=== PATIENT | male | born 1955 | race Caucasian/White ===

== ENCOUNTER 2021-03-28 08:06 | Emergency (ER) | payer OTHER, MEDICAID, SELFPAY ==
--- NOTE | ~2021-03-28 | XR_ITS ---
EXAMINATION: XR CHEST CLINICAL INFORMATION: Chest pain COMPARISON: Previous chest x-ray September 2018 TECHNIQUE: 2 views of the chest were obtained. FINDINGS: The cardiac and mediastinal contours are stable. There is calcification seen projecting over the cardiac apex on the lateral view that appears unchanged. There is a left subclavian dual chamber pacemaker that is unchanged. The lungs are well inflated. The lungs are clear. There is no pleural effusion or pneumothorax. There are degenerative changes of the spine. XR/XR chest 2V IMPRESSION: Well-inflated lungs questionable for COPD. No evidence for acute disease in the chest.
[2021-03-28 08:11] VITALS: BP 155/98; PULSE 97; RESP 18; TEMP 36.9; O2SAT 98; BMI 20.3
--- NOTE | 2021-03-28 09:03 | ECG_ITS ---
Test Reason : CP Blood Pressure : / mmHG Vent. Rate : 070 BPM Atrial Rate : 000 BPM P-R Int : 000 ms QRS Dur : 098 ms QT Int : 392 ms P-R-T Axes : 000 085 034 degrees QTc Int : 423 ms Atrial fibrillation with occasional ventricular-paced complexes Minimal voltage criteria for LVH, may be normal variant ( Noe product ) Abnormal ECG When compared with ECG of 28-OCT-2018 10:54, Electronic ventricular pacemaker has replaced Atrial fibrillation Referred By: Tameka Dennison Electronically Signed By:Richard Cespedes
[2021-03-28 09:33] LABS: MANUAL DIFF FLAG NO
[2021-03-28 09:36] LABS: Basophils Percent Auto 0.5 % (0-2); Eosinophils Absolute Auto 0.3 X10*3/uL (0.0-0.4); Hematocrit 41.9 % (42.0-52.0); Hemoglobin 13.5 g/dl (14.0-18.0); Imm Gran Abs Auto 0.02 X10*3/uL (0.00-0.03); Imm Gran Pct Auto 0.3 % (0.0-0.4); Lymphocytes Absolute Auto 0.8 X10*3/uL (1.2-4.9); Lymphocytes Percent Auto 12.8 % (20-40); Mean Corpuscular HGB Conc 32.2 g/dl (31.0-36.0); Mean Corpuscular Hemoglobin 29.9 pg (27.0-33.0); Mean Corpuscular Volume 92.7 fL (80.0-98.0); Mean Platelet Volume 9.6 fL (9.4-12.4); Monocytes Absolute Auto 0.6 X10*3/uL (0.1-1.2); Monocytes Percent Auto 9.9 % (2-11); Neutrophils Absolute Auto 4.7 x10*3/uL (2.0-8.3); Neutrophils Percent Auto 72.5 % (45-73); Platelet Count 182 X10*3/uL (160-400); Red Blood Count 4.52 X10*6/uL (4.60-5.80); Red Cell Distribution Width 13.5 % (11.0-16.0); White Blood Count 6.5 X10*3/uL (4.8-10.8)
[2021-03-28 09:50] LABS: Alanine Aminotransferase 22 U/L (0-40); Albumin Level 4.3 g/dL (3.5-5.0); Alkaline Phosphatase 78 U/L (39-117); Anion Gap 9 (12-20); Aspartate Amino Transferase 26 U/L (5-37); Bilirubin Total 0.7 mg/dL (0.0-1.0); Blood Urea Nitrogen 17 mg/dL (9-16); Calcium 9.7 mg/dL (8.4-10.2); Carbon Dioxide 31 mmol/L (22-29); Chloride 102 mmol/L (96-108); Creatinine Clr Calc Pharmacy 85.2; Estimated Glomerular Filt Rate > 60; Glucose Random 97 mg/dL (60-115); Potassium 3.7 mmol/L (3.3-5.1); Sodium 138 mmol/L (135-145); Total Protein 7.4 g/dL (6.5-8.0)
[2021-03-28 09:53] LABS: Troponin-I High Sensitivity 6.1 ng/L (<3.5-35.0)
--- NOTE | 2021-03-28 09:53 | ED.URI ---
HPI - URI/Sore Throat General Chief Complaint: Upper Respiratory Symptoms Stated Complaint: sinsus infection Time Seen by Provider: 03/28/21 08:37 Source: patient Mode of arrival: ambulatory Limitations: no limitations History of Present Illness HPI Narrative: 65-year-old male presents with months of stuffy nose, mild headache, and sinus pressure. Patient also endorses chest pain 8 hours ago for few seconds last night. Patient's past medical history of COPD, anxiety, hypertension, AFib, pacemaker, and coronary artery disease. No chest pain currently no nausea, shortness of breath, fever, palpitations, nausea, vomiting, or abdominal pain now. No other URI symptoms. Pt is vaccinated for Covid. Patient is distressed with his living situation, states he lives at [facility] on [facility], and the his room is very cold. States that the management got new central air, and that his room is 100 degrees and the hallways are very cold. States this makes it so he cannot sleep at night and make it so he has a stuffy nose. MD elicited complaint: sinus pain Pertinent past history: COPD Onset (ago): month(s) Consistency: constant Severity: moderate Able to tolerate fluids by mouth: Yes Exacerbating factors: other (cold room) Relieving factors: nothing Associated symptoms: headache and nasal congestion Treatments prior to arrival: none Related Data Home Medications Medication Instructions Recorded Confirmed metoprolol succinate 25 mg 25 mg PO DAILY 02/01/20 tablet,extended release 24 hr Previous Rx's Medication Instructions Recorded rivaroxaban 20 mg tablet (Xarelto) 20 mg PO QPM #90 tab 12/29/19 atorvastatin 80 mg tablet 80 mg PO DAILY #90 tab 06/10/20 fluticasone propionate 50 2 spray INTRANASAL DAILY 30 Days 06/27/20 mcg/actuation nasal #16 ml spray,suspension paroxetine HCl 30 mg tablet 30 mg PO DAILY #90 tab 06/27/20 fluticasone furoate 200 1 inh INHALATION Q24H #60 ea 07/24/20 mcg-vilanterol 25 mcg/dose inhalation powder (Breo Ellipta) lisinopril 2.5 mg tablet 2.5 mg PO DAILY 90 Days #90 tab 08/12/20 doxycycline hyclate 100 mg capsule 100 mg PO BID 10 Days #20 cap 03/28/21 Allergies Allergy/AdvReac Type Severity Reaction Status Date / Time codeine [CODEINE] Allergy Mild NAUSEA Verified 02/01/20 13:43 Penicillins [PENICILLINS] Allergy Unknown ANAPHYLAXIS Verified 02/01/20 13:43 Review of Systems Constitutional: Constitutional: Denies body ache(s), Denies chills, Reports difficulty sleeping, Reports fatigue, Denies fever(s), Reports headache(s) and Denies weakness Eyes: Eyes: Denies blurry vision and Denies diplopia ENT: Reports vertigo, Denies dizziness, Denies otalgia, Reports headache(s), Denies mouth pain, Reports nasal congestion, Reports post nasal drip, Reports sinus pain and Denies sore throat Cardiovascular: Cardiovascular: Reports chest pain (for a few seconds 3 am last night), Denies syncope, Denies leg edema, Denies lightheadedness, Denies Loss of Consciousness, Denies palpitations and Denies dyspnea Respiratory: Respiratory: Denies chest congestion, Denies cough and Denies dyspnea Gastrointestinal: Gastrointestinal: Denies abdominal pain, Denies hematochezia, Denies constipation, Denies diarrhea, Denies nausea and Denies vomiting Musculoskeletal: Musculoskeletal: Reports no additional musculoskeletal complaints Neurologic: Reports confusion, Reports vertigo, Denies dizziness, Denies syncope, Reports headache(s) and Denies weakness Psychiatric: Psychiatric: Reports anxiety and Reports confusion Endocrine: Endocrine: Reports fatigue and Denies palpitations PMF Past Medical History Medical History Anxiety and depression Atrial fibrillation COPD (chronic obstructive pulmonary disease) Coronary artery disease Esophageal dysmotility GERD (gastroesophageal reflux disease) Homeless Hypercholesterolemia Hypertension Tobacco abuse Surgical History History of angioplasty History of surgery History of surgery Family History Family History (Updated 02/01/20 @ 13:46 by ANTONIO Kelly) Father Myocardial infarction Mother Medical history unknown Sister No problems noted. Brother No problems noted. Son No problems noted. Social History Social History Advance Directives: No Advance Directives Information Provided: Yes Physical Exam Vital Signs: Vital Signs: Last Vital Signs Temp 98.4 F 03/28/21 08:11 Pulse 97 03/28/21 08:11 Resp 18 03/28/21 08:11 BP 155/98 H 03/28/21 08:11 Pulse Ox 98 03/28/21 08:11 BMI result Body Mass Index 20.3 Const: General: confusion Nutritional Appearance: well nourished Orientation/consciousness: confusion Limitations: no limitations HENMT: Head: Yes normal to inspection, Yes normocephalic and Yes atraumatic Ears: hearing grossly normal bilaterally, external ears normal, TM's normal bilaterally and EAC's normal General nose exam: Normal external nose present Face and sinus: Yes sinus tenderness Mouth: Normal oral and palatal mucosa present Throat: Yes postnasal drainage Eyes: Conjunctivae: conjunctivae normal Pupils: Equal, round and reactive pupils present EOM: EOMs intact bilaterally Neck: Neck: Yes full ROM, Yes no lymphadenopathy and Yes supple Resp: Effort & Inspection: normal respiratory effort and able to speak in complete sentences Auscultation: clear to auscultation bilaterally, no crackles, no rales, no rhonchi and no wheezes Cardio: Rate: regular rate Rhythm: regular rhythm Heart sounds: S1 normal heart sound present and S2 normal heart sound present GI: Inspection: Yes normal to inspection Palpation (GI): Soft to palpation, nontender, no guarding and not rigid Percussion: Yes normal to percussion Auscultation: normal bowel sounds Skin: General skin exam: no rashes or lesions noted Neuro: General: confusion Cranial nerves: Yes Equal, round and reactive pupils present Extrem: General: Yes normal to inspection and Yes full ROM Psych: Appearance: grossly normal Affect: normal affect Attitude: cooperative Thought process: Normal thought process present Course Course Course Narrative: 65-year-old male with months of sinus pain and pressure and mild headache presents for evaluation of nasal congestion and sinus pain. On review of systems, patient also endorses chest pain last night at 03:00 for few seconds. On exam, patient is tired-appearing, patient is tender over his maxillary sinuses. Patient has postnasal drip. EKG shows no acute ischemia, troponin is 6.1. Discussed with Dr Oneill if we should get repeat troponin, Dr Oneill said it was not indicated with chest for just a few seconds. Labs otherwise unremarkable. Counseled patient to return if he had return of chest pain, shortness of breath, palpitations, fevers, treated patient with doxycycline for sinus infection, counseled patient to follow-up with primary care provider. All questions were answered. Patient verbalized agreement and understanding of the plan. MDM - URI/Sore Throat Lab Data Attestation: I reviewed the patient's lab results. Result diagrams: 03/28/21 09:18 03/28/21 09:18 Labs: Lab Results 03/28/21 03/28/21 03/28/21 Range/Units 09:18 09:18 09:18 WBC 6.5 (4.8-10.8) X10*3/uL RBC 4.52 L (4.60-5.80) X10*6/uL Hgb 13.5 L (14.0-18.0) g/dl Hct 41.9 L (42.0-52.0) % MCV 92.7 (80.0-98.0) fL MCH 29.9 (27.0-33.0) pg MCHC 32.2 (31.0-36.0) g/dl RDW 13.5 (11.0-16.0) % Plt Count 182 (160-400) X10*3/uL MPV 9.6 (9.4-12.4) fL Immature Gran % (Auto) 0.3 (0.0-0.4) % Neut % (Auto) 72.5 (45-73) % Lymph % (Auto) 12.8 L (20-40) % [place] % (Auto) 9.9 (2-11) % Eos % (Auto) 4.0 (0-4) % Baso % (Auto) 0.5 (0-2) % Lymph # (Auto) 0.8 L (1.2-4.9) X10*3/uL [place] # (Auto) 0.6 (0.1-1.2) X10*3/uL Eos # (Auto) 0.3 (0.0-0.4) X10*3/uL Baso # (Auto) 0.0 (0.0-0.2) X10*3/uL Abs Immat Gran (auto) 0.02 (0.00-0.03) X10*3/uL Absolute Neuts (auto) 4.7 (2.0-8.3) x10*3/uL Absolute Nucleated RBC 0.000 (0.0-0.012) X10*3/uL Nucleated RBC % (auto) 0.0 (0.0-0.2) /100WBC Sodium 138 (135-145) mmol/L Potassium 3.7 (3.3-5.1) mmol/L Chloride 102 (96-108) mmol/L Carbon Dioxide 31 H (22-29) mmol/L Anion Gap 9 L (12-20) BUN 17 H (9-16) mg/dL Creatinine 0.74 (0.5-1.4) mg/dL Estim Creat Clear Calc 85.2 Estimated GFR > 60 Random Glucose 97 (60-115) mg/dL Calcium 9.7 (8.4-10.2) mg/dL Total Bilirubin 0.7 (0.0-1.0) mg/dL AST 26 (5-37) U/L ALT 22 (0-40) U/L Alkaline Phosphatase 78 (39-117) U/L Troponin I High Sens 6.1 (<3.5-35.0) ng/L Total Protein 7.4 (6.5-8.0) g/dL Albumin 4.3 (3.5-5.0) g/dL ECG Data Interpretation: Atrial fibrillation with a rate of 70. QRS 98, QTc 423, normal axis. Occasional V paced complexes. No ST elevation or depression, no T-wave abnormalities Discharge Plan Discharge Clinical Impression: Acute sinus infection Patient Disposition: Home, Self-Care Instructions: Sinusitis (ED) Additional Instructions: Please return to the emergency room if you have any more chest pain, shortness of breath, or palpitations. You have a sinus infection today, we will treat you with antibiotics for 10 days. This call your primary care provider for follow-up appointment from today's emergency room visit. Prescriptions: New doxycycline hyclate 100 mg capsule 100 mg PO BID 10 Days Qty: 20 0RF No Action Xarelto 20 mg tablet 20 mg PO QPM Qty: 90 3RF Rx Instructions: must administer with evening meal metoprolol succinate 25 mg tablet extended release 24 hr 25 mg PO DAILY 0RF atorvastatin 80 mg tablet 80 mg PO DAILY Qty: 90 1RF fluticasone propionate 50 mcg/actuation spray,suspension 2 spray intranasal DAILY 30 Days Qty: 16 3RF paroxetine HCl 30 mg tablet 30 mg PO DAILY Qty: 90 0RF Breo Ellipta 200-25 mcg/dose blister with device 1 inh inhalation Q24H Qty: 60 2RF lisinopril 2.5 mg tablet 2.5 mg PO DAILY 90 Days Qty: 90 0RF Interventions: ED Discharge Assessment Last Done: 03/28/21 10:05 Discharge Date/Time: 03/28/21 10:06
--- NOTE | 2021-03-28 09:56 | PC.NURSE ---
PT SPEAKING IN FULL SENTENCES, RAMBLING SPEECH AT TIMES, ANXIOUS, MOVING ALL EXTREMITIES, STEADY GAIT, NO DIFF BREATHING, NEUROS INTACT. PT DENIES CP AT THIS TIME BUT STATED LASTNIGHT HE FELT CP WHEN HE WAS TALKING TO NEIGHBORS ABOUT LACK OF HEAT IN HIS BUILDING UNIT.
== END 2021-03-28 10:06 | disposition home or self-care (01) ==
PROVIDERS: Physician Assistant; Emergency Provider Emergency Medicine Emergency Medical Services
DX: J01.90 Acute sinusitis, unspecified (principal); R07.9 Chest pain, unspecified; R53.83 Other fatigue; I48.91 Unspecified atrial fibrillation; I10 Essential (primary) hypertension; E78.00 Pure hypercholesterolemia, unspecified; F17.200 Nicotine dependence, unspecified, uncomplicated; Z72.89 Other problems related to lifestyle; Z59.1 Inadequate housing
CPT/HCPCS: 36415; 71046; 80053; 84484; 85025; 93005; 99283; 99284

== ENCOUNTER 2021-04-10 04:08 | Emergency (ER) | payer OTHER, MEDICAID, SELFPAY ==
--- NOTE | ~2021-04-10 | XR_ITS ---
EXAMINATION: XR CHEST CLINICAL INFORMATION: Cough COMPARISON: March 28, 2021 TECHNIQUE: AP portable view of the chest was obtained. FINDINGS: There is no evidence of acute parenchymal disease, pneumothorax, or pleural effusion. Heart normal size. No evidence of pulmonary edema. Dual-chamber pacemaker in place. XR/XR chest 1V IMPRESSION: No acute disease.
--- NOTE | 2021-04-10 05:52 | PC.NURSE ---
see downtime chart for triage info
[2021-04-10 06:42] LABS: MANUAL DIFF FLAG NO
[2021-04-10 06:45] LABS: Basophils Percent Auto 0.4 % (0-2); Eosinophils Absolute Auto 0.2 X10*3/uL (0.0-0.4); Hematocrit 40.4 % (42.0-52.0); Hemoglobin 13.6 g/dl (14.0-18.0); Imm Gran Abs Auto 0.02 X10*3/uL (0.00-0.03); Imm Gran Pct Auto 0.3 % (0.0-0.4); Lymphocytes Absolute Auto 1.2 X10*3/uL (1.2-4.9); Lymphocytes Percent Auto 16.9 % (20-40); Mean Corpuscular HGB Conc 33.7 g/dl (31.0-36.0); Mean Corpuscular Hemoglobin 30.4 pg (27.0-33.0); Mean Corpuscular Volume 90.4 fL (80.0-98.0); Mean Platelet Volume 9.6 fL (9.4-12.4); Monocytes Absolute Auto 0.7 X10*3/uL (0.1-1.2); Monocytes Percent Auto 10.2 % (2-11); Neutrophils Absolute Auto 4.8 x10*3/uL (2.0-8.3); Neutrophils Percent Auto 69.2 % (45-73); Platelet Count 186 X10*3/uL (160-400); Red Blood Count 4.47 X10*6/uL (4.60-5.80); Red Cell Distribution Width 13.2 % (11.0-16.0); White Blood Count 6.9 X10*3/uL (4.8-10.8)
[2021-04-10 07:04] LABS: Alanine Aminotransferase 15 U/L (0-40); Albumin Level 3.9 g/dL (3.5-5.0); Alkaline Phosphatase 71 U/L (39-117); Anion Gap 12 (12-20); Aspartate Amino Transferase 21 U/L (5-37); Bilirubin Total 0.8 mg/dL (0.0-1.0); Blood Urea Nitrogen 27 mg/dL (9-16); Calcium 9.8 mg/dL (8.4-10.2); Carbon Dioxide 27 mmol/L (22-29); Chloride 102 mmol/L (96-108); Estimated Glomerular Filt Rate > 60; Glucose Random 113 mg/dL (60-115); Potassium 4.1 mmol/L (3.3-5.1); Sodium 137 mmol/L (135-145); Total Protein 6.7 g/dL (6.5-8.0)
[2021-04-10 08:25] VITALS: BP 122/70; PULSE 68; RESP 18; O2SAT 98
--- NOTE | 2021-04-10 08:27 | PC.NURSE ---
Pt states he hasn't slept in weeks, it is because his appartment is too cold and he has no access to control the heat. Pt VSS, no complaints of pain. A&Ox3, LCA. States no one wants to help him and he needs to gabriel the apartment for his pain and suffering. Has dry cough present, no phlegm at this time. Awaiting dispo, call oliva within reach. Will continue to monitor.
--- NOTE | 2021-04-10 11:28 | ED_ITS ---
HPI - Anxiety General Chief Complaint: Anxiety Stated Complaint: anxiety Time Seen by Provider: 04/10/21 11:27 Related Data Home Medications Medication Instructions Recorded Confirmed metoprolol succinate 25 mg 25 mg PO DAILY 02/01/20 tablet,extended release 24 hr Previous Rx's Medication Instructions Recorded rivaroxaban 20 mg tablet (Xarelto) 20 mg PO QPM #90 tab 12/29/19 atorvastatin 80 mg tablet 80 mg PO DAILY #90 tab 06/10/20 fluticasone propionate 50 2 spray INTRANASAL DAILY 30 Days 06/27/20 mcg/actuation nasal #16 ml spray,suspension paroxetine HCl 30 mg tablet 30 mg PO DAILY #90 tab 06/27/20 fluticasone furoate 200 1 inh INHALATION Q24H #60 ea 07/24/20 mcg-vilanterol 25 mcg/dose inhalation powder (Breo Ellipta) lisinopril 2.5 mg tablet 2.5 mg PO DAILY 90 Days #90 tab 08/12/20 doxycycline hyclate 100 mg capsule 100 mg PO BID 10 Days #20 cap 03/28/21 Allergies Allergy/AdvReac Type Severity Reaction Status Date / Time codeine [CODEINE] Allergy Mild NAUSEA Verified 02/01/20 13:43 Penicillins [PENICILLINS] Allergy Unknown ANAPHYLAXIS Verified 02/01/20 13:43 [facility] Past Medical History Medical History Anxiety and depression Atrial fibrillation COPD (chronic obstructive pulmonary disease) Coronary artery disease Esophageal dysmotility GERD (gastroesophageal reflux disease) Homeless Hypercholesterolemia Hypertension Tobacco abuse Surgical History History of angioplasty History of surgery History of surgery Family History Family History (Updated 02/01/20 @ 13:46 by Tere Lee Luis Carlos) Father Myocardial infarction Mother Medical history unknown Sister No problems noted. Brother No problems noted. Son No problems noted. Social History Social History Alcohol intake: never Patient Tobacco Use Status: Current everyday Tobacco user Use of substances other than those prescribed or required for medical reasons: Yes Substance Use Type: Marijuana Advance Directives: No Advance Directives Information Provided: No Physical Exam Vital Signs: Vital Signs: Last Vital Signs Temp 97.8 F 04/10/21 12:00 Pulse 88 04/10/21 14:00 Resp 16 04/10/21 14:00 BP 100/72 04/10/21 14:00 Pulse Ox 97 04/10/21 14:00 BMI result Body Mass Index 20.3 Course Course Course Narrative: Please refer to full assessment/note that is on paper chart during down time. Patient presented for evaluation of increased anxiety due to difficulties with he at his home. Reported not able to sleep due to cold. Denied SI/HI/hallucinations. Patient is currently pending care team consult and Case Management consult. Labs reviewed, BUN acute on chronically elevated, otherwise unremarkable MDM - Anxiety Lab Data Result diagrams: 04/10/21 06:34 04/10/21 06:34 Labs: Lab Results 04/10/21 04/10/21 04/10/21 Range/Units 06:34 06:34 12:46 WBC 6.9 (4.8-10.8) X10*3/uL RBC 4.47 L (4.60-5.80) X10*6/uL Hgb 13.6 L (14.0-18.0) g/dl Hct 40.4 L (42.0-52.0) % MCV 90.4 (80.0-98.0) fL MCH 30.4 (27.0-33.0) pg MCHC 33.7 (31.0-36.0) g/dl RDW 13.2 (11.0-16.0) % Plt Count 186 (160-400) X10*3/uL MPV 9.6 (9.4-12.4) fL Immature Gran % (Auto) 0.3 (0.0-0.4) % Neut % (Auto) 69.2 (45-73) % Lymph % (Auto) 16.9 L (20-40) % [place] % (Auto) 10.2 (2-11) % Eos % (Auto) 3.0 (0-4) % Baso % (Auto) 0.4 (0-2) % Lymph # (Auto) 1.2 (1.2-4.9) X10*3/uL [place] # (Auto) 0.7 (0.1-1.2) X10*3/uL Eos # (Auto) 0.2 (0.0-0.4) X10*3/uL Baso # (Auto) 0.0 (0.0-0.2) X10*3/uL Abs Immat Gran (auto) 0.02 (0.00-0.03) X10*3/uL Absolute Neuts (auto) 4.8 (2.0-8.3) x10*3/uL Absolute Nucleated RBC 0.000 (0.0-0.012) X10*3/uL Nucleated RBC % (auto) 0.0 (0.0-0.2) /100WBC Sodium 137 (135-145) mmol/L Potassium 4.1 (3.3-5.1) mmol/L Chloride 102 (96-108) mmol/L Carbon Dioxide 27 (22-29) mmol/L Anion Gap 12 (12-20) BUN 27 H D (9-16) mg/dL Creatinine 0.72 (0.5-1.4) mg/dL Estim Creat Clear Calc TNP Estimated GFR > 60 Random Glucose 113 (60-115) mg/dL Calcium 9.8 (8.4-10.2) mg/dL Total Bilirubin 0.8 (0.0-1.0) mg/dL AST 21 (5-37) U/L ALT 15 (0-40) U/L Alkaline Phosphatase 71 (39-117) U/L Total Protein 6.7 (6.5-8.0) g/dL Albumin 3.9 (3.5-5.0) g/dL Urine Color YELLOW Urine Appearance CLEAR Urine pH 6.0 (5.0-8.0) Ur Specific [place] 1.025 (1.005-1.025) Urine Protein NEG (NEG-TRACE) MG/DL Urine Glucose (UA) NEG (NEG) MG/DL Urine Ketones NEG (NEG) MG/DL Urine Blood NEG (NEG) Urine Nitrite NEG (NEG) Ur Leukocyte Esterase NEG (NEG) Discharge Plan Discharge Clinical Impression: Acute anxiety Patient Disposition: Still a Patient Prescriptions: No Action Xarelto 20 mg tablet 20 mg PO QPM Qty: 90 3RF Rx Instructions: must administer with evening meal metoprolol succinate 25 mg tablet extended release 24 hr 25 mg PO DAILY 0RF atorvastatin 80 mg tablet 80 mg PO DAILY Qty: 90 1RF fluticasone propionate 50 mcg/actuation spray,suspension 2 spray intranasal DAILY 30 Days Qty: 16 3RF paroxetine HCl 30 mg tablet 30 mg PO DAILY Qty: 90 0RF Breo Ellipta 200-25 mcg/dose blister with device 1 inh inhalation Q24H Qty: 60 2RF lisinopril 2.5 mg tablet 2.5 mg PO DAILY 90 Days Qty: 90 0RF doxycycline hyclate 100 mg capsule 100 mg PO BID 10 Days Qty: 20 0RF
--- NOTE | 2021-04-10 11:42 | MHC.CM.ED ---
Received case management consult. Waiting for patient to be seen by Crisis. Continue to monitor for d/c needs.
[2021-04-10 12:00] VITALS: BP 111/76; BP 117/76; PULSE 63; RESP 18; TEMP 36.6; O2SAT 97
--- NOTE | 2021-04-10 12:04 | PC.NURSE ---
spoke with pt, a&ox3, decreased anxiety, pending meeting with crisis, urine sample obtained and sent to lab.
--- NOTE | 2021-04-10 12:23 | PC.NURSE ---
pt a&ox3, vss, increased congestion since arrival to ED, coughing up phlegm, provider notified.
[2021-04-10 12:56] LABS: Appearance Urine CLEAR; Color Urine YELLOW; Glucose Urine UA NEG (NEG); Leukocyte Esterase Urine NEG (NEG); Nitrite Urine NEG (NEG); Specific Gravity - Urine 1.025 (1.005-1.025); Urine Blood NEG (NEG); Urine Ketones NEG (NEG); Urine Protein NEG (NEG-TRACE)
--- NOTE | 2021-04-10 13:32 | PC.NURSE ---
spoke w provider re productive cough, will order chest rad, updated pt
[2021-04-10 13:33] VITALS: BMI 20.3
[2021-04-10 14:00] VITALS: BP 100/72; PULSE 88; RESP 16; O2SAT 97
--- NOTE | 2021-04-10 14:11 | PC.NURSE ---
cxr being performed
--- NOTE | 2021-04-10 14:23 | PC.NURSE ---
pt a&ox3, resting quietly, eating lunch/watching tv, chest rad results pending, vss, will continue to monitor.
[2021-04-10 17:53] LABS: COVID-19 Test Negative (Negative)
== END 2021-04-10 18:01 | disposition home or self-care (01) ==
PROVIDERS: Physician Assistant; Emergency Provider Emergency Medicine; PCP Internal Medicine
DX: F41.9 Anxiety disorder, unspecified (principal); Z72.820 Sleep deprivation; I10 Essential (primary) hypertension; I48.91 Unspecified atrial fibrillation; E78.5 Hyperlipidemia, unspecified; F17.200 Nicotine dependence, unspecified, uncomplicated; F12.90 Cannabis use, unspecified, uncomplicated; Z20.822 Contact with and (suspected) exposure to COVID-19; Z72.89 Other problems related to lifestyle; Z59.1 Inadequate housing; Z79.01 Long term (current) use of anticoagulants; Z79.02 Long term (current) use of antithrombotics/antiplatelets; Z79.899 Other long term (current) drug therapy
CPT/HCPCS: 36415; 71045; 80053; 81003; 85025; 87635; 99284; 99285

== ENCOUNTER 2021-04-11 11:15 | Emergency (ER) | payer OTHER, MEDICAID, SELFPAY ==
[2021-04-11 11:19] VITALS: BP 150/86; PULSE 80; RESP 20; TEMP 36.7; O2SAT 99; BMI 20.3
--- NOTE | 2021-04-11 11:30 | ED.GENADULT ---
HPI - General Adult General Chief complaint: General Medical Stated complaint: unable to function Time Seen by Provider: 04/11/21 11:29 Source: patient Mode of arrival: ambulatory Limitations: no limitations History of Present Illness HPI narrative: Patient is a 65 year old male presenting to the emergency department today stating that his heat is not working at home. Patient states that he was seen here yesterday for the same reason and that he is just frustrated his heat isn't working at home. Patient denies any dizziness, lightheadedness, abdominal pain, nausea, vomiting, fever, chills, blurry vision, double vision, loss of vision, chest pain, difficulty breathing, shortness of breath, back pain, night sweats, pain with urination, increased urinary frequency, increased urinary urgency, blood in his urine or stool, syncope or a near syncopal episode, recent trauma or falls, bowel incontinence, bladder incontinence, bowel retention, bladder retention, or any other complaints at this time. Relieving factors: none Exacerbating factors: none Related Data Home Medications Medication Instructions Recorded Confirmed metoprolol succinate 25 mg 25 mg PO DAILY 02/01/20 tablet,extended release 24 hr Previous Rx's Medication Instructions Recorded rivaroxaban 20 mg tablet (Xarelto) 20 mg PO QPM #90 tab 12/29/19 atorvastatin 80 mg tablet 80 mg PO DAILY #90 tab 06/10/20 fluticasone propionate 50 2 spray INTRANASAL DAILY 30 Days 06/27/20 mcg/actuation nasal #16 ml spray,suspension paroxetine HCl 30 mg tablet 30 mg PO DAILY #90 tab 06/27/20 fluticasone furoate 200 1 inh INHALATION Q24H #60 ea 07/24/20 mcg-vilanterol 25 mcg/dose inhalation powder (Breo Ellipta) lisinopril 2.5 mg tablet 2.5 mg PO DAILY 90 Days #90 tab 08/12/20 doxycycline hyclate 100 mg capsule 100 mg PO BID 10 Days #20 cap 03/28/21 Allergies Allergy/AdvReac Type Severity Reaction Status Date / Time codeine [CODEINE] Allergy Mild NAUSEA Verified 02/01/20 13:43 Penicillins [PENICILLINS] Allergy Unknown ANAPHYLAXIS Verified 02/01/20 13:43 Review of Systems Constitutional: Constitutional: Reports no additional constitutional complaints, Denies chills, Denies fever(s) and Denies night sweats Eyes: Eyes: Reports no additional eye complaints, Denies blurry vision, Denies change in vision, Denies diplopia, Denies eye discharge, Denies loss of vision and Denies eye pain ENT: Denies dizziness Cardiovascular: Cardiovascular: Reports no additional cardiovascular complaints, Denies chest pain, Denies lightheadedness, Denies Loss of Consciousness and Denies dyspnea Respiratory: Respiratory: Reports no additional respiratory complaints and Denies dyspnea Gastrointestinal: Gastrointestinal: Reports no additional gastrointestinal complaints, Denies abdominal pain, Denies melena, Denies hematochezia, Denies change in bowel habits and Denies change in stool character Genitourinary: Genitourinary: Reports no additional male genitourinary complaints, Denies hematuria, Denies oliguria, Denies difficulty urinating, Denies dysuria, Denies urinary frequency, Denies urinary hesitancy, Denies urinary incontinence and Denies urinary urgency Musculoskeletal: Musculoskeletal: Reports no additional musculoskeletal complaints, Denies numbness and Denies tingling Neurologic: Denies dizziness, Denies loss of vision, Denies numbness and Denies tingling Psychiatric: Psychiatric: Reports no additional psychiatric complaints Endocrine: Endocrine: Reports no additional endocrine complaints Hematologic/Lymphatic: Hematologic/Lymphatic: Reports no additional hematologic/lymphatic complaints Allergic/Immunologic: Allergic/Immunologic: Reports no additional allergic/immunologic complaints [facility] Past Medical History Attestation statement: The following information was validated with the patient. Source: old records reviewed Medical History Anxiety and depression Atrial fibrillation COPD (chronic obstructive pulmonary disease) Coronary artery disease Esophageal dysmotility GERD (gastroesophageal reflux disease) Homeless Hypercholesterolemia Hypertension Tobacco abuse Surgical History History of angioplasty History of surgery History of surgery Family History Family History Father Myocardial infarction Mother Medical history unknown Sister No problems noted. Brother No problems noted. Son No problems noted. Social History Social History Alcohol intake: never Patient Tobacco Use Status: Current everyday Tobacco user Substance Use Type: Marijuana Advance Directives: No Advance Directives Information Provided: Yes Physical Exam ED Vital Signs: Vital Signs - 24 hr 02/25/22 11:19 Temperature 98.0 F Pulse Rate 80 Respiratory Rate 20 Blood Pressure 150/86 H Pulse Oximetry 99 BMI result Body Mass Index 20.3 Const General: cooperative, no acute distress, alert and awake Nutritional Appearance: well nourished Orientation/consciousness: patient oriented x3 Limitations: no limitations HENMT Head: Yes normal to inspection and Yes atraumatic Ears: hearing grossly normal bilaterally and external ears normal General nose exam: Normal external nose present, no nasal discharge noted and no epistaxis Face and sinus: Yes normal facial exam, No abrasion and No laceration Mouth: Normal oral and palatal mucosa present, no drooling and no muffled voice Eyes General: appearance normal, both eyes and all related structures Periorbital: periorbital findings normal Eyelids: Yes eyelids normal Conjunctivae: conjunctivae normal Pupils: Equal, round and reactive pupils present EOM: EOMs intact bilaterally Neck Neck: Yes normal visual inspection, Yes full ROM and Yes no lymphadenopathy Chest Chest palpation & inspection: normal inspection of the chest Resp Effort & Inspection: normal respiratory effort and able to speak in complete sentences Auscultation: clear to auscultation bilaterally Cardio Rate: regular rate Rhythm: regular rhythm GI Inspection: Yes normal to inspection Neuro General: patient oriented x3 and moves all extremities Cranial nerves: Yes Equal, round and reactive pupils present Cognition (Neuro): normal cognition Motor exam (neuro): 5/5 motor strength present throughout Sensory Exam: Normal double simultaneous stimulation for sensation Coordination: [id number] test normal Extrem General: Yes normal to inspection, Yes full ROM and Yes capillary refill normal Psych Appearance: grossly normal Mental Status: mental status grossly normal Affect: normal affect Attitude: cooperative Thought process: Normal thought process present Thought content: Normal thought content present Insight: Good insight present (Psych) Medical Decision Making MDM Narrative Medical decision making narrative: Patient is a 65 year old male presenting to the emergency department today with no complaints and just needing somewhere warm to be. Patient's physical exam was unremarkable. I explained my physical exam findings to the patient. I answered all questions asked by the patient. I stressed the importance of the patient taking his medication as prescribed. I stressed the importance of the patient following up with his primary care provider. I stressed the importance of the patient returning to the emergency department immediately if he were to develop any dizziness, shortness of breath, difficulty breathing, chest pain, blurry vision, loss of vision, nausea, vomiting, abdominal pain, fever, chills, back pain, or any other complaints. Patient verbalized agreement and understanding with this treatment plan and discharge. Differential Diagnosis Differential Diagnosis: malingering, misuse of resources, cold exposure Medical Records Medical records reviewed: Yes I reviewed the patient's medical records. Discharge Plan Discharge Clinical Impression: General medical examination Patient Disposition: Home, Self-Care Instructions: Normal Exam (ED) Additional Instructions: Follow up with your primary care provider. Return to the emergency department immediately if your symptoms worsen or if you develop any dizziness, shortness of breath, difficulty breathing, chest pain, blurry vision, loss of vision, nausea, vomiting, abdominal pain, fever, chills, back pain, or any other complaints. Prescriptions: No Action Xarelto 20 mg tablet 20 mg PO QPM Qty: 90 3RF Rx Instructions: must administer with evening meal metoprolol succinate 25 mg tablet extended release 24 hr 25 mg PO DAILY 0RF atorvastatin 80 mg tablet 80 mg PO DAILY Qty: 90 1RF fluticasone propionate 50 mcg/actuation spray,suspension 2 spray intranasal DAILY 30 Days Qty: 16 3RF paroxetine HCl 30 mg tablet 30 mg PO DAILY Qty: 90 0RF Breo Ellipta 200-25 mcg/dose blister with device 1 inh inhalation Q24H Qty: 60 2RF lisinopril 2.5 mg tablet 2.5 mg PO DAILY 90 Days Qty: 90 0RF doxycycline hyclate 100 mg capsule 100 mg PO BID 10 Days Qty: 20 0RF Interventions: ED Discharge Assessment Last Done: 04/11/21 12:24 Discharge Date/Time: 04/11/21 12:24 Print Language: Samoan
--- NOTE | 2021-04-11 12:36 | MHC.CM.ED ---
Received notification from Cindy BARRAGAN that patient is stating he doesn't have heat in his apartment and his landlord won't return his telephone call. His apartment is part of [facility]. T/W left a message for marketing compliance manager Jose Luis via telephone at [phone] requesting return telephone call. Tanya ordered to transport patient home.
== END 2021-04-11 12:24 | disposition home or self-care (01) ==
PROVIDERS: Emergency Provider Emergency Medicine
DX: F43.9 Reaction to severe stress, unspecified (principal); F12.90 Cannabis use, unspecified, uncomplicated; Z71.6 Tobacco abuse counseling; Z79.899 Other long term (current) drug therapy
CPT/HCPCS: 99283

== ENCOUNTER → 2021-05-26 13:54 | Outpatient (BNVA) | payer OTHER, MEDICAID, SELFPAY | PROVIDERS: Visit Provider Internal Medicine | DX: Z45.018 Encounter for adjustment and management of other part of cardiac pacemaker (principal); I25.5 Ischemic cardiomyopathy; I25.10 Atherosclerotic heart disease of native coronary artery without angina pectoris; I48.19 Other persistent atrial fibrillation; I35.0 Nonrheumatic aortic (valve) stenosis | CPT/HCPCS: 99212 ==

== ENCOUNTER 2022-09-09 10:33 | Outpatient (AMB) | payer OTHER, MEDICAID, SELFPAY ==
[2022-09-09 10:35] VITALS: BP 104/80; PULSE 82
--- NOTE | 2022-09-09 10:35 | A.OFFVIS_ITS ---
Intake Vital Signs 09/09/22 10:35 Height 5 ft 7 in Weight 127 lb 13.89 oz BMI 20.0 BP 104/80 Blood Pressure Location Lt brachial Position Sitting Pulse 82 Intake Visit Reasons: over due follow up Intake Note: overdue follow up Network Technical Analyst Required: No Accompanied by: Self / Same As Patient Allergies codeine [CODEINE] Allergy (Mild, Verified 09/09/22 10:39) NAUSEA Penicillins [PENICILLINS] Allergy (Unknown, Verified 09/09/22 10:39) ANAPHYLAXIS Medication List - Last Reconciled 09/09/22 by Denis Campuzano MD atorvastatin 80 mg PO DAILY fluticasone furoate-vilanterol 200-25 mcg/dose (Breo Ellipta) 1 inh inhalation Q24H fluticasone propionate 50 mcg/actuation 2 sprays intranasal DAILY 30 days metoprolol succinate ER (Toprol XL) 25 mg PO DAILY paroxetine HCl 30 mg PO DAILY rivaroxaban (Xarelto) 20 mg PO QPM HPI HPI Comments History of Present Illness Details Taj returns for follow-up regarding various issues including coronary disease, atrial fibrillation, aortic stenosis and pacemaker. appoint ments are very regular and there are lot of social issues. He does not have any transport. Until a couple of weeks ago he did not have any phone line as well Making communication extremely difficult. Last year, it seems that he was hospitalized to [facility]. At that time, he had complained of feeling dizzy. However, he has had dizziness for a long time. Echocardiogram as well as cardiac catheterization were then performed and it seems that he was being worked up for TAVR but patient did not keep any appointments for follow-up. Since that time, no new complaints. Random dizziness, no specific patterns. No syncopal episodes. No other overt cardiac symptoms. States he does take his medications. [facility] Medical History Anxiety and depression Atrial fibrillation COPD (chronic obstructive pulmonary disease) Coronary artery disease Esophageal dysmotility GERD (gastroesophageal reflux disease) Homeless Hypercholesterolemia Hypertension Tobacco abuse Surgical History History of angioplasty History of surgery History of surgery Family History Father Myocardial infarction Mother Medical history unknown Sister No problems noted. Brother No problems noted. Son No problems noted. Social History (Updated 09/09/22 @ 10:40 by Annalisa Bernal) Alcohol intake: never Patient Tobacco Use Status: Current everyday Tobacco user Tobacco use type: Cigarette Cigarettes Per Day: 3 Substance Use Type: Marijuana Review of Systems Const Denies weakness ENT Denies dizziness Card Denies chest pain, Denies chest pain with activity, Denies syncope, Denies rapid heart rate, Denies pedal edema, Denies edema, Denies leg edema, Denies lightheadedness, Denies palpitations, Denies dyspnea, Denies dyspnea on exertion and Denies orthopnea Resp Denies cough, Denies dyspnea and Denies dyspnea on exertion GI Denies hematochezia and Denies change in stool character Musc Denies abnormal gait, Denies muscle cramps, Denies muscle weakness, Denies numbness, Denies radiating pain into limb and Denies tingling Neuro Denies abnormal gait, Denies dizziness, Denies syncope, Denies numbness, Denies tingling and Denies weakness Endo Denies palpitations Physical Exam Vital Signs: Last Vital Signs Pulse 82 09/09/22 10:35 BP 104/80 09/09/22 10:35 BMI result Body Mass Index 20.0 Const General: comfortable and no acute distress Orientation/consciousness: patient oriented x3 HEENT Other: Unremarkable Head: Yes normal to inspection Neck Neck: Yes normal visual inspection Chest Chest palpation & inspection: normal inspection of the chest Resp Auscultation: clear to auscultation bilaterally Cardio Palpation: normal PMI Heart sounds: S1 normal heart sound present, S2 normal heart sound present, no gallops, Murmur heart sound present systolic II/ and at the right sternal border and no rubs GI Palpation (GI): Soft to palpation Back/Spine/Pelvis Other: unremarkable Skin General skin exam: no rashes or lesions noted Neuro General: patient oriented x3 Extrem General: Yes normal to inspection Psych Mental Status: mental status grossly normal Office Procedures EKG Details: EKG today shows atrial fibrillation at a rate of 82/Min; nonspecific ST-T changes. [id number], Complete Assessment & Plan Assessment & Plan (1) Atherosclerotic cardiovascular disease: Code(s): I25.10 - Atherosclerotic heart disease of [place] coronary artery without angina pectoris Plan: Remote history of anterior wall myocardial infarction followed by angioplasty more than 20 years ago. No details available. In the cardiac catheterization from last year, [id number] nonobstructive CAD. Normal left and right-sided filling pressures as well. Clinically, no overt angina. Continue meds for stable CAD including beta- blockers and statins. (2) Persistent atrial fibrillation: Code(s): I48.19 - Other persistent atrial fibrillation Plan: Continue beta-blockers. Continue anticoagulation. In the echocardiogram, severely dilated left atrium. Due to poor follow-up, would not pursue rhythm control. (3) Non-rheumatic aortic stenosis: Code(s): I35.0 - Nonrheumatic aortic (valve) stenosis Plan: By echocardiogram last year, thought to have paradoxical low-flow, low gradient severe aortic stenosis. Subsequently, underwent cardiac catheterization where he was felt to have moderate to severe low-flow, low gradient aortic stenosis. [place], highly doubt if this is actually contributing to his symptoms as the dizziness is nonspecific and he has had that for a very long time. We can repeat the echocardiogram to reassess aortic stenosis as it has been quite some time.. (4) Pacemaker: Code(s): Z95.0 - Presence of cardiac pacemaker Plan: Due to lack of communication, not being remotely monitored. It seems that it was checked last year at [facility]. At that time, 3.5 years battery life and otherwise normal function. To be checked in office next visit. Plan Total time spent including review of all the [facility] records, counseling, documentation, coordination of care- 50 minutes. Orders: Orders CA echo transthoracic complete Today I35.0 - Nonrheumatic aortic (valve) stenosis Coding Level of Care Code Est Pt Level 5 (95116) Diagnoses Atherosclerotic cardiovascular disease I25.10 Persistent atrial fibrillation I48.19 Non-rheumatic aortic stenosis I35.0 Pacemaker Z95.0 CPT Codes EKG - CPT: 13170-[id number], Complete ([id number])
== END 2022-09-09 11:32 | disposition home or self-care (01) ==
PROVIDERS: Visit Provider Internal Medicine
DX: I25.10 Atherosclerotic heart disease of native coronary artery without angina pectoris (principal); I48.19 Other persistent atrial fibrillation; I35.0 Nonrheumatic aortic (valve) stenosis; Z95.0 Presence of cardiac pacemaker
CPT/HCPCS: 93010; 99215

== ENCOUNTER → 2022-09-09 10:33 | Outpatient (BNVA) | payer OTHER, SELFPAY | PROVIDERS: Visit Provider Internal Medicine | DX: I25.10 Atherosclerotic heart disease of native coronary artery without angina pectoris (principal); I48.19 Other persistent atrial fibrillation; I35.0 Nonrheumatic aortic (valve) stenosis; Z95.0 Presence of cardiac pacemaker | CPT/HCPCS: 93005; 99212 ==

== ENCOUNTER → 2023-01-26 13:31 | Outpatient (REF) | payer OTHER, MEDICAID, SELFPAY ==
--- NOTE | 2023-01-26 13:37 | CA_ITS ---
Transthoracic Echocardiogram Patient (Last, First, Middle): Taj Granger J Gender: Male Date of : 1955 Age: 67 Procedure Date: 01/26/2023 Procedure Type: Transthoracic Echocardiogram Location: OP Height: 170.18 cm Weight: 59.42 kg BSA: 1.69 m2 Heart Rate: bpm BP: 118 / 82 mmHg Electric Motor Assembler And Tester: TO Referring MD: Denis Campuzano MD Symptoms: I35.0 - Nonrheumatic aortic (valve) stenosis Study Quality: Fair ECG Rhythm: Sinus Conclusions: - The left ventricular systolic function is low normal. The visually estimated ejection fraction is between 50-55%. - The basal inferolateral segment is akinetic. The basal inferior segment is hypokinetic. - Suspect paradoxical low flow, low gradient, severe aortic stenosis. - There is mild dilatation of the ascending aorta measuring 4.40 cm and mild dilatation of the aortic arch measuring 4.10 cm. Findings Left Ventricle Normal left ventricular cavity size. The left ventricular systolic function is low normal. The visually estimated ejection fraction is between 50-55%. There is evidence of regional wall motion abnormalities. Diastolic function is indeterminate on the basis of available data. There is moderate septal asymmetric hypertrophy. Wall Motion Rest Echo Findings The basal inferior segment is hypokinetic. The basal inferolateral segment is akinetic. Right Ventricle Mildly increased right ventricular cavity size. There is moderately decreased right ventricular systolic function. Atria Moderate biatrial enlargement. Aortic Valve There is moderate calcification of the aortic valve. The peak aortic velocity is 2.99 m/s with a calculated peak gradient of 36 mmHg. The mean gradient is 23 mmHg. The aortic valve area is 0.65 cm2. Due to atrial fibrillation, variable gradients. Suspect paradoxical low flow, low gradient, severe aortic stenosis. Mitral Valve The mitral valve appears normal. There is trace mitral valve regurgitation. There is no mitral valve stenosis. Pulmonic Valve The pulmonic valve is likely normal. Tricuspid Valve Normal tricuspid valve structure. There is mild tricuspid valve regurgitation. There is no evidence of pulmonary hypertension. Great Vessels There is mild dilatation of the ascending aorta measuring 4.40 cm and mild dilatation of the aortic arch measuring 4.10 cm. Venous The inferior vena cava is mildly dilated and collapses greater than 50% with inspiration. Pericardium/Pleural There is no evidence of pericardial effusion. Prior Study Comparison Changes noted compared to prior study dated: 10/12/2018. Progression of aortic valve stenosis. Increase in ascending aortic size. See comments on all motion. Measurements 2D Linear Measurements IVSd: 1.54 0.6-0.9/0.6-1.0 cm LVIDd: 4.34 3.9-5.3/4.2-5.9 cm LVIDd Index: 2.57 2.4-3.2/2.2-3.1 cm/m2 LVIDs: 3.08 2.0-3.6 cm LVPWd: 0.93 0.7-1.1 cm LA Diam: 4.00 2.7-3.8/3.0-4.0 cm LAIDs Index: 2.37 1.5-2.3 cm/m2 LV Mass: 243.29 67-162/88-224 g LV Mass Index: 143.96 43-95/49-115 g/m2 LVOT Diam: 2.30 3.0+(-)1.3 cm 2D Systolic Function EF 4C: 44.90 >55% EF 2C: 58.60 >55% EF BiP: 52.10 >55% Mitral Valve MV Pk E: 0.49 MV Decel Time: 339.00 E'Lateral: 13.40 E'Medial: 9.14 E/E' Med: 5.40 E/E' Lat: 3.70 PHT: 99.00 MVA PHT: 2.22 Decel [place]: 1.45 Aortic Valve AoV Pk Jerry: 2.99 AoV Mn Jerry: 2.24 AoV VTI: 0.68 AoV Pk Grad: 36.00 Aov Mn Grad: 23.00 [place] Cont.VTI: 0.65 LVOT LVOT Pk Jerry: 0.47 LVOT Mn Jerry: 0.33 LVOT VTI: 0.11 LVOT Pk Grad: 1.00 LVOT Mn Grad: 1.00 LVOT Diam: 2.30 LVOT Area: 4.15 Diastolic Function MV Pk E: 0.49 E'Medial: 9.14 E/E' Med: 5.40 E' Laterial: 13.40 E/E' Lat: 3.70 Right Ventricle TAPSE (mm): 12.50 TVS' Jerry: 7.58 Tricuspid Valve TR Pk Jerry: 1.92 TR Pk Grad: 15.00 RA Press: 8.00 RVSP: 23.00 Great Vessels Aorta Sinus of Valsalva: 3.33 2.0-3.[address] [place]: 2.92 1.7-3.4 cm Ao Asc: 4.50 2.1-3.4 cm Ao Arch: 4.10 Updated in Other Vendor System with Status of Final Denis Campuzano MD electronically signed on 01/27/2023 1:28:28 PM with status of Final
== END ==
LOC: HO.CARD 13:31
PROVIDERS: PCP General Practice; Visit Provider Internal Medicine
DX: I35.0 Nonrheumatic aortic (valve) stenosis (principal)
CPT/HCPCS: 93306

== ENCOUNTER → 2023-01-26 13:37 | Outpatient (BNV) | payer OTHER, SELFPAY | PROVIDERS: PCP General Practice; Visit Provider Internal Medicine | DX: I35.0 Nonrheumatic aortic (valve) stenosis (principal) | CPT/HCPCS: 93306 ==

== ENCOUNTER 2023-02-22 20:56 | Emergency (ER) | payer OTHER, SELFPAY ==
--- NOTE | 2023-02-22 | ECG_ITS ---
Test Reason : DIZZY Blood Pressure : / mmHG Vent. Rate : 086 BPM Atrial Rate : 000 BPM P-R Int : 000 ms QRS Dur : 098 ms QT Int : 404 ms P-R-T Axes : 000 087 -04 degrees QTc Int : 483 ms Atrial fibrillation Abnormal QRS-T angle, consider primary T wave abnormality Prolonged QT Abnormal ECG When compared with ECG of 28-MAR-2021 09:17, ventricular-paced complexes not seen Referred By: Generic ED Physician Electronically Signed By:GABBIE MORALES MD
[2023-02-22 21:09] VITALS: BP 111/81; BP 128/88; PULSE 81; PULSE 98; RESP 16; TEMP 36.3; O2SAT 98; BMI 19.7
--- NOTE | 2023-02-22 23:40 | PC.NURSE ---
Pt has been in the waiting room, ambulating okay and not spitting up. Pt stepped outside to smoke a cigarette. Came back diaphoretic, vomiting, and so weak he couldn't walk. Pt was brought back to room 2, placed on equipment monitor phototypesetting. 20g IV in the left AC, labs drawn and sent. Pt denies drug or alcohol use.
[2023-02-22 23:41] LABS: Glucose, Whole Blood 102 mg/dL (60-115)
[2023-02-22 23:44] VITALS: BP 135/103; PULSE 110; RESP 25; TEMP 36.4; O2SAT 98
[2023-02-22 23:48] LABS: MANUAL DIFF FLAG NO
[2023-02-22 23:51] LABS: Basophils Absolute Auto 0.1 X10*3/uL (0.0-0.2); Basophils Percent Auto 0.4 % (0-2); Eosinophils Absolute Auto 0.1 X10*3/uL (0.0-0.4); Eosinophils Percent Auto 0.9 % (0-4); Hematocrit 45.5 % (42.0-52.0); Hemoglobin 14.8 g/dl (14.0-18.0); Imm Gran Abs Auto 0.06 X10*3/uL (0.00-0.03); Imm Gran Pct Auto 0.5 % (0.0-0.4); Lymphocytes Absolute Auto 3.9 X10*3/uL (1.2-4.9); Lymphocytes Percent Auto 32.7 % (20-40); Mean Corpuscular HGB Conc 32.5 g/dl (31.0-36.0); Mean Corpuscular Hemoglobin 28.8 pg (27.0-33.0); Mean Corpuscular Volume 88.7 fL (80.0-98.0); Mean Platelet Volume 10.5 fL (9.4-12.4); Monocytes Absolute Auto 1.1 X10*3/uL (0.1-1.2); Monocytes Percent Auto 9.2 % (2-11); Neutrophils Absolute Auto 6.7 x10*3/uL (2.0-8.3); Neutrophils Percent Auto 56.3 % (45-73); Platelet Count 164 X10*3/uL (160-400); Red Blood Count 5.13 X10*6/uL (4.60-5.80); Red Cell Distribution Width 13.9 % (11.0-16.0); White Blood Count 11.9 X10*3/uL (4.8-10.8)
--- OUTSIDE RECORDS SUMMARY | 2023-02-22 23:56 | XMS_ITS | Continuity of Care Document ---
Author Name Unknown Organization [facility] Address [address] [place] [id number]- Care Team Providers Care Retail Tire Sales Manager Name Role Phone Tani Rizzo MD Primary Care Physician Encounter [facility] Date(s): 11/14/21 - 12/25/21 [facility] [address] [place] [phone]- Attending Physician: Jana LOCK, Ashequmaricarmen Admitting Physician: Jana LOCK, Jes Referring Physician: Tani Rizzo MD Allergies, Adverse Reactions, Alerts Substance Reaction Severity Status codeine N+V - Nausea and vomiting Ac tive penicillins Active Immunizations Given and Recorded Vaccine Date Status Refusal Reason Pneumococcal Vaccine (oldterm) 1 12/20/07 Given influenza virus vaccine, inactivated 2 12/20/07 Gi yadiel 1Result Comment: 1540u exp 19 august 2008 2Result Comment: [id number] exp 14 august 2008 Medications acetaminophen 325 mg oral tablet 650 mg, By Mouth, Every 4 hours, PRN, Temperature Greater than 100.5, Refills 0, Maintenance, Pain , Mild, 11/14/21 12:18:00 EDT, Partial fill upon patient request if the prescription is for a schedule II opioid drug. Start Date: 11/14/21 Status: Ordered aspirin 81 mg oral delayed release tablet 81 mg, By Mouth, Daily, # 30 tablet, Refills 0, Tot. Refills 0, Maintenance, 11/14/21 12:18:00 EDT,Route to Pharmacy Electronically, [facility]/pharmacy #[id number], Partial fill upon patient request if the prescription is for a schedule II opioid drug., 171, cm,... Start Date: 11/14/21 Stop Date: 12/14/21 Status: Ordered Lipitor 80 mg oral tablet 1 tablet = 80 mg, By Mouth, Daily at bedtime, # 30 tablet, 11 Refills, Maintenance, 12/26/13 10:40:31, 1 tablet By Mouth Daily at bedtime,x30 days Start Date: 12/26/13 Stop Date: 12/21/14 Status: Ordered metoprolol 25 mg oral tablet, extended release 25 mg, 1, tablet, By Mouth, Daily, # 30 tablet, Refills 0, Maintenance, 11/08/21 17:05:00 EDT, Partial fill upon patient request if the prescription is for a schedule II opioid drug. Start Date: 11/08/21 Status: Ordered paroxetine 30 mg oral tablet 1 tablet = 30 mg, By Mouth, Daily, # 30 tablet, 1 Refills, Maintenance, 12/26/13 10:41:10, 1 tabletBy Mouth Daily,x30 days Start Date: 12/26/13 Stop Date: 02/24/14 Status: Ordered Xarelto 10 mg oral tablet 1 tablet = 10 mg, By Mouth, Daily, # 12 tablet, 0 Refills, Maintenance, 11/07/21 20:53:00 EDT, Tablet, Partial fill upon patient request if the prescription is for a schedule II opioid drug. Start Date: 11/07/21 Status: Ordered Xarelto 20 mg oral tablet 1 tablet = 20 mg, By Mouth, Daily at supper, # 30 tablet, 0 Refills, Maintenance, 11/13/21 10:07:00EDT, Tablet, Partial fill upon patient request if the prescription is for a schedule II opioid drug. Start Date: 11/13/21 Status: Ordered Problem List Condition Confirmation Course Effective Dates Status H ealth Status Informant Coronary artery disease (CAD) Confirmed Active Hyperlipidemia Confirmed Active Sick sinus syndrome Confirmed Active Underweight Confirmed Active Social History Social History Type Response Tobacco Use: 4 or less cigar ettes(less than 1/4 pack)/day in last 30 days. Interested in cessation: No. Sex Patient Care team information Care Team Personnel Name: Yamileth Hansen RN Position: S RN Member Role: Primary Care Nurse Name: Shaheen Grande RN Position: S RN Member Role: Primary Care Nurse Name: Tania Gibbs RN Position: S RN Member Role: Primary Care Nurse Name: Tani Rizzo MD Position: Reference Physician Member Role: PCP Address: Address: [address] [place] [id number] Name: Frida Mccartney RN Position: S RN Member Role: Primary Care Nurse Name: Brooke Orona RN Position: S RN Member Role: Primary Care Nurse Name: Natalie Schmitz LPN Position: [facility] RN Member Role: Primary Care Nurse Care Team Related Persons Name: NO ONE, PT STATES Name: JOYCELYN GRACIA Address: [address] [address]
--- OUTSIDE RECORDS SUMMARY | 2023-02-22 23:56 | XMS_ITS | Continuity of Care Document ---
Author Name Unknown Organization [facility] ter Address [address] [place] [phone]- Care Team Providers Care Time Cycle Operator Name Role Phone Tani Rizzo MD Primary Care Physician [phone] Encounter [facility] Date(s): 11/18/20 - 11/18/[address] [address]- Encounter Diagnosis COVID-19 virus infection(Final) - 11/18/20 Discharge Disposition: A-D/C Home Attending Physician: Alecia Nassar MD Admitting Physician: Alecia Nassar MD Referring Physician: Not on Staff, Referring MD Allergies, Adverse Reactions, Alerts Substance Reaction Severity Status codeine N+V - Nausea and vomiting Ac tive penicillins Active Immunizations Given and Recorded Vaccine Date Status Refusal Reason Pneumococcal Vaccine (oldterm) 1 12/20/07 Given influenza virus vaccine, inactivated 2 12/20/07 Gi yadiel 1Result Comment: [id number] exp 19 august 2008 2Result Comment: [id number] exp 14 august 2008 Medications Aspirin Tablet 81, mg, By Mouth, Daily, 0, 0, 12/19/07 19:08:21, Print JUANPABLO Number, [id number], Constant Indicator Start Date: 12/19/07 Status: Ordered Lipitor 80 mg oral tablet 1 tablet = 80 mg, By Mouth, Daily at bedtime, # 30 tablet, 11 Refills, Maintenance, 12/26/13 10:40:31, 1 tablet By Mouth Daily at bedtime,x30 days Start Date: 12/26/13 Stop Date: 12/21/14 Status: Ordered lisinopril 2.5 mg oral tablet 1 tablet = 2.5 mg, By Mouth, Daily, # 30 tablet, 11 Refills, Maintenance, 12/14/13 10:35:00, 1 tablet By Mouth Daily Start Date: 12/14/13 Status: Ordered paroxetine 30 mg oral tablet 1 tablet = 30 mg, By Mouth, Daily, # 30 tablet, 1 Refills, Maintenance, 12/26/13 10:41:10, 1 tabletBy Mouth Daily,x30 days Start Date: 12/26/13 Stop Date: 02/24/14 Status: Ordered Patient's Own Meds Daily, Maintenance, nose inhaler? patient is not sure about the medication name, 09/11/11 13:12:57 Start Date: 09/11/11 Status: Ordered Prilosec 20 mg oral enteric coated capsule 1 capsule, By Mouth, Daily, # 90 capsule, 0 Refills, Maintenance, EC Capsule Start Date: 07/27/10 Status: Ordered Spiriva = 18 mcg, Inhalation, Daily, 0 Refills, Maintenance Start Date: 10/18/12 Status: Ordered Problem List Condition Effective Dates Status Health Status Inform ant Coronary artery disease (CAD)(Confirmed) Active Hyperlipidemia(Confirmed) Active Sick sinus syndrome(Confirmed) Active Results Radiology Reports * Exam Date Time Procedure Performing Provider Status 11/18/20 5:31 PM Chest Portable Do , Wilian; Auth (Jer sood) Notes: (Chest Portable) Reason For Exam: Chest Pain;Other: RESULT: Chest Portable Chest Portable Hx of Present Illness: Pt sts I'm scared of being alone with Covid. I don't have any food or money, I don't have a way to get home . Pt sts known +covid 1 week ago; Reason: Other:; Chest Pain; Clinical Question(s): Other: COMPARISON: 10/15/2012 FINDINGS: LINES AND TUBES: Dual-lead left subclavian pacer/AICD wires are intact. LUNGS AND PLEURA: Scattered foci of linear atelectasis/scarring. No focal consolidation.. Normal pulmonary vascularity. No pleural effusion. No pneumothorax. HEART, MEDIASTINUM AND MELLO: Heart is normal in size. Normal upper mediastinal and hilar contour. BONES AND SOFT TISSUES: No acute abnormality. IMPRESSION: No focal consolidation. WSN: [id number] Ordering Physician: Carmelo Quintanilla Dictated By: Lio Barriga MD Dictated Date/Time: 11/18/20 5:47 pm Reviewed By: Lio Barriga MD Signed By: Lio Barriga MD Signed Date/Time: 11/18/20 5:47 pm Transcribed By: SURESH Transcribed Date/Time: 11/18/20 5:44 pm Vital Signs Most recent to oldest [Reference Range]: 1 2 Height 171 cm (11/18/20 10:12 PM) 171 cm (11/18/20 3:42 PM) Weight 58 kg (11/18/20 10:12 PM) 58 kg (11/18/20 3:42 PM) Oxygen Saturation [94-100 %] 99 % (11/18/20 10:00 PM) 98 % (11/18/20 3:41 PM) Pulse Rate [55-90 bpm] 72 bpm (11/18/20 10:00 PM) 73 bpm (11/18/20 3:41 PM) Blood Pressure [90-138/55-84 mm Hg] 116/ 74mm Hg (11/18/20 10:00 PM) 115/81mm Hg (11/18/20 3:41 PM) Respiratory Rate [16-30 br/min] 16 br/mi n (11/18/20 10:00 PM) 16 br/min (11/18/20 3:41 PM) Temperature [96.8-100.4 DegF] 99.3 DegF (11/18/20 3:41 PM) Mode of Delivery (Oxygen) Room air (11/18/20 10:00 PM) Room air (11/18/20 3:41 PM) Blood pressure sites Arm, right (11/18/20 10:00 PM) Arm, right (11/18/20 3:41 PM) Temperature Route Oral (11/18/20 3:41 PM) Dry Weight 58 kg (11/18/20 10:12 PM) 58 kg (11/18/20 3:42 PM) Weight Obtained Via Patient/family state d (11/18/20 3:42 PM) Dry Weight Obtained Via Patient/family s tated (11/18/20 3:42 PM)
--- OUTSIDE RECORDS SUMMARY | 2023-02-22 23:56 | XMS_ITS | Continuity of Care Document ---
Author Name Unknown Organization [facility] Address [address] [place] [phone]- Care Team Providers Care Credit Control Clerk Name Role Phone Tani Rizzo MD Primary Care Physician Encounter [facility] Date(s): 11/25/21 - 12/25/21 [facility] [address] [place] [id number]- [place] Allergies, Adverse Reactions, Alerts Substance Reaction Severity Status codeine N+V - Nausea and vomiting Ac tive penicillins Active Immunizations Given and Recorded Vaccine Date Status Refusal Reason Pneumococcal Vaccine (oldterm) 1 12/20/07 Given influenza virus vaccine, inactivated 2 12/20/07 Gi yadiel 1Result Comment: 1540u exp 19 august 2008 2Result Comment: [id number] exp 14 august 2008 Medications acetaminophen 325 [...] Maintenance, 11/14/21 12:18:00 EDT,Route to Pharmacy Electronically, [facility]/pharmacy #[id number], Partial fill upon patient request if the [...] Reference Physician Member Role: PCP Address: Address: [address] [place] [address]- Name: Frida Mccartney RN Position: S RN Member Role: Primary Care Nurse Name: Brooke Orona RN Position: S RN Member Role: Primary Care Nurse Name: Natalie Schmitz LPN Position: S RN Member Role: Primary Care Nurse Care Team Related Persons Name: NO ONE, PT STATES Name: JOYCELYN GRACIA Address: [address] [address]
--- OUTSIDE RECORDS SUMMARY | 2023-02-22 23:56 | XMS_ITS | Continuity of Care Document ---
Author Name Unknown Organization [facility] ter Address [address] [place] [address]- Care Team Providers Care Flight Deck Officer Name Role Phone Matthias LOCK, Tani Primary Care Physician [phone] Encounter [facility] [place] Date(s): 11/07/21 - 11/14/[address] [address] Discharge Disposition: A-D/C Home Attending Physician: Saba Khalil MD Admitting Physician: Brooke Cantu MD Referring Physician: Not on Staff, Referring MD Allergies, Adverse Reactions, Alerts Substance Reaction Severity Status codeine N+V - Nausea and vomiting Ac tive penicillins Active Immunizations Given and Recorded Vaccine Date Status Refusal Reason Pneumococcal Vaccine (oldterm) 1 12/20/07 Given influenza virus vaccine, inactivated 2 12/20/07 Gi yadiel 1Result Comment: 1540u exp 19 august 2008 2Result Comment: [id number] exp 14 august 2008 Medications acetaminophen 325 [...] Maintenance, 11/14/21 12:18:00 EDT,Route to Pharmacy Electronically, [facility]/pharmacy #[id number], Partial fill upon patient request if the [...] 12/21/14 Status: Ordered metoprolol 25 mg oral tablet 12.5 mg, Tablet, By Mouth, 11/14/21 9:00:00 EDT Start Date: 11/14/21 Stop Date: 11/14/21 Status: Completed metoprolol 25 mg oral tablet, extended release [...] Condition Confirmation Course Effective Dates Status H ealt Status Informant Coronary artery disease (CAD) Confirmed Active Hyperlipidemia Confirmed Active Sick sinus syndrome Confirmed Active Underweight Confirmed Active Results Radiology Reports * Exam Date Time Procedure Performing Provider Status 11/07/21 1:58 PM Chest 2 Views Frontal and Lat Jessica Cage; Almas (Verified) Notes: (Chest 2 Views Frontal and Lat) Reason For Exam: ppm problem;Other: RESULT: Chest 2 Views Frontal and Lat Chest 2 Views Frontal and Lat Hx of Present Illness: couple weeks pt has been concerned for pacemaker failure. states he feels dizzy weak with exertion. he has been unable to move around home or leave home r t dizziness weakness.no sob or chest pain.; Reason: Other:; ppm problem; Clinical Question(s): Other: COMPARISON: 11/18/2020 FINDINGS: LINES AND TUBES: Dual-lead left subclavian pacer, wires are intact. LUNGS AND PLEURA: Linear densities at the lung bases are similar to prior, likely reflecting scarring. Otherwise, thelungs are clear.. Normal pulmonary vascularity. No pleural effusion. No pneumothorax. HEART, MEDIASTINUM AND MELLO: Heart is normal in size for AP projection. Normal mediastinal and hilar contour. BONES AND SOFT TISSUES: No acute abnormality. IMPRESSION: No acute abnormality. WSN: [id number] Ordering Physician: Sher Wahl Dictated By: Rissa Murrieta MD Dictated Date/Time: 11/07/21 2:11 pm Reviewed By: Rissa Murrieta MD Signed By: Rissa Murrieta MD Signed Date/Time: 11/07/21 2:11 pm Transcribed By: SURESH Transcribed Date/Time: 11/07/21 2:10 pm Vital Signs Most recent to oldest [Reference Range]: 1 2 3 Height 171 cm (11/14/21 11:58 AM) 171 cm (11/14/21 7:48 AM) 171 cm (11/14/21 3:30 AM) Weight 53 kg (11/12/21 5:12 AM) 53 kg (11/07/21 9:59 PM) 53.0 kg (11/07/21 9:31 PM) Oxygen Saturation [94-100 %] 96 % (11/14/21 11:58 AM) 95 % (11/14/21 7:48 AM) 98 % (11/14/21 3:30 AM) Pulse Rate [55-90 bpm] 90 bpm (11/14/21 11:58 AM) 58 bpm (11/14/21 8:40 AM) 58 bpm (11/14/21 7:48 AM) Body Mass Index [18.5-24.99 kg/m2] 18.13 kg/m2 *L* (11/07/21 9:59 PM) Blood Pressure [90-138/55-84 mm Hg] 96/75mm Hg (11/14/21 11:58 AM) 106/72mm Hg (11/14/21 8:40 AM) 106/72mm Hg (11/14/21 7:48 AM) Respiratory Rate [16-30 br/min] 17 br/min (11/14/21 11:58 AM) 17 br/min (11/14/21 7:48 AM) 18 br/min (11/14/21 7:00 AM) Temperature [96.8-100.4 DegF] 97.8 DegF (11/14/21 11:58 AM) 97.6 DegF (11/14/21 7:48 AM) 97.4 DegF (11/14/21 3:30 AM) Mode of Delivery (Oxygen) Room air (11/14/21 11:58 AM) Room air (11/14/21 7:48 AM) Room air (11/14/21 3:30 AM) Blood pressure sites Arm, left (11/14/21 11:58 AM) Arm, left (11/14/21 7:48 AM) Arm, left (11/14/21 3:30 AM) Temperature Route Oral (11/14/21 11:58 AM) Oral (11/14/21 7:48 AM) Oral (11/14/21 3:30 AM) Dry Weight 53 kg (11/07/21 9:59 PM) Weight Obtained Via Bed scale (11/07/21 9:31 PM) Social History Social History Type Response Tobacco Use: 4 or less cigar ettes(less than 1/4 pack)/day in last 30 days. Interested in cessation: No. Sex Note * BHSPowerscribe , CIS S: TRANSCRIRIAN Murrieta MD, Rissa N: VERIFY Event Display: Result: Authored Date: Chest 2 Views Frontal and Lat Hx of Present Illness: couple weeks pt has been concerned for pacemaker failure. states he feels dizzy weak with exertion. he has been unable to move around home or leave home r t dizziness weakness.no sob or chest pain.; Reason: Other:; ppm problem; Clinical Question(s): Other: COMPARISON: 11/18/2020 FINDINGS: LINES AND TUBES: Dual-lead left subclavian pacer, wires are intact. LUNGS AND PLEURA: Linear densities at the lung bases are similar to prior, likely reflecting scarring. Otherwise, thelungs are clear.. Normal pulmonary vascularity. No pleural effusion. No pneumothorax. HEART, MEDIASTINUM AND MELLO: Heart is normal in size for AP projection. Normal mediastinal and hilar contour. BONES AND SOFT TISSUES: No acute abnormality. IMPRESSION: No acute abnormality. WSN: [id number] Ordering Physician: Sher Wahl Dictated By: Rissa Murrieta MD Dictated Date/Time: 11/07/21 2:11 pm Reviewed By: Rissa Murrieta MD Signed By: Rissa Murrieta MD Signed Date/Time: 11/07/21 2:11 pm Transcribed By: SURESH Transcribed Date/Time: 11/07/21 2:10 pm Patient Care team information Personnel Name: Tani Rizzo MD Address: Address: [address] [place] [id number]
--- OUTSIDE RECORDS SUMMARY | 2023-02-22 23:56 | XMS_ITS | Continuity of Care Document ---
Author Name Unknown Organization [facility] Address [address] [place] [id number]- Care Team Providers Care Rolling Mill Operator Helper Name Role Phone Tani Rizzo MD Primary Care Physician [place] [facility]s): 11/25/21 - 12/25/21 [facility] [address] [place] [id number]- Attending Physician: Lenin Huddleston Admitting Physician: Lenin Huddleston Referring Physician: AdmtrLenin Allergies, Adverse Reactions, Alerts Substance Reaction Severity Status codeine N+V - Nausea and vomiting Ac tive penicillins Active Immunizations Given and Recorded Vaccine Date Status Refusal Reason Pneumococcal Vaccine (oldterm) 1 12/20/07 Given influenza virus vaccine, inactivated 2 12/20/07 Gi yadiel 1Result Comment: 1540u exp 19 august 2008 2Result Comment: [id number] exp 14 august 2008 Medications acetaminophen 325 [...] Maintenance, 11/14/21 12:18:00 EDT,Route to Pharmacy Electronically, [facility]/pharmacy #[id number], Partial fill upon patient request if the [...] Care Nurse Name: Shaheen Grande RN Position: [facility] RN Member Role: Primary Care Nurse Name: Tania Gibbs RN Position: [facility] RN Member Role: Primary Care Nurse Name: Tani Rizzo MD Position: Reference Physician Member Role: PCP Address: Address: [address] [place] [address] Name: Frida Mccartney RN Position: S RN Member Role: Primary Care Nurse Name: Brooke Orona RN Position: S RN Member Role: Primary Care Nurse Name: Natalie Schmitz LPN Position: S RN Member Role: Primary Care Nurse Care Team Related Persons Name: NO ONE, PT STATES Name: JOYCELYN GRACIA Address: [address] [address]
--- OUTSIDE RECORDS SUMMARY | 2023-02-22 23:56 | XMS_ITS | Continuity of Care Document ---
Author Name Unknown Organization [facility] ter Address [address] [place] [id number]- Care Team Providers Care Laboratory Manager Name Role Phone Yumi Alarcon MD Primary Care Physician [place] [facility] [place]07[place]22 - 11/07/[address] [address]- Encounter Diagnosis COPD exacerbation(Final) - 11/07/22 Discharge Disposition: A-D/C Home Attending Physician: Lillie Chowdhury MD Admitting Physician: Lillie Chowdhury MD Referring Physician: Not on Staff, Referring MD Allergies, Adverse Reactions, Alerts Substance Reaction Severity Status codeine N+V - Nausea and vomiting Ac tive penicillins Active Immunizations Given and Recorded Vaccine Date Status Refusal Reason Pneumococcal Vaccine (oldterm) 1 12/20/07 Given influenza virus vaccine, inactivated 2 12/20/07 Gi yadiel 1Result Comment: [id number] exp 19 august 2008 2Result Comment: [id number] exp 14 august 2008 Medications acetaminophen 325 mg oral tablet 650 mg, By Mouth, Every 4 hours, PRN, Temperature Greater than 100.5, Refills 0, Maintenance, Pain , Mild, 11/14/21 12:18:00 EDT, Partial fill upon patient request if the prescription is for a schedule II opioid drug. Start Date: 11/14/21 Status: Ordered Albuterol (Eqv-Proventil HFA) 90 mcg/inh inhalation aerosol 2 puffs, Inhalation, Every 6 hours, # 6.7 Gm, 0 Refills, Maintenance, 11/07/22 15:30:00 EDT, [facility], Partial fill upon patient request if the prescription is for a schedule II opioid drug., 171, cm, 11/14/21 11:58:00 EDT, Height, 53,... Start Date: 11/07/22 Status: Ordered aspirin 81 mg oral delayed release tablet 81 mg, By Mouth, Daily, # 30 tablet, Refills 0, Tot. Refills 0, Maintenance, 11/14/21 12:18:00 EDT,Route to Pharmacy Electronically, [facility]/pharmacy #[id number], Partial fill upon patient request if the prescription is for a schedule II opioid drug., 171, cm,... Start Date: 11/14/21 Stop Date: 12/14/21 Status: Ordered azithromycin 500 mg oral tablet 1 tablet = 500 mg, By Mouth, Daily, # 4 tablet, 0 Refills, Acute 11/11/22 23:59:00 EDT, 11/07/22 15:30:00 EDT, Tablet, [facility], Partial fill upon patient request if the prescription is for a schedule II opioid drug., 171, cm, 11/14/21... Start Date: 11/07/22 Stop Date: 11/11/22 Status: Ordered Breo Ellipta 200 mcg-25 mcg/inh inhalation powder 1 puffs, Inhalation, Daily, # 30 each, 3 Refills, Maintenance, 11/07/22 15:31:00 EDT, Powder, [facility], Partial fill upon patient request if the prescription is for a schedule II opioid drug., 1 puffs Inhalation Daily, 171, cm, ... Start Date: 11/07/22 Status: Ordered Lipitor 80 mg oral tablet [...] Date: 12/26/13 Stop Date: 02/24/14 Status: Ordered predniSONE 20 mg oral tablet 2 tablet = 40 mg, By Mouth, Daily, # 4 tablet, 0 Refills, Acute 11/11/22 23:59:00 EDT, 11/07/22 15:30:00 EDT, Tablet, [facility], Partial fill upon patient request if the prescription is for a schedule II opioid drug., 171, cm, 11/14/21... Start Date: 11/07/22 Stop Date: 11/11/22 Status: Ordered Xarelto 10 mg oral tablet [...] Exam Date Time Procedure Performing Provider Status 11/07/22 10:25 AM Chest Portable Orlin , Flaquita; Auth ( Verified) Notes: (Chest Portable) Reason For Exam: Shortness of Breath RESULT: Chest Portable Chest Portable Hx of Present Illness: patient came in with producive cough since 3 days,spitting clear sputum; COMPARISON: 11/07/2021 FINDINGS: LINES AND TUBES: Dual-lead left subclavian pacer/AICD wires are intact. LUNGS AND PLEURA: Clear lungs. Normal pulmonary vascularity. No pleural effusion. No pneumothorax. HEART, MEDIASTINUM AND MELLO: Heart is normal in size. Normal mediastinal and hilar contour. BONES AND SOFT TISSUES: No acute abnormality. IMPRESSION: No acute abnormality. WSN: [id number] Ordering Physician: Ollie Alberto Dictated By: Robbi Noe MD Dictated Date/Time: 11/07/22 11:31 a Reviewed By: Robbi Noe MD Signed By: Robbi Noe MD Signed Date/Time: 11/07/22 11:31 am Transcribed By: SURESH Transcribed Date/Time: 11/07/22 11:30 am Vital Signs Most recent to oldest [Reference Range]: 1 2 3 Oxygen Saturation [94-100 %] 96 % (11/07/22 4:00 PM) 96 % (11/07/22 2:21 PM) 99 % (11/07/22 1:23 PM) Pulse Rate [55-90 bpm] 81 bpm (11/07/22 4:00 PM) 91 bpm *H* (11/07/22 2:21 PM) 76 bpm (11/07/22 1:23 PM) Blood Pressure [90-138/55-84 mm Hg] 124/84mm Hg (11/07/22 4:00 PM) 133/91mm Hg (11/07/22 2:21 PM) 133/91mm Hg (11/07/22 1:23 PM) Respiratory Rate [16-30 br/min] 20 br/min (11/07/22 4:00 PM) 18 br/min (11/07/22 2:21 PM) 17 br/min (11/07/22 1:23 PM) Temperature [96.8-100.4 DegF] 98.8 DegF (11/07/22 2:21 PM) 98.3 DegF (11/07/22 8:42 AM) Mode of Delivery (Oxygen) Room air (11/07/22 4:00 PM) Room air (11/07/22 2:21 PM) Room air (11/07/22 1:23 PM) Blood pressure sites Arm, right (11/07/22 4:00 PM) Arm, right (11/07/22 2:21 PM) Arm, left (11/07/22 1:23 PM) Temperature Route Oral (11/07/22 8:42 AM) Social History Social History Type Response Tobacco Use: 4 or less cigar ettes(less than 1/4 pack)/day in last 30 days. Interested in cessation: No. Sex EKG study * Event Display: ECG 12-Lead Authored Date: [id number] Please click on pdf link to open report * Event Display: ECG 12-Lead Authored Date: Ventricular Rate: 78 BPM QRS Duration: 94 ms Q-T Interval: 398 ms QTC Calculation(Bazett): 453 ms R Ulman: 90 degrees T Ulman: 51 degrees Atrial fibrillation Lateral infarct , age undetermined Abnormal ECG When compared with ECG of 07-NOV-2021 13:22, Atrial fibrillation has replaced Electronic ventricular pacemaker Confirmed by AMINAH MCKEON MD ([id number]) on 11/07/2022 10:22:20 AM [place]: AMINAH MCKEON MD Patient Care team information Care Team Personnel Name: Yamileth Hansen RN Position: [facility] RN Member Role: Primary Care Nurse Name: Tania Gibsb RN Position: [facility] RN Member Role: Primary Care Nurse Name: Yumi Alarcon MD Position: [facility] Physician - Primary Care Member Role: PCP Address: Address: [address] [place] [address], [address] [place] [address] Name: Frida Mccartney RN Position: [facility] RN Member Role: Primary Care Nurse Name: Brooke Orona RN Position: [facility] RN Member Role: Primary Care Nurse Name: Natalie Schmitz LPN Position: [facility] RN Member Role: Primary Care Nurse Name: Lillie Chowdhury MD Position: [facility] ED Medicine MD Member Role: Admitting Physician Address: Address: [address] [place] [address] Name: Ollie Alberto MD Position: [facility] Resident Member Role: Resident Address: Address: [address] [facility] [place] [facility] [address] Name: Mirta Dotson Position: [facility] ED RN W/OE and Tasks Member Role: Patient Care Provider Name: Faith Lezama Position: [facility] ED TA [facility] Member Role: Patient Care Provider Care Team Related Persons Name: NO ONE, PT STATES Name: JOYCELYN GRACIA Address: [address] [address]
[2023-02-23 00:05] LABS: Alanine Aminotransferase 21 U/L (0-40); Albumin Level 4.7 g/dL (3.5-5.0); Alkaline Phosphatase 83 U/L (39-117); Anion Gap 18 (12-20); Aspartate Amino Transferase 28 U/L (5-37); Bilirubin Total 1.6 mg/dL (0.0-1.0); Blood Urea Nitrogen 21 mg/dL (9-16); Calcium 9.9 mg/dL (8.4-10.2); Carbon Dioxide 22 mmol/L (22-29); Chloride 106 mmol/L (96-108); Creatinine Clr Calc Pharmacy 69.7; Estimated Glomerular Filt Rate > 60; Glucose Random 103 mg/dL (60-115); Potassium 3.8 mmol/L (3.3-5.1); Sodium 142 mmol/L (135-145)
[2023-02-23 00:11] LABS: Troponin-I High Sensitivity 7.1 ng/L (<3.5-35.0)
[2023-02-23 00:28] LABS: Influenza A PCR NEGATIVE (Negative); Influenza B PCR NEGATIVE (Negative); Resp Syncy Virus RNA Qual PCR NEGATIVE (Negative); SARS COV2 PCR INHOUSE NEGATIVE (Negative)
[2023-02-23 02:10] VITALS: BP 132/84; PULSE 92; RESP 16; TEMP 36.6; O2SAT 96
--- NOTE | 2023-02-23 02:20 | ED.GENADULT ---
HPI - General Adult General Chief complaint: General Medical Stated complaint: pt is homeless, complaining of neck pain, per ems Time Seen by Provider: 02/22/23 23:45 History of Present Illness HPI narrative: Patient is an unfortunate 67-year-old male with a history of having a pacemaker. History of ACS history of ischemic cardiomyopathy. History of atrial fibrillation. History of being on Xarelto. Presented today after losing his apartment. Patient was at the gas station. Requested for help both finding of place. Patient complained that he has had neck pain for a long period time because his apartment did not have a nice bed. He did not have any focal weakness. Claims that now that he lost his apartment the neck pain is worse. The pain is on left side. There is no spinal pain. There is no focal weakness in the arms or legs. Patient claims compliance with his medication. Related Data Previous Rx's Medication Instructions Recorded rivaroxaban 20 mg tablet (Xarelto) 20 mg PO QPM #90 tabs 12/29/19 atorvastatin 80 mg tablet 80 mg PO DAILY #90 tabs 06/10/20 fluticasone propionate 50 2 spray intranasal DAILY 30 days 06/27/20 mcg/actuation nasal #16 mL spray,suspension paroxetine HCl 30 mg tablet 30 mg PO DAILY #90 tabs 06/27/20 fluticasone furoate 200 1 inh inhalation Q24H #60 ea 07/24/20 mcg-vilanterol 25 mcg/dose inhalation powder (Breo Ellipta) metoprolol succinate 25 mg 25 mg PO DAILY #90 tabs 08/17/22 tablet,extended release 24 hr (Toprol XL) Allergies Allergy/AdvReac Type Severity Reaction Status Date / Time codeine [CODEINE] Allergy Mild NAUSEA Verified 02/22/23 21:09 Penicillins [PENICILLINS] Allergy Unknown ANAPHYLAXIS Verified 02/22/23 21:09 Review of Systems Review of Systems: No fever no chills no chest pain or shortness of breath no focal weakness. No headache Yes all other systems are reviewed and are negative PMFSH Past Medical History Onset Date is defined in the Problem List Problems that require an onset date and time if occurred within 24 hrs of arrival to the ED Aortic Dissection and Rupture; Neurologic impairment; Cardiopulmonary Arrest; Endotracheal Intubation; Insertion or Replacement of Mechanical Circulatory Assist Device Medical History Homeless Atrial fibrillation Hypercholesterolemia Esophageal dysmotility Tobacco abuse COPD (chronic obstructive pulmonary disease) GERD (gastroesophageal reflux disease) Anxiety and depression Hypertension Coronary artery disease Surgical History History of surgery History of surgery History of angioplasty Family History Family History Father Myocardial infarction Mother Medical history unknown Sister No problems noted. Brother No problems noted. Son No problems noted. Social History Social History (Updated 09/09/22 @ 10:40 by Annalisa Bernal) Alcohol intake: never Patient Tobacco Use Status: Current everyday Tobacco user Tobacco use type: Cigarette Cigarettes Per Day: 3 Smoked in Last 30 Days: No Use of substances other than those prescribed or required for medical reasons: Yes Substance Use Type: Marijuana Substance Use Frequency: Occasionally Advance Directives: No Advance Directives Information Provided: Yes Physical Exam ED Vital Signs: Vital Signs - 24 hr 02/22/23 21:09 02/22/23 23:44 02/23/23 02:10 Temperature 97.4 F 97.5 F 98 F Pulse Rate 81 110 H 92 Respiratory Rate 16 25 H 16 Blood Pressure 111/81 135/103 H 132/84 Pulse Oximetry 98 98 96 Oxygen Delivery Method Room Air Room Air Room Air BMI result Body Mass Index 19.7 Appearance: Alert. Oriented X3. No acute distress. Eyes: Pupils equal, round and reactive to light. ENT: Pharynx normal. Neck: Normal inspection. Neck supple. No lymph nodes noted. No crepitus CVS: Normal heart rate and rhythm. Pulses normal. Normal S1 and S2 Respiratory: No respiratory distress. Breath sounds normal. No Wheezing. No rales Abdomen: Soft and nontender. No rigidity. No distention. good BS x4 Skin: Skin warm and dry. Normal skin color. Normal skin turgor. Extremities: No lower extremity edema. Neurovascular intact to all extremities. No Lacerations. No Rash Neuro: Oriented X 3. No motor deficit. No sensory deficit. Moving all extermities. No slurred speech Medical Decision Making Medical Decision Making MDM Narrative: My interpretation patient's EKG showed an atrial fibrillation pattern heart rate is approximately 90 QRS QTC is normal there is no acute ST segment elevation. Patient's hemoglobin is 15 no evidence for anemia patient's electrolytes are normal his flu RSV COVID all negative. His urine showed no signs of infection. Explained to patient he could stay in the waiting room till the sun comes up. Patient states that he has custodial plan for the day. He is being discharged in stable condition. Explained to patient he may use Tylenol for the neck pain. Doubt he has cauda equina or any cord compression. Patient's symptoms not consistent with having meningitis. He is in stable condition. Differential Diagnosis Differential Diagnoses: The differential diagnosis associated with the presentation includes Neck pain, hypertension, atrial fibrillation Admission/Observation Consideration of admission/observation: Escalation of care including admission/observation considered No need for admission Lab Data MDM Lab Attestation statement: I reviewed the patient's lab results. 02/22/23 23:42 02/22/23 23:42 Labs: Lab Results 02/22/23 02/22/23 02/22/23 Range/Units 23:35 23:42 23:46 WBC 11.9 H (4.8-10.8) X10*3/uL RBC 5.13 (4.60-5.80) X10*6/uL Hgb 14.8 (14.0-18.0) g/dl Hct 45.5 (42.0-52.0) % MCV 88.7 (80.0-98.0) fL MCH 28.8 (27.0-33.0) pg MCHC 32.5 (31.0-36.0) g/dl RDW 13.9 (11.0-16.0) % Plt Count 164 (160-400) X10*3/uL MPV 10.5 (9.4-12.4) fL Immature Gran % (Auto) 0.5 H (0.0-0.4) % Neut % (Auto) 56.3 (45-73) % Lymph % (Auto) 32.7 (20-40) % [place] % (Auto) 9.2 (2-11) % Eos % (Auto) 0.9 (0-4) % Baso % (Auto) 0.4 (0-2) % Lymph # (Auto) 3.9 (1.2-4.9) X10*3/uL [place] # (Auto) 1.1 (0.1-1.2) X10*3/uL Eos # (Auto) 0.1 (0.0-0.4) X10*3/uL Baso # (Auto) 0.1 (0.0-0.2) X10*3/uL Abs Immat Gran (auto) 0.06 H (0.00-0.03) X10*3/uL Absolute Neuts (auto) 6.7 (2.0-8.3) x10*3/uL Absolute Nucleated RBC 0.000 (0.0-0.012) X10*3/uL Nucleated RBC % (auto) 0.0 (0.0-0.2) /100WBC Sodium 142 (135-145) mmol/L Potassium 3.8 (3.3-5.1) mmol/L Chloride 106 (96-108) mmol/L Carbon Dioxide 22 (22-29) mmol/L Anion Gap 18 (12-20) BUN 21 H (9-16) mg/dL Creatinine 0.88 (0.5-1.4) mg/dL Estim Creat Clear Calc 69.7 Estimated GFR > 60 POC Glucose 102 (60-115) mg/dL Random Glucose 103 (60-115) mg/dL Calcium 9.9 (8.4-10.2) mg/dL Total Bilirubin 1.6 H (0.0-1.0) mg/dL AST 28 (5-37) U/L ALT 21 (0-40) U/L Alkaline Phosphatase 83 (39-117) U/L Troponin I High Sens 7.1 (<3.5-35.0) ng/L Total Protein 8.0 (6.5-8.0) g/dL Albumin 4.7 (3.5-5.0) g/dL Influenza Type A (PCR) NEGATIVE (Negative) Influenza Type B (PCR) NEGATIVE (Negative) RSV RNA Qual (PCR) NEGATIVE (Negative) SARS-CoV-2 RNA (RT-PCR) NEGATIVE (Negative) Independent Interpretation I performed an independent interpretation of an: EKG (Atrial fibrillation heart rate is 90 QRS QTC normal there is no acute ST segment elevation) External Record Review External record reviewed: Inpatient record Social Determinants Patient?s care significantly limited by Social Determinants of Health including: Low income and Problems related to primary support group Discharge Plan Discharge Clinical Impression: Neck pain Patient Disposition: Home, Self-Care Instructions: Chronic Neck Pain (DC) Prescriptions: No Action Xarelto 20 mg tablet 20 mg PO QPM Qty: 90 3RF Rx Instructions: must administer with evening meal atorvastatin 80 mg tablet 80 mg PO DAILY Qty: 90 1RF fluticasone propionate 50 mcg/actuation spray,suspension 2 spray intranasal DAILY 30 Days Qty: 16 3RF paroxetine HCl 30 mg tablet 30 mg PO DAILY Qty: 90 0RF Breo Ellipta 200-25 mcg/dose blister with device 1 inh inhalation Q24H Qty: 60 2RF metoprolol succinate [Toprol XL] 25 mg tablet extended release 24 hr 25 mg PO DAILY Qty: 90 3RF Referrals: PhysicianAnjali J [Primary Care Provider] - 02/25/23
[2023-02-23 02:25] LABS: Appearance Urine Cloudy; Color Urine Yellow; Glucose Urine UA Negative (Negative); Leukocyte Esterase Urine Negative (Negative); Nitrite Urine Negative (Negative); UMIC TRIGGER UACC YES; Urine Blood Negative (Negative); Urine Ketones Negative (Negative); Urine Protein 30 (1+) mg/dL (Neg-Trace)
[2023-02-23 03:06] LABS: Bacteria Urine None Seen (None Seen); Hyaline Casts Urine 0-2 /LPF (0-2); Other Crystals Urine Present; Squamous Epithelial Cell Urine 0-2 /HPF (0-2); WBC Urine 0-5 /HPF (0-5)
== END 2023-02-23 02:55 | disposition home or self-care (01) ==
PROVIDERS: Emergency Provider Emergency Medicine Emergency Medical Services
DX: M54.2 Cervicalgia (principal); R42 Dizziness and giddiness; I48.91 Unspecified atrial fibrillation; Z79.01 Long term (current) use of anticoagulants; Z20.822 Contact with and (suspected) exposure to COVID-19; Z20.828 Contact with and (suspected) exposure to other viral communicable diseases; Z79.899 Other long term (current) drug therapy
CPT/HCPCS: 0241U; 36415; 80053; 81001; 82947; 84484; 85025; 93005; 99283; 99284

== ENCOUNTER → 2023-02-22 23:54 | Outpatient (BNV) | payer OTHER, SELFPAY | PROVIDERS: Emergency Provider Emergency Medicine Emergency Medical Services; Visit Provider Internal Medicine Cardiovascular Disease | DX: I45.81 Long QT syndrome (principal) | CPT/HCPCS: 93010 ==

== ENCOUNTER 2023-03-09 15:35 | Emergency (ER) | payer OTHER, SELFPAY ==
--- NOTE | 2023-03-09 15:56 | ECG_ITS ---
Test Reason : CHEST PAIN Blood Pressure : / mmHG Vent. Rate : 069 BPM Atrial Rate : 000 BPM P-R Int : 000 ms QRS Dur : 094 ms QT Int : 382 ms P-R-T Axes : 000 094 034 degrees QTc Int : 409 ms Atrial fibrillation with frequent ventricular-paced complexes Rightward axis Abnormal ECG When compared with ECG of 23-FEB-2023 00:04, Electronic ventricular pacemaker has replaced Atrial fibrillation Referred By: Margot Mccartney Electronically Signed By:Richard Cespedes
--- NOTE | 2023-03-09 15:59 | ED_ITS ---
HPI - General Adult General Chief complaint: General Medical Stated complaint: pt .sts hes weak & cold, may need psych eval Time Seen by Provider: 03/09/23 15:45 Source: patient and EMS Mode of arrival: EMS Limitations: no limitations History of Present Illness HPI narrative: Patient comes to the emergency room complaining of feeling cold and not feeling well. Patient states that he has been sleeping on the floor at a friend's house, states that the temperature in the house is very cold. Patient recently got evicted from his own apartment and now staying with people. Patient states that he does not feel very well, nothing specific. Patient feeling depressed because his best friend recently . Patient denies cough, no chest pain, occasional palpitations, patient known to have atrial fibrillation takes Xarelto, no shortness of breath, no abdominal pain. States that sometimes when he feels palpitations or feels very anxious, he starts panicking more . At this time, patient states that he does feel anxious. No SI, no HI Related Data Previous Rx's Medication Instructions Recorded rivaroxaban 20 mg tablet (Xarelto) 20 mg PO QPM #90 tabs 12/29/19 atorvastatin 80 mg tablet 80 mg PO DAILY #90 tabs 06/10/20 fluticasone propionate 50 2 spray intranasal DAILY 30 days 06/27/20 mcg/actuation nasal #16 mL spray,suspension paroxetine HCl 30 mg tablet 30 mg PO DAILY #90 tabs 06/27/20 fluticasone furoate 200 1 inh inhalation Q24H #60 ea 07/24/20 mcg-vilanterol 25 mcg/dose inhalation powder (Breo Ellipta) metoprolol succinate 25 mg 25 mg PO DAILY #90 tabs 08/17/22 tablet,extended release 24 hr (Toprol XL) Allergies Allergy/AdvReac Type Severity Reaction Status Date / Time codeine [CODEINE] Allergy Mild NAUSEA Verified 02/22/23 21:09 Penicillins [PENICILLINS] Allergy Unknown ANAPHYLAXIS Verified 02/22/23 21:09 Review of Systems 2 Review of Systems: Constitutional : No Weight loss, No Fever, No Chills, No Night Sweats, No Fatigue, No Malaise ENT/Mouth : No Hearing loss, No Ear Pain, No Nasal Congestion, No Sinus Pain, No Hoarseness, No sore throat, No Rhinorrhea, No Swallowing Difficulty Eyes: No Eye Pain, No Swelling, No Redness, No Foreign Body, No Discharge, No Vision Changes Cardiovascular : No Chest Pain, No SOB, No Dyspnea on Exertion, No Orthopnea, No Edema, occasional Palpitations Respiratory : No Cough, No Sputum, No Wheezing, No Smoke Exposure, No Dyspnea Gastrointestinal : No Nausea, No Vomiting, No Diarrhea, No Constipation, No abdominal Pain, No Hematochezia, No Melena Genitourinary : no irregular bleeding, No Dysuria, No Urinary Frequency, No Hematuria, No Urinary Incontinence, No Urgency, No Flank Pain, No Urinary Flow Changes, No Hesitancy Musculoskeletal : No joint pain, No Myalgias, No Joint Swelling Skin : No Skin Lesions, No rash Neuro : No Weakness, No Numbness, No Paresthesias, No Loss of Consciousness, No Dizziness, No Headache Psych : Complaining of anxiety, feeling sad, morning his friend's ,, No SI/HI/AH/VH, No Social Issues, Heme/Lymph: No Bruising, No Bleeding,No Lymphadenopathy Endocrine : No Polyuria, No Polydipsia, feeling cold PMFSH Past Medical History Medical History Homeless Atrial fibrillation Hypercholesterolemia Esophageal dysmotility Tobacco abuse COPD (chronic obstructive pulmonary disease) GERD (gastroesophageal reflux disease) Anxiety and depression Hypertension Coronary artery disease Surgical History History of surgery History of surgery History of angioplasty Family History Family History Father Myocardial infarction Mother Medical history unknown Sister No problems noted. Brother No problems noted. Son No problems noted. Social History Social History (Updated 09/09/22 @ 10:40 by Annalisa Bernal) Alcohol intake: never Patient Tobacco Use Status: Current everyday Tobacco user Tobacco use type: Cigarette Cigarettes Per Day: 3 Smoked in Last 30 Days: Yes Substance Use Type: Marijuana Advance Directives: No Advance Directives Information Provided: Yes Physical Exam ED Vital Signs: Vital Signs - 24 hr 03/09/23 16:11 03/09/23 17:24 03/09/23 18:12 Temperature 98.4 F 98.2 F Pulse Rate 82 79 87 Respiratory Rate 16 11 L 16 Blood Pressure 136/88 125/95 H Pulse Oximetry 98 96 Oxygen Delivery Method Room Air Room Air BMI result Body Mass Index 21.9 Const Other: Appearance: Alert. Oriented X3. No acute distress. Eyes: Pupils equal, round and reactive to light. ENT: Pharynx normal. Neck: Normal inspection. Neck supple. No lymph nodes noted. No crepitus CVS: Normal heart rate and rhythm. Pulses normal. Normal S1 and S2 Respiratory: No respiratory distress. Breath sounds normal. No Wheezing. No rales Abdomen: Soft and nontender. No rigidity. No distention. Skin: Skin warm and dry. Normal skin color. Normal skin turgor. Extremities: No lower extremity edema. No Lacerations. No Rash Neuro: Oriented X 3. No motor deficit. No sensory deficit. Moving all extremities. No slurred speech. CN 2 through 12 grossly intact Psych: calm, cooperative, normal affect Course Course Course Narrative: -all of patient's labs and imaging pending. Medical Decision Making Medical Decision Making [facility] Narrative: -vitals stable -my interpretation of EKG: Atrial fibrillation, rate controlled, heart rate 69, no ST segment depression or elevation, no T-wave inversion, QTC 409. EKGs not crossing over to the system -my interpretation of labs: Normal hematology, normal chemistry, normal LFTs, normal troponin, BNP slightly bumped but patient has no respiratory distress or crackles, normal oxygen saturation. Patient has trace leukocyte esterase but not UTI symptoms, antibiotics are not indicated. Toxicology negative for EtOH, positive for marijuana. Serology negative for COVID and influenza. -patient's symptoms likely secondary to anxiety. Differential Diagnosis Differential Diagnoses: The differential diagnosis associated with the presentation includes (Anxiety, hypothyroidism, palpitation) Admission/Observation Consideration of admission/observation: Escalation of care including admission/observation considered (Given patient's symptoms and past medical history, admission was considered) Lab Data [facility] Lab Attestation statement: I reviewed the patient's lab results. 03/09/23 16:17 03/09/23 16:17 Labs: Lab Results 03/09/23 03/09/23 03/09/23 Range/Units 16:17 16:43 18:16 WBC 6.4 (4.8-10.8) X10*3/uL RBC 4.91 (4.60-5.80) X10*6/uL Hgb 14.3 (14.0-18.0) g/dl Hct 43.7 (42.0-52.0) % MCV 89.0 (80.0-98.0) fL MCH 29.1 (27.0-33.0) pg MCHC 32.7 (31.0-36.0) g/dl RDW 14.2 (11.0-16.0) % Plt Count 207 D (160-400) X10*3/uL MPV 10.1 (9.4-12.4) fL Immature Gran % (Auto) 0.3 (0.0-0.4) % Neut % (Auto) 67.0 (45-73) % Lymph % (Auto) 21.6 (20-40) % [place] % (Auto) 9.7 (2-11) % Eos % (Auto) 0.9 (0-4) % Baso % (Auto) 0.5 (0-2) % Lymph # (Auto) 1.4 (1.2-4.9) X10*3/uL [place] # (Auto) 0.6 (0.1-1.2) X10*3/uL Eos # (Auto) 0.1 (0.0-0.4) X10*3/uL Baso # (Auto) 0.0 (0.0-0.2) X10*3/uL Abs Immat Gran (auto) 0.02 (0.00-0.03) X10*3/uL Absolute Neuts (auto) 4.3 (2.0-8.3) x10*3/uL Absolute Nucleated RBC 0.000 (0.0-0.012) X10*3/uL Nucleated RBC % (auto) 0.0 (0.0-0.2) /100WBC PT 24.1 H (11.1-13.3) SEC INR 2.0 H (0.9-1.1) Sodium 141 (135-145) mmol/L Potassium 4.1 (3.3-5.1) mmol/L Chloride 106 (96-108) mmol/L Carbon Dioxide 26 (22-29) mmol/L Anion Gap 13 (12-20) BUN 21 H (9-16) mg/dL Creatinine 0.78 (0.5-1.4) mg/dL Estim Creat Clear Calc 84.8 Estimated GFR > 60 Random Glucose 95 (60-115) mg/dL Lactic Acid 1.3 (0.5-2.0) mmol/L Calcium 9.3 D (8.4-10.2) mg/dL Magnesium 1.8 (1.6-2.6) mg/dL Total Bilirubin 0.8 (0.0-1.0) mg/dL Direct Bilirubin 0.4 (0.0-0.5) mg/dL AST 20 (5-37) U/L ALT 20 (0-40) U/L Alkaline Phosphatase 86 (39-117) U/L Troponin I High Sens 3.5 D (<3.5-35.0) ng/L B-Natriuretic Peptide 158 H (<100) pg/mL Total Protein 7.3 (6.5-8.0) g/dL Albumin 4.2 (3.5-5.0) g/dL TSH 1.63 (0.32-4.0) uIU/mL Urine Color Dark Yellow Urine Appearance Clear Urine pH 7.0 (5.0-9.0) Ur Specific [place] >= 1.030 H (1.005-1.025) Urine Protein 100 (2+) H (Neg-Trace) mg/dL Urine Glucose (UA) Negative (Negative) mg/dL Urine Ketones Trace (Negative) mg/dL Urine Blood Negative (Negative) Urine Nitrite Negative (Negative) Ur Leukocyte Esterase Trace H (Negative) Urine RBC 0-2 (0-2) /HPF Urine WBC 0-5 (0-5) /HPF Ur Squamous Epith Cells 0-2 (0-2) /HPF Urine Bacteria None Seen (None Seen) Hyaline Casts 6-10 (0-2) /LPF Urine Opiates Screen Not Detected (Not Detect) Urine Fentanyl Screen Not Detected (Not Detect) Ur Barbiturates Screen Not Detected (Not Detect) Ur Phencyclidine Scrn Not Detected (Not Detect) Ur Amphetamines Screen Not Detected (Not Detect) U Benzodiazepines Scrn Not Detected (Not Detect) Urine Cocaine Screen Not Detected (Not Detect) U Marijuana (THC) Screen POSITIVE H (Not Detect) Ethyl Alcohol < 10 mg/dL COVID-19 (SHEA) Negative (Negative) COVID-19 Clin Com See Note Influenza Type A (VITALIY) Negative (Negative) Influenza Type B (VITALIY) Negative (Negative) Influenza A & B Note See Note Critical Care Time Critical Care Time Critical Care Time: Yes Total Critical Care Time: 45 Attestation: I have personally provided critical care time. Time includes review of lab data, radiology results, discussion with consultants, and monitoring for potential decompensation. Intervention performed as documented. Discharge Plan Discharge Clinical Impression: Palpitations, Anxiety Patient Disposition: Home, Self-Care Instructions: Heart Palpitations (ED), Anxiety (ED) Additional Instructions: Anxiety Prescriptions: No Action Xarelto 20 mg tablet 20 mg PO QPM Qty: 90 3RF Rx Instructions: must administer with evening meal atorvastatin 80 mg tablet 80 mg PO DAILY Qty: 90 1RF fluticasone propionate 50 mcg/actuation spray,suspension 2 spray intranasal DAILY 30 Days Qty: 16 3RF paroxetine HCl 30 mg tablet 30 mg PO DAILY Qty: 90 0RF Breo Ellipta 200-25 mcg/dose blister with device 1 inh inhalation Q24H Qty: 60 2RF metoprolol succinate [Toprol XL] 25 mg tablet extended release 24 hr 25 mg PO DAILY Qty: 90 3RF
[2023-03-09 16:11] VITALS: BP 136/88; BP 158/78; PULSE 82; PULSE 85; RESP 16; TEMP 36.9; O2SAT 98; O2SAT 99; BMI 21.9
--- NOTE | 2023-03-09 16:19 | PC.NURSE ---
pt biba from friends house for feeling cold , weakness, and describing as feeling like something is wrong with his heart. 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 pt is very anxious with multiple life stressors david. pt changed over to hospital attire, placed on manager monitoring, vss. rr even/unlabored. watching tv quietly. sts he needs a good cup of soup so that he feels better. pt told that will not be able to eat until all tests come back and provider give OK. pt compliant. call oliva within reach. plan of care ongoing.
[2023-03-09 16:23] LABS: MANUAL DIFF FLAG NO
[2023-03-09 16:25] LABS: Basophils Percent Auto 0.5 % (0-2); Eosinophils Absolute Auto 0.1 X10*3/uL (0.0-0.4); Eosinophils Percent Auto 0.9 % (0-4); Hematocrit 43.7 % (42.0-52.0); Hemoglobin 14.3 g/dl (14.0-18.0); Imm Gran Abs Auto 0.02 X10*3/uL (0.00-0.03); Imm Gran Pct Auto 0.3 % (0.0-0.4); Lymphocytes Absolute Auto 1.4 X10*3/uL (1.2-4.9); Lymphocytes Percent Auto 21.6 % (20-40); Mean Corpuscular HGB Conc 32.7 g/dl (31.0-36.0); Mean Corpuscular Hemoglobin 29.1 pg (27.0-33.0); Mean Platelet Volume 10.1 fL (9.4-12.4); Monocytes Absolute Auto 0.6 X10*3/uL (0.1-1.2); Monocytes Percent Auto 9.7 % (2-11); Neutrophils Absolute Auto 4.3 x10*3/uL (2.0-8.3); Platelet Count 207 X10*3/uL (160-400); Red Blood Count 4.91 X10*6/uL (4.60-5.80); Red Cell Distribution Width 14.2 % (11.0-16.0); White Blood Count 6.4 X10*3/uL (4.8-10.8)
[2023-03-09 16:30] LABS: Prothrombin Time 24.1 SEC (11.1-13.3)
[2023-03-09 16:36] LABS: Lactic Acid 1.3 mmol/L (0.5-2.0)
[2023-03-09 16:44] LABS: B Type Natriuretic Peptide 158 pg/mL (<100)
[2023-03-09 16:48] LABS: Troponin-I High Sensitivity 3.5 ng/L (<3.5-35.0)
[2023-03-09 16:51] LABS: Alanine Aminotransferase 20 U/L (0-40); Albumin Level 4.2 g/dL (3.5-5.0); Alkaline Phosphatase 86 U/L (39-117); Anion Gap 13 (12-20); Aspartate Amino Transferase 20 U/L (5-37); Bilirubin Direct 0.4 mg/dL (0.0-0.5); Bilirubin Total 0.8 mg/dL (0.0-1.0); Blood Urea Nitrogen 21 mg/dL (9-16); Calcium 9.3 mg/dL (8.4-10.2); Carbon Dioxide 26 mmol/L (22-29); Chloride 106 mmol/L (96-108); Creatinine Clr Calc Pharmacy 84.8; Estimated Glomerular Filt Rate > 60; Ethanol < 10 mg/dL; Glucose Random 95 mg/dL (60-115); Magnesium 1.8 mg/dL (1.6-2.6); Potassium 4.1 mmol/L (3.3-5.1); Sodium 141 mmol/L (135-145); Total Protein 7.3 g/dL (6.5-8.0)
[2023-03-09 17:02] LABS: TSH reflex Free T4 1.63 uIU/mL (0.32-4.0)
[2023-03-09 17:11] LABS: COVID-19 Test Negative (Negative); IDNOW Serial# 08D9AD1C; IDNOW Serial# 9DB6401D; Influenza A Negative (Negative); Influenza B2 Negative (Negative)
[2023-03-09 17:24] VITALS: PULSE 79; RESP 11
[2023-03-09 18:12] VITALS: BP 125/95; PULSE 87; RESP 16; TEMP 36.8; O2SAT 96
[2023-03-09 18:25] LABS: Appearance Urine Clear; Color Urine Dark Yellow; Glucose Urine UA Negative (Negative); Leukocyte Esterase Urine Trace (Negative); Nitrite Urine Negative (Negative); Specific Gravity - Urine >= 1.030 (1.005-1.025); UMIC TRIGGER UACC YES; Urine Blood Negative (Negative); Urine Ketones Trace mg/dL (Negative); Urine Protein 100 (2+) mg/dL (Neg-Trace)
[2023-03-09 18:29] LABS: Amphetamine Screen Urine Not Detected (Not Detect); Barbiturates, Urine Not Detected (Not Detect); Benzodiazepines Screen Urine Not Detected (Not Detect); Cannabinoid Screen Urine POSITIVE (Not Detect); Cocaine Screen Urine Not Detected (Not Detect); Fentanyl, urine Not Detected (Not Detect); Opiate Screen Urine Not Detected (Not Detect); Phencyclidine Screen Urine Not Detected (Not Detect)
[2023-03-09 18:39] LABS: Bacteria Urine None Seen (None Seen); RBC Urine 0-2 /HPF (0-2); Squamous Epithelial Cell Urine 0-2 /HPF (0-2); WBC Urine 0-5 /HPF (0-5)
[2023-03-09 20:15] VITALS: PULSE 78; RESP 16; TEMP 36.7; O2SAT 97
== END 2023-03-09 20:45 | disposition home or self-care (01) ==
PROVIDERS: Emergency Provider Emergency Medicine; PCP General Practice
DX: R00.2 Palpitations (principal); F41.9 Anxiety disorder, unspecified; Z11.52 Encounter for screening for COVID-19; F32.A Depression, unspecified; I10 Essential (primary) hypertension; E78.00 Pure hypercholesterolemia, unspecified; I48.19 Other persistent atrial fibrillation; F17.210 Nicotine dependence, cigarettes, uncomplicated; Z95.0 Presence of cardiac pacemaker; Z59.01 Sheltered homelessness; Z79.01 Long term (current) use of anticoagulants; Z79.02 Long term (current) use of antithrombotics/antiplatelets; Z79.899 Other long term (current) drug therapy
CPT/HCPCS: 80048; 80076; 80307; 81001; 83605; 83735; 83880; 84443; 84484; 85025; 85610; 87502; 87635; 93005; 99283; 99284

== ENCOUNTER → 2023-03-09 15:56 | Outpatient (BNV) | payer OTHER, SELFPAY | PROVIDERS: Emergency Provider Emergency Medicine; PCP General Practice; Visit Provider Internal Medicine Cardiovascular Disease | DX: I48.19 Other persistent atrial fibrillation (principal); R94.31 Abnormal electrocardiogram [ECG] [EKG] | CPT/HCPCS: 93010 ==

== ENCOUNTER 2023-06-07 19:53 | Emergency (ER) | payer OTHER, SELFPAY ==
--- NOTE | ~2023-06-07 | XR_ITS ---
EXAMINATION: XR CHEST CLINICAL INFORMATION: Dizziness COMPARISON: 04/10/2021 TECHNIQUE: 2 views of the chest were obtained. FINDINGS: Heart size is normal, slightly smaller than noted on 04/10/2021. The lungs are clear without infiltrates effusions or lung masses. Left chest wall dual-lead pacemaker present in good position. Some mild degenerative changes are seen at the AC joints. XR/XR chest 2V IMPRESSION: No acute intrathoracic disease.
[2023-06-07 19:58] VITALS: BP 111/93; PULSE 86; RESP 18; TEMP 36.5; O2SAT 97; BMI 20.4
--- NOTE | 2023-06-07 19:58 | ED.GENADULT ---
HPI - General Adult General Chief complaint: Skin/Abscess/Foreign Body Stated complaint: skin infection both hand, dizziness Time Seen by Provider: 06/07/23 21:03 Source: patient Mode of arrival: ambulatory History of Present Illness HPI narrative: 67-year-old male with presentation of red, dry, cracked hands to the dorsal surface on bilateral, no associated fevers or chills and has recently been started on doxycycline and recommendations for an [id number] cream which patient states he has been using but says he needs more help with it. Related Data Previous Rx's ?Medication ?Instructions ?Recorded rivaroxaban 20 mg tablet (Xarelto) 20 mg PO QPM #90 tabs 12/29/19 atorvastatin 80 mg tablet 80 mg PO DAILY #90 tabs 06/10/20 fluticasone propionate 50 2 spray intranasal DAILY 30 days 06/27/20 mcg/actuation nasal #16 mL spray,suspension paroxetine HCl 30 mg tablet 30 mg PO DAILY #90 tabs 06/27/20 fluticasone furoate 200 1 inh inhalation Q24H #60 ea 07/24/20 mcg-vilanterol 25 mcg/dose inhalation powder (Breo Ellipta) metoprolol succinate 25 mg 25 mg PO DAILY #90 tabs 08/17/22 tablet,extended release 24 hr (Toprol XL) Allergies Allergy/AdvReac Type Severity Reaction Status Date / Time codeine [CODEINE] Allergy Mild NAUSEA Verified 06/07/23 20:02 Penicillins [PENICILLINS] Allergy Unknown ANAPHYLAXIS Verified 06/07/23 20:02 Review of Systems Review of Systems: Pertinent positives and negatives as stated in HPI [facility] Past Medical History Source: nursing notes reviewed Medical History Homeless Atrial fibrillation Hypercholesterolemia Esophageal dysmotility Tobacco abuse COPD (chronic obstructive pulmonary disease) GERD (gastroesophageal reflux disease) Anxiety and depression Hypertension Coronary artery disease Surgical History History of surgery History of surgery History of angioplasty Family History Family History Father Myocardial infarction Mother Medical history unknown Sister No problems noted. Brother No problems noted. Son No problems noted. Social History Social History Alcohol intake: never Patient Tobacco Use Status: Current everyday Tobacco user Tobacco use type: Cigarette Cigarettes Per Day: 3 Substance Use Type: Marijuana Advance Directives: No Advance Directives Information Provided: No Do you have a plan to hurt others: No Plan Physical Exam ED Vital Signs: Vital Signs - 24 hr 06/07/23 19:58 06/07/23 20:59 06/07/23 20:59 Temperature 97.7 F Pulse Rate 86 77 81 Respiratory Rate 18 Blood Pressure 111/93 H 118/86 109/86 Pulse Oximetry 97 Oxygen Delivery Method Room Air 06/07/23 21:00 06/07/23 21:03 Temperature 97.6 F Pulse Rate 85 74 Respiratory Rate 14 Blood Pressure 112/91 H 115/77 Pulse Oximetry 97 Oxygen Delivery Method Room Air BMI result Body Mass Index 20.4 VITAL SIGNS: Reviewed. GENERAL: Well developed, well nourished, in no acute distress. HEAD: Normocephalic/atraumatic EYES: PERRLA, EOMI LUNGS: Normal breath sounds. No adventitious sounds or accessory muscle use. SpO2<97> CARDIOVASCULAR: Regular rate and rhythm without noted murmurs ABDOMEN: Soft, non-tender, non-distended with bowel sounds. MUSCULOSKELETAL: No tenderness, deformities, or effusions noted on gross inspection. EXTREMITIES: No cyanosis, clubbing or edema. BILATERAL HAND: Erythema, scaling, cracking over knuckles no interdigit involvement, no palmar involvement extends onto mid dorsum of the hand SKIN: Inspection of the skin reveals no rashes NEUROLOGIC: Alert and oriented x 4. Strength and sensation to light touch were grossly intact x 4. Course Course Course Narrative: This is a rapid medical exam. Deferred additional HPI, ROS, PE to primary provider. 67 yo male with history pacemaker, afib on AC therapy, COPD, GERD, HLD here with multiple complaints. Rash/wound to both hands. Started on doxy yesterday but the topical cream they gave him is burning his hands. Also feeling dizzy for months. Currently homeless. Will obtain labs, EKG, CXR, UA Seems most problems the patient has are social and he made a CM consult VSS Medical Decision Making Medical Decision Making MDM Narrative: 67-year-old male with history and clinical presentation that appears to be either associated with contact dermatitis or a component of eczema, possible psoriasis although felt to be less likely. Patient appears to be well-versed in his treatment plan which has been recent prescription for doxycycline, I reviewed the hand cream that patient was recommended to get and it appear somewhat thin and he may benefit from direction to use petroleum jelly, he will be provided with gloves to use in conjunction with the petroleum jelly at night to help improve resolution of the hand rash. I reviewed all investigations and hematologic indices do not demonstrate a leukocytosis, patient has a stable normocytic anemia and no thrombocytopenia. Patient is coagulation studies are stable/elevated secondary to use of chronic anticoagulation. Chemistry indices are grossly within normal limits without evidence of MAYRA/electrolyte or liver enzyme derangements, I sensitivity troponin is chronically detectable but not elevated. Chest x-ray negative for infiltrate or venous congestion and otherwise my interpretation is in agreement with radiology's impression. EKG without evidence of STEMI and has chronic baseline atrial fibrillation with good rate control. Patient will be provided with instruction on the use of petroleum jelly, encouraged to continue the use of the antibiotics and encouraged to use gloves at night with epidural limb jelly to help in the resolution of the eczema to his hands. Differential Diagnosis Differential Diagnoses: The differential diagnosis associated with the presentation includes Please see the discussion above Admission/Observation Consideration of admission/observation: Escalation of care including admission/observation considered Please see the discussion above Lab Data MDM Lab Attestation statement: I reviewed the patient's lab results. Please see the discussion above 06/07/23 20:14 06/07/23 20:14 Labs: Lab Results 06/07/23 Range/Units 20:14 WBC 7.6 (4.8-10.8) X10*3/uL RBC 4.70 (4.60-5.80) X10*6/uL Hgb 13.8 L (14.0-18.0) g/dl Hct 41.7 L (42.0-52.0) % MCV 88.7 (80.0-98.0) fL MCH 29.4 (27.0-33.0) pg MCHC 33.1 (31.0-36.0) g/dl RDW 12.9 (11.0-16.0) % Plt Count 184 (160-400) X10*3/uL MPV 10.2 (9.4-12.4) fL Immature Gran % (Auto) 0.3 (0.0-0.4) % Neut % (Auto) 69.1 (45-73) % Lymph % (Auto) 18.4 L (20-40) % [place] % (Auto) 11.1 H (2-11) % Eos % (Auto) 0.7 (0-4) % Baso % (Auto) 0.4 (0-2) % Lymph # (Auto) 1.4 (1.2-4.9) X10*3/uL [place] # (Auto) 0.8 (0.1-1.2) X10*3/uL Eos # (Auto) 0.1 (0.0-0.4) X10*3/uL Baso # (Auto) 0.0 (0.0-0.2) X10*3/uL Abs Immat Gran (auto) 0.02 (0.00-0.03) X10*3/uL Absolute Neuts (auto) 5.3 (2.0-8.3) x10*3/uL Absolute Nucleated RBC 0.000 (0.0-0.012) X10*3/uL Nucleated RBC % (auto) 0.0 (0.0-0.2) /100WBC PT 14.3 H D (11.1-13.3) SEC INR 1.2 H (0.9-1.1) Sodium 143 (135-145) mmol/L Potassium 3.9 (3.3-5.1) mmol/L Chloride 106 (96-108) mmol/L Carbon Dioxide 27 (22-29) mmol/L Anion Gap 14 (12-20) BUN 21 H (9-16) mg/dL Creatinine 0.94 (0.5-1.4) mg/dL Estim Creat Clear Calc 65.3 Estimated GFR > 60 Random Glucose 113 (60-115) mg/dL Calcium 9.6 (8.4-10.2) mg/dL Magnesium 2.0 (1.6-2.6) mg/dL Total Bilirubin 1.0 (0.0-1.0) mg/dL Direct Bilirubin 0.4 (0.0-0.5) mg/dL AST 22 (5-37) U/L ALT 17 (0-40) U/L Alkaline Phosphatase 88 (39-117) U/L Troponin I High Sens 4.5 (<3.5-35.0) ng/L Total Protein 7.7 (6.5-8.0) g/dL Albumin 4.5 (3.5-5.0) g/dL Independent Interpretation I performed an independent interpretation of an: EKG Interpretation: Atrial fibrillation, HR-84, no STEMI, QRS/QTC is within normal limits. Radiology Impression Discussion of test interpretation with radiology: I have reviewed the radiologist's reading. Radiologist Impression: Please see the discussion above External Record Review External record reviewed: Outpatient record, Prior outpatient labs and Prior outpatient radiology Chronic Conditions Patient?s care impacted by: Hypertension and Other Chronic anticoagulation, atrial fibrillation. Critical Care Time Critical Care Time Critical Care Time: Yes Total Critical Care Time: 30 Attestation: I personally attest to this time spent taking care of the patient. Discharge Plan Discharge Clinical Impression: Eczema of both hands Patient Disposition: Home, Self-Care Instructions: Dermatitis (ED), Eczema (ED) Additional Instructions: 1. Resume all home medications as prescribed. Please complete the entire course of antibiotics as prescribed. 2. Recommend using [id number] petroleum jelly, especially at night with application of gloves to help improve moisturization. Please be sure to wash hands in the morning with re-application of the petroleum jelly. Only where the gloves at night while sleeping. 3. Follow-up with your primary care doctor at your earliest convenience. Return to the ER for any worsening symptoms. Prescriptions: No Action Xarelto 20 mg tablet 20 mg PO QPM Qty: 90 3RF Rx Instructions: must administer with evening meal atorvastatin 80 mg tablet 80 mg PO DAILY Qty: 90 1RF fluticasone propionate 50 mcg/actuation spray,suspension 2 spray intranasal DAILY 30 Days Qty: 16 3RF paroxetine HCl 30 mg tablet 30 mg PO DAILY Qty: 90 0RF Breo Ellipta 200-25 mcg/dose blister with device 1 inh inhalation Q24H Qty: 60 2RF metoprolol succinate [Toprol XL] 25 mg tablet extended release 24 hr 25 mg PO DAILY Qty: 90 3RF Print Language: Surinamese
--- NOTE | 2023-06-07 20:05 | ECG_ITS ---
Test Reason : DIZZINESS Blood Pressure : / mmHG Vent. Rate : 084 BPM Atrial Rate : 000 BPM P-R Int : 000 ms QRS Dur : 098 ms QT Int : 368 ms P-R-T Axes : 000 091 015 degrees QTc Int : 434 ms Atrial fibrillation Rightward axis Minimal voltage criteria for LVH, may be normal variant ( [place]inson product ) Abnormal ECG When compared with ECG of 09-MAR-2023 16:47, Atrial fibrillation has replaced Electronic ventricular pacemaker Referred By: Angelita Basilio Electronically Signed By:GABBIE MORALES MD
[2023-06-07 20:20] LABS: Basophils Percent Auto 0.4 % (0-2); Eosinophils Absolute Auto 0.1 X10*3/uL (0.0-0.4); Eosinophils Percent Auto 0.7 % (0-4); Hematocrit 41.7 % (42.0-52.0); Hemoglobin 13.8 g/dl (14.0-18.0); Imm Gran Abs Auto 0.02 X10*3/uL (0.00-0.03); Imm Gran Pct Auto 0.3 % (0.0-0.4); Lymphocytes Absolute Auto 1.4 X10*3/uL (1.2-4.9); Lymphocytes Percent Auto 18.4 % (20-40); MANUAL DIFF FLAG NO; Mean Corpuscular HGB Conc 33.1 g/dl (31.0-36.0); Mean Corpuscular Hemoglobin 29.4 pg (27.0-33.0); Mean Corpuscular Volume 88.7 fL (80.0-98.0); Mean Platelet Volume 10.2 fL (9.4-12.4); Monocytes Absolute Auto 0.8 X10*3/uL (0.1-1.2); Monocytes Percent Auto 11.1 % (2-11); Neutrophils Absolute Auto 5.3 x10*3/uL (2.0-8.3); Neutrophils Percent Auto 69.1 % (45-73); Platelet Count 184 X10*3/uL (160-400); Red Cell Distribution Width 12.9 % (11.0-16.0); White Blood Count 7.6 X10*3/uL (4.8-10.8)
[2023-06-07 20:26] LABS: INTERNATIONAL NORM RATIO 1.2 (0.9-1.1); Prothrombin Time 14.3 SEC (11.1-13.3)
[2023-06-07 20:40] LABS: Alanine Aminotransferase 17 U/L (0-40); Albumin Level 4.5 g/dL (3.5-5.0); Alkaline Phosphatase 88 U/L (39-117); Anion Gap 14 (12-20); Aspartate Amino Transferase 22 U/L (5-37); Bilirubin Direct 0.4 mg/dL (0.0-0.5); Blood Urea Nitrogen 21 mg/dL (9-16); Calcium 9.6 mg/dL (8.4-10.2); Carbon Dioxide 27 mmol/L (22-29); Chloride 106 mmol/L (96-108); Creatinine Clr Calc Pharmacy 65.3; Estimated Glomerular Filt Rate > 60; Glucose Random 113 mg/dL (60-115); Potassium 3.9 mmol/L (3.3-5.1); Sodium 143 mmol/L (135-145); Total Protein 7.7 g/dL (6.5-8.0)
[2023-06-07 20:49] LABS: Troponin-I High Sensitivity 4.5 ng/L (<3.5-35.0)
[2023-06-07 20:59] VITALS: BP 109/86; BP 118/86; PULSE 77; PULSE 81
[2023-06-07 21:00] VITALS: BP 112/91; PULSE 85
[2023-06-07 21:03] VITALS: BP 115/77; PULSE 74; RESP 14; TEMP 36.4; O2SAT 97
[2023-06-07 23:00] VITALS: BP 115/77; PULSE 74; RESP 14; TEMP 36.4; O2SAT 97
== END 2023-06-07 23:01 | disposition home or self-care (01) ==
PROVIDERS: Nurse Practitioner Family; Emergency Provider Student in an Organized Health Care Education/Training Program
DX: L30.9 Dermatitis, unspecified (principal); I10 Essential (primary) hypertension; I48.91 Unspecified atrial fibrillation; J44.9 Chronic obstructive pulmonary disease, unspecified; Z79.01 Long term (current) use of anticoagulants; Z95.0 Presence of cardiac pacemaker
CPT/HCPCS: 36415; 71046; 80048; 80076; 83735; 84484; 85025; 85610; 93005; 99283; 99284

== ENCOUNTER → 2023-06-07 20:05 | Outpatient (BNV) | payer OTHER, SELFPAY | PROVIDERS: Emergency Provider Student in an Organized Health Care Education/Training Program; Visit Provider Internal Medicine Cardiovascular Disease | DX: I48.91 Unspecified atrial fibrillation (principal) | CPT/HCPCS: 93010 ==

== ENCOUNTER 2023-06-08 22:29 | Emergency (ER) | payer OTHER, SELFPAY ==
--- NOTE | 2023-06-08 | ECG_ITS ---
Test Reason : CHEST PAIN Blood Pressure : / mmHG Vent. Rate : 077 BPM Atrial Rate : 000 BPM P-R Int : 000 ms QRS Dur : 108 ms QT Int : 388 ms P-R-T Axes : 000 092 002 degrees QTc Int : 439 ms Atrial fibrillation Rightward axis Minimal voltage criteria for LVH, may be normal variant ( Noe product ) Abnormal ECG When compared with ECG of 07-JUN-2023 20:26, No significant change was found Referred By: Generic ED Physician Electronically Signed By:GABBIE MORALES MD
[2023-06-08 23:04] VITALS: BP 132/91; BP 135/82; PULSE 61; PULSE 81; RESP 16; TEMP 36.6; O2SAT 96; O2SAT 98; BMI 20.1
[2023-06-09 04:53] VITALS: BP 156/67; PULSE 80; RESP 14; TEMP 36.4; O2SAT 98
--- NOTE | 2023-06-09 06:41 | ED.GENADULT ---
HPI - General Adult General Chief complaint: Anxiety Stated complaint: chest pain for a few hours/anxiety/cold, homeless Time Seen by Provider: 06/09/23 05:12 Source: patient Mode of arrival: EMS History of Present Illness HPI narrative: 67-year-old male with anxiety about being homeless and stated that it was cold outside and he was experiencing chest pain, EMS gave him aspirin, patient denies that this was associated with any dizziness/shortness of breath/nausea. Related Data Previous Rx's ?Medication ?Instructions ?Recorded rivaroxaban 20 mg tablet (Xarelto) 20 mg PO QPM #90 tabs 12/29/19 atorvastatin 80 mg tablet 80 mg PO DAILY #90 tabs 06/10/20 fluticasone propionate 50 2 spray intranasal DAILY 30 days 06/27/20 mcg/actuation nasal #16 mL spray,suspension paroxetine HCl 30 mg tablet 30 mg PO DAILY #90 tabs 06/27/20 fluticasone furoate 200 1 inh inhalation Q24H #60 ea 07/24/20 mcg-vilanterol 25 mcg/dose inhalation powder (Breo Ellipta) metoprolol succinate 25 mg 25 mg PO DAILY #90 tabs 08/17/22 tablet,extended release 24 hr (Toprol XL) Allergies Allergy/AdvReac Type Severity Reaction Status Date / Time codeine [CODEINE] Allergy Mild NAUSEA Verified 06/08/23 23:06 Penicillins [PENICILLINS] Allergy Unknown ANAPHYLAXIS Verified 06/08/23 23:06 Review of Systems Review of Systems: Pertinent positives and negatives as stated in HPI [facility] Past Medical History Source: nursing notes reviewed Medical History Homeless Atrial fibrillation Hypercholesterolemia Esophageal dysmotility Tobacco abuse COPD (chronic obstructive pulmonary disease) GERD (gastroesophageal reflux disease) Anxiety and depression Hypertension Coronary artery disease Surgical History History of surgery History of surgery History of angioplasty Family History Family History Father Myocardial infarction Mother Medical history unknown Sister No problems noted. Brother No problems noted. Son No problems noted. Social History Social History Alcohol intake: never Patient Tobacco Use Status: Current everyday Tobacco user Tobacco use type: Cigarette Cigarettes Per Day: 3 Substance Use Type: Marijuana Advance Directives: No Advance Directives Information Provided: Yes Physical Exam ED Vital Signs: Vital Signs - 24 hr 06/08/23 23:04 06/09/23 04:53 Temperature 97.9 F 97.5 F Pulse Rate 61 80 Respiratory Rate 16 14 Blood Pressure 132/91 H 156/67 H Pulse Oximetry 96 98 Oxygen Delivery Method Room Air Room Air BMI result Body Mass Index 20.1 VITAL SIGNS: Reviewed. GENERAL: Well developed, well nourished, in no acute distress. HEAD: Normocephalic/atraumatic EYES: PERRLA, EOMI LUNGS: Normal breath sounds. No adventitious sounds or accessory muscle use. SpO2<98> CARDIOVASCULAR: Regular rate and rhythm without noted murmurs, no JVD or lower extremity edema. ABDOMEN: Soft, non-tender, non-distended with bowel sounds. MUSCULOSKELETAL: No tenderness, deformities, or effusions noted on gross inspection. EXTREMITIES: No cyanosis, clubbing or edema. Bilateral red hands SKIN: Inspection of the skin reveals no rashes NEUROLOGIC: Alert and oriented x 4. Strength and sensation to light touch were grossly intact x 4. Medical Decision Making Medical Decision Making MDM Narrative: 67-year-old male with history and clinical presentation most consistent with likely anxiety secondary to recent loss housing and experiencing some challenges with gaining alternative housing. I provided patient with additional information, he is no longer having any chest pain and he is discharged. Differential Diagnosis Differential Diagnoses: The differential diagnosis associated with the presentation includes Please see the discussion above Admission/Observation Consideration of admission/observation: Escalation of care including admission/observation considered Please see the discussion above Independent Interpretation I performed an independent interpretation of an: EKG Interpretation: Atrial fibrillation, HR-77, no STEMI, QRS/QTC is within normal limits. External Record Review External record reviewed: Outpatient record, Prior outpatient labs and Prior outpatient radiology Critical Care Time Critical Care Time Critical Care Time: Yes Total Critical Care Time: 30 Attestation: I personally attest to this time spent taking care of the patient. Discharge Plan Discharge Clinical Impression: Anxiety Patient Disposition: Home, Self-Care Instructions: Anxiety (ED) Additional Instructions: Please continue to use the cream and gloves as indicated for your hands. Provide the necessary information for the individuals that are helping you with your housing needs. Return to the ER for any worsening symptoms. Prescriptions: No Action Xarelto 20 mg tablet 20 mg PO QPM Qty: 90 3RF Rx Instructions: must administer with evening meal atorvastatin 80 mg tablet 80 mg PO DAILY Qty: 90 1RF fluticasone propionate 50 mcg/actuation spray,suspension 2 spray intranasal DAILY 30 Days Qty: 16 3RF paroxetine HCl 30 mg tablet 30 mg PO DAILY Qty: 90 0RF Breo Ellipta 200-25 mcg/dose blister with device 1 inh inhalation Q24H Qty: 60 2RF metoprolol succinate [Toprol XL] 25 mg tablet extended release 24 hr 25 mg PO DAILY Qty: 90 3RF Print Language: [place]
[2023-06-09 07:19] VITALS: BP 156/67; PULSE 80; RESP 14; TEMP 36.4; O2SAT 98
== END 2023-06-09 07:20 | disposition home or self-care (01) ==
PROVIDERS: Emergency Provider Student in an Organized Health Care Education/Training Program
DX: F41.9 Anxiety disorder, unspecified (principal); I10 Essential (primary) hypertension; I48.91 Unspecified atrial fibrillation; J44.9 Chronic obstructive pulmonary disease, unspecified; Z59.02 Unsheltered homelessness
CPT/HCPCS: 93005; 99283; 99284

== ENCOUNTER → 2023-06-08 22:37 | Outpatient (BNV) | payer OTHER, SELFPAY | PROVIDERS: Emergency Provider Student in an Organized Health Care Education/Training Program; Visit Provider Internal Medicine Cardiovascular Disease | DX: I48.91 Unspecified atrial fibrillation (principal) | CPT/HCPCS: 93010 ==

== ENCOUNTER 2023-07-28 05:34 | Emergency (ER) | payer OTHER, SELFPAY ==
[2023-07-28 05:41] VITALS: BP 145/110; BP 156/90; PULSE 74; PULSE 86; RESP 20; TEMP 36.6; O2SAT 98; BMI 20.3
--- NOTE | 2023-07-28 08:02 | ED_ITS ---
HPI - General Adult General Chief complaint: Skin/Abscess/Foreign Body Stated complaint: SKIN RASH UNABLE TO SLEEP Time Seen by Provider: 07/28/23 06:43 Source: patient Mode of arrival: ambulatory Limitations: no limitations History of Present Illness ED Provider: Tom Nevarez PA-C HPI narrative: This is a 67 yo male pmh aortic stenosis, pacemaker, atherosclerotic cardiovascular disease, iscemic cardiomyopathy, atrial fibrilation, hyprcholesterolemia, COPD, GERD, anxiety, depression, HTN, CAD presents via EMS from homeless [facility] with pruritic skin rash to his hands and bilateral upper ad lower extremities x 1 month. Patient states the rash is extremly itchy but not painful. Denies tingling, burning, numbness, or paresthesias. Patient states the rash started about a month ago on his hands and reports they were dry, cracked, and itchy. States he was seen here and tried multiple lotions and creams but nothing seemed to help. Patient now reports the rash has spread to his extremities and thinks it may have worsened because of his itching. Reports he cannot sleep and is up all night due to the itching. Patient also reports thought of hurting himself and states he is sick of dealing with all of this. All the ED every does is send you home. Patient has no plan to hut himself, no HI. Patient reports marijuana use but denies alcohol or other illicit substances. Denies nausea, vomiting, fever, chills, chest pain, SOB, weakness, difficulty ambulating, syncope, falls or trauma. Related Data Previous Rx's ?Medication ?Instructions ?Recorded rivaroxaban 20 mg tablet (Xarelto) 20 mg PO QPM #90 tabs 12/29/19 atorvastatin 80 mg tablet 80 mg PO DAILY #90 tabs 06/10/20 fluticasone propionate 50 2 spray intranasal DAILY 30 days 06/27/20 mcg/actuation nasal #16 mL spray,suspension paroxetine HCl 30 mg tablet 30 mg PO DAILY #90 tabs 06/27/20 fluticasone furoate 200 1 inh inhalation Q24H #60 ea 07/24/20 mcg-vilanterol 25 mcg/dose inhalation powder (Breo Ellipta) metoprolol succinate 25 mg 25 mg PO DAILY #90 tabs 08/17/22 tablet,extended release 24 hr (Toprol XL) hydrocortisone 1 % topical cream 1 appl topical BID PRN itching 07/28/23 #28.4 grams hydroxyzine HCl 25 mg tablet 50 mg (2 x 25 mg) PO BEDTIME PRN 07/28/23 anxiety #20 tabs prednisone 20 mg tablet 40 mg (2 x 20 mg) PO DAILY 5 days 07/28/23 #10 tabs Allergies Allergy/AdvReac Type Severity Reaction Status Date / Time codeine [CODEINE] Allergy Mild NAUSEA Verified 07/28/23 05:43 Penicillins [PENICILLINS] Allergy Unknown ANAPHYLAXIS Verified 07/28/23 05:43 Review of Systems 2 Review of Systems: Yes all other systems are reviewed and are negative [facility] Past Medical History Attestation statement: The following information was validated with the patient. Source: old records reviewed and nursing notes reviewed Medical History Homeless Atrial fibrillation Hypercholesterolemia Esophageal dysmotility Tobacco abuse COPD (chronic obstructive pulmonary disease) GERD (gastroesophageal reflux disease) Anxiety and depression Hypertension Coronary artery disease Surgical History History of surgery History of surgery History of angioplasty Family History Family History Father Myocardial infarction Mother Medical history unknown Sister No problems noted. Brother No problems noted. Son No problems noted. Social History Social History Alcohol intake: never Patient Tobacco Use Status: Current everyday Tobacco user Tobacco use type: Cigarette Cigarettes Per Day: 3 Substance Use Type: Marijuana Advance Directives: No Advance Directives Information Provided: No Physical Exam ED Vital Signs: Vital Signs - 24 hr 07/28/23 05:41 07/28/23 09:19 Temperature 97.8 F Pulse Rate 74 73 Respiratory Rate 20 16 Blood Pressure 145/110 H 131/91 H Pulse Oximetry 98 96 Oxygen Delivery Method Room Air Room Air BMI result Body Mass Index 20.3 vss. Appearance: Alert.? Oriented X3.? No acute distress.? Head: Normocephalic, atraumatic, no step-offs or deformities Eyes: Pupils equal, round and reactive to light.? Neck: Normal inspection.? Neck supple.? CVS: Normal heart rate and rhythm.? Pulses normal.? Respiratory: No respiratory distress.? Breath sounds normal.? Abdomen: Soft and nontender.? Skin: Skin warm and dry.? Normal skin turgor.?+red, scaling lesions and excoriations to bilateral hands, upper and lower extremities Extremities: No lower extremity edema.? No calf ttp. 5/5 strength to bilateral upper and lower extremities Back: No midline tenderness, no C-spine tenderness, full range of motion, no CVA tenderness bilaterally Neuro: Oriented X 3.? No motor deficit.? No sensory deficit. CN 2-12 intact Course Reevaluation(s) Reevaluation #1: CBC with unspecified leukopenia unlikely from infection. Baseline normocytic anemia. Unchanged. Chemistry unremarkable no acute electrolyte abnormalities requiring intervention BUN appears to be slightly elevated however this is patient's baseline. UA unremarkable. Urine toxicology positive for marijuana. Negative ethanol. Patient was seen by care team and cleared. Not verbalizing suicidal ideation, no signs of psychosis. They feel as though patient can be discharged home with adequate resources. I will discharge him on Atarax that will help with the itchiness and the rash. Will also send him with prednisone. Advised him to follow up with Dermatology. Care team will try to set him up with outpatient housing and information on how to obtain this. Patient feels comfortable with this plan in his excited for this. Educated patient on diagnosis and treatment plan, answered all question, patient verbalizes understanding. At this time patient will be discharged home, advised to return with new or worsening symptoms. Educated on worrisome signs and symptoms and when to return. At this time I feel comfortable discharge home. Time: 12:58 Medications Administered Discontinued Medications Generic Name Dose Route Start Last Admin Trade Name Murray PRN Reason Stop Dose Admin Hydroxyzine HCl 25 mg 07/28/23 12:14 07/28/23 12:32 Hydroxyzine Hcl 25 Mg Tablet PO 07/28/23 12:15 25 mg ONCE ONE Administration Medical Decision Making Medical Decision Making [facility] Narrative: 0800 This is a 67 yo male presenting via EMS from homeless [facility] with pruritic rash to bilateral hands spreading to bilateral upper and lower extremities which is preventing him from sleeping from excessive itching. Thoughts of SI, no plan. No HI. PE: +red, scaling lesions and excoriations to bilateral hands, upper and lower extremities Deferential: Eczema vs viral exanthems vs allergic vs contact dermatitis. Unlikely necrotizing infection, acute threat to limb, neurovascular compromise, compartment syndrome, TEN, SJS. Patient reports worsening anxiety and depression likely secondary to living conditions/home stressors. Not verbalizing plan for suicidal ideation he just states he his situation makes him feel that way however he would not do it. No homicidal ideation. No signs of acute psychosis. Plan: Labs, care team consult. Differential Diagnosis Differential Diagnoses: The differential diagnosis associated with the presentation includes Deferential: Eczema vs viral exanthems vs allergic vs contact dermatitis. Unlikely necrotizing infection, acute threat to limb, neurovascular compromise, compartment syndrome, TEN, SJS. Patient reports worsening anxiety and depression likely secondary to living conditions/home stressors. Not verbalizing plan for suicidal ideation he just states he his situation makes him feel that way however he would not do it. No homicidal ideation. No signs of acute psychosis. Admission/Observation Consideration of admission/observation: Escalation of care including admission/observation considered Unlikely Consult Healthcare Provider Management of the patient was discussed with: Planting Machine Operator (Care team cleared him on a psychiatric perspective.) Lab Data MDM Lab Attestation statement: I reviewed the patient's lab results. 07/28/23 08:31 07/28/23 08:31 Labs: Lab Results 07/28/23 07/28/23 Range/Units 08:31 09:18 WBC 4.1 L (4.8-10.8) X10*3/uL RBC 4.26 L (4.60-5.80) X10*6/uL Hgb 12.1 L (14.0-18.0) g/dl Hct 37.4 L (42.0-52.0) % MCV 87.8 (80.0-98.0) fL MCH 28.4 (27.0-33.0) pg MCHC 32.4 (31.0-36.0) g/dl RDW 13.3 (11.0-16.0) % Plt Count 182 (160-400) X10*3/uL MPV 9.6 (9.4-12.4) fL Immature Gran % (Auto) 0.2 (0.0-0.4) % Neut % (Auto) 51.4 (45-73) % Lymph % (Auto) 28.1 (20-40) % Hancock % (Auto) 13.1 H (2-11) % Eos % (Auto) 6.5 H (0-4) % Baso % (Auto) 0.7 (0-2) % Lymph # (Auto) 1.2 (1.2-4.9) X10*3/uL [place]ancock # (Auto) 0.5 (0.1-1.2) X10*3/uL Eos # (Auto) 0.3 (0.0-0.4) X10*3/uL Baso # (Auto) 0.0 (0.0-0.2) X10*3/uL Abs Immat Gran (auto) 0.01 (0.00-0.03) X10*3/uL Absolute Neuts (auto) 2.1 (2.0-8.3) x10*3/uL Absolute Nucleated RBC 0.000 (0.0-0.012) X10*3/uL Nucleated RBC % (auto) 0.0 (0.0-0.2) /100WBC Sodium 140 (135-145) mmol/L Potassium 4.5 (3.3-5.1) mmol/L Chloride 109 H (96-108) mmol/L Carbon Dioxide 26 (22-29) mmol/L Anion Gap 10 L (12-20) BUN 19 H (9-16) mg/dL Creatinine 0.68 (0.5-1.4) mg/dL Estim Creat Clear Calc 90.2 Estimated GFR > 60 Random Glucose 110 (60-115) mg/dL Calcium 8.9 D (8.4-10.2) mg/dL Magnesium 1.9 (1.6-2.6) mg/dL Total Bilirubin 0.6 (0.0-1.0) mg/dL AST 23 (5-37) U/L ALT 24 (0-40) U/L Alkaline Phosphatase 73 (39-117) U/L Total Protein 6.4 L (6.5-8.0) g/dL Albumin 3.6 (3.5-5.0) g/dL Urine Color Yellow Urine Appearance Clear Urine pH 7.0 (5.0-9.0) Ur Specific Bureau 1.020 (1.005-1.025) Urine Protein Trace (Neg-Trace) mg/dL Urine Glucose (UA) Negative (Negative) mg/dL Urine Ketones Negative (Negative) mg/dL Urine Blood Negative (Negative) Urine Nitrite Negative (Negative) Ur Leukocyte Esterase Negative (Negative) Urine Opiates Screen Not Detected (Not Detect) Ur Buprenorphine Scrn Not Detected (Not Detect) ng/mL Ur Oxycodone Screen Not Detected (Not Detect) ng/mL Urine Methadone Screen Not Detected (Not Detect) ng/mL Urine Fentanyl Screen Not Detected (Not Detect) Ur Barbiturates Screen Not Detected (Not Detect) Ur Phencyclidine Scrn Not Detected (Not Detect) Ur Amphetamines Screen Not Detected (Not Detect) U Benzodiazepines Scrn Not Detected (Not Detect) Urine Cocaine Screen Not Detected (Not Detect) U Marijuana (THC) Screen POSITIVE H (Not Detect) Ethyl Alcohol < 10 mg/dL External Record Review External record reviewed: Outpatient record, Prior outpatient labs and Prior outpatient radiology Chronic Conditions Patient?s care impacted by: Hypertension and Other (Aortic stenosis, atrial fibrillation, ACD, ischemic cardiomyopathy, hypercholesterolemia, COPD, GERD, Anxiety, depression, CAD, tobacco use) Social Determinants Patient?s care significantly limited by Social Determinants of Health including: Inadequate housing, Low income, Problems related to primary support group, Unemployment, Problems related to employment and Other Social Determinant of Health Discharge Plan Discharge Clinical Impression: Rash, Insomnia, Anxiety Patient Disposition: Home, Self-Care Instructions: Acute Rash (ED), Insomnia (ED), Anxiety (ED) Additional Instructions: Take your medications as prescribed. If you were prescribed antibiotics today, it is important that you take your medication to their entirety, do not skip any doses, do not finish them early. Follow-up with your primary care provider this week. Return to the emergency department with new or worsening symptoms. Such as fevers, chills, chest pain, shortness of breath, nausea, vomiting, dizziness, headache, vision changes, lethargy In case of emergency call 911 Follow-up with the resources you were given by the care team. And follow-up with dermatology as soon as possible Community navigation should be helping you with this as care team has helped facilitate this. Prescriptions: New prednisone 20 mg tablet 40 mg PO DAILY 5 Days Qty: 10 0RF hydroxyzine HCl 25 mg tablet 50 mg PO BEDTIME PRN (Reason: anxiety) Qty: 20 0RF hydrocortisone 1 % cream 1 appl topical BID PRN (Reason: itching) Qty: 28.4 0RF No Action Xarelto 20 mg tablet 20 mg PO QPM Qty: 90 3RF Rx Instructions: must administer with evening meal atorvastatin 80 mg tablet 80 mg PO DAILY Qty: 90 1RF fluticasone propionate 50 mcg/actuation spray,suspension 2 spray intranasal DAILY 30 Days Qty: 16 3RF paroxetine HCl 30 mg tablet 30 mg PO DAILY Qty: 90 0RF Breo Ellipta 200-25 mcg/dose blister with device 1 inh inhalation Q24H Qty: 60 2RF metoprolol succinate [Toprol XL] 25 mg tablet extended release 24 hr 25 mg PO DAILY Qty: 90 3RF Referrals: [facility] [Provider Group[facility] - 1 day Stand Alone Forms: Work/School Release Print Language: Bengali
[2023-07-28 08:35] LABS: MANUAL DIFF FLAG NO
[2023-07-28 08:37] LABS: Basophils Percent Auto 0.7 % (0-2); Eosinophils Absolute Auto 0.3 X10*3/uL (0.0-0.4); Eosinophils Percent Auto 6.5 % (0-4); Hematocrit 37.4 % (42.0-52.0); Hemoglobin 12.1 g/dl (14.0-18.0); Imm Gran Abs Auto 0.01 X10*3/uL (0.00-0.03); Imm Gran Pct Auto 0.2 % (0.0-0.4); Lymphocytes Absolute Auto 1.2 X10*3/uL (1.2-4.9); Lymphocytes Percent Auto 28.1 % (20-40); Mean Corpuscular HGB Conc 32.4 g/dl (31.0-36.0); Mean Corpuscular Hemoglobin 28.4 pg (27.0-33.0); Mean Corpuscular Volume 87.8 fL (80.0-98.0); Mean Platelet Volume 9.6 fL (9.4-12.4); Monocytes Absolute Auto 0.5 X10*3/uL (0.1-1.2); Monocytes Percent Auto 13.1 % (2-11); Neutrophils Absolute Auto 2.1 x10*3/uL (2.0-8.3); Neutrophils Percent Auto 51.4 % (45-73); Platelet Count 182 X10*3/uL (160-400); Red Blood Count 4.26 X10*6/uL (4.60-5.80); Red Cell Distribution Width 13.3 % (11.0-16.0); White Blood Count 4.1 X10*3/uL (4.8-10.8)
[2023-07-28 08:57] LABS: Alanine Aminotransferase 24 U/L (0-40); Albumin Level 3.6 g/dL (3.5-5.0); Alkaline Phosphatase 73 U/L (39-117); Anion Gap 10 (12-20); Aspartate Amino Transferase 23 U/L (5-37); Bilirubin Total 0.6 mg/dL (0.0-1.0); Blood Urea Nitrogen 19 mg/dL (9-16); Calcium 8.9 mg/dL (8.4-10.2); Carbon Dioxide 26 mmol/L (22-29); Chloride 109 mmol/L (96-108); Creatinine Clr Calc Pharmacy 90.2; Estimated Glomerular Filt Rate > 60; Ethanol < 10 mg/dL; Glucose Random 110 mg/dL (60-115); Magnesium 1.9 mg/dL (1.6-2.6); Potassium 4.5 mmol/L (3.3-5.1); Sodium 140 mmol/L (135-145); Total Protein 6.4 g/dL (6.5-8.0)
[2023-07-28 09:19] VITALS: BP 131/91; PULSE 73; RESP 16; O2SAT 96
[2023-07-28 09:25] LABS: Appearance Urine Clear; Color Urine Yellow; Glucose Urine UA Negative (Negative); Leukocyte Esterase Urine Negative (Negative); Nitrite Urine Negative (Negative); Urine Blood Negative (Negative); Urine Ketones Negative (Negative); Urine Protein Trace mg/dL (Neg-Trace)
[2023-07-28 09:36] LABS: Amphetamine Screen Urine Not Detected (Not Detect); Barbiturates, Urine Not Detected (Not Detect); Benzodiazepines Screen Urine Not Detected (Not Detect); Buprenorphine Scr Not Detected (Not Detect); Cannabinoid Screen Urine POSITIVE (Not Detect); Cocaine Screen Urine Not Detected (Not Detect); Fentanyl, urine Not Detected (Not Detect); Methadone Screen, Urine Not Detected (Not Detect); Opiate Screen Urine Not Detected (Not Detect); Oxycodone Screen Urine Not Detected (Not Detect); Phencyclidine Screen Urine Not Detected (Not Detect)
[2023-07-28] MEDS: hydrOXYzine HCL 25 MG TABLET PO (12:32)
--- NOTE | 2023-07-28 12:59 | MHC.CARE ---
Patient evaluated by the CARE Team, he does not need an inpatient psychiatric admission at this time. ED provider, LAUREL Cardenas updated with plan to discharge patient with referrals.
[2023-07-28 13:29] VITALS: BP 131/91; PULSE 73; RESP 16; TEMP -17.7; TEMP 0; O2SAT 96
== END 2023-07-28 13:45 | disposition home or self-care (01) ==
PROVIDERS: Physician Assistant; Emergency Provider Emergency Medicine Emergency Medical Services; PCP General Practice
DX: R21 Rash and other nonspecific skin eruption (principal); G47.00 Insomnia, unspecified; F41.9 Anxiety disorder, unspecified; I10 Essential (primary) hypertension; I25.10 Atherosclerotic heart disease of native coronary artery without angina pectoris; I48.91 Unspecified atrial fibrillation; Z59.01 Sheltered homelessness; Z79.899 Other long term (current) drug therapy
CPT/HCPCS: 36415; 80053; 80307; 81003; 83735; 85025; 99283; S9485

== ENCOUNTER 2023-09-20 11:44 | Emergency (ER) | payer OTHER, SELFPAY ==
--- NOTE | ~2023-09-20 | CT_ITS ---
EXAMINATION: CT HEAD WITHOUT CONTRAST CLINICAL INFORMATION: Headache on Xarelto COMPARISON: None available. TECHNIQUE: Contiguous axial imaging was performed from the skull base to vertex without intravenous administration of contrast. This CT examination was performed using dose optimization techniques as appropriate, variously including the following: *Automated exposure control *Adjustment of mA and/or kV according to patient size (this includes techniques or standardized protocols for targeted exams where dose is matched to indication/reason for exam; i.e. extremities or head) *Use of iterative reconstruction technique DLP: 642 mGy-cm FINDINGS: The ventricles and sulci are normal in size and configuration. No acute hemorrhage, mass effect or shift is evident. Gutierrez-white differentiation is maintained. In the posterior fossa, the brainstem, cerebellum and fourth ventricle image normally. The orbits and calvarium are intact. The paranasal sinuses and mastoid air cells are well pneumatized and clear. CT/CT head/brain wo IV con IMPRESSION: 1. Unremarkable noncontrast brain CT. No acute hemorrhage, mass effect or shift.
[2023-09-20 12:14] VITALS: BP 160/108; PULSE 78; RESP 16; TEMP 36.6; O2SAT 98; BMI 20.4
--- NOTE | 2023-09-20 12:20 | ED.GENADULT ---
HPI - General Adult General Chief complaint: Psychiatric Symptoms Stated complaint: dizziness , weakness, insomnia,vague SI statement Time Seen by Provider: 09/20/23 12:24 Source: patient and old records reviewed Mode of arrival: EMS Limitations: no limitations History of Present Illness ED Provider: CYNDI CORONADO narrative: 68 yo male with PMH of afib on xarelto, COPD, CAD, ischemic cardiomyopathy, HTN, aortic stenosis, COPD states he is here because he cannot take it in the prison anymore he cannot sleep he is too ill to be in a prison. He gets headaches, his eyes hurt because he hasn't had glasses in 2+ months. He was just seen at [facility] and discharged no placement. He is anxious. He states he does not have SI but doesn't want to live like this. He is asking for placement. repeat visits to [facility] for same has had cardiac work up and negative CT head MD complaint: anxiety, insomnia Onset (ago): week(s) Location: head Radiation: non-radiation Severity: moderate Quality: aching Pain Consistency: intermittent Relieving factors: none Exacerbating factors: other Associated symptoms: other (life stress) Treatments prior to arrival: none Related Data Home Medications ?Medication ?Instructions ?Recorded ?Confirmed atorvastatin 80 mg tablet 80 mg PO BEDTIME 09/20/23 09/20/23 hydroxyzine HCl 25 mg tablet 50 mg PO BEDTIME PRN insomnia 09/20/23 09/20/23 melatonin 3 mg tablet 3 mg PO BEDTIME PRN Insomnia 09/20/23 09/20/23 Previous Rx's ?Medication ?Instructions ?Recorded rivaroxaban 20 mg tablet (Xarelto) 20 mg PO QPM #90 tabs 12/29/19 paroxetine HCl 30 mg tablet 30 mg PO DAILY #90 tabs 06/27/20 metoprolol succinate 25 mg 25 mg PO DAILY 30 days #30 tabs 08/25/23 tablet,extended release 24 hr (Toprol XL) Allergies Allergy/AdvReac Type Severity Reaction Status Date / Time codeine [CODEINE] Allergy Mild NAUSEA Verified 09/20/23 12:19 Penicillins [PENICILLINS] Allergy Unknown ANAPHYLAXIS Verified 09/20/23 12:19 Review of Systems Review of Systems: Constitutional : No Fever, No Chills, No Fatigue ENT/Mouth : No sore throat, No Rhinorrhea Eyes: No Eye Pain, No Swelling, No Redness Cardiovascular : No Chest Pain, No SOB, No Dyspnea on Exertion Respiratory : No Cough, No Sputum Gastrointestinal : No Nausea, No Vomiting, No Diarrhea, No abdominal Pain Genitourinary : No Dysuria, No Urinary Frequency, No Hematuria, Musculoskeletal : No joint pain, No Myalgias, No Joint Swelling Skin : No Skin Lesions, No rash Neuro : No Weakness, No Numbness, No Dizziness, positive Headache Psych : pos Anxiety/Panic, No Depression All other systems reviewed and are negative [facility] Past Medical History Attestation statement: The following information was validated with the patient. Source: old records reviewed Medical History Homeless Atrial fibrillation Hypercholesterolemia Esophageal dysmotility Tobacco abuse COPD (chronic obstructive pulmonary disease) GERD (gastroesophageal reflux disease) Anxiety and depression Hypertension Coronary artery disease Surgical History History of surgery History of surgery History of angioplasty Family History Family History Father Myocardial infarction Mother Medical history unknown Sister No problems noted. Brother No problems noted. Son No problems noted. Social History Social History Alcohol intake: never Patient Tobacco Use Status: Current everyday Tobacco user Tobacco use type: Cigarette Cigarettes Per Day: 3 Substance Use Type: Marijuana Physical Exam ED Vital Signs: Vital Signs - 24 hr 09/20/23 12:14 09/20/23 20:10 Temperature 97.8 F 97.8 F Pulse Rate 78 82 Respiratory Rate 16 20 Blood Pressure 160/108 H 126/90 H Pulse Oximetry 98 96 Oxygen Delivery Method Room Air Room Air BMI result Body Mass Index 20.4 Appearance: Alert. Oriented X3. No acute distress. Eyes: Pupils equal, round and reactive to light. ENT: Pharynx normal. Neck: Normal inspection. Neck supple. CVS: irrregular heart rate and rhythm. Pulses normal. Respiratory: No respiratory distress. Breath sounds normal. Abdomen: Soft and nontender. Skin: Skin warm and dry. Normal skin color. Normal skin turgor. Extremities: No lower extremity edema. No calf ttp Neuro: Oriented X 3. No motor deficit. No sensory deficit. CN2-12 intact Course Course Course Narrative: RME: Done by LAUREL Hannah. 68-year-old male presents to ED for insomnia, suicidal ideation, anxiety, and dizziness, and feeling overwhelmed by multiple months. Patient only recently seen at [facility] in [place] and had normal cardiac neuro evaluation. Patient brought from cardiology office where he had follow-up where he made SI statements. Labs care team consult placed. No neuro deficits. Patient is homeless Medications Administered Generic Name Dose Route Start Last Admin Trade Name Freq PRN Reason Stop Dose Admin Atorvastatin Calcium 80 mg 09/20/23 21:00 09/20/23 20:41 Atorvastatin Calcium 80 Mg Tablet PO 80 mg BEDTIME KANDI Administration Hydroxyzine HCl 50 mg 09/20/23 20:22 09/20/23 20:41 Hydroxyzine Hcl 50 Mg Tablet PO 50 mg BEDTIME PRN Administration insomnia Melatonin 3 mg 09/20/23 20:22 09/20/23 20:41 Melatonin 3 Mg Tablet PO 3 mg BEDTIME PRN Administration Insomnia Rivaroxaban 20 mg 09/20/23 21:00 09/20/23 20:41 Rivaroxaban 20 Mg Tablet PO 20 mg BEDTIME KANDI Administration Medical Decision Making Medical Decision Making [facility] Narrative: 68 yo male with PMH of afib on xarelto, COPD, CAD, ischemic cardiomyopathy, HTN, aortic stenosis, COPD here reporting anxiety, headaches, insomnia no real SI but asking for prison and placement as that is what he needs. At this time labs, CT head for ICH given his xarelto use. He has no actual SI but states he cannot live in a prison this is all related to his housing he needs CM input. Differential Diagnosis Differential Diagnoses: The differential diagnosis associated with the presentation includes anxiety, prison seeking does have headache denies falls but given xarelto use CT head ordered Admission/Observation Consideration of admission/observation: Escalation of care including admission/observation considered physician observation started at 143pm pending PT/CM Consult Healthcare Provider Management of the patient was discussed with: Icicle Machine Operator Lab Data [facility] Lab Attestation statement: I reviewed the patient's lab results. 09/20/23 13:20 09/20/23 13:20 Labs: Lab Results 09/20/23 09/20/23 Range/Units 13:20 13:59 WBC 6.8 (4.8-10.8) X10*3/uL RBC 4.99 (4.60-5.80) X10*6/uL Hgb 13.8 L (14.0-18.0) g/dl Hct 42.3 (42.0-52.0) % MCV 84.8 (80.0-98.0) fL MCH 27.7 (27.0-33.0) pg MCHC 32.6 (31.0-36.0) g/dl RDW 14.6 (11.0-16.0) % Plt Count 200 (160-400) X10*3/uL MPV 9.8 (9.4-12.4) fL Immature Gran % (Auto) 0.3 (0.0-0.4) % Neut % (Auto) 69.7 (45-73) % Lymph % (Auto) 18.9 L (20-40) % [place] % (Auto) 9.4 (2-11) % Eos % (Auto) 1.3 (0-4) % Baso % (Auto) 0.4 (0-2) % Lymph # (Auto) 1.3 (1.2-4.9) X10*3/uL [place] # (Auto) 0.6 (0.1-1.2) X10*3/uL Eos # (Auto) 0.1 (0.0-0.4) X10*3/uL Baso # (Auto) 0.0 (0.0-0.2) X10*3/uL Abs Immat Gran (auto) 0.02 (0.00-0.03) X10*3/uL Absolute Neuts (auto) 4.7 (2.0-8.3) x10*3/uL Absolute Nucleated RBC 0.000 (0.0-0.012) X10*3/uL Nucleated RBC % (auto) 0.0 (0.0-0.2) /100WBC PT 15.3 H (11.1-13.3) SEC INR 1.3 H (0.9-1.1) APTT 34.8 (26.0-36.8) SEC Sodium 140 (135-145) mmol/L Potassium 3.7 (3.3-5.1) mmol/L Chloride 105 (96-108) mmol/L Carbon Dioxide 28 (22-29) mmol/L Anion Gap 11 L (12-20) BUN 19 H (9-16) mg/dL Creatinine 0.79 (0.5-1.4) mg/dL Estim Creat Clear Calc 76.7 Estimated GFR > 60 Random Glucose 96 (60-115) mg/dL Calcium 9.5 D (8.4-10.2) mg/dL Total Bilirubin 1.1 H (0.0-1.0) mg/dL AST 21 (5-37) U/L ALT 20 (0-40) U/L Alkaline Phosphatase 71 (39-117) U/L Troponin I High Sens 3.6 (<3.5-35.0) ng/L Total Protein 7.2 (6.5-8.0) g/dL Albumin 4.2 (3.5-5.0) g/dL TSH 1.43 (0.32-4.0) uIU/mL Urine Color Dark Yellow Urine Appearance Clear Urine pH 5.0 (5.0-9.0) Ur Specific [place] 1.025 (1.005-1.025) Urine Protein 100 (2+) H (Neg-Trace) mg/dL Urine Glucose (UA) Negative (Negative) mg/dL Urine Ketones Trace (Negative) mg/dL Urine Blood Small (1+) H (Negative) Urine Nitrite Negative (Negative) Ur Leukocyte Esterase Negative (Negative) Urine RBC 0-2 (0-2) /HPF Urine WBC 0-5 (0-5) /HPF Ur Squamous Epith Cells 0-2 (0-2) /HPF Urine Bacteria None Seen (None Seen) Hyaline Casts 0-2 (0-2) /LPF Urine Opiates Screen Not Detected (Not Detect) Ur Buprenorphine Scrn Not Detected (Not Detect) ng/mL Ur Oxycodone Screen Not Detected (Not Detect) ng/mL Urine Methadone Screen Not Detected (Not Detect) ng/mL Urine Fentanyl Screen Not Detected (Not Detect) Ur Barbiturates Screen Not Detected (Not Detect) Ur Phencyclidine Scrn Not Detected (Not Detect) Ur Amphetamines Screen Not Detected (Not Detect) U Benzodiazepines Scrn Not Detected (Not Detect) Urine Cocaine Screen Not Detected (Not Detect) U Marijuana (THC) Screen POSITIVE H (Not Detect) Ethyl Alcohol < 10 mg/dL COVID-19 (SHEA) Negative (Negative) COVID-19 Clin Com See Note Independent Interpretation I performed an independent interpretation of an: EKG and CT Scan (no ICH) Interpretation: Rate: 77 Rhythm: afib Watkins: normal Normal QRS complex. ST T wave : inverted t wave III, no DEIRDRE qTC: 457 prior studies: no acute ischemia The study has been interpreted contemporaneously by me. . Radiology Impression Discussion of test interpretation with radiology: I have reviewed the radiologist's reading. Independent Historian Clinical information obtained from an independent historian. History obtained from or confirmed by: EMS External Record Review External record reviewed: Outpatient record Social Determinants Patient?s care significantly limited by Social Determinants of Health including: Inadequate housing, Low income, Problems related to primary support group and Unemployment Discharge Plan Discharge Clinical Impression: Anxiety Patient Disposition: Still a Patient Prescriptions: No Action Xarelto 20 mg tablet 20 mg PO QPM Qty: 90 3RF Rx Instructions: must administer with evening meal paroxetine HCl 30 mg tablet 30 mg PO DAILY Qty: 90 0RF metoprolol succinate [Toprol XL] 25 mg tablet extended release 24 hr 25 mg PO DAILY 30 Days Qty: 30 0RF Rx Instructions: must make cardiology appt for refills atorvastatin 80 mg tablet 80 mg PO BEDTIME hydroxyzine HCl 25 mg tablet 50 mg PO BEDTIME PRN (Reason: insomnia) melatonin 3 mg tablet 3 mg PO BEDTIME MDD 3mg PRN (Reason: Insomnia) Interventions: Park-Suicide Risk Severity Scale Last Done: 09/20/23 18:04 Print Language: Uruguayan
--- NOTE | 2023-09-20 12:24 | ECG_ITS ---
Test Reason : dizziness Blood Pressure : / mmHG Vent. Rate : 077 BPM Atrial Rate : 000 BPM P-R Int : 000 ms QRS Dur : 102 ms QT Int : 404 ms P-R-T Axes : 000 080 -14 degrees QTc Int : 457 ms Atrial fibrillation Minimal voltage criteria for LVH, may be normal variant ( Avilla product ) Abnormal QRS-T angle, consider primary T wave abnormality Abnormal ECG When compared with ECG of 08-JUN-2023 22:37, No significant change was found Referred By: Joshua Hannah Electronically Signed By:GABBIE MORALES MD
[2023-09-20 13:26] LABS: MANUAL DIFF FLAG NO
[2023-09-20 13:28] LABS: Basophils Percent Auto 0.4 % (0-2); Eosinophils Absolute Auto 0.1 X10*3/uL (0.0-0.4); Eosinophils Percent Auto 1.3 % (0-4); Hematocrit 42.3 % (42.0-52.0); Hemoglobin 13.8 g/dl (14.0-18.0); Imm Gran Abs Auto 0.02 X10*3/uL (0.00-0.03); Imm Gran Pct Auto 0.3 % (0.0-0.4); Lymphocytes Absolute Auto 1.3 X10*3/uL (1.2-4.9); Lymphocytes Percent Auto 18.9 % (20-40); Mean Corpuscular HGB Conc 32.6 g/dl (31.0-36.0); Mean Corpuscular Hemoglobin 27.7 pg (27.0-33.0); Mean Corpuscular Volume 84.8 fL (80.0-98.0); Mean Platelet Volume 9.8 fL (9.4-12.4); Monocytes Absolute Auto 0.6 X10*3/uL (0.1-1.2); Monocytes Percent Auto 9.4 % (2-11); Neutrophils Absolute Auto 4.7 x10*3/uL (2.0-8.3); Neutrophils Percent Auto 69.7 % (45-73); Platelet Count 200 X10*3/uL (160-400); Red Blood Count 4.99 X10*6/uL (4.60-5.80); Red Cell Distribution Width 14.6 % (11.0-16.0); White Blood Count 6.8 X10*3/uL (4.8-10.8)
[2023-09-20 13:35] LABS: INTERNATIONAL NORM RATIO 1.3 (0.9-1.1); Prothrombin Time 15.3 SEC (11.1-13.3)
[2023-09-20 13:38] LABS: Partial Thromboplastin Time 34.8 SEC (26.0-36.8)
[2023-09-20 13:40] LABS: COVID-19 Test Negative (Negative); IDNOW Serial# 08D9AD1C
[2023-09-20 13:51] LABS: Alanine Aminotransferase 20 U/L (0-40); Albumin Level 4.2 g/dL (3.5-5.0); Alkaline Phosphatase 71 U/L (39-117); Anion Gap 11 (12-20); Aspartate Amino Transferase 21 U/L (5-37); Bilirubin Total 1.1 mg/dL (0.0-1.0); Blood Urea Nitrogen 19 mg/dL (9-16); Calcium 9.5 mg/dL (8.4-10.2); Carbon Dioxide 28 mmol/L (22-29); Chloride 105 mmol/L (96-108); Creatinine Clr Calc Pharmacy 76.7; Estimated Glomerular Filt Rate > 60; Ethanol < 10 mg/dL; Glucose Random 96 mg/dL (60-115); Potassium 3.7 mmol/L (3.3-5.1); Sodium 140 mmol/L (135-145); Total Protein 7.2 g/dL (6.5-8.0)
[2023-09-20 13:53] LABS: Troponin-I High Sensitivity 3.6 ng/L (<3.5-35.0)
--- NOTE | 2023-09-20 14:08 | MHC.EDTECH ---
CALLED [facility] FOR CT SCAN SPOKE W/NEFTALY SHE WILL FAX IT OVER
[2023-09-20 14:28] LABS: Appearance Urine Clear; Color Urine Dark Yellow; Glucose Urine UA Negative (Negative); Leukocyte Esterase Urine Negative (Negative); Nitrite Urine Negative (Negative); Specific Gravity - Urine 1.025 (1.005-1.025); UMIC TRIGGER UACC YES; Urine Blood Small (1+) (Negative); Urine Ketones Trace mg/dL (Negative); Urine Protein 100 (2+) mg/dL (Neg-Trace)
[2023-09-20 14:35] LABS: Bacteria Urine None Seen (None Seen); Hyaline Casts Urine 0-2 /LPF (0-2); RBC Urine 0-2 /HPF (0-2); Squamous Epithelial Cell Urine 0-2 /HPF (0-2); WBC Urine 0-5 /HPF (0-5)
[2023-09-20 14:41] LABS: Amphetamine Screen Urine Not Detected (Not Detect); Barbiturates, Urine Not Detected (Not Detect); Benzodiazepines Screen Urine Not Detected (Not Detect); Buprenorphine Scr Not Detected (Not Detect); Cannabinoid Screen Urine POSITIVE (Not Detect); Cocaine Screen Urine Not Detected (Not Detect); Fentanyl, urine Not Detected (Not Detect); Methadone Screen, Urine Not Detected (Not Detect); Opiate Screen Urine Not Detected (Not Detect); Oxycodone Screen Urine Not Detected (Not Detect); Phencyclidine Screen Urine Not Detected (Not Detect)
[2023-09-20 16:29] LABS: TSH reflex Free T4 1.43 uIU/mL (0.32-4.0)
--- NOTE | 2023-09-20 18:23 | MHC.CARE ---
Patient evaluated by the CARE Team, he does not require an inpatient psychiatric admission at this time. Referred to CM by ED provider, Dr. Mercedes
--- NOTE | 2023-09-20 18:45 | MHC.CM.ED ---
CM received consult from Dr. Mercedes. Pt is A&Ox4. Pt is in the pod. Has been cleared by the CARE TEAM. Pt has no psych diagnosis. Pt lives at the [facility] in [place]. According to CARE note, patient has lived there for 8 months. Pt tells CM it has been 2 months. Pt tells CM and CARE team that he is unable to rest at [facility] and complete chores d/t his dizziness and lack of sleep. Pt has been seen several times with insomnia. Pt tells CM he did have housing, but lost it d/t not paying the rent. He is vague about times and reasons for homelessness. Pt is ambulating independently. Uses no DME/services. Pt wants to be admitted to hospital. CM explained that patient does not meet criteria for admission. Pt does not want to return to [facility] and does not want respite. Explained that respite would depend of bed availability and insurance auth. Pt tells CM he does not want to be in a long term. Dr. Oneill aware of above conversation. Dt. Oneill spoke with patient. Explained his options, including return to the [facility] or trying to find him a respite bed. Dr. Oneill explained he would not be admitted and that he needs to work on housing, as the hospital cannot provide housing for him. According to MR, patient was at his cardiology without an appointment, and they referred him to [facility] for services. Unsure what services they can offer, as patient is homeless. Pt is now agreeable to respite. Will place referrals. Pt has [employer] insurance. Pt is aware that respite depends on bed offers and insurance authorization for payment. If no offers or insurance declines payment, then patient will be discharged to his current [facility].
[2023-09-20 20:10] VITALS: BP 126/90; PULSE 82; RESP 20; TEMP 36.6; O2SAT 96
[2023-09-20] MEDS: Melatonin 3 MG TABLET PO (20:41)
[2023-09-20] MEDS: Atorvastatin Calcium 80 MG TABLET PO (20:41)
[2023-09-20] MEDS: Rivaroxaban 20 MG TABLET PO (20:41)
[2023-09-20] MEDS: hydrOXYzine HCL 50 MG TABLET PO (20:41)
[2023-09-21 06:31] VITALS: BP 125/87; PULSE 88; RESP 17; TEMP 36.4; O2SAT 97
--- NOTE | 2023-09-21 07:11 | PC.NURSE ---
Assumed care of patient at 0645. Patient is observed resting quietly in their bed. No distress observed, breathing is even and unlabored.
[2023-09-21] MEDS: Metoprolol Succinate ER 25 MG TAB.ER.24H PO (10:11)
[2023-09-21] MEDS: PARoxetine HCL 30 MG TABLET PO (10:11)
--- NOTE | 2023-09-21 11:11 | MHC.CM.PN ---
Addendum entered by Farida Dawson 09/21/23 15:20: Auth received from [facility] for respite, S transport is booked for 5:30pm. Pt aware and in agreement with discharge plan. Addendum entered by Farida Dawson 09/21/23 11:26: This CM spoke with [facility] they are aware of the plan for pt to go to [facility] for respite. Per [facility], pt will need to go directly from the hospital to the respite and will need to be notified by the respite ([facility]) that he is there within 2 days of him arriving in order for them to hold his bed at [facility]. Original Note: Pt cleared by CARE Team. This CM met with pt to discuss his discharge plan, pt alert and verbal appears very anxious, pacing, distressed about his missing clothes and eye glasses, intermittently crying during meeting, very fixated on his dry hands. [facility] has agreed to accept pt for a respite stay and will go for insurance auth. Pt is agreeable to going to [facility] for respite. Call placed to [facility] to discuss his bed hold there, unable to reach anyone, will attempt again.
[2023-09-21 17:55] VITALS: BP 125/87; PULSE 88; RESP 17; TEMP 36.4; O2SAT 97
== END 2023-09-21 17:56 | disposition home or self-care (01) ==
PROVIDERS: Physician Assistant; Emergency Provider Emergency Medicine; PCP General Practice
DX: F41.1 Generalized anxiety disorder (principal); F43.0 Acute stress reaction; R42 Dizziness and giddiness; G47.00 Insomnia, unspecified; M54.2 Cervicalgia; R53.1 Weakness; I48.91 Unspecified atrial fibrillation; I10 Essential (primary) hypertension; Z79.01 Long term (current) use of anticoagulants; Z11.52 Encounter for screening for COVID-19; Z79.899 Other long term (current) drug therapy
CPT/HCPCS: 36415; 70450; 80053; 80307; 81001; 84443; 84484; 85025; 85610; 85730; 87635; 93005; 99285; S9485

== ENCOUNTER → 2023-09-20 12:24 | Outpatient (BNV) | payer OTHER, SELFPAY | PROVIDERS: Emergency Provider Emergency Medicine; PCP General Practice; Visit Provider Internal Medicine Cardiovascular Disease | DX: R42 Dizziness and giddiness (principal); I48.91 Unspecified atrial fibrillation; R94.31 Abnormal electrocardiogram [ECG] [EKG] | CPT/HCPCS: 93010 ==

== ENCOUNTER 2023-12-20 15:23 | Outpatient (REF) | payer MEDICAID, SELFPAY ==
--- NOTE | ~2023-12-20 | XR_ITS ---
EXAMINATION: XR CHEST CLINICAL INFORMATION: Pneumonia 12/10/2023 COMPARISON: X-ray 06/07/2023 TECHNIQUE: 2 views of the chest were obtained. FINDINGS: Cardiac and mediastinal silhouette is within normal limits, stable. Left pectoral pacemaker with stable position of the leads. Nonspecific expanded. There is mild peribronchial thickening. No confluent airspace disease is seen. Effusion, pulmonary edema. No pneumothorax. Thoracic spine degeneration. XR/XR chest 2V IMPRESSION: Bronchial wall thickening can be seen with a small airway process such as asthma or atypical/viral infections. No focal consolidation is seen. Electronically signed by: Wellington Cortez MD 12/20/2023 05:07 PM [facility]
== END 2023-12-20 15:24 | disposition home or self-care (01) ==
LOC: HO.HHCX 15:23
PROVIDERS: Visit Provider General Practice
DX: J18.9 Pneumonia, unspecified organism (principal)
CPT/HCPCS: 71046

== ENCOUNTER 2024-02-03 10:40 | Emergency (ER) | payer OTHER, SELFPAY ==
--- NOTE | ~2024-02-03 | XR_ITS ---
EXAMINATION: XR CHEST CLINICAL INFORMATION: cough COMPARISON: Prior chest 12/20/2023 TECHNIQUE: 2 views of the chest were obtained. FINDINGS: Dual wire left-sided pacer maker noted unchanged. Lungs clear. Cardiomediastinal silhouette normal. Bone and soft tissues unremarkable. XR/XR chest 2V IMPRESSION: No acute disease. Electronically signed by: Nigel Bautista MD 02/03/2024 02:38 PM EST
[2024-02-03 10:41] VITALS: BP 126/92; PULSE 87; RESP 18; TEMP 36.5; O2SAT 98; BMI 19.4
[2024-02-03 11:00] LABS: MANUAL DIFF FLAG NO
[2024-02-03 11:07] LABS: Basophils Percent Auto 0.7 % (0-2); Eosinophils Absolute Auto 0.1 X10*3/uL (0.0-0.4); Eosinophils Percent Auto 1.3 % (0-4); Hematocrit 41.6 % (42.0-52.0); Hemoglobin 13.4 g/dl (14.0-18.0); Imm Gran Abs Auto 0.03 X10*3/uL (0.00-0.03); Imm Gran Pct Auto 0.5 % (0.0-0.4); Lymphocytes Absolute Auto 1.1 X10*3/uL (1.2-4.9); Lymphocytes Percent Auto 18.2 % (20-40); Mean Corpuscular HGB Conc 32.2 g/dl (31.0-36.0); Mean Corpuscular Hemoglobin 28.4 pg (27.0-33.0); Mean Corpuscular Volume 88.1 fL (80.0-98.0); Mean Platelet Volume 10.2 fL (9.4-12.4); Monocytes Absolute Auto 0.7 X10*3/uL (0.1-1.2); Monocytes Percent Auto 11.2 % (2-11); Neutrophils Absolute Auto 4.1 x10*3/uL (2.0-8.3); Neutrophils Percent Auto 68.1 % (45-73); Platelet Count 187 X10*3/uL (160-400); Red Blood Count 4.72 X10*6/uL (4.60-5.80); Red Cell Distribution Width 14.1 % (11.0-16.0)
[2024-02-03 11:16] LABS: Alanine Aminotransferase 16 U/L (0-40); Albumin Level 4.2 g/dL (3.5-5.0); Alkaline Phosphatase 73 U/L (39-117); Anion Gap 11 (12-20); Aspartate Amino Transferase 25 U/L (5-37); Bilirubin Direct 0.4 mg/dL (0.0-0.5); Blood Urea Nitrogen 26 mg/dL (9-16); Calcium 9.2 mg/dL (8.4-10.2); Carbon Dioxide 30 mmol/L (22-29); Chloride 105 mmol/L (96-108); Estimated Glomerular Filt Rate > 60; Glucose Random 100 mg/dL (60-115); Lipase 7 U/L (8-78); Potassium 4.4 mmol/L (3.3-5.1); Sodium 142 mmol/L (135-145); Total Protein 7.6 g/dL (6.5-8.0)
[2024-02-03 11:41] LABS: Influenza A PCR NEGATIVE (Negative); Influenza B PCR NEGATIVE (Negative); Resp Syncy Virus RNA Qual PCR NEGATIVE (Negative); SARS COV2 PCR INHOUSE NEGATIVE (Negative)
--- NOTE | 2024-02-03 11:51 | ED_ITS ---
HPI - General Adult General Chief complaint: General Medical Stated complaint: Pneumonia, SOB, weakness Time Seen by Provider: 02/03/24 11:24 Source: patient, RN notes reviewed and old records reviewed Mode of arrival: ambulatory History of Present Illness ED Provider: Daylin Jaimes PA-C HPI narrative: 68-year-old male with a past medical history AFib on Xarelto, HLD, esophageal dysmotility, COPD, GERD, anxiety, depression, HTN, CAD, presenting to the ED complaining of feeling generally unwell x weeks with fatigue, weakness, productive cough, lightheadedness, acute on chronic neck pain. Reports recent history of pneumonia weeks ago which he finished antibiotics for however feels as though he did not improve. Reports mild SOB. Denies fever, chills, chest pain, abdominal pain, nausea/vomiting, pedal edema Related Data Home Medications ?Medication ?Instructions ?Recorded ?Confirmed atorvastatin 80 mg tablet 80 mg PO BEDTIME 09/20/23 09/20/23 hydroxyzine HCl 25 mg tablet 50 mg PO BEDTIME PRN insomnia 09/20/23 09/20/23 melatonin 3 mg tablet 3 mg PO BEDTIME PRN Insomnia 09/20/23 09/20/23 Previous Rx's ?Medication ?Instructions ?Recorded rivaroxaban 20 mg tablet (Xarelto) 20 mg PO QPM #90 tabs 12/29/19 paroxetine HCl 30 mg tablet 30 mg PO DAILY #90 tabs 06/27/20 metoprolol succinate 25 mg 25 mg PO DAILY 30 days #30 tabs 08/25/23 tablet,extended release 24 hr (Toprol XL) benzonatate 100 mg capsule 100 mg PO TID PRN cough #14 caps 02/03/24 prednisone 20 mg tablet 40 mg (2 x 20 mg) PO DAILY 5 days 02/03/24 #10 tabs Allergies Allergy/AdvReac Type Severity Reaction Status Date / Time codeine [CODEINE] Allergy Mild NAUSEA Verified 02/03/24 10:46 Penicillins [PENICILLINS] Allergy Unknown ANAPHYLAXIS Verified 02/03/24 10:46 Review of Systems 2 Review of Systems: Yes all other systems are reviewed and are negative Constitutional: Constitutional: Reports as per [facility] Past Medical History Attestation statement: The following information was validated with the patient. Source: old records reviewed Medical History Homeless Atrial fibrillation Hypercholesterolemia Esophageal dysmotility Tobacco abuse COPD (chronic obstructive pulmonary disease) GERD (gastroesophageal reflux disease) Anxiety and depression Hypertension Coronary artery disease Surgical History History of surgery History of surgery History of angioplasty Family History Family History Father Myocardial infarction Mother Medical history unknown Sister No problems noted. Brother No problems noted. Son No problems noted. Social History Social History Alcohol intake: never Patient Tobacco Use Status: Current everyday Tobacco user Tobacco use type: Cigarette Cigarettes Per Day: 3 Substance Use Type: Marijuana Advance Directives: No Advance Directives Information Provided: Yes Do you have a plan to hurt others: No Plan Physical Exam ED Vital Signs: Vital Signs - 24 hr 02/03/24 10:41 02/03/24 15:16 Temperature 97.7 F 97 F Pulse Rate 87 84 Respiratory Rate 18 20 Blood Pressure 126/92 H 132/90 H Pulse Oximetry 98 96 Oxygen Delivery Method Room Air Room Air BMI result Body Mass Index 19.4 Const General: cooperative, healthy appearing and no acute distress Orientation/consciousness: patient oriented x3 Limitations: no limitations HENMT Head: Yes normal to inspection and Yes atraumatic Ears: hearing grossly normal bilaterally General nose exam: Normal external nose present Face and sinus: Yes normal facial exam Mouth: Normal oral and palatal mucosa present Throat: Yes posterior oropharynx normal, Yes tonsils normal and Yes uvula midline Eyes General: appearance normal, both eyes and all related structures EOM: EOMs intact bilaterally Neck Other: No midline cervical spinous tenderness. Bilateral cervical paraspinal tenderness noted. Neck: Yes normal visual inspection, Yes no meningeal signs and No anterior neck swelling Resp Effort & Inspection: normal respiratory effort and no respiratory distress Auscultation: clear to auscultation bilaterally, no crackles, no rales and no wheezes Cardio Rate: regular rate Heart sounds: S1 normal heart sound present and S2 normal heart sound present GI Inspection: Yes normal to inspection Palpation (GI): Soft to palpation, nontender, no guarding and not rigid Skin Rashes: no rashes Wounds: no wounds Neuro General: patient oriented x3, tone normal and no meningeal signs Cranial nerves: Yes CN's II-XII intact bilaterally Gait exam (Neuro): Normal gait present Extrem General: Yes normal to inspection, Yes no pedal edema and Yes no calf tenderness Course Course Course Narrative: -1450--no leukocytosis. BUN acute on chronically elevated > will give 1L IVF -Labs otherwise reassuring -UA negative. Viral studies negative XR chest 2V IMPRESSION: No acute disease. Results discussed with patient including worrisome signs and symptoms and strict return precautions, and when to return to the emergency department. They verbalized understanding and feel safe for discharge at this time. Medications Administered Discontinued Medications Generic Name Dose Route Start Last Admin Trade Name Freq PRN Reason Stop Dose Admin Sodium Chloride 1,000 mls @ 999 mls/hr 02/03/24 12:45 02/03/24 14:14 Ns IV 02/03/24 13:45 Infused .Q1H1M KANDI Infusion Medical Decision Making Medical Decision Making [facility] Narrative: 68-year-old male with a past medical history AFib on Xarelto, HLD, esophageal dysmotility, COPD, GERD, anxiety, depression, HTN, CAD, presenting to the ED complaining of feeling generally unwell x weeks with fatigue, weakness, productive cough, lightheadedness, acute on chronic neck pain. On exam vital signs stable, NAD, nontoxic appearing, lungs CTA, abdomen soft/nontender, no midline spinous tenderness 0 neuro deficits. Concern for viral illness vs continued pneumonia vs bronchitis vs metabolic abnormalities. Low suspicion for meningitis/encephalitis or fracture. Unlikely ACS/PE Plan: EKG, labs, viral studies, CXR, re-evaluate Please refer to course for remaining clinical decision making, interpretation of labs/imaging results, and discussions with consultants and/or family members. Differential Diagnosis Differential Diagnoses: The differential diagnosis associated with the presentation includes As above Admission/Observation Consideration of admission/observation: Escalation of care including admission/observation considered Lab Data [facility] Lab Attestation statement: I reviewed the patient's lab results. 02/03/24 10:55 02/03/24 10:55 Labs: Lab Results 02/03/24 02/03/24 Range/Units 10:55 12:23 WBC 6.0 (4.8-10.8) X10*3/uL RBC 4.72 (4.60-5.80) X10*6/uL Hgb 13.4 L (14.0-18.0) g/dl Hct 41.6 L (42.0-52.0) % MCV 88.1 (80.0-98.0) fL MCH 28.4 (27.0-33.0) pg MCHC 32.2 (31.0-36.0) g/dl RDW 14.1 (11.0-16.0) % Plt Count 187 (160-400) X10*3/uL MPV 10.2 (9.4-12.4) fL Immature Gran % (Auto) 0.5 H (0.0-0.4) % Neut % (Auto) 68.1 (45-73) % Lymph % (Auto) 18.2 L (20-40) % [place] % (Auto) 11.2 H (2-11) % Eos % (Auto) 1.3 (0-4) % Baso % (Auto) 0.7 (0-2) % Lymph # (Auto) 1.1 L (1.2-4.9) X10*3/uL [place] # (Auto) 0.7 (0.1-1.2) X10*3/uL Eos # (Auto) 0.1 (0.0-0.4) X10*3/uL Baso # (Auto) 0.0 (0.0-0.2) X10*3/uL Abs Immat Gran (auto) 0.03 (0.00-0.03) X10*3/uL Absolute Neuts (auto) 4.1 (2.0-8.3) x10*3/uL Absolute Nucleated RBC 0.000 (0.0-0.012) X10*3/uL Nucleated RBC % (auto) 0.0 (0.0-0.2) /100WBC Sodium 142 (135-145) mmol/L Potassium 4.4 (3.3-5.1) mmol/L Chloride 105 (96-108) mmol/L Carbon Dioxide 30 H (22-29) mmol/L Anion Gap 11 L (12-20) BUN 26 H (9-16) mg/dL Creatinine 0.89 (0.5-1.4) mg/dL Estim Creat Clear Calc 65.0 Estimated GFR > 60 Random Glucose 100 (60-115) mg/dL Calcium 9.2 (8.4-10.2) mg/dL Magnesium 1.9 (1.6-2.6) mg/dL Total Bilirubin 1.0 (0.0-1.0) mg/dL Direct Bilirubin 0.4 (0.0-0.5) mg/dL AST 25 (5-37) U/L ALT 16 (0-40) U/L Alkaline Phosphatase 73 (39-117) U/L Total Protein 7.6 (6.5-8.0) g/dL Albumin 4.2 (3.5-5.0) g/dL Lipase 7 L (8-78) U/L Urine Color Dark Yellow Urine Appearance Cloudy Urine pH 6.0 (5.0-9.0) Ur Specific [place] >= 1.030 H (1.005-1.025) Urine Protein 100 (2+) H (Neg-Trace) mg/dL Urine Glucose (UA) Negative (Negative) mg/dL Urine Ketones Trace (Negative) mg/dL Urine Blood Trace H (Negative) Urine Nitrite Negative (Negative) Ur Leukocyte Esterase Negative (Negative) Urine RBC 3-5 H (0-2) /HPF Urine WBC 0-5 (0-5) /HPF Ur Squamous Epith Cells 0-2 (0-2) /HPF Urine Bacteria None Seen (None Seen) Hyaline Casts 3-5 (0-2) /LPF Influenza Type A (PCR) NEGATIVE (Negative) Influenza Type B (PCR) NEGATIVE (Negative) RSV RNA Qual (PCR) NEGATIVE (Negative) SARS-CoV-2 RNA (RT-PCR) NEGATIVE (Negative) Independent Interpretation I performed an independent interpretation of an: EKG and Plain X-Ray Radiology Impression Discussion of test interpretation with radiology: I have reviewed the radiologist's reading. External Record Review External record reviewed: Inpatient record, Office record, Outpatient record, Prior outpatient labs, Prior outpatient radiology, Primary care record and Outside ED record Tests considered The following testing was considered but not selected: As above Prescription Management I considered prescription management with: Pain Medication and Antibiotic Chronic Conditions Patient?s care impacted by: Hypertension and Other (AFib, COPD) Social Determinants Patient?s care significantly limited by Social Determinants of Health including: Inadequate housing, Low income, Alcoholism and drug addiction in family, Problems related to primary support group, Unemployment, Problems related to employment and Other Social Determinant of Health Discharge Plan Discharge Clinical Impression: Generalized weakness Patient Disposition: Home, Self-Care Instructions: Weakness (ED) Additional Instructions: Please increase fluid intake Your blood work and viral studies were otherwise reassuring Your x-ray does not show pneumonia You likely bronchitis Prednisone as a steroid which will help treat this, please take as prescribed until completion Teswendi Velazquez are for cough take as needed Please have close follow-up with your primary care doctor If her symptoms persist or worsen return to the emergency department Prescriptions: New prednisone 20 mg tablet 40 mg PO DAILY 5 Days Qty: 10 0RF benzonatate 100 mg capsule 100 mg PO TID PRN (Reason: cough) Qty: 14 0RF No Action Xarelto 20 mg tablet 20 mg PO QPM Qty: 90 3RF Rx Instructions: must administer with evening meal paroxetine HCl 30 mg tablet 30 mg PO DAILY Qty: 90 0RF metoprolol succinate [Toprol XL] 25 mg tablet extended release 24 hr 25 mg PO DAILY 30 Days Qty: 30 0RF Rx Instructions: must make cardiology appt for refills atorvastatin 80 mg tablet 80 mg PO BEDTIME hydroxyzine HCl 25 mg tablet 50 mg PO BEDTIME PRN (Reason: insomnia) melatonin 3 mg tablet 3 mg PO BEDTIME MDD 3mg PRN (Reason: Insomnia) Referrals: Yumi Alarcon MD [Primary Care Provider] - 3 days Discharge Date/Time: 02/03/24 15:17 Print Language: Armenian
--- NOTE | 2024-02-03 11:55 | ECG_ITS ---
Test Reason : SOB Blood Pressure : / mmHG Vent. Rate : 066 BPM Atrial Rate : 000 BPM P-R Int : 000 ms QRS Dur : 102 ms QT Int : 420 ms P-R-T Axes : 000 099 026 degrees QTc Int : 440 ms Atrial fibrillation with frequent ventricular-paced complexes Rightward axis Abnormal ECG When compared with ECG of 20-SEP-2023 13:03, ventricular pacing noted Referred By: Daylin Jaimes Electronically Signed By:KEENAN BENNETT
[2024-02-03 12:01] LABS: Magnesium 1.9 mg/dL (1.6-2.6)
[2024-02-03 12:33] LABS: Appearance Urine Cloudy; Color Urine Dark Yellow; Glucose Urine UA Negative (Negative); Leukocyte Esterase Urine Negative (Negative); Nitrite Urine Negative (Negative); Specific Gravity - Urine >= 1.030 (1.005-1.025); UMIC TRIGGER UACC YES; Urine Blood Trace (Negative); Urine Ketones Trace mg/dL (Negative); Urine Protein 100 (2+) mg/dL (Neg-Trace)
[2024-02-03 12:38] LABS: Bacteria Urine None Seen (None Seen); Squamous Epithelial Cell Urine 0-2 /HPF (0-2); WBC Urine 0-5 /HPF (0-5)
[2024-02-03] MEDS: 0.9 % Sodium Chloride 1,000 ML 999 ML IV (12:55)
--- NOTE | 2024-02-03 13:27 | PC.NURSE ---
previous IV line started by flomanas RN noted to have infiltrated. new IV placed by this RN in left wrist #20, NS continues to run. previous IV removed
[2024-02-03 15:16] VITALS: BP 132/90; PULSE 84; RESP 20; TEMP 36.1; O2SAT 96
== END 2024-02-03 15:17 | disposition home or self-care (01) ==
PROVIDERS: Physician Assistant; Emergency Provider Emergency Medicine Emergency Medical Services; PCP General Practice
DX: R53.1 Weakness (principal); R06.02 Shortness of breath; Z03.818 Encounter for observation for suspected exposure to other biological agents ruled out; R05.9 Cough, unspecified; I10 Essential (primary) hypertension; J44.9 Chronic obstructive pulmonary disease, unspecified; E78.00 Pure hypercholesterolemia, unspecified; I48.19 Other persistent atrial fibrillation; Z95.0 Presence of cardiac pacemaker; Z79.01 Long term (current) use of anticoagulants; Z79.02 Long term (current) use of antithrombotics/antiplatelets; Z79.899 Other long term (current) drug therapy
CPT/HCPCS: 0241U; 71046; 80048; 80076; 81001; 83690; 83735; 85025; 93005; 96360; 99284; 99285

== ENCOUNTER → 2024-02-03 11:55 | Outpatient (BNV) | payer OTHER, SELFPAY | PROVIDERS: Emergency Provider Emergency Medicine Emergency Medical Services; PCP General Practice; Visit Provider Internal Medicine | DX: R06.02 Shortness of breath (principal); I48.91 Unspecified atrial fibrillation; R94.31 Abnormal electrocardiogram [ECG] [EKG] | CPT/HCPCS: 93010 ==

== ENCOUNTER 2024-02-10 11:13 | Emergency (ER) | payer OTHER, SELFPAY ==
[2024-02-10 11:25] VITALS: BP 143/92; PULSE 91; RESP 16; TEMP 37; O2SAT 97; BMI 20.2
== END 2024-02-10 16:02 | disposition left against medical advice (07) ==
PROVIDERS: Emergency Provider Emergency Medicine; PCP General Practice
DX: Z59.00 Homelessness unspecified (principal); Z53.21 Procedure and treatment not carried out due to patient leaving prior to being seen by health care provider; Z95.0 Presence of cardiac pacemaker; I48.19 Other persistent atrial fibrillation; E78.00 Pure hypercholesterolemia, unspecified; J44.9 Chronic obstructive pulmonary disease, unspecified; F41.9 Anxiety disorder, unspecified; I10 Essential (primary) hypertension
CPT/HCPCS: 99281

== ENCOUNTER 2024-03-23 13:01 | Outpatient (AMB) | payer OTHER, SELFPAY ==
--- OUTSIDE RECORDS SUMMARY | 2024-03-23 13:06 | XMS_ITS | Encounter Summary ---
Author Organization [facility] Address [address] [place] [address] Care Team Providers Care Field Clerk Name Role Phone Yumi Alarcon MD Primary Care Provider [phone] Encounter Details Date Type Department Care Team (Late st Contact Info) Description 03/20/2022 Orders Only [facility] [address] [place] [id number] Vanna Mtz LPN Social History Tobacco Use Types Packs/Day Years Used Date Smoking Tobacco: Never Assessed Sex and Gender Information Value Date Recorded Sex Assigned at Male 04/02/2022 11:12 AM EST Legal Sex Male 8:36 PM EDT Gender Identity Male 10/14/2022 10:38 AM EDT Sexual Orientation Choose not to disclose 2022 11:12 AM EST documented as of this encounter Plan of Treatment Upcoming Encounters Date Type Department Care Team (Late st Contact Info) Description 04/14/2024 1:30 PM EST Office Visit [facility] [address] [place] [phone] Yumi Alarcon MD [address] [place] [phone] documented as of this encounter Visit Diagnoses Not on filedocumented in this encounter Care Teams Field Clerk Relationship Specialty Start Date End Date Yumi Alarcon MD [address] [place] [address] [phone] PCP - General Family Medicine 08/09/20 documented as of this encounter
--- OUTSIDE RECORDS SUMMARY | 2024-03-23 13:06 | XMS_ITS | Clinical Summary ---
Author Organization [employer] Address [address] [facility] 7[address] [place] [address] Care Team Providers Care Highway Maintenance Worker Name Role Phone Yumi Alarcon MD Primary Care Provider Allergies Active Allergy Reactions Criticality Noted Date Comments Codeine 09/14/2022 Penicillins 09/14/2022 Medications * This document contains information received from the source organization and may not represent a complete record from that organization. acetaminophen (Tylenol) 325 MG tablet Take 650 mg by mouth. Active fluticasone (Flonase) 50 MCG/ACT nasal spray Administer 2 sprays into each nostril in the morning. 16 g 1 Active triamcinolone (Kenalog) 0.1 % ointment APPLY A THIN LAYER TO FINGERS TWICE DAILY. DO NOT USE FOR MORE THAN 14 DAYS IN A ROW 2610 g Active ceramides (CeraVe) moisturizing cream Apply 1 Application. topically if needed for dry skin. 453 g Active cetirizine (ZyrTEC) 10 MG tablet Take 1 tablet (10 mg) by mouth in the morning. 30 tablet 11 2024 Active hydrocortisone 1 % cream APPLY TO AFFECTED AREA TWICE A DAY FOR 14 DAYS Active hydrOXYzine HCl (Atarax) 50 MG tablet Take 1 tablet by mouth at bedtime. Active atorvastatin (Lipitor) 80 MG tabletIndications :Hyperlipidemia, unspecified hyperlipidemia type Take 1 tablet by mouth every night 90 tablet 3 Active rivaroxaban (Xarelto) 20 MG tabletIndications :Chronic atrial fibrillation (CMS/HCC) TAKE 1 TABLET BY MOUTH EVERY DAY WITH DINNER 90 tablet 3 Active metoprolol succinate XL (Toprol-XL) 25 MG 24 hr tablet Take 1 tablet (25 mg) by mouth Once per day. 90 tablet 3 Active melatonin 3 MG tablet Take 1 tablet (3 mg) by mouth at bedtime. 90 tablet 3 Active Skin Protectants, Misc. (eucerin) creamIndications: Cellulitis of multiple sites of hand and fingers,Intrinsic eczema Apply topically if needed for wound care. 99 g 11 024 2024 Active albuterol 108 (90 Base) MCG/ACT inhaler Inhale 2 puffs every 6 (six) hours if needed for wheezing. 18 g 11 Active Fluticasone Furoate-Vilantero l (Breo Ellipta) 200-25 MCG/ACT aerosol powder Inhale 1 puff 1 (one) time for 1 dose. 1 each 11 Active PARoxetine (Paxil) 30 MG tabletIndications :Depression, unspecified depression type TAKE 1 TABLET BY MOUTH EVERY DAY 90 tablet 3 025 Active PARoxetine (Paxil) 30 MG tabletIndications :Depression, unspecified depression type Take one tablet by mouth daily 90 tablet 3 024 2024 Discontinued(R eorder (will not trigger notification to Pharmacy)) Hospital, Clinic, or Other Facility Administered Medication Ordered Dose Route Frequency Start Date End Date Status predniSONE (Deltasone) tablet 50 mgIndications:Atopic dermatitis in adult 50 mg PO Daily 06/10/2023 Activ e Active Problems Problem Noted Date Diagnosed Date Lives in homeless intermediate 12/13/2023 Assessment & Plan (12/13/2023 4:14 PM EDT): During IBH Consult Taj presenting with excessive worry/anxiety, difficulty controlling worry, and anxiety/worry associated to restlessness and/or feeling keyed-up/On edge , easily fatigued , difficulty concentrating and/or mind going blank , muscle tension , and sleep disturbance difficulty falling asleep; for a period of 0-6 mo, for most or all symptoms in the context of housing and financial concerns. Taj reported severity of anxiety symptoms due to current housing situation. He is currently living in a intermediate in [place] and reports he is not able to stay in during the day. He is looking to find somewhere he could also spend the mornings in, especially during the winter days. Pt reports the intermediate is charging $65 weekly for a spot. He has done other applications with [employer] and is currently looking for section 8 apartments. Anxiety is highly associated with current housing situation. clinician engaged patient with active/reflective listening. Reviewed and assessed for risk, current stressors and protective factors using open ended questions. Sent request to CM to assist with housing situation. Provided patient with information from [facility] and [employer] to seek out for additional support with intermediate placements. Assessment & Plan (06/09/2023 3:39 PM EDT): During IBH Consult Taj presenting with excessive worry/anxiety, difficulty controlling worry, restless/keyed up/On edge, easily fatigued, difficulty concentrating/Mind going blank , irritability, and sleep disturbance difficulty falling asleep; for a period of 0-6 mo, for all symptoms in the context of financial concern and housing. During today's visit, Taj reported severity of anxiety symptoms due to current housing situation. CM connected with pt during the appointment and assisted with shelters and food [place] in the area. PLAN: (check all that apply) Further services needed, but declined Behavioral Health Integration Plan Internal Follow up with [facility] Patient Self Plan Patient to utilize skills provided in intervention , [facility], and Patient to reach out to [facility] as needed. Pt agreed to reach out to clinician during next medical appointment. CM connected with patient to assist with housing and food insecurity during today's session. Arteriosclerosis of coronary artery 01/15/2023 01/15/2023 Hyperlipidemia 01/15/2023 01/15/2023 Sick sinus syndrome 01/15/2023 01/15/2023 Underweight 01/15/2023 01/15/2023 Protein-calorie malnutrition, unspecified severi ty 10/14/2022 Assessment & Plan (10/14/2022 1:59 PM EDT): Ensure ordered for weight loss > 10% of body weight Neck pain 10/14/2022 Assessment & Plan (10/14/2022 1:56 PM EDT): Neck xray ordered Chronic frontal sinusitis 10/14/2022 Assessment & Plan (10/14/2022 1:57 PM EDT): Recurrent/waxing and waning doxycyline 100mg BID x 7 days Has no showed ENT appointments, will hold off on referring Food insecurity 10/14/2022 Assessment & Plan (06/09/2023 3:38 PM EDT): During IBH Consult Taj presenting with excessive worry/anxiety, difficulty controlling worry, restless/keyed up/On edge, easily fatigued, difficulty concentrating/Mind going blank , irritability, and sleep disturbance difficulty falling asleep; for a period of 0-6 mo, for all symptoms in the context of financial concern and housing. During today's visit, Taj reported severity of anxiety symptoms due to current housing situation. CM connected with pt during the appointment and assisted with shelters and food [place] in the area. PLAN: (check all that apply) Further services needed, but declined Behavioral Health Integration Plan Internal Follow up with [facility] Patient Self Plan Patient to utilize skills provided in intervention , [facility] as needed, and Patient to reach out to [facility] as needed. Pt agreed to reach out to clinician during next medical appointment. CM connected with patient to assist with housing and food insecurity during today's session. Assessment & Plan (10/14/2022 2:08 PM EDT): Patient referred for SDOH needs Saw [facility] immediately after appointment Given stop and shop gift card, signed up for meal delivery [employer] for help with VOC legal dispute Anxiety 10/08/2022 Assessment & Plan (01/22/2024 12:36 PM EST): This is both constitutional and situationally exacerbated Encouraged him to continue trying to find housing, have a plan for where he is going every day to decrease daily anxiety Assessment & Plan (12/13/2023 4:14 PM EDT): During IBH Consult Taj presenting with excessive worry/anxiety, difficulty controlling worry, and anxiety/worry associated to restlessness and/or feeling keyed-up/On edge , easily fatigued , difficulty concentrating and/or mind going blank , muscle tension , and sleep disturbance difficulty falling asleep; for a period of 0-6 mo, for most or all symptoms in the context of housing and financial concerns. Taj reported severity of anxiety symptoms due to current housing situation. He is currently living in a intermediate in [place] and reports he is not able to stay in during the day. He is looking to find somewhere he could also spend the mornings in, especially during the winter days. Pt reports the intermediate is charging $65 weekly for a spot. He has done other applications with [employer] and is currently looking for section 8 apartments. Anxiety is highly associated with current housing situation. clinician engaged patient with active/reflective listening. Reviewed and assessed for risk, current stressors and protective factors using open ended questions. Sent request to CM to assist with housing situation. Provided patient with information from [facility] and [employer] to seek out for additional support with intermediate placements. Assessment & Plan (06/09/2023 3:38 PM EDT): During IBH Consult Taj presenting with excessive worry/anxiety, difficulty controlling worry, restless/keyed up/On edge, easily fatigued, difficulty concentrating/Mind going blank , irritability, and sleep disturbance difficulty falling asleep; for a period of 0-6 mo, for all symptoms in the context of financial concern and housing. During today's visit, Taj reported severity of anxiety symptoms due to current housing situation. CM connected with pt during the appointment and assisted with shelters and food [place] in the area. PLAN: (check all that apply) Further services needed, but declined Behavioral Health Integration Plan Internal Follow up with [facility] Patient Self Plan Patient to utilize skills provided in intervention , [facility] as needed, and Patient to reach out to [facility] as needed. Pt agreed to reach out to clinician during next medical appointment. CM connected with patient to assist with housing and food insecurity during today's session. Back pain 10/08/2022 Bronchitis 10/08/2022 Severe aortic valve stenosis 01/01/2022 Assessment & Plan (01/22/2024 12:33 PM EST): Needs to see [facility] cardiology, repeat Echo to monitor progression of , and potentially prepare for TAVR Assessment & Plan (10/14/2022 1:59 PM EDT): Managed per cardiology, aware of and planning to go to appointment 10/26/22 for repeat Echo Cardiac pacemaker in situ 08/13/2020 Depressive disorder 08/13/2020 Hypertensive disorder 08/13/2020 Lumbar post-laminectomy syndrome 08/13/2020 Myocardial infarction 08/13/2020 Encounters * This document contains information received from the source organization and may not represent a complete record from that organization. Date Type Department Care Team Description 03/03/[address] [address] Yumi Alarcon MD Care Coordination 03/02/[address] [address] Yumi Alarcon MD Depression, unspecified depression type 02/25/[address] [address] Yumi Alarcon MD No Show 02/17/2024 Patient Outreach [address] [address] Yumi Alarcon MD Pre-visit Planning ((Unable to reach for PVP screening, LVM)) 02/07/2024 Patient Outreach [address] [address] Cain Johnson Recovery Supports 02/07/2024 Patient Outreach [address] [address] Leonel Greenwood Recovery Supports 02/03/2024 Orders Only GENERIC EXTERNAL DATA DEPARTMENT Provider, Generic External Data 01/31/2024 1:40 PM EST Office Visit [facility] [place] [address] Ngozi Kelley NP Suicidal ideation (Primary Dx); Housing insecurity; Cardiac pacemaker in situ 01/24/[address] [address] Lubna Mays [place] Appointment Confirmation 01/24/[address] [place] [address] Mays LubnaMAU griffin Appointment Request 01/17/2024 2:15 PM EST Office Visit [facility] [address] [place] [address] Yumi Alarcon MD Severe aortic valve stenosis (Primary Dx); Protein-calorie malnutrition, unspecified severity (CMS/HCC); Arteriosclerosis of coronary artery; Cardiac pacemaker in situ; Primary hypertension; Lives in homeless intermediate; Anxiety 01/17/2024 Travel 12/31/2023 Telephone [facility] [address] [place] [address] Yumi Alarcon MD No Show 12/23/2023 Telephone [facility] [address] [place] [address] Kiki Davila RN Results from Last 3 Months Immunizations Name Administration Dates Next Due Influenza injectable quadriv alent IIV4 with preservative 11/15/2017 Influenza injectable quadriv alent preservative free 12/31/2021,03/01/2017 Influenza, IIV3, injectable 12/31/2021,1 ,03/01/2017,10/24,12/20/2007 Pneumococcal Polysaccharide PPSV23 02/25/2011, TD (adult), 2 Lf tetanus tox oid, preservative free, adsorbed 12/31/2021 Td (adult), 5 Lf tetanus tox oid, preservative free, adsorbed 03/04/2011 Td (adult), unspecified 12/31/2021,03/04/2011 Social History Tobacco Use Types Packs/Day Years Used Date Smoking Tobacco: Every Day Cigarettes Tobacco Cessation:Ready to Q uit: Not Asked; Counseling Given: Not Answered Depression Answer Date Recorded Patient Health Questionnaire-9 Score 15 01/31/2024 Patient Health Questionnaire-9 Score 15 01/31/2024 Last PHQ-9: Questionnaire Data Not on file 1 04/02/2023 Housing Stability Answer Date Recorded What is your housing situation today? I have jose luis garces 12/08/[address] you li ve. Do you have problems with any of the following? None of the above 12/08/2022 Food Insecurity Answer Date Recorded Within the past 12 months, y ou worried that your food would run out before you got money to buy more: Often true 12/08/2022 Within the past 12 months,th e food you bought just didn't last and you didn't have enough money to get more: Often true Transportation Answer Date Recorded In the past 12 months, has l ack of transportation kept you from medical appts, meetings, work or from getting things needed for daily living? Yes, it has kept me from medical appointments or getting medications.;Yes, it has kept me from non-medical meetings, work, or getting things that I need 11/21/2022 Utilities Answer Date Recorded In the past 12 months, has t he electric, gas, oil or water company threatened to shut off services in your home? No 12/08/2022 Depression Answer Date Recorded Patient Health Questionnaire-2 Score 6 01/31/2024 Sex and Gender Information Value Date Recorded Sex Assigned at Male 04/02/2022 11:12 AM EST Legal Sex Male 8:36 PM EDT Gender Identity Male 10/14/2022 10:38 AM EDT Sexual Orientation Choose not to disclose 2022 11:12 AM EST Last Filed Vital Signs Vital Sign Reading Time Taken Comments Blood Pressure 114/81 01/31/2024 1:49 PM EST Pulse 82 01/31/2024 1:49 PM EST Temperature 36.6 ??C (97.8 ??F) 01/31/2024 1:49 PM ES T Respiratory Rate 16 01/31/2024 1:49 PM EST Oxygen Saturation 99% 01/31/2024 1:49 PM EST Inhaled Oxygen Concentration - - Weight 57.4 kg (126 lb 9.6 oz) 01/31/2024 1:49 P M EST Height 171.5 cm (5' 7.5 ) 01/31/2024 1:49 PM EST Body Mass Index 19.54 01/31/2024 1:49 PM EST Plan of Treatment Upcoming Encounters Date Type Department Care Team (Late st Contact Info) Description 04/14/2024 1:30 PM EST Office Visit [facility] [address] [place], [place] [phone] Yumi Alarcon MD [address] [place] [address] Health Maintenance Due Date Last Done Comments CT Colonography 1957 Colonoscopy 1957 Colorectal Cancer Screening 1955 FIT DNA/Cologuard 1957 FIT 1957 FOBT 1957 Lipid Panel 1957 Sigmoidoscopy 1957 Alcohol/Substance Use Screening 1969 Hepatitis C Screening 08/12/1975 Zoster Vaccines (1 of 2) 08/12/2007 Pneumococcal Vaccine: 50+ Years (2 of 2 - PCV) 02/26/2012 02/25/2011, 12/20/2007 RSV Patients and Patients Aged 60 years or older (1 - Risk 60-74 years 1-dose series) 2017 DTaP/Tdap/Td Vaccines (1 - Tdap) 01/01/2022 12/31/2021, 12/31/2021, 03/04/2011, Additional history exists SDOH Screening 10/13/2023 10/12/2022 COVID-19 Vaccine ( season) 2023 12/31/2021, 03/06/2021, 08/12/2020, Additional history exists Influenza Vaccine (#1) 2023 , 12/31/2021, 11/15/2017, Additional history exists Depression Monitoring (PHQ-9) 07/31/2024 01/31/2024, 01/31/2024 Depression Screening 01/30/2025 01/31/2024, 01/31/20 24 Tobacco Screening 01/30/2025 01/31/2024 HIB Vaccines Aged Out No longer eligi ble based on patient's age to complete this topic HPV Vaccines Aged Out No longer eligi ble based on patient's age to complete this topic Hepatitis A Vaccines Aged Out No long er eligible based on patient's age to complete this topic Hepatitis B Vaccines Aged Out No long er eligible based on patient's age to complete this topic IPV Vaccines Aged Out No longer eligi ble based on patient's age to complete this topic Meningococcal Vaccine Aged Out No andrei emmanuel eligible based on patient's age to complete this topic RSV under 20 months Aged Out No longe r eligible based on patient's age to complete this topic Rotavirus Vaccines Aged Out No longer eligible based on patient's age to complete this topic Procedures Procedure Name Priority Date/Time Associated Diagnosis Comments URINALYSIS, COMPLETE, WITH REFLEX TO CULTURE Routine 02/03/2024 12:23 PM EST XR CHEST 2 VIEWS Routine 02/03/2024 10:4 8 AM EST from Last 3 Months Results * (ABNORMAL) Urinalysis, Complete, with Reflex to Culture (02/03/2024 12:23 PM EST) Color Urine Dark Yellow [facility] Appearance Urine Cloudy [facility] PH 6.0 5.0 - 9.0 [facility] Glucose Urine UA Negative Negative mg/dL [facility] Urine Blood Trace(A) Negative [facility] Specific [place] - Urine >=1.030(H) 1.005 - 1.025 [facility] Urine Protein 100 (2+)(A) Neg-Trace mg/dL [facility] Urine Ketones Trace Negative mg/dL [facility] Nitrite Urine Negative Negative [facility] Leukocyte Esterase Urine Negative Negative [facility] RBC Urine 3-5(A) 0 - 2 /HPF [facility] Urine WBC 0-5 0 - 5 /HPF [facility] Urine Squamous Epithelial Cell 0-2 0 - 2 /HPF [facility] Urine Bacteria None Seen None Seen [facility] Hyaline Casts, Urine 3-5 0 - 2 /LPF [facility] 02/03/2024 12:2 3 PM EST 02/03/2024 12:28 PM EST Narrative [facility] - 02/03/2024 12:52 PM EST [id number], Clean Catch us Generic External Data Provider LAB URINE ORDERAB LES Final Result [facility] [address] [place] [phone] * XR Chest 2 Views (02/03/2024 10:48 AM EST) Anatomical Region Laterality Modality Chest Radiographic Juliette ging 02/03/2024 10:4 8 AM EST Narrative 02/03/2024 2:41 PM EST ? [facility] ?[address] ?[place] [address] ?XRay Report ? Signed ? Patient: Taj Granger ?MR#: [id number] ?? [id number] ? : 1955 ?Acct:[id number] ? Age/Sex: 68 / M ?ADM Date: 02/03/24 ? Loc: HO.ED ? Attending Dr: ? Ordering Physician: Sakshi Oneill MD ?? Date of Service: 02/03/24 ?? Procedure(s): XR chest 2V ?? Accession Number(s): [id number] ? cc: Yumi Alarcon; Sakshi Oneill MD ? EXAMINATION: ?? XR CHEST ? CLINICAL INFORMATION: ?? cough ? COMPARISON: ?? Prior chest 12/20/2023 ? TECHNIQUE: ?? 2 views of the chest were obtained. ? FINDINGS: ?? Dual wire left-sided pacer maker noted unchanged. ? Lungs clear. ? Cardiomediastinal silhouette normal. ? Bone and soft tissues unremarkable. ? XR/XR chest 2V ?? IMPRESSION: ?? No acute disease. ? Electronically signed by: ??Nigel Bautista MD ??02/03/2024 02:38 PM ?? EST ? Dictated By: ?Nigel Bautista MD ? Signed By: ?<Electronically signed by Nigel Bautista MD in OV> ?02/03/24 1438 ? DD/ 1048 ? TD/TT: 02/03/24 1110 ? Patient Financial Services Manager: WG ? Procedure Note Bharath Winters - 02/03/[address] [address] XRay Report Signed Patient: Taj Granger JMR#: [id number] : 8Acct:[id number] Age/Sex: 68 / MADM Date: 02/03/24 Loc: HO.ED Attending Dr: Ordering Physician: Sakshi Oneill MD Date of Service: 02/03/24 Procedure(s): XR chest 2V Accession Number(s): [id number] cc: Yumi Alarcon; Sakshi Oneill MD EXAMINATION: XR CHEST CLINICAL INFORMATION: cough COMPARISON: Prior chest 12/20/2023 TECHNIQUE: 2 views of the chest were obtained. FINDINGS: Dual wire left-sided pacer maker noted unchanged. Lungs clear. Cardiomediastinal silhouette normal. Bone and soft tissues unremarkable. XR/XR chest 2V IMPRESSION: No acute disease. Electronically signed by: Nigel Bautista MD 02/03/2024 02:38 PM EST Dictated By: Nigel Bautista MD Signed By: <Electronically signed by Nigel Bautista MD inOV> 02/03/24 1438 DD/ 1048 TD/TT: 02/03/24 1110 Patient Financial Services Manager: DARRICK [facility] External Provider IMG XR PROCEDURES Final Result from Last 3 Months Insurance [facility] STANDARD Member Subscriber Plan / Payer (Ef fective 2023-Present) Name:Taj Granger Relation to Subscriber:Self Name:Taj Granger Payer ID:Not on file Group ID:Not on file Type:Medicaid Address: [facility] [id number] [place] [address] [place], [place] [address]O JENNYFER Rodriguez [id number] Care [address] Maintenance Worker Relationship Specialty Start Date End Date Yumi Alarcon MD [address] [place] [id number] PCP - General Family Medicine 08/09/20
--- OUTSIDE RECORDS SUMMARY | 2024-03-23 13:06 | XMS_ITS | Encounter Summary ---
Author Organization [employer] Address [address] [facility] [address] [place] [address] Care Team Providers Care Lofter Name Role Phone Yumi Alarcon MD Primary Care Provider Encounter Details Date Type Department Care Team (Late st Contact Info) Description 02/17/2023 Abstract [facility] [address] [place], [place] [phone] Yumi Alarcon MD [address] [place], [place] [phone] Social History Tobacco Use Types Packs/Day Years Used Date Smoking Tobacco: Every Day Cigarettes Housing Stability Answer Date Recorded What is your housing situation today? I have jose luis mili 12/08/[address] you li [...] off services in your home? No 12/08/2022 Sex and Gender Information Value Date Recorded [...] Description 04/14/2024 1:30 PM EST Office Visit [facility] [address] [place] [address] Yumi Alarcon MD [address] [place] [phone] documented as of this encounter Visit Diagnoses Not on filedocumented in this encounter Care Teams Lofter Relationship Specialty Start Date End Date Yumi Alarcon MD [address] [place] [phone] PCP - General Family Medicine 08/09/20 documented as of this encounter
--- OUTSIDE RECORDS SUMMARY | 2024-03-23 13:06 | XMS_ITS | Encounter Summary ---
Author Organization [employer] Address [address] [facility] 7t [place] [address] Care Team Providers Care Mulling Machine Operator Name Role Phone Yumi Alarcon MD Primary Care Provider [phone] Reason for Visit * Reason Onset Date Comments Med Refill 03/02/2024 Encounter Details Date Type Department Care Team (Late st Contact Info) Description 03/02/2024 Refill [facility] [address] [place], [place] [phone] Yumi Alarcon MD [address] [place], [place] [phone] Depression, unspecified depression type Social History Tobacco Use Types Packs/Day Years Used Date Smoking Tobacco: Every Day Cigarettes Depression Answer Date Recorded Patient Health Questionnaire-9 Score 15 01/31/2024 Patient Health Questionnaire-9 Score 15 01/31/2024 Last PHQ-9: Questionnaire Data Not on file 1 04/02/2023 Housing Stability Answer Date Recorded What is your housing situation today? I have jose luismaco garces 12/08/[address] you [...] AM EST documented as of this encounter Miscellaneous Notes * Telephone Encounter - Trinh Spencer LPN - 03/02/2024 1:27 PM EST Next appointment 04/14/24. * Telephone Encounter - Davey Hernandez - 03/02/2024 1:17 PM EST TC from pt requesting medication refill. Medications needing refill : PARoxetine (Paxil) 30 MG tablet To be sent to: [address] documented in this encounter Plan of Treatment Upcoming Encounters Date Type Department Care Team (Late st Contact Info) Description 04/14/2024 1:30 PM EST Office Visit [facility] [address] [place] [address] Yumi Alarcon MD [address] [place] [address] documented as of this encounter Visit Diagnoses Diagnosis Depression, unspecified depression type documented in this encounter Additional Health Concerns Assessment Noted Time PHQ-9 Depression Total Score: 15 024 3:08 PM EST documented as of this encounter Care Teams Mulling Machine Operator Relationship Specialty Start Date End Date Yumi Alarcon MD [address] [place] [address] PCP - General Family Medicine 08/09/20 documented as of this encounter
--- OUTSIDE RECORDS SUMMARY | 2024-03-23 13:06 | XMS_ITS | Encounter Summary ---
Author Organization [employer] Address [address] [facility] [address] 7[address] [place] [address] Care Team Providers Care Historical Interpreter Name Role Phone Yumi Alarcon MD Primary Care Provider [phone] Reason for Visit * Reason Onset Date Comments Care Coordination 03/03/2024 Encounter Details Date Type Department Care Team (Late st Contact Info) Description 03/03/2024 Telephone [facility] [address] [place], [place] [phone] Yumi Alarcon MD [address] [place], [place] [phone] Care Coordination Social History Tobacco Use Types Packs/Day Years [...] encounter Miscellaneous Notes * Telephone Encounter - Alexia Oswald RN - 03/03/2024 11:42 AM EST TC placed to patient [phone] in regards to below message. Patient informed of cardiology appointment on 03/23/24 at 1:15pm at [facility]. Patient is upset as he states his doctor should be calling him toinform him of his appointments and would like to know why he needs to see the collection systems consultant. Patientadvised he was referred to cardiology for his pacemaker and cardiac f/u in 12/23/2023. Patient reports his provider should be calling him reguarly to check on him. RN advised patient we do not have control over appointment reminders for outside offices and for [facility] patients are reminded via text, email, calls depending on their preferences however patient has not had a working number therefore making it challenging. Patient advised PCP's cannot call patients regularly to check in on them as they have several patients and patients need to schedule TV/OV appointments to speak to their provider. Patient advised he is scheduled to see PCP on 04/14/24 at 1:30pm. RN had patient write down appointments for cardiology and PCP in order for him to not miss appointments. Patient also requested RN update patients address to: [place] at [address] [address] Patient is also requesting phone number for facility to be added to his chart ([phone]) as this is where he can be reached at this time. RN has updated phone number. Patient to f/u PRN. * Telephone Encounter - Elaine Ruffin - 03/03/2024 11:20 AM EST Tc from pt requesting to speak to provider. Pt stated he is currently at a facility called [facility] in [place].Pt stated he is scheduled for an appointment with at [facility] on . Pt would like to further discuss this appointment and if PCP referred him due to his pace maker. Contact pt at [phone] documented in this encounter Plan of Treatment Upcoming Encounters Date Type Department Care Team (Late st Contact Info) Description 04/14/2024 1:30 PM EST Office Visit [facility] [address] [place] [phone] Yumi Alarcon MD [address] [place], [place] [phone] documented as of this encounter Visit Diagnoses Not on filedocumented in this encounter Additional Health Concerns Assessment Noted Time PHQ-9 Depression Total Score: 15 12/16/2 024 3:08 PM EST documented as of this encounter Care Teams Historical Interpreter Relationship Specialty Start Date End Date Yumi Alarcon MD [address] [place] [phone] PCP - General Family Medicine 08/09/20 documented as of this encounter
--- OUTSIDE RECORDS SUMMARY | 2024-03-23 13:06 | XMS_ITS | Encounter Summary ---
Author Organization [employer] Address [address] [facility] [address] 7[address] [place] [address] Care Team Providers Care Senior Research Project Manager Name Role Phone Yumi Alarcon MD Primary Care Provider [phone] Encounter Details Date Type Department Care Team (Late st Contact Info) Description 02/11/2023 Abstract [facility] [address] [place], [place] [phone] Yumi Alarcon MD [address] [place], [place] [phone] Social History Tobacco Use Types Packs/Day Years [...] Description 04/14/2024 1:30 PM EST Office Visit [facility] [address] [place] [address] Yumi Alarcon MD [address] [place] [address] documented as of this encounter Visit Diagnoses Not on filedocumented in this encounter Care Teams Senior Research Project Manager Relationship Specialty Start Date End Date Ymui Alarcon MD [address] [place] [phone] PCP - General Family Medicine 08/09/20 documented as of this encounter
--- OUTSIDE RECORDS SUMMARY | 2024-03-23 13:06 | XMS_ITS | Encounter Summary ---
Author Organization [employer] Address [address] [facility] 7t [place] [address] Care Team Providers Care Media Planner / Buyer Name Role Phone Yumi Alarcon MD Primary Care Provider [phone] Encounter Details Date Type Department Care Team (Late st Contact Info) Description 08/20/2022 Orders Only [facility] [address] [place] [address] Trinh Spencer LPN Social History Tobacco Use Types Packs/Day [...] 04/14/2024 1:30 PM EST Office Visit [facility] [address] [place] [address] Yumi Alarcon MD [address] [place] [address] documented as of this encounter Visit Diagnoses Not on filedocumented in this encounter Care Teams Media Planner / Buyer Relationship Specialty Start Date End Date Yumi Alarcon MD [address] [place], [place] [phone] PCP - General Family Medicine 08/09/20 documented as of this encounter
--- OUTSIDE RECORDS SUMMARY | 2024-03-23 13:06 | XMS_ITS | Encounter Summary ---
Author Organization [employer] Address [address] [facility] [address] 7[address] [place] [address] Care Team Providers Care Independent Distributor Name Role Phone Yumi Alarcon MD Primary Care Provider Reason for Visit * Reason Onset Date Comments No Show 02/25/2024 Encounter Details Date Type Department Care Team (Late st Contact Info) Description 02/25/2024 Telephone [facility] [address] [place], [place] [phone] Yumi Alarcon MD [address] [place], [place] [phone] No Show Social History Tobacco Use Types Packs/Day Years [...] encounter Miscellaneous Notes * Telephone Encounter - Tiny Oliveros - 02/25/2024 2:47 PM EST Pt no showed to appt on 02/25/24 documented in this encounter Plan of Treatment Upcoming Encounters Date Type Department Care Team (Late st Contact Info) Description 04/14/2024 1:30 PM EST Office Visit [facility] [address] [place] [phone] Yumi Alarcon MD [address] [place] [address] documented as of this encounter Visit Diagnoses Not on filedocumented in this encounter Additional Health Concerns Assessment Noted Time PHQ-9 Depression Total Score: 15 024 3:08 PM EST documented as of this encounter Care Teams Independent Distributor Relationship Specialty Start Date End Date Yumi Alarcon MD [address] [place] [phone] PCP - General Family Medicine 08/09/20 documented as of this encounter
--- OUTSIDE RECORDS SUMMARY | 2024-03-23 13:07 | XMS_ITS | Encounter Summary ---
Author Organization [employer] Address [address] [facility] [address] 7[address] [place] [address] Care Team Providers Care Freezing Room Worker Name Role Phone Yumi Alarcon MD Primary Care Provider [phone] Encounter Details Date Type Department Care Team (Late st Contact Info) Description 06/30/2023 Telephone [facility] [address] [place], [place] [phone] Yumi Alarcon MD [address] [place], [place] [phone] Social History Tobacco Use Types Packs/Day Years Used Date Smoking Tobacco: Every Day Cigarettes Depression Answer Date Recorded Patient Health Questionnaire-9 Score 10 06/09/2023 Patient Health Questionnaire-9 Score 10 06/09/2023 Last PHQ-9: Questionnaire Data Not on file 0 06/09/2023 Housing Stability Answer Date Recorded What is [...] Answer Date Recorded Patient Health Questionnaire-2 Score 3 06/09/2023 Sex and Gender Information Value Date Recorded [...] Description 04/14/2024 1:30 PM EST Office Visit [facility] [address] [place] [address] Yumi Alarcon MD [address] [place] [address] documented as of this encounter Visit Diagnoses Not on filedocumented in this encounter Additional Health Concerns Assessment Noted Time PHQ-9 Depression Total Score: 10 024 2:46 PM EDT documented as of this encounter Care Teams Freezing Room Worker Relationship Specialty Start Date End Date Yumi Alarcon MD 230 [place] [address] PCP - General Family Medicine 08/09/20 documented as of this encounter
--- OUTSIDE RECORDS SUMMARY | 2024-03-23 13:07 | XMS_ITS | Encounter Summary ---
Author Organization [employer] Address [address] [address] [facility] [address] 7[address] [place] [address] Care Team Providers Care Freight Handler Name Role Phone Yumi Alarcon MD Primary Care Provider [phone] Encounter Details Date Type Department Care Team (Late st Contact Info) Description 08/23/2023 Telephone [facility] [address] [place], [place] [phone] Yumi Alarcon MD [address] [place], [place] [phone] Social History Tobacco Use Types Packs/Day Years [...] encounter Miscellaneous Notes * Telephone Encounter - Maryan Tanner - 08/23/2023 11:40 AM EDT Tc from pt requesting to get help with getting services to get into a home instead of a custodial . Igot in contact with care management and was advised pt will be getting a call back . documented in this encounter Plan of Treatment Upcoming Encounters Date Type Department Care Team (Late st Contact Info) Description 04/14/2024 1:30 PM EST Office Visit [facility] [address] [place] [address] Yumi Alarcon MD [address] [place] [address] documented as of this encounter Visit Diagnoses Not on filedocumented in this encounter Additional Health Concerns Assessment Noted Time PHQ-9 Depression Total Score: 10 024 2:46 PM EDT documented as of this encounter Care Teams Freight Handler Relationship Specialty Start Date End Date Yumi Alarcon MD [address] [place] [phone] PCP - General Family Medicine 08/09/20 documented as of this encounter
--- OUTSIDE RECORDS SUMMARY | 2024-03-23 13:07 | XMS_ITS | Encounter Summary ---
Author Organization [employer] Address [address] [facility] [facility] [address] 7[address] [place] [address] Care Team Providers Care Controller Mechanic Name Role Phone Yumi Alarcon MD Primary Care Provider [phone] Reason for Visit * Reason Comments Med Change Request Encounter Details Date Type Department Care Team ([facility] st Contact Info) Description 12/20/[address] [facility] [address] [place], [place] [phone] Yumi Alarcon MD [address] [place], [place] [phone] Cellulitis of multiple sites of hand and fingers; Intrinsic eczema Social History Tobacco Use Types Packs/Day Years Used Date Smoking Tobacco: Every Day Cigarettes Depression Answer Date Recorded Patient Health Questionnaire-9 Score 11 12/13/2023 Patient Health Questionnaire-9 Score 11 12/13/2023 Last PHQ-9: Questionnaire Data Not on file 1 Housing Stability Answer Date Recorded What is [...] Answer Date Recorded Patient Health Questionnaire-2 Score 4 12/13/2023 Sex and Gender Information Value Date Recorded [...] Description 04/14/2024 1:30 PM EST Office Visit [facility] [address] [place] [address] Yumi Alarcon MD [address] [place] [address] documented as of this encounter Visit Diagnoses Diagnosis Cellulitis of multiple sites of hand and fingers Intrinsic eczema documented in this encounter Additional Health Concerns Assessment Noted Time PHQ-9 Depression Total Score: 11 024 3:58 PM EDT documented as of this encounter Care Teams Controller Mechanic Relationship Specialty Start Date End Date Yumi Alarcon MD [address] [place] [phone] PCP - General Family Medicine 08/09/20 documented as of this encounter
[2024-03-23 13:11] VITALS: BP 118/78; PULSE 75; BMI 20.1
--- NOTE | 2024-03-23 13:11 | A.OFFVIS_ITS ---
Vital Signs 03/23/24 13:11 Height 5 ft 7 in Weight 128 lb 4.944 oz BMI 20.1 BP 118/78 Blood Pressure Location Rt brachial Position Sitting Pulse 75 Pulse Source Pulse Oximeter Intake Visit Reasons: Overdue Follow up Front End Mechanic Required: No Accompanied by: Self / Same As Patient Allergies codeine [CODEINE] Allergy (Mild, Verified 02/10/24 11:28) NAUSEA Penicillins [PENICILLINS] Allergy (Unknown, Verified 02/10/24 11:28) ANAPHYLAXIS Medication List - Last Reconciled 03/23/24 by Denis Campuzano MD atorvastatin 80 mg PO BEDTIME hydroxyzine HCl 50 mg PO BEDTIME PRN melatonin 3 mg PO BEDTIME PRN MDD 3mg metoprolol succinate ER (Toprol XL) 25 mg PO DAILY 30 days paroxetine HCl 30 mg PO DAILY rivaroxaban (Xarelto) 20 mg PO QPM HPI Comments Details: Taj returns for follow-up regarding various issues including coronary disease, atrial fibrillation, aortic stenosis and pacemaker. In 2021, it seems that he was hospitalized to [facility]. At that time, he had complained of feeling dizzy. However, he has had dizziness for a long time. Echocardiogram as well as cardiac catheterization were then performed and it seems that he was being worked up for TAVR but patient did not keep any appointments for follow-up. He continues have the same complaints even today which are essentially chronic which include dizziness/vertigo although it is very difficult to clearly ascertain. He is not describing any other complaints like angina or shortness of breath. Otherwise, he has not had any follow up with the TAVR team or cardiac surgery mainly due to social issues, homelessness extra. [facility] Medical History Homeless Atrial fibrillation Hypercholesterolemia Esophageal dysmotility Tobacco abuse COPD (chronic obstructive pulmonary disease) GERD (gastroesophageal reflux disease) Anxiety and depression Hypertension Coronary artery disease Surgical History History of surgery History of surgery History of angioplasty Family History Father Myocardial infarction Mother Medical history unknown Sister No problems noted. Brother No problems noted. Son No problems noted. Social History Alcohol intake: never Patient Tobacco Use Status: Former Tobacco user Tobacco use type: Cigarette Cigarettes Per Day: 3 Substance Use Type: Marijuana Review of Systems Const Denies chills, Denies fatigue, Denies fever(s), Denies weight gain and Denies weight loss ENT Reports dizziness Card Denies chest pain, Denies leg edema, Denies lightheadedness, Denies palpitations, Denies dyspnea on exertion, Denies orthopnea and Denies other Resp Denies cough and Denies dyspnea on exertion GI Denies hematochezia and Denies change in stool character Musc Denies abnormal gait, Denies muscle weakness, Denies numbness, Denies radiating pain into limb and Denies tingling Neuro Denies abnormal gait, Reports dizziness, Denies numbness and Denies tingling Endo Denies fatigue and Denies palpitations Physical Exam Vital Signs: Last Vital Signs Pulse 75 03/23/24 13:11 BP 118/78 03/23/24 13:11 BMI result Body Mass Index 20.1 Const General: comfortable and no acute distress Orientation/consciousness: patient oriented x3 HEENT Other: Unremarkable Head: Yes normal to inspection Neck Neck: Yes normal visual inspection Chest Chest palpation & inspection: normal inspection of the chest Resp Auscultation: clear to auscultation bilaterally Cardio Palpation: normal PMI Heart sounds: S1 normal heart sound present, S2 normal heart sound present, no gallops, Murmur heart sound present systolic III/ and at the right sternal border and no rubs GI Palpation (GI): Soft to palpation Back/Spine/Pelvis Other: unremarkable Skin General skin exam: no rashes or lesions noted Neuro General: patient oriented x3 Extrem General: Yes normal to inspection Psych Mental Status: mental status grossly normal Office Procedures Cardiac Device Check Cardiac Device Check Details: Pacemaker interrogated today. Programmed VVIR. Battery status 31 months. Normal lead parameters. Ventricular high rate episodes noted. However, they are mostly brief and nothing really sustained. Overall, pacing 11%. [id number]-[id number] Cardiac Device Check, leadless/single lead pacemaker Procedure code (CPT) selection complete Assessment & Plan Assessment & Plan (1) Non-rheumatic aortic stenosis: Code(s): I35.0 - Nonrheumatic aortic (valve) stenosis Category: Medical Plan: Per last echocardiogram at [facility] from 2023, LVEF 50-55%. Bicuspid aortic valve not excluded. Severe aortic stenosis with a mean gradient of 26 mm Hg with a calculated valve area of 0.5 cm2. Dimensionless index of 0.16. Thickened mitral valve but no dysfunction. Mild ascending aortic dilatation. [id number] tricuspid regurgitation. Workup towards potential TAVR. Discussed with who will see this patient for further planning. (2) Atherosclerotic cardiovascular disease: Code(s): I25.10 - Atherosclerotic heart disease of [place] coronary artery without angina pectoris Category: Medical Plan: Remote history of anterior wall myocardial infarction followed by angioplasty more than 20 years ago. In the cardiac catheterization 2021, [id number] nonobstructive CAD. Normal left and right-sided filling pressures as well. Clinically, no overt angina. He remains on beta-blockers/statins. (3) Persistent atrial fibrillation: Code(s): I48.19 - Other persistent atrial fibrillation Category: Medical Plan: On beta-blockers and anticoagulation. In the echocardiogram, severely dilated left atrium. Due to poor follow-up, would not pursue rhythm control. (4) Pacemaker: Code(s): Z95.0 - Presence of cardiac pacemaker Category: Medical Plan: Unable to monitor this remotely as patient did not have a stable residence in the past. I am not clear if it is going to be feasible in the future either. At least we will try to follow up in the clinic if we can show up. Plan Discussed with who will arrange further workup towards TAVR. He will discuss with Cardiac surgery at [facility]. Orders: Orders CA echo transthoracic complete Today I35.0 - Nonrheumatic aortic (valve) stenosis Coding Level of Care Code Est Pt Level 4 (21184) Diagnoses Non-rheumatic aortic stenosis I35.0 Atherosclerotic cardiovascular disease I25.10 Persistent atrial fibrillation I48.19 Pacemaker Z95.0 CPT Codes Cardiac Device Check - Cardiac Device 1: [id number] Cardiac Device Check, leadless/single lead pacemaker ([id number])
== END 2024-03-23 13:40 | disposition home or self-care (01) ==
PROVIDERS: PCP General Practice; Visit Provider Internal Medicine
DX: I35.0 Nonrheumatic aortic (valve) stenosis (principal); I25.10 Atherosclerotic heart disease of native coronary artery without angina pectoris; I48.19 Other persistent atrial fibrillation; Z95.0 Presence of cardiac pacemaker
CPT/HCPCS: 93279; 93306; 99215

== ENCOUNTER 2024-03-23 13:51 | Outpatient (AMB) | payer OTHER, MEDICAID, SELFPAY ==
--- NOTE | 2024-03-23 13:51 | A.OFFVIS_ITS ---
Vital Signs 03/23/24 14:00 Height 5 ft 7 in Weight 128 lb BMI 20.0 BP 118/78 Blood Pressure Location Rt brachial Position Sitting Pulse 75 Pulse Source Pulse Oximeter Intake Visit Reasons: consult for TAVR procedure Origination Specialist Required: No Accompanied by: Self / Same As Patient Allergies codeine [CODEINE] Allergy (Mild, Verified 02/10/24 11:28) NAUSEA Penicillins [PENICILLINS] Allergy (Unknown, Verified 02/10/24 11:28) ANAPHYLAXIS Medication List - Last Reconciled 03/23/24 by Richard Cespedes MD atorvastatin 80 mg PO BEDTIME hydroxyzine HCl 50 mg PO BEDTIME PRN melatonin 3 mg PO BEDTIME PRN MDD 3mg metoprolol succinate ER (Toprol XL) 25 mg PO DAILY 30 days paroxetine HCl 30 mg PO DAILY rivaroxaban (Xarelto) 20 mg PO QPM HPI Comments Details: 68-year-old gentleman with background history of paradoxical low-flow low gradient severe aortic valve stenosis who we have been asked to see for transcatheter aortic valve replacement. He is a pleasant gentleman with significant anxiety issues and also social problems and has been homeless for long time. He is currently living in a long term who brought him in for follow up appointment and he has missed many appointments because of social problems and homelessness. He has seen cardiac surgery in the past and saw Dr. Nolan at [facility]. He was advised to undergo surgery but he was too anxious and could not decide about doing anything and eventually discussion and it with him agreeing with transcatheter aortic valve replacement. It appears he did not follow through with this because he had a TAVR protocol CT performed in October of 2021. It does not appear he has seen any manager group home before. He has multiple complaints and mostly these are related to neck pain and headache on the back of his head which has been bothering him a lot. He also gets dizzy from time to time but mostly is describing vertigo but recently had an event where he felt he is going to faint and this happened while he was in a grocery store. He is denying any chest pain or shortness of breath. He had echocardiography in August of 2023 while he was at [facility] showing EF of 50-55% without any significant regional wall motion abnormalities. Can not rule out bicuspid valve with peak gradient of 44 mean gradient 26 and calculated valve area of 0.5 cm2. Dimensionless index of 0.16. Normal right ventricular size and function. It was felt that he has severe aortic valve stenosis at that time and potential bicuspid valve. Previously had pacemaker placement for AV block and also has persistent atrial fibrillation and is on rivaroxaban. EKGs reviewed showing background atrial fibrillation with frequent ventricular pacing. QTC 440 milliseconds. He had cardiac catheterization in 11/04/2021. Right dominant circulation. Twenty 30% lad stenosis. Twenty 30% proximal circumflex stenosis. 50% proximal and 50% mid to distal stenosis in the RPDA. [facility] Medical History Homeless Atrial fibrillation Hypercholesterolemia Esophageal dysmotility Tobacco abuse COPD (chronic obstructive pulmonary disease) GERD (gastroesophageal reflux disease) Anxiety and depression Hypertension Coronary artery disease Surgical History History of surgery History of surgery History of angioplasty Family History Father Myocardial infarction Mother Medical history unknown Sister No problems noted. Brother No problems noted. Son No problems noted. Social History Alcohol intake: never Patient Tobacco Use Status: Former Tobacco user Tobacco use type: Cigarette Cigarettes Per Day: 3 Substance Use Type: Marijuana Review of Systems Const Denies chills, Denies fatigue, Denies fever(s), Denies frequent falls, Denies weakness, Denies weight gain and Denies weight loss ENT Denies dizziness Card Denies chest pain, Denies leg edema, Denies lightheadedness, Denies palpitations, Denies dyspnea and Denies dyspnea on exertion Resp Denies cough, Denies dyspnea and Denies dyspnea on exertion GI Denies hematochezia Musc Denies abnormal gait, Denies muscle weakness, Denies numbness, Denies radiating pain into limb and Denies tingling Neuro Denies abnormal gait, Denies dizziness, Denies frequent falls, Denies numbness, Denies tingling and Denies weakness Endo Denies fatigue and Denies palpitations Physical Exam Vital Signs: Last Vital Signs Pulse 75 03/23/24 14:00 BP 118/78 02/06/25 14:00 BMI result Body Mass Index 20.0 GENERAL APPEARANCE: Appears anxious. In no distress. NECK: no carotid bruit, no jugular venous distention. SKIN: no suspicious lesions, warm and dry. HEART: Ejection systolic murmur with preserved 2nd heart sound, regular rate and rhythm. LUNGS: clear to auscultation bilaterally. ABDOMEN: soft, nontender. EXTREMITIES: no edema. PERIPHERAL PULSES: equal. NEUROLOGIC: No gross deficits, AAO X 3 Assessment & Plan Assessment & Plan (1) Non-rheumatic aortic stenosis: Code(s): I35.0 - Nonrheumatic aortic (valve) stenosis Category: Medical (2) Pacemaker: Code(s): Z95.0 - Presence of cardiac pacemaker Category: Medical (3) Persistent atrial fibrillation: Code(s): I48.19 - Other persistent atrial fibrillation Category: Medical Plan Pleasant 68 year gentleman with severe aortic valve stenosis who is here for discussion about transcatheter aortic valve replacement. He has background of permanent atrial fibrillation and is currently on Xarelto and Toprol-XL. He has moderate disease by cardiac catheterization in 2021. He also had a TAVR protocol CTA done in 2021. He has seen Dr. Nolan 2 times in the past last being in 04/06/2023. The discussion and it with plan for transcatheter aortic valve replacement. The patient had significant social issues previously and has been homeless. More recently he is living in a long term who has bringing him for appointments. He recently had an episode where he almost blacked out which seems concerning given his history of se [place] aortic valve stenosis. I had a detailed discussion with him about transcatheter aortic valve replacement versus surgical aortic valve replacement. It appears he had quite detailed discussions with Dr. Nolan and he does not wish to pursue any surgical options. I have explained to him about the pros and cons of both approaches again. I have explained to him the potential risks including vascular injury, bleeding and . He already has a pacemaker in the past. I will discuss the case with Dr. Nolan and if he is agreeable we will proceed with discussing the case at heart team meeting. If required we will repeat the angiography and TAVR protocol CT. He is complaining of some vertigo like feeling and dizziness and I am referring him to ENT for further assessment also. Thank you for allowing me to participate in the care of your patient. Please feel free to contact me if you have any questions. Orders: Referrals Ear/Nose/Throat Referral R42 - Dizziness and giddiness Coding Level of Care Code New Pt Level 5 (95572) Diagnoses Non-rheumatic aortic stenosis I35.0 Pacemaker Z95.0 Persistent atrial fibrillation I48.19
--- OUTSIDE RECORDS SUMMARY | 2024-03-23 13:53 | XMS_ITS | Encounter Summary ---
Author Organization [employer] Address [address] 7[address] [place] [address] Care Team Providers Care Certified Athletic Trainer Name Role Phone Yumi Alarcon MD Primary Care Provider [phone] Encounter Details Date Type Department Care Team (Late st Contact Info) Description 06/30/2023 Telephone [facility] [address] [place], [place] [phone] Yumi Alarcon MD [address] [place], [place] [phone] Social History Tobacco Use Types Packs/Day Years [...] Description 04/14/2024 1:30 PM EST Office Visit [facility] [address] [place] [address] Yumi Alarcon MD [address] [place] [address] documented as of this encounter Visit Diagnoses Not on filedocumented in this encounter Additional Health Concerns Assessment Noted Time PHQ-9 Depression Total Score: 10 024 2:46 PM EDT documented as of this encounter Care Teams Certified Athletic Trainer Relationship Specialty Start Date End Date Yumi Alarcon MD [address] [place] [address] PCP - General Family Medicine 08/09/20 documented as of this encounter
--- OUTSIDE RECORDS SUMMARY | 2024-03-23 13:53 | XMS_ITS | Encounter Summary ---
Author Organization [employer] Address [address] [place] [address] Care Team Providers Care Picture Copyist Name Role Phone Yumi Alarcon MD Primary Care Provider [phone] Encounter Details Date Type Department Care Team (Late st Contact Info) Description 08/23/2023 Telephone [facility] [address] [place], [place] [phone] Yumi Alarcon MD [address] [place], [place] [phone] Social History Tobacco Use Types Packs/Day Years [...] get into a home instead of a penitentiary . Igot in contact with care management and was advised pt will be getting a call back . documented in this encounter Plan of Treatment Upcoming Encounters Date Type Department Care Team (Late st Contact Info) Description 04/14/2024 1:30 PM EST Office Visit [facility] [address] [place] [address] Yumi Alarcon MD [address] [place] [address] documented as of this encounter Visit Diagnoses Not on filedocumented in this encounter Additional Health Concerns Assessment Noted Time PHQ-9 Depression Total Score: 10 024 2:46 PM EDT documented as of this encounter Care Teams Picture Copyist Relationship Specialty Start Date End Date Yumi Alarcon MD [address] [place] [address] PCP - General Family Medicine 08/09/20 documented as of this encounter
--- OUTSIDE RECORDS SUMMARY | 2024-03-23 13:53 | XMS_ITS | Encounter Summary ---
Author Organization [employer] [facility] Address [address] 7t [place] [address] Care Team Providers Care Bulk Folder Name Role Phone Yumi Alarcon MD Primary Care Provider [phone] Encounter Details Date Type Department Care Team (Late st Contact Info) Description 03/20/2022 Orders Only [facility] [address] [place] [address] Vanna Mtz LPN Social History Tobacco Use [...] EST Office Visit [facility] [address] [place] [address] Yumi Alarcon MD [address] [place] [address] documented as of this encounter Visit Diagnoses Not on filedocumented in this encounter Care Teams Bulk Folder Relationship Specialty Start Date End Date Yumi Alarcon MD [address] [place] [address] [phone] PCP - General Family Medicine 08/09/20 documented as of this encounter
--- OUTSIDE RECORDS SUMMARY | 2024-03-23 13:53 | XMS_ITS | Encounter Summary ---
Author Organization [employer] Address [address] 7[address] [place] [address] Care Team Providers Care Stained Glass Joiner Name Role Phone Yumi Alarcon MD Primary Care Provider [phone] Reason for Visit * Reason Comments Med Change Request Encounter Details Date Type Department Care Team ([facility] st Contact Info) Description 12/20/2023 Refill [facility] 230 [place], [place] [phone] Yumi Alarcon MD [address] [place], [place] [phone] Cellulitis of multiple sites of hand and [...] Description 04/14/2024 1:30 PM EST Office Visit [facility] [address] [place] [address] Yumi Alarcon MD [address] [place] [address] documented as of this encounter Visit Diagnoses Diagnosis Cellulitis of multiple sites of hand and fingers Intrinsic eczema documented in this encounter Additional Health Concerns Assessment Noted Time PHQ-9 Depression Total Score: 11 024 3:58 PM EDT documented as of this encounter Care Teams Stained Glass Joiner Relationship Specialty Start Date End Date Yumi Alarcon MD [address] [place] [address] PCP - General Family Medicine 08/09/20 documented as of this encounter
--- OUTSIDE RECORDS SUMMARY | 2024-03-23 13:53 | XMS_ITS | Encounter Summary ---
Author Organization [employer] Address [address] [facility] 7t [place] [address] Care Team Providers Care Human Service Specialist Name Role Phone Yumi Alarcon MD Primary Care Provider [phone] Encounter Details Date Type Department Care Team (Late st Contact Info) Description 08/20/2022 Orders Only [facility] [address] [place] [address] Trinh Spencer LPN Social History Tobacco Use [...] Description 04/14/2024 1:30 PM EST Office Visit [facility] 230 [place] [address] Yumi Alarcon MD 230 [place] [address] documented as of this encounter Visit Diagnoses Not on filedocumented in this encounter Care Teams Human Service Specialist Relationship Specialty Start Date End Date Yumi Alarcon MD 230 [place], [place] [phone] PCP - General Family Medicine 08/09/20 documented as of this encounter
--- OUTSIDE RECORDS SUMMARY | 2024-03-23 13:53 | XMS_ITS | Encounter Summary ---
Author Organization [employer] Address [address] [place] [address] Care Team Providers Care Paint Laboratory Technician Name Role Phone Yumi Alarcon MD Primary Care Provider [phone] Reason for Visit * Reason Onset Date Comments No Show 02/25/2024 Encounter Details Date Type Department Care Team (Late st Contact Info) Description 02/25/2024 Telephone [facility] [address] [place], [place] [phone] Yumi Alarcon MD [address] [place], [place] [phone] No Show Social History Tobacco Use Types [...] Description 04/14/2024 1:30 PM EST Office Visit [facility] [address] [place] [address] Yumi Alarcon MD [address] [place] [address] documented as of this encounter Visit Diagnoses Not on filedocumented in this encounter Additional Health Concerns Assessment Noted Time PHQ-9 Depression Total Score: 15 024 3:08 PM EST documented as of this encounter Care Teams Paint Laboratory Technician Relationship Specialty Start Date End Date Yumi Alarcon MD [address] [place] [address] PCP - General Family Medicine 08/09/20 documented as of this encounter
--- OUTSIDE RECORDS SUMMARY | 2024-03-23 13:53 | XMS_ITS | Clinical Summary ---
Author Organization [employer] Address [address] [facility] 7t [place] [address] Care Team Providers Care Staff Trainer Name Role Phone Yumi Alarcon MD Primary Care Provider [phone] Allergies Active Allergy Reactions Criticality Noted Date [...] Noted Date Diagnosed Date Lives in homeless halfway 12/13/2023 Assessment & Plan (12/13/2023 4:14 PM [...] situation. He is currently living in a halfway in [place] and reports he is not able to stay in during the day. He is looking to find somewhere he could also spend the mornings in, especially during the winter days. Pt reports the halfway is charging $65 weekly for a spot. [...] Provided patient with information from [facility] and [employer] to seek out for additional support with halfway placements. Assessment & Plan (06/09/2023 3:39 PM [...] Health Integration Plan Internal Follow up with [facility] Patient Self Plan Patient to utilize skills provided in intervention , Patient to reach [facility] to [facility] team as needed, and Patient to reach [...] Health Integration Plan Internal Follow up with [facility] Patient Self Plan Patient to utilize skills provided in intervention , Patient to reach out to [facility] team as needed, and Patient to reach [...] the context of housing and financial concerns. Tja reported severity of anxiety symptoms due to current housing situation. He is currently living in a halfway in [place] and reports he is not able to stay in during the day. He is looking to find somewhere he could also spend the mornings in, especially during the winter days. Pt reports the halfway is charging $65 weekly for a spot. He has done other applications with [employer] and is currently looking for section 8 apartments. Anxiety is highly associated with current housing situation. clinician engaged patient with active/reflective listening. Reviewed and assessed for risk, current stressors and protective factors using open ended questions. Sent request to CM to assist with housing situation. Provided patient with information from [facility] and [employer] [facility] to seek out for additional support with halfway placements. Assessment & Plan (06/09/2023 3:38 PM [...] Health Integration Plan Internal Follow up with [facility] Patient Self Plan Patient to utilize skills provided in intervention , Patient to reach out to [facility] team as needed, and Patient to reach out to [facility] as needed. Pt agreed to reach out to clinician during next medical appointment. CM connected with patient to assist with housing and food insecurity during today's session. Back pain 10/08/2022 Bronchitis 10/08/2022 Severe aortic valve stenosis 01/01/2022 Assessment & Plan (01/22/2024 12:33 PM EST): Needs to see [facility] cardiology, repeat Echo to monitor progression of [...] Type Department Care Team Description 03/03/[address] [address] Yumi Alarcon MD Care Coordination 03/02/[address] [address] Yumi Alarcon MD Depression, unspecified depression type 02/25/[address] [address] Yumi Alarcon MD No Show 02/17/2024 Patient Outreach [address] [address] Yumi Alarcon MD Pre-visit Planning ((Unable to reach for PVP screening, LVM)) 02/07/2024 Patient Outreach [address] [address] Cain Johnson Recovery Supports 02/07/2024 Patient Outreach [address] [address] Leonel Greenwood Recovery Supports 02/03/2024 Orders Only GENERIC EXTERNAL DATA DEPARTMENT Provider, Generic External Data 01/31/2024 1:40 PM EST Office Visit [facility] [address] Ngozi Kelley NP Suicidal ideation (Primary Dx); Housing insecurity; Cardiac pacemaker in situ 01/24/[address] [address] Lubna Mays [place] Appointment Confirmation 01/24/[address] [place] [address] Mays [facility] griffin Appointment Request 01/17/2024 2:15 PM EST Office Visit [facility] [address] [place] [address] Yumi Alarcon MD Severe aortic valve stenosis (Primary Dx); Protein-calorie malnutrition, unspecified severity (CMS/HCC); Arteriosclerosis of coronary artery; Cardiac pacemaker in situ; Primary hypertension; Lives in homeless halfway; Anxiety 01/17/2024 Travel 12/31/2023 Telephone [facility] [address] [place] [address] Yumi Alarcon MD No Show 12/23/2023 Telephone [facility] [address] [place] [address] Kiki Davila RN Results from Last 3 [...] Description 04/14/2024 1:30 PM EST Office Visit [facility] [address] [place], [place] [phone] Yumi Alarcon MD [address] [place] [address] Health Maintenance Due Date Last Done Comments [...] 12:23 PM EST) Color Urine Dark Yellow [facility] Appearance Urine Cloudy [facility] PH 6.0 5.0 - 9.0 [facility] Glucose Urine UA Negative Negative mg/dL [facility] Urine Blood Trace(A) Negative [facility] Specific [place] - Urine >=1.030(H) 1.005 - 1.025 [facility] Urine Protein 100 (2+)(A) Neg-Trace mg/dL [facility] Urine Ketones Trace Negative mg/dL [facility] Nitrite Urine Negative Negative [facility] Leukocyte Esterase Urine Negative Negative [facility] RBC Urine 3-5(A) 0 - 2 /HPF [facility] Urine WBC 0-5 0 - 5 /HPF [facility] Urine Squamous Epithelial Cell 0-2 0 - 2 /HPF [facility] Urine Bacteria None Seen None Seen [facility] Hyaline Casts, Urine 3-5 0 - 2 /LPF [facility] 02/03/2024 12:2 3 PM EST 02/03/2024 12:28 PM EST Narrative [facility] - 02/03/2024 12:52 PM EST [id number], Clean Catch us Generic External Data Provider LAB URINE ORDERAB LES Final Result [facility] [address] [place] [address] [phone] * XR Chest 2 Views (02/03/2024 10:48 AM EST) Anatomical Region Laterality Modality Chest Radiographic Juliette ging 02/03/2024 10:4 8 AM EST Narrative 02/03/2024 2:41 PM EST ? [facility] ?[address] ?[place] [address] ?XRay Report ? Signed ? Patient: Taj Granger ?MR#: [id number] ?? [id number] ? : 1955 ?Acct:[id number] ? Age/Sex: 68 / M ?ADM Date: 02/03/24 ? Loc: HO.ED ? Attending Dr: ? Ordering Physician: Sakshi Oneill MD ?? Date of Service: 02/03/24 ?? Procedure(s): XR chest 2V ?? Accession Number(s): [id number] ? cc: Yumi Alarcon; Sakshi Oneill MD [...] DD/ 1048 ? TD/TT: 02/03/24 1110 ? Business Objects Developer: WG ? Procedure Note Bharath Winters - 02/03/[address] [address] XRay Report Signed Patient: Taj Granger JMR#: [id number] : 8Acct:[id number] Age/Sex: 68 / MADM Date: 02/03/24 Loc: HO.ED Attending Dr: Ordering Physician: Sakshi Oneill MD Date of Service: 02/03/24 Procedure(s): XR chest 2V Accession Number(s): [id number] cc: Yumi Alarcon; Sakshi Oneill MD EXAMINATION: XR CHEST CLINICAL INFORMATION: cough COMPARISON: Prior chest 12/20/2023 TECHNIQUE: 2 views of the chest were obtained. FINDINGS: Dual wire left-sided pacer maker noted unchanged. Lungs clear. Cardiomediastinal silhouette normal. Bone and soft tissues unremarkable. XR/XR chest 2V IMPRESSION: No acute disease. Electronically signed by: Ngiel Bautista MD 02/03/2024 02:38 PM EST Dictated By: Nigel Bautista MD Signed By: <Electronically signed by Nigel Bautista MD inOV> 02/03/24 1438 DD/ 1048 TD/TT: 02/03/24 1110 Business Objects Developer: D[facility] External Provider IMG XR PROCEDURES Final Result from Last 3 Months Insurance [facility] STAND[facility] Member Subscriber Plan / Payer (Ef fective 2023-Present) Name:Taj Granger Relation to Subscriber:Self Name:Taj Granger Payer ID:Not on file Group ID:Not on file Type:Medicaid Address: [facility] [id number] [place] [id number] [place], [place] [address] JENNYFER Rodriguez [id number] Care Teams Staff Trainer Relationship Specialty Start Date End Date Yumi Alarcon MD [address] [place] [address] PCP - General Family Medicine 08/09/20
--- OUTSIDE RECORDS SUMMARY | 2024-03-23 13:53 | XMS_ITS | Encounter Summary ---
Author Organization [employer] Address [address] 7[address] [place] [address] Care Team Providers Care Operation Shift Supervisor Name Role Phone Yumi Alarcon MD Primary Care Provider [phone] Encounter Details Date Type Department Care Team (Late st Contact Info) Description 02/11/2023 Abstract [facility] [address] [place], [place] [phone] Yumi Alarcon MD [address] [place], [place] [phone] Social History Tobacco Use Types Packs/Day Years [...] Description 04/14/2024 1:30 PM EST Office Visit [facility] [address] [place] [address] Yumi Alarcon MD [address] [place] [address] documented as of this encounter Visit Diagnoses Not on filedocumented in this encounter Care Teams Operation Shift Supervisor Relationship Specialty Start Date End Date Yumi Alarcon MD [address] [place] [address] PCP - General Family Medicine 08/09/20 documented as of this encounter
--- OUTSIDE RECORDS SUMMARY | 2024-03-23 13:53 | XMS_ITS | Encounter Summary ---
Author Organization [employer] Address [address] [facility] [address] 7t [place] [address] Care Team Providers Care Talent Sourcer Name Role Phone Yumi Alarcon MD Primary Care Provider [phone] Reason for Visit * Reason Onset Date Comments Care Coordination 03/03/2024 Encounter Details Date Type Department Care Team (Late st Contact Info) Description 03/03/2024 Telephone [facility] MEDICINE 230 [place], [place] [phone] Yumi Alarcon MD 230 [place], [place] [phone] Care Coordination Social History Tobacco Use Types [...] 11:42 AM EST TC placed to patient [phone] in regards to below message. Patient informed of cardiology appointment on 03/23/24 at 1:15pm at [facility]. Patient is upset as he states his doctor should be calling him toinform him of his appointments and would like to know why he needs to see the director of consulting services. Patientadvised he was referred to cardiology for his pacemaker and cardiac f/u in 12/23/2023. Patient reports his provider should be calling him reguarly to check on him. RN advised patient we do not have control over appointment reminders for outside offices and for [facility] patients are reminded via text, email, calls [...] also requested RN update patients address to: [place] at [address] [address] Patient is also requesting phone number for facility to be added to his chart ([phone]) as this is where he can be reached at this time. RN has updated phone number. Patient to f/u PRN. * Telephone Encounter - Elaine Ruffin - 03/03/2024 11:20 AM EST Tc from pt requesting to speak to provider. Pt stated he is currently at a facility called [facility] in [place].Pt stated he is scheduled for an appointment with at [facility] on . Pt would like to further discuss this appointment and if PCP referred him due to his pace maker. Contact pt at [phone] documented in this encounter Plan of Treatment Upcoming Encounters Date Type Department Care Team (Late st Contact Info) Description 04/14/2024 1:30 PM EST Office Visit [facility] MEDICINE [address] [place] [address] [phone] Yumi Alarcon MD 230 [place], [place] [phone] documented as of this encounter Visit Diagnoses Not on filedocumented in this encounter Additional Health Concerns Assessment Noted Time PHQ-9 Depression Total Score: 15 12/16/2 024 3:08 PM EST documented as of this encounter Care Teams Talent Sourcer Relationship Specialty Start Date End Date Yumi Alarcon MD [address] [place] [address] [phone] PCP - General Family Medicine 08/09/20 documented as of this encounter
--- OUTSIDE RECORDS SUMMARY | 2024-03-23 13:53 | XMS_ITS | Encounter Summary ---
Author Organization [employer] Address [address] [facility] [address] [address] 7t [place] [address] Care Team Providers Care Heating Systems Installer Name Role Phone Yumi Alarcon MD Primary Care Provider [phone] Encounter Details Date Type Department Care Team (Late st Contact Info) Description 02/17/2023 Abstract [facility] MEDICINE 230 [place], [place] [phone] Yumi Alarcon MD 230 [place], [place] [phone] Social History Tobacco Use Types Packs/Day Years [...] Description 04/14/2024 1:30 PM EST Office Visit [facility] MEDICINE 230 [place] [address] Yumi Alarcon MD [address] [place] [address] documented as of this encounter Visit Diagnoses Not on filedocumented in this encounter Care Teams Heating Systems Installer Relationship Specialty Start Date End Date Yumi Alarcon MD [address] [place] [address] PCP - General Family Medicine 08/09/20 documented as of this encounter
--- OUTSIDE RECORDS SUMMARY | 2024-03-23 13:53 | XMS_ITS | Encounter Summary ---
Author Organization [employer] Address [address] [facility] 7t [place] [address] Care Team Providers Care Senior Quality Analyst Name Role Phone Yumi Alarcon MD Primary Care Provider [phone] Reason for Visit * Reason Onset Date Comments Med Refill 03/02/2024 Encounter Details Date Type Department Care Team (Late st Contact Info) Description 03/02/2024 Refill [facility] MEDICINE 230 [place], [place] [phone] Yumi Alarcon MD 230 [place], [place] [phone] Depression, unspecified depression type Social History Tobacco [...] 30 MG tablet To be sent to: [address] documented in this encounter Plan of Treatment Upcoming Encounters Date Type Department Care Team (Late st Contact Info) Description 04/14/2024 1:30 PM EST Office Visit [facility] MEDICINE 230 [place] [address] Yumi Alarcon MD 230 [place] [address] documented as of this encounter Visit Diagnoses Diagnosis Depression, unspecified depression type documented in this encounter Additional Health Concerns Assessment Noted Time PHQ-9 Depression Total Score: 15 024 3:08 PM EST documented as of this encounter Care Teams Senior Quality Analyst Relationship Specialty Start Date End Date Yumi Alarcon MD 230 [place] [address] PCP - General Family Medicine 08/09/20 documented as of this encounter
[2024-03-23 14:00] VITALS: BP 118/78; PULSE 75
== END 2024-03-23 14:27 | disposition home or self-care (01) ==
LOC: HO.HCS 13:51
PROVIDERS: PCP General Practice; Visit Provider Internal Medicine Cardiovascular Disease
DX: I35.0 Nonrheumatic aortic (valve) stenosis (principal); Z95.0 Presence of cardiac pacemaker; I48.19 Other persistent atrial fibrillation
CPT/HCPCS: 99204

== ENCOUNTER → 2024-03-23 14:32 | Outpatient (REF) | payer OTHER, MEDICAID, SELFPAY ==
--- OUTSIDE RECORDS SUMMARY | 2024-03-23 14:35 | XMS_ITS | Encounter Summary ---
Author Organization [employer] Address [address] [facility] [address] 7t [place] [address] Care Team Providers Care Reconditioner Name Role Phone Yumi Alarcon MD Primary Care Provider [phone] Reason for Visit * Reason Onset Date Comments Care Coordination 03/03/2024 Encounter Details Date Type Department Care Team (Late st Contact Info) Description 03/03/2024 Telephone [facility] MEDICINE 230 [place], [place] [phone] Yumi Alarcon MD 230 [place], [place] [phone] Care Coordination Social History Tobacco Use Types [...] 11:42 AM EST TC placed to patient [phone] in regards to below message. Patient informed of cardiology appointment on 03/23/24 at 1:15pm [place] [facility]. Patient is upset as he states his doctor should be calling him toinform him of his appointments and would like to know why he needs to see the focus puller. Patientadvised he was referred to cardiology for his pacemaker and cardiac f/u in 12/23/2023. Patient reports his provider should be calling him reguarly to check on him. RN advised patient we do not have control over appointment reminders for outside offices and for [facility] patients are reminded via text, email, calls [...] also requested RN update patients address to: [place] at [address] [address] Patient is also requesting phone number for facility to be added to his chart ([phone]) as this is where he can be reached at this time. RN has updated phone number. Patient to f/u PRN. * Telephone Encounter - Elaine Ruffin - 03/03/2024 11:20 AM EST Tc from pt requesting to speak to provider. Pt stated he is currently at a facility called [facility] in [place].Pt stated he is scheduled for an appointment with at [facility] [place] . Pt would like to further discuss this appointment and if PCP referred him due to his pace maker. Contact pt at [phone] documented in this encounter Plan of Treatment Upcoming Encounters Date Type Department Care Team (Late st Contact Info) Description 04/14/2024 1:30 PM EST Office Visit [facility] MEDICINE [address] [place] [address] [phone] Yumi Alarcon MD 230 [place], [place] [phone] documented as of this encounter Visit Diagnoses Not on filedocumented in this encounter Additional Health Concerns Assessment Noted Time PHQ-9 Depression Total Score: 15 12/16/2 024 3:08 PM EST documented as of this encounter Care Teams Reconditioner Relationship Specialty Start Date End Date Yumi Alarcon MD [address] [place] [address] [phone] PCP - General Family Medicine 08/09/20 documented as of this encounter
--- OUTSIDE RECORDS SUMMARY | 2024-03-23 14:35 | XMS_ITS | Encounter Summary ---
Author Organization [employer] Address [address] [facility] 7t [place] [address] Care Team Providers Care Twisting Press Operator Name Role Phone Yumi Alarcon MD Primary Care Provider [phone] Encounter Details Date Type Department Care Team (Late st Contact Info) Description 08/20/2022 Orders Only [facility] [address] [place] [address] Trinh Spencer LPN Social History Tobacco Use [...] Description 04/14/2024 1:30 PM EST Office Visit [facility] MEDICINE 230 [place] [address] Yumi Alarcon MD 230 [place] [address] documented as of this encounter Visit Diagnoses Not on filedocumented in this encounter Care Teams Twisting Press Operator Relationship Specialty Start Date End Date Yumi Alarcon MD 230 [place], [place] [phone] PCP - General Family Medicine 08/09/20 documented as of this encounter
--- OUTSIDE RECORDS SUMMARY | 2024-03-23 14:35 | XMS_ITS | Encounter Summary ---
Author Organization [employer] [facility] Address [address] [facility] 7t [place] [address] Care Team Providers Care Associate Professor Of History Name Role Phone Yumi Alarcon MD Primary Care Provider [phone] Encounter Details Date Type Department Care Team (Late st Contact Info) Description 03/20/2022 Orders Only [facility] MEDICINE [address] [place] [address] Vanna Mtz LPN Social History Tobacco Use [...] Description 04/14/2024 1:30 PM EST Office Visit [facility] MEDICINE [address] [place] [address] Yumi Alarcon MD [address] [place] [address] documented as of this encounter Visit Diagnoses Not on filedocumented in this encounter Care Teams Associate Professor Of History Relationship Specialty Start Date End Date Yumi Alarcon MD [address] [place] [address] [phone] PCP - General Family Medicine 08/09/20 documented as of this encounter
--- OUTSIDE RECORDS SUMMARY | 2024-03-23 14:35 | XMS_ITS | Encounter Summary ---
Author Organization [email or web address] Address [address] [address] 7t [place] [address] Care Team Providers Care Medical Supervisor Name Role Phone Yumi Alarcon MD Primary Care Provider Encounter Details Date Type Department Care Team (Late st Contact Info) Description 06/30/2023 Telephone [facility] 230 [place], [place] [phone] Yumi Alarcon MD 230 [place], [place] [phone] Social History Tobacco Use Types Packs/Day Years [...] Description 04/14/2024 1:30 PM EST Office Visit [facility] 230 [place] [address] Yumi Alarcon MD 230 [place] [address] documented as of this encounter Visit Diagnoses Not on filedocumented in this encounter Additional Health Concerns Assessment Noted Time PHQ-9 Depression Total Score: 10 024 2:46 PM EDT documented as of this encounter Care Teams Medical Supervisor Relationship Specialty Start Date End Date Yumi Alarcon MD 230 [place] [address] PCP - General Family Medicine 08/09/20 documented as of this encounter
--- OUTSIDE RECORDS SUMMARY | 2024-03-23 14:35 | XMS_ITS | Encounter Summary ---
Author Organization [employer] Address [address] [facility] [address] 7t [place] [address] Care Team Providers Care Commutator Presser Name Role Phone Yumi Alarcon MD Primary Care Provider [phone] Reason for Visit * Reason Comments Med Change Request Encounter Details Date Type Department Care Team ([facility] st Contact Info) Description 12/20/2023 Refill [facility] MEDICINE 230 [place], [place] [phone] Yumi Alarcon MD 230 [place], [place] [phone] Cellulitis of multiple sites of hand and [...] EST Office Visit [facility] MEDICINE [address] [place] [address] Yumi Alarcon MD [address] [place] [address] documented as of this encounter Visit Diagnoses Diagnosis Cellulitis of multiple sites of hand and fingers Intrinsic eczema documented in this encounter Additional Health Concerns Assessment Noted Time PHQ-9 Depression Total Score: 11 024 3:58 PM EDT documented as of this encounter Care Teams Commutator Presser Relationship Specialty Start Date End Date Yumi Alarcon MD [address] [place] [address] PCP - General Family Medicine 08/09/20 documented as of this encounter
--- OUTSIDE RECORDS SUMMARY | 2024-03-23 14:35 | XMS_ITS | Clinical Summary ---
Author Organization [employer] Address 75 [facility] 7t [place] [address] Care Team Providers Care Automatic Drill Operator Name Role Phone Yumi Alarcon MD Primary Care Provider [phone] Allergies Active Allergy Reactions Criticality Noted Date [...] Noted Date Diagnosed Date Lives in homeless group home 12/13/2023 Assessment & Plan (12/13/2023 4:14 PM [...] situation. He is currently living in a group home in [place] and reports he is not able to stay in during the day. He is looking to find somewhere he could also spend the mornings in, especially during the winter days. Pt reports the group home is charging $65 weekly for a spot. [...] Provided patient with information from [facility] and [facility] to seek out for additional support with group home placements. Assessment & Plan (06/09/2023 3:39 PM [...] Health Integration Plan Internal Follow up with [facility] Patient Self Plan Patient to utilize skills provided in intervention , Patient [facility] as needed, and Patient to [...] Health Integration Plan Internal Follow up with [facility] Patient Self Plan Patient to utilize skills provided in intervention , Patient to [facility] as needed, and Patient to [...] situation. He is currently living in a group home in [place] and reports he is not able to stay in during the day. He is looking to find somewhere he could also spend the mornings in, especially during the winter days. Pt reports the group home is charging $65 weekly for a spot. He has done other applications with [employer] and is currently looking for section 8 apartments. Anxiety is highly associated with current housing situation. clinician engaged patient with active/reflective listening. Reviewed and assessed for risk, current stressors and protective factors using open ended questions. Sent request to CM to assist with housing situation. Provided patient with information from [facility] and [facility] to seek out for additional support with group home placements. Assessment & Plan (06/09/2023 3:38 PM [...] Health Integration Plan Internal Follow up with [facility] Patient Self Plan Patient to utilize skills provided in intervention , Patient to [facility] as needed, and Patient to reach out to [facility] as needed. Pt agreed to reach out to clinician during next medical appointment. CM connected with patient to assist with housing and food insecurity during today's session. Back pain 10/08/2022 Bronchitis 10/08/2022 Severe aortic valve stenosis 01/01/2022 Assessment & Plan (01/22/2024 12:33 PM EST): Needs to see [facility] cardiology, repeat Echo to monitor progression of [...] Type Department Care Team Description 03/03/[address] [address] Yumi Alarcon MD Care Coordination 03/02/[address] [address] Yumi Alarcon MD Depression, unspecified depression type 02/25/[address] [address] Yumi Alarcon MD No Show 02/17/2024 Patient Outreach [address] [address] Yumi Alarcon MD Pre-visit Planning ((Unable to reach for PVP screening, LVM)) 02/07/2024 Patient Outreach [address] [address] Cain Johnson Recovery Supports 02/07/2024 Patient Outreach [address] [address] Leonel Greenwood Recovery Supports 02/03/2024 Orders Only GENERIC EXTERNAL DATA DEPARTMENT Provider, Generic External Data 01/31/2024 1:40 PM EST Office Visit [facility] [address] Ngozi Kelley NP Suicidal ideation (Primary Dx); Housing insecurity; Cardiac pacemaker in situ 01/24/[address] [address] Lubna Mays [place] Appointment Confirmation 01/24/[address] [place] [address] Mays LubnaMAU griffin Appointment Request 01/17/2024 2:15 PM EST Office Visit [facility] 230 [place] [address] Yumi Alarcon MD Severe aortic valve stenosis (Primary Dx); Protein-calorie malnutrition, unspecified severity (CMS/HCC); Arteriosclerosis of coronary artery; Cardiac pacemaker in situ; Primary hypertension; Lives in homeless group home; Anxiety 01/17/2024 Travel 12/31/2023 Telephone [facility] 230 [place] [address] Yumi Alarcon MD No Show 12/23/2023 Telephone [facility] 230 [place] [address] Kiki Davila RN Results from Last 3 [...] 04/14/2024 1:30 PM EST Office Visit [facility] MEDICINE 230 [place], [place] [phone] Yumi Alarcon MD 230 [place] [address] Health Maintenance Due Date Last Done Comments [...] 12:23 PM EST) Color Urine Dark Yellow [facility] Appearance Urine Cloudy [facility] PH 6.0 5.0 - 9.0 [facility] Glucose Urine UA Negative Negative mg/dL [facility] Urine Blood Trace(A) Negative [facility] Specific [place] - Urine >=1.030(H) 1.005 - 1.025 [facility] Urine Protein 100 (2+)(A) Neg-Trace mg/dL [facility] Urine Ketones Trace Negative mg/dL [facility] Nitrite Urine Negative Negative [facility] Leukocyte Esterase Urine Negative Negative [facility] RBC Urine 3-5(A) 0 - 2 /HPF [facility] Urine WBC 0-5 0 - 5 /HPF [facility] Urine Squamous Epithelial Cell 0-2 0 - 2 /HPF [facility] Urine Bacteria None Seen None Seen [facility] Hyaline Casts, Urine 3-5 0 - 2 /LPF [facility] 02/03/2024 12:2 3 PM EST 02/03/2024 12:28 PM EST Narrative [facility] - 02/03/2024 12:52 PM EST [id number], [employer] Generic External Data Provider LAB URINE ORDERAB LES Final Result [facility] [address] [place] [address] [phone] * XR Chest 2 Views (02/03/2024 10:48 AM EST) Anatomical Region Laterality Modality Chest Radiographic Juliette ging 02/03/2024 10:4 8 AM EST Narrative 02/03/2024 2:41 PM EST ? [facility] ?[address] ?[place] [address] ?XRay Report ? Signed ? Patient: Taj Granger ?MR#: [id number] ?? [id number] ? : 1955 ?Acct:[id number] ? Age/Sex: 68 / M ?ADM Date: 02/03/24 ? Loc: HO.ED ? Attending Dr: ? Ordering Physician: Sakshi Oneill MD ?? Date of Service: 02/03/24 ?? Procedure(s): XR chest 2V ?? Accession Number(s): [id number] ? cc: Yumi Alarcon; Sakshi Oneill MD [...] DD/ 1048 ? TD/TT: 02/03/24 1110 ? Ceramist: WG ? Procedure Note Bharath Winters - 02/03/[address] [address] XRay Report Signed Patient: Taj Granger JMR#: [id number] : 8Acct:[id number] Age/Sex: 68 / MADM Date: 02/03/24 Loc: HO.ED Attending Dr: Ordering Physician: Sakshi Oneill MD Date of Service: 02/03/24 Procedure(s): XR chest 2V Accession Number(s): [id number] cc: Yumi Alarcon; Sakshi Oneill MD EXAMINATION: [...] 02/03/24 1438 DD/ 1048 TD/TT: 02/03/24 1110 Ceramist: DARRICK [facility] External Provider IMG XR PROCEDURES Final Result from Last 3 Months Insurance [employer] Member Subscriber Plan / Payer (Ef fective 2023-Present) Name:Taj Granger Relation to Subscriber:Self Name:Taj Granger Payer ID:Not on file Group ID:Not on file Type:Medicaid Address: [facility] [address] [place] [id number] [place], [place] [address] JENNYFER Rodriguez [id number] Care Teams Automatic Drill Operator Relationship Specialty Start Date End Date Yumi Alarcon MD [address] [place] [address] PCP - General Family Medicine 08/09/20
--- OUTSIDE RECORDS SUMMARY | 2024-03-23 14:35 | XMS_ITS | Encounter Summary ---
Author Organization [employer] Address [address] [facility] [address] 7t [place] [address] Care Team Providers Care Rn Tele Name Role Phone Yumi Alarcon MD Primary Care Provider [phone] Encounter Details Date Type Department Care Team (Late st Contact Info) Description 02/17/2023 Abstract [facility] MEDICINE 230 [place], [place] [phone] Yumi Alarcon MD 230 [place], [place] [phone] Social History Tobacco Use Types Packs/Day Years [...] Description 04/14/2024 1:30 PM EST Office Visit [facility] MEDICINE 230 [place] [address] Yumi Alarcon MD [address] [place] [address] documented as of this encounter Visit Diagnoses Not on filedocumented in this encounter Care Teams Rn Tele Relationship Specialty Start Date End Date Yumi Alarcon MD [address] [place] [address] PCP - General Family Medicine 08/09/20 documented as of this encounter
--- OUTSIDE RECORDS SUMMARY | 2024-03-23 14:35 | XMS_ITS | Encounter Summary ---
Author Organization [employer] Address [address] [facility] [address] 7t [place] [address] Care Team Providers Care Ingot Buggy Operator Name Role Phone Yumi Alarcon MD Primary Care Provider [phone] Encounter Details Date Type Department Care Team (Late st Contact Info) Description 02/11/2023 Abstract [facility] MEDICINE 230 [place], [place] [phone] Yumi Alarcon MD 230 [place], [place] [phone] Social History Tobacco Use Types Packs/Day Years [...] Description 04/14/2024 1:30 PM EST Office Visit [facility] MEDICINE 230 [place] [address] Yumi Alarcon MD [address] [place] [address] documented as of this encounter Visit Diagnoses Not on filedocumented in this encounter Care Teams Ingot Buggy Operator Relationship Specialty Start Date End Date Yumi Alarcon MD [address] [place] [address] PCP - General Family Medicine 08/09/20 documented as of this encounter
--- OUTSIDE RECORDS SUMMARY | 2024-03-23 14:35 | XMS_ITS | Encounter Summary ---
Author Organization [employer] Address 75 [facility] 7t [place] [address] Care Team Providers Care Computational Chemist Name Role Phone Yumi Alarcon MD Primary Care Provider [phone] Reason for Visit * Reason Onset Date Comments Med Refill 03/02/2024 Encounter Details Date Type Department Care Team (Late st Contact Info) Description 03/02/2024 Refill [facility] MEDICINE 230 [place], [place] [phone] Yumi Alarcon MD 230 [place], [place] [phone] Depression, unspecified depression type Social History Tobacco [...] 30 MG tablet To be sent to: [address] documented in this encounter Plan of Treatment Upcoming Encounters Date Type Department Care Team (Late st Contact Info) Description 04/14/2024 1:30 PM EST Office Visit [facility] MEDICINE 230 [place] [address] Yumi lAarcon MD 230 [place] [address] documented as of this encounter Visit Diagnoses Diagnosis Depression, unspecified depression type documented in this encounter Additional Health Concerns Assessment Noted Time PHQ-9 Depression Total Score: 15 024 3:08 PM EST documented as of this encounter Care Teams Computational Chemist Relationship Specialty Start Date End Date Yumi Alarcon MD 230 [place] [address] PCP - General Family Medicine 08/09/20 documented as of this encounter
--- OUTSIDE RECORDS SUMMARY | 2024-03-23 14:35 | XMS_ITS | Encounter Summary ---
Author Organization [employer] Address [address] [facility] [address] [place] [address] Care Team Providers Care Medication Manager Name Role Phone Yumi Alarcon MD Primary Care Provider [phone] Encounter Details Date Type Department Care Team (Late st Contact Info) Description 08/23/2023 Telephone [facility] [address] [place], [place] [phone] Yumi Alarcon MD [address] [place], [place] [phone] Social History Tobacco Use Types Packs/Day Years [...] get into a home instead of a fci . Igot in contact with care management and was advised pt will be getting a call back . documented in this encounter Plan of Treatment Upcoming Encounters Date Type Department Care Team (Late st Contact Info) Description 04/14/2024 1:30 PM EST Office Visit [facility] [address] [place] [address] Yumi Alarcon MD [address] [place] [address] documented as of this encounter Visit Diagnoses Not on filedocumented in this encounter Additional Health Concerns Assessment Noted Time PHQ-9 Depression Total Score: 10 024 2:46 PM EDT documented as of this encounter Care Teams Medication Manager Relationship Specialty Start Date End Date Yumi Alarcon MD [address] [place] [phone] PCP - General Family Medicine 08/09/20 documented as of this encounter
--- OUTSIDE RECORDS SUMMARY | 2024-03-23 14:35 | XMS_ITS | Encounter Summary ---
Author Organization [employer] Address [address] [facility] [address] [place] [address] Care Team Providers Care Computer Information Science Professor Name Role Phone Yumi Alarcon MD Primary Care Provider [phone] Reason for Visit * Reason Onset Date Comments No Show 02/25/2024 Encounter Details Date Type Department Care Team (Late st Contact Info) Description 02/25/2024 Telephone [facility] [address] [place], [place] [phone] Yumi Alarcon MD [address] [place], [place] [phone] No Show Social History Tobacco Use Types [...] Description 04/14/2024 1:30 PM EST Office Visit [facility] [address] [place] [phone] Yumi Alarcon MD [address] [place] [address] documented as of this encounter Visit Diagnoses Not on filedocumented in this encounter Additional Health Concerns Assessment Noted Time PHQ-9 Depression Total Score: 15 024 3:08 PM EST documented as of this encounter Care Teams Computer Information Science Professor Relationship Specialty Start Date End Date Yumi Alarcon MD [address] [place] [phone] PCP - General Family Medicine 08/09/20 documented as of this encounter
--- NOTE | 2024-03-23 14:36 | CA_ITS ---
Transthoracic Echocardiogram Patient (Last, First, Middle): Taj Granger J Gender: Male Date of : 1955 Age: 68 Procedure Date: 03/23/2024 Procedure Type: Transthoracic Echocardiogram Location: OP Height: 170.18 cm Weight: 58.06 kg BSA: 1.67 m2 Heart Rate: 70 bpm BP: 118 / 78 mmHg Customer Counter Representative: SB Referring MD: Denis Campuzano MD Curb Supervisor: Juan Mayo MD Symptoms: I35.0 - Nonrheumatic aortic (valve) stenosis Study Quality: Adequate ECG Rhythm: Atrial Fibrillation Conclusions: - 1. Low normal LV ejection fraction 50-55% 2. Moderately reduced RV systolic function 3. Severe left atrial and moderate right atrial enlargement 4. Paradoxical low-flow severe aortic stenosis 5. Normal measured RV systolic pressure with mildly elevated right atrial pressures 6. Moderately dilated ascending aorta at 4.6 cm 7. No gross pericardial effusion Findings Left Ventricle Normal left ventricular cavity size. There is normal left ventricular wall thickness. The left ventricular systolic function is low normal. The visually estimated ejection fraction is between 50-55%. Diastolic function is indeterminate on the basis of available data. Right Ventricle Normal right ventricular cavity size. There is moderately decreased right ventricular systolic function. Atria The left atrium is severely dilated. There is no evidence of interatrial shunt. The right atrium is moderately dilated. Aortic Valve There is moderate calcification of the aortic valve. There is moderate thickening of the aortic valve. There is severe aortic valve stenosis. The peak aortic gradient is 48 mmHg.The mean gradient is 30 mmHg. The aortic valve area is 0.68 cm2. There is no aortic valve regurgitation. The stroke volume index is significantly reduced and findings are consistent with paradoxical low-flow severe aortic stenosis. bicuspid aortic valve can not be entirely ruled out Mitral Valve Likely normal mitral valve structure and function. There is trace mitral valve regurgitation. There is no mitral valve stenosis. Pulmonic Valve The pulmonic valve is likely normal. Tricuspid Valve Normal tricuspid valve structure. There is mild to moderate tricuspid valve regurgitation. The right ventricular systolic pressure is normal. Mildly elevated right atrial pressure. There is no evidence of pulmonary hypertension. Great Vessels The pulmonary artery was not well visualized. There is moderate dilatation of the ascending aorta measuring 4.60 cm. Venous The inferior vena cava is mildly dilated and collapses greater than 50% with inspiration. Pericardium/Pleural There is no evidence of pericardial effusion. Prior Study Comparison Changes noted compared to prior study dated: 01/26/2023. ascending aorta as further dilated at 4.6 cm. Right atrial pressures are increased with reduced RV systolic function Measurements 2D Linear Measurements IVSd: 1.10 0.6-0.9/0.6-1.0 cm LVIDd: 4.20 3.9-5.3/4.2-5.9 cm LVIDd Index: 2.51 2.4-3.2/2.2-3.1 cm/m2 LVIDs: 3.44 2.0-3.6 cm LVPWd: 0.94 0.7-1.1 cm LA Diam: 4.20 2.7-3.8/3.0-4.0 cm LAIDs Index: 2.51 1.5-2.3 cm/m2 LV Mass: 175.40 67-162/88-224 g LV Mass Index: 105.03 43-95/49-115 g/m2 LVOT Diam: 2.70 3.0+(-)1.3 cm 2D Systolic Function EF 4C: 56.50 >55% EF 2C: 49.50 >55% EF BiP: 53.60 >55% Mitral Valve MV Pk E: 0.57 Aortic Valve AoV Pk Jerry: 3.47 AoV Mn Jerry: 2.58 AoV VTI: 0.75 AoV Pk Grad: 48.00 Aov Mn Grad: 30.00 Z[place] Cont.VTI: 0.68 LVOT LVOT Pk Jerry: 0.46 LVOT Mn Jerry: 0.32 LVOT VTI: 0.09 LVOT Pk Grad: 1.00 LVOT Mn Grad: 0.00 LVOT Diam: 2.70 LVOT Area: 5.73 Diastolic Function MV Pk E: 0.57 Right Ventricle TAPSE (mm): 11.30 TVS' Jerry: 7.70 Tricuspid Valve TR Pk Jerry: 2.41 TR Pk Grad: 23.00 RA Press: 8.00 RVSP: 31.00 Great Vessels Aorta Sinus of Valsalva: 3.10 2.0-3.5 cm Ao Asc: 4.60 2.1-3.4 cm Pulmonary Valve PV Pk Jerry: 0.76 Peak PV Grad: 2.00 Updated in Other Vendor System with Status of Final Juan Mayo MD electronically signed on 03/23/2024 4:21:13 PM with status of Final
== END ==
LOC: HO.CARD 14:32
PROVIDERS: PCP General Practice; Visit Provider Internal Medicine
DX: I35.0 Nonrheumatic aortic (valve) stenosis (principal)
CPT/HCPCS: 93306; 99202; 99212

== ENCOUNTER 2024-05-01 05:01 | Emergency (ER) | payer OTHER, MEDICAID, SELFPAY ==
--- NOTE | ~2024-05-01 | CT_ITS ---
EXAMINATION: CT CERVICAL SPINE WITHOUT IV CONTRAST HISTORY: fall on Xarelto. TECHNIQUE: Helical CT of the cervical spine was performed per standard departmental protocol. Coronal and sagittal reformatted images were also evaluated. One or more of the following techniques was used for dose reduction: Automated exposure control, adjustment of the mA and/or kV according to patient size, use of iterative reconstruction technique. DLP: 324 mGy-cm COMPARISON: There are no prior studies for comparison. FINDINGS: Examination is mildly degraded by patient motion. CERVICAL SPINE: There is osseous fusion of C5 and C6. The vertebral bodies maintain normal height and alignment without evidence of fracture or subluxation. There is moderate degenerative disc disease with disc space narrowing and osteophyte formation. There is diffuse facet osteoarthritis and uncovertebral joint hypertrophy causing multilevel neural foraminal stenosis. Evaluation for disc pathology is limited by lack of intrathecal contrast material, however. BRAIN: The visualized portion of the brain is unremarkable. SINUSES: The visualized paranasal sinuses, mastoid air cells and middle ear cavities are unremarkable. LUNG APICES: The visualized lung apices are clear. SOFT TISSUES: The visualized paraspinal soft tissues are unremarkable. CT/CT cervical spine wo IV con IMPRESSION: No evidence of fracture or malalignment of the cervical spine. Degenerative changes as described. Electronically signed by: Guy Peterson MD 05/01/2024 09:16 AM EDT
--- NOTE | ~2024-05-01 | CT_ITS ---
EXAMINATION: CT HEAD WITHOUT IV CONTRAST HISTORY: fall on Xarelto. TECHNIQUE: Unenhanced helical CT of the head was performed per standard departmental protocol. Coronal and sagittal reformats of the head were also evaluated. One or more of the following techniques was used for dose reduction: Automated exposure control, adjustment of the mA and/or kV according to patient size, use of iterative reconstruction technique. DLP: 668 mGy-cm COMPARISON: Comparison is made with the prior examination dated 09/20/2023. FINDINGS: The examination is degraded by patient motion. BRAIN: There is mild prominence of the ventricular system and cortical sulci, consistent with atrophy. Periventricular and subcortical white matter hypodensities are noted which are nonspecific, but often seen in the setting of small vessel ischemic disease. There is no mass effect or midline shift. No intra- or extra-axial fluid collections are identified. SINUSES: The visualized paranasal sinuses are clear. The mastoid air cells and middle ear cavities are well pneumatized. ORBITS: The visualized orbits are unremarkable. BONES/SOFT TISSUES: The extracranial soft tissues are unremarkable. The calvarium is intact. No suspicious lytic or sclerotic lesions. CT/CT head/brain wo IV con IMPRESSION: No acute intracranial abnormality. Electronically signed by: Guy Peterson MD 05/01/2024 09:03 AM EDT
--- NOTE | ~2024-05-01 | CT_ITS ---
EXAMINATION: CT CHEST WITHOUT IV CONTRAST, CT ABDOMEN PELVIS WITHOUT IV CONTRAST INDICATION: fall on Xarelto, pain between the shoulder blade COMPARISON: There are no prior studies available for comparison. TECHNIQUE: CT scan of the chest, abdomen and pelvis was performed without contrast using standard departmental protocol. Coronal and sagittal reformatted images were generated and reviewed. Oral contrast material was not administered at the request of the referring physician. This CT exam was performed with one or more of the following dose reduction techniques: automated exposure control, adjustment of the mA and/or kV according to patient size, use of iterative reconstruction technique. DLP: 515 mGy-cm CHEST: THYROID: The thyroid is unremarkable. LUNGS: There are mild emphysematous changes. There are scattered pulmonary nodules in both lungs, the largest of which are in the right upper lobe measuring 7 mm in size (series 28, image 70 and in the right lower lobe measuring 8 mm in size (series 28, image 63). There is patchy nodular airspace opacity in the left lower lobe which may be inflammatory in nature. MEDIASTINUM: There is no mediastinal lymphadenopathy. MELLO: Evaluation of the hilar regions is limited by lack of intravenous contrast material. CARDIOVASCULATURE: The heart is enlarged. There is no pericardial effusion. There is dilatation of the ascending thoracic aorta measuring up to 4.5 cm in diameter. DEGREE OF CORONARY CALCIFICATION: severe PLEURA: There is no pleural effusion. No pneumothorax. MAIN AIRWAYS: The mainstem bronchi and proximal branches are patent. AXILLA: There is no axillary lymphadenopathy. SOFT TISSUES: Unremarkable. BONES: The bones are intact. ABDOMEN: LIVER: The liver is normal in size and contour. The liver has an unremarkable unenhanced appearance. GALLBLADDER / BILE DUCTS: The gallbladder is unremarkable. There is no intra or extrahepatic biliary ductal dilatation. SPLEEN: The spleen is normal in size and has an unremarkable unenhanced appearance. PANCREAS: The pancreas has an unremarkable unenhanced appearance. ADRENAL GLANDS: Unremarkable. KIDNEYS/RETROPERITONEUM: There is a 2 mm nonobstructing calculus at the lower pole of the right kidney. There is a probable 1.2 cm cyst at the lower pole of the right kidney and a probable 2.0 cm cyst in the interpolar region of the left kidney. There is no hydronephrosis. LYMPH NODES: No retroperitoneal lymphadenopathy is identified in the abdomen or pelvis. VASCULATURE: The abdominal aorta demonstrates atherosclerotic calcification, but is normal in caliber. MESENTERY/PERITONEUM: No free fluid. No masses. There is no free intraperitoneal gas. STOMACH: The stomach is collapsed, limiting evaluation. SMALL BOWEL: The small bowel is normal in caliber. COLON: There is diverticulosis of the sigmoid colon, without evidence of diverticulitis. APPENDIX: The appendix is not seen, however no inflammatory changes are seen adjacent to the cecum. URINARY BLADDER/PELVIC ORGANS: The urinary bladder is unremarkable. Are calcifications of the prostate. BONES / SOFT TISSUES: The patient is status post posterior fusion of L4 and L5 with pedicle screws and spinal stabilization rods. Intervertebral spacers are noted at L4-5 and L5-S1. There is degenerative disc disease of the spine. CT/CT abdomen pelvis wo IV con IMPRESSION: 1. No evidence of traumatic injury to the chest, abdomen, or pelvis on this unenhanced examination. Please note that evaluation for solid organ injury is limited by lack of intravenous contrast material. 2. Multiple pulmonary nodules as described. Follow-up is recommended with chest CT in 6 months. Electronically signed by: Guy Peterson MD 05/01/2024 08:59 AM EDT
[2024-05-01 05:03] VITALS: BP 114/81; BP 142/86; PULSE 65; PULSE 81; RESP 18; TEMP 36.6; O2SAT 97; O2SAT 98; BMI 21.1
--- NOTE | 2024-05-01 07:13 | ED.FALL ---
HPI - Fall General Chief Complaint: Fall Stated Complaint: ROLLED DOWN A SMALL HILL Time Seen by Provider: 05/01/24 07:05 History of Present Illness HPI Narrative: Patient is a 68-year-old male homeless patient is on Xarelto for atrial fibrillation claims compliance fell while sleeping rolled down a hill. Patient was found at the bottom of the hill wrapped up Clothing this morning patient complaining of pain in between the shoulder blade area. Question head injury. No nausea no vomiting no focal weakness patient claims he is extremely hungry and can move all extremities. Related Data Home Medications ?Medication ?Instructions ?Recorded ?Confirmed atorvastatin 80 mg tablet 80 mg PO BEDTIME 09/20/23 03/23/24 hydroxyzine HCl 25 mg tablet 50 mg PO BEDTIME PRN insomnia 09/20/23 03/23/24 melatonin 3 mg tablet 3 mg PO BEDTIME PRN Insomnia 09/20/23 03/23/24 Previous Rx's ?Medication ?Instructions ?Recorded rivaroxaban 20 mg tablet (Xarelto) 20 mg PO QPM #90 tabs 12/29/19 paroxetine HCl 30 mg tablet 30 mg PO DAILY #90 tabs 06/27/20 metoprolol succinate 25 mg 25 mg PO DAILY 30 days #30 tabs 08/25/23 tablet,extended release 24 hr (Toprol XL) acetaminophen 650 mg 1,300 mg (2 x 650 mg) PO Q12H PRN 03/23/24 tablet,extended release (Tylenol pain #100 tabs Arthritis Pain) Allergies Allergy/AdvReac Type Severity Reaction Status Date / Time codeine [CODEINE] Allergy Mild NAUSEA Verified 05/01/24 05:04 Penicillins [PENICILLINS] Allergy Unknown ANAPHYLAXIS Verified 05/01/24 05:04 Review of Systems Review of Systems: Status post fall Yes all other systems are reviewed and are negative [facility] Past Medical History Attestation statement: The following information was validated with the patient. Medical History Homeless Atrial fibrillation Hypercholesterolemia Esophageal dysmotility Tobacco abuse COPD (chronic obstructive pulmonary disease) GERD (gastroesophageal reflux disease) Anxiety and depression Hypertension Coronary artery disease Surgical History History of surgery History of surgery History of angioplasty Family History Family History Father Myocardial infarction Mother Medical history unknown Sister No problems noted. Brother No problems noted. Son No problems noted. Social History Social History Alcohol intake: never Patient Tobacco Use Status: Former Tobacco user Tobacco use type: Cigarette Cigarettes Per Day: 3 Smoked in Last 30 Days: Yes Use of substances other than those prescribed or required for medical reasons: Yes Substance Use Type: Marijuana Advance Directives: No Advance Directives Information Provided: Yes Do you have a plan to hurt others: No Plan Physical Exam Vital Signs: Vital Signs: Last Vital Signs Temp 98.3 F 05/01/24 08:46 Pulse 80 05/01/24 08:46 Resp 16 05/01/24 08:46 BP 126/95 H 05/01/24 08:46 Pulse Ox 95 05/01/24 08:46 O2 Del Method Room Air 05/01/24 08:46 BMI result Body Mass Index 21.1 Appearance: Alert. Oriented X3. No acute distress. Eyes: Pupils equal, round and reactive to light. ENT: Pharynx normal. Neck: Normal inspection. Neck supple. No lymph nodes noted. No crepitus CVS: Normal heart rate and rhythm. Pulses normal. Normal S1 and S2 Respiratory: No respiratory distress. Breath sounds normal. No Wheezing. No rales Abdomen: Soft and nontender. No rigidity. No distention. good BS x4 Skin: Skin warm and dry. Normal skin color. Normal skin turgor. Extremities: No lower extremity edema. Neurovascular intact to all extremities. No Lacerations. No Rash Neuro: Oriented X 3. No motor deficit. No sensory deficit. Moving all extermities. No slurred speech Medical Decision Making Medical Decision Making MDM Narrative: patient on Xarelto status post fall rolled down a hill complaining of pain to his back. My interpretation patient's CT scan of the head C-spine chest abdomen pelvis were all grossly negative for traumatic injury. I reviewed radiology's reading which also showed multiple pulmonary nodule. This was explained to patient and require follows up. No fever no chills. No focal weakness. Patient is from home. Will discharge patient. Currently in stable condition. Differential Diagnosis Differential Diagnoses: The differential diagnosis associated with the presentation includes Intracranial bleed, fracture, traumatic injury, splenic injury, liver injury, pelvis fracture, hematoma, hemothorax Admission/Observation Consideration of admission/observation: Escalation of care including admission/observation considered no need to admit at this time as patient is symptomatically improved CT scan is grossly negative Lab Data MDM Lab Attestation statement: I reviewed the patient's lab results. 05/01/24 07:32 05/01/24 07:32 Labs: Lab Results 05/01/24 Range/Units 07:32 WBC 7.0 (4.8-10.8) X10*3/uL RBC 4.31 L (4.60-5.80) X10*6/uL Hgb 12.2 L (14.0-18.0) g/dl Hct 37.4 L (42.0-52.0) % MCV 86.8 (80.0-98.0) fL MCH 28.3 (27.0-33.0) pg MCHC 32.6 (31.0-36.0) g/dl RDW 14.4 (11.0-16.0) % Plt Count 165 (160-400) X10*3/uL MPV 10.1 (9.4-12.4) fL Immature Gran % (Auto) 0.4 (0.0-0.4) % Neut % (Auto) 67.9 (45-73) % Lymph % (Auto) 17.0 L (20-40) % Edmonson % (Auto) 13.4 H (2-11) % Eos % (Auto) 1.0 (0-4) % Baso % (Auto) 0.3 (0-2) % Lymph # (Auto) 1.2 (1.2-4.9) X10*3/uL Edmonson # (Auto) 0.9 (0.1-1.2) X10*3/uL Eos # (Auto) 0.1 (0.0-0.4) X10*3/uL Baso # (Auto) 0.0 (0.0-0.2) X10*3/uL Abs Immat Gran (auto) 0.03 (0.00-0.03) X10*3/uL Absolute Neuts (auto) 4.7 (2.0-8.3) x10*3/uL Absolute Nucleated RBC 0.000 (0.0-0.012) X10*3/uL Nucleated RBC % (auto) 0.0 (0.0-0.2) /100WBC PT 15.4 H (10.9-12.4) SEC INR 1.3 H (0.9-1.1) Sodium 144 (135-145) mmol/L Potassium 3.7 (3.3-5.1) mmol/L Chloride 111 H (96-108) mmol/L Carbon Dioxide 25 (22-29) mmol/L Anion Gap 12 (12-20) BUN 24 H (9-16) mg/dL Creatinine 0.68 (0.5-1.4) mg/dL Estim Creat Clear Calc 92.5 Estimated GFR > 60 Random Glucose 108 (60-115) mg/dL Calcium 8.8 (8.4-10.2) mg/dL Total Creatine Kinase 687 H (38-174) U/L Ethyl Alcohol < 10 mg/dL Independent Historian Clinical information obtained from an independent historian. History obtained from or confirmed by: EMS Prescription Management I considered prescription management with: Antibiotic ( not needed) Chronic Conditions Patient?s care impacted by: Other ( atrial fibrillation on thinners Xarelto) Social Determinants Patient?s care significantly limited by Social Determinants of Health including: Problems related to primary support group Discharge Plan Discharge Clinical Impression: Head injury, Contusion Patient Disposition: Home, Self-Care Instructions: Head Injury (ED) Additional Instructions: 2. Multiple pulmonary nodules as described. Follow-up is recommended with chest CT in 6 months. Prescriptions: No Action Xarelto 20 mg tablet 20 mg PO QPM Qty: 90 3RF Rx Instructions: must administer with evening meal paroxetine HCl 30 mg tablet 30 mg PO DAILY Qty: 90 0RF metoprolol succinate [Toprol XL] 25 mg tablet extended release 24 hr 25 mg PO DAILY 30 Days Qty: 30 0RF Rx Instructions: must make cardiology appt for refills atorvastatin 80 mg tablet 80 mg PO BEDTIME hydroxyzine HCl 25 mg tablet 50 mg PO BEDTIME PRN (Reason: insomnia) melatonin 3 mg tablet 3 mg PO BEDTIME MDD 3mg PRN (Reason: Insomnia) acetaminophen [Tylenol Arthritis Pain] 650 mg tablet extended release 1,300 mg PO Q12H PRN (Reason: pain) Qty: 100 0RF Referrals: Ymui Alarcon MD [Primary Care Provider] - 05/03/24 Print Language: Turkmen
[2024-05-01 07:35] LABS: MANUAL DIFF FLAG NO
[2024-05-01 07:38] LABS: Basophils Percent Auto 0.3 % (0-2); Eosinophils Absolute Auto 0.1 X10*3/uL (0.0-0.4); Hematocrit 37.4 % (42.0-52.0); Hemoglobin 12.2 g/dl (14.0-18.0); Imm Gran Abs Auto 0.03 X10*3/uL (0.00-0.03); Imm Gran Pct Auto 0.4 % (0.0-0.4); Lymphocytes Absolute Auto 1.2 X10*3/uL (1.2-4.9); Mean Corpuscular HGB Conc 32.6 g/dl (31.0-36.0); Mean Corpuscular Hemoglobin 28.3 pg (27.0-33.0); Mean Corpuscular Volume 86.8 fL (80.0-98.0); Mean Platelet Volume 10.1 fL (9.4-12.4); Monocytes Absolute Auto 0.9 X10*3/uL (0.1-1.2); Monocytes Percent Auto 13.4 % (2-11); Neutrophils Absolute Auto 4.7 x10*3/uL (2.0-8.3); Neutrophils Percent Auto 67.9 % (45-73); Platelet Count 165 X10*3/uL (160-400); Red Blood Count 4.31 X10*6/uL (4.60-5.80); Red Cell Distribution Width 14.4 % (11.0-16.0)
[2024-05-01 07:42] LABS: INTERNATIONAL NORM RATIO 1.3 (0.9-1.1); Prothrombin Time 15.4 SEC (10.9-12.4)
[2024-05-01 07:57] LABS: Anion Gap 12 (12-20); Blood Urea Nitrogen 24 mg/dL (9-16); Calcium 8.8 mg/dL (8.4-10.2); Carbon Dioxide 25 mmol/L (22-29); Chloride 111 mmol/L (96-108); Creatinine Clr Calc Pharmacy 92.5; Estimated Glomerular Filt Rate > 60; Glucose Random 108 mg/dL (60-115); Potassium 3.7 mmol/L (3.3-5.1); Sodium 144 mmol/L (135-145)
[2024-05-01 08:00] LABS: Ethanol < 10 mg/dL
[2024-05-01 08:46] VITALS: BP 126/95; PULSE 80; RESP 16; TEMP 36.8; O2SAT 95
[2024-05-01 10:32] VITALS: BP 126/95; PULSE 80; RESP 16; TEMP 36.8; O2SAT 95
== END 2024-05-01 11:34 | disposition home or self-care (01) ==
PROVIDERS: Emergency Provider Emergency Medicine Emergency Medical Services; PCP General Practice
DX: S00.93XA Contusion of unspecified part of head, initial encounter (principal); M54.50 Low back pain, unspecified; R91.8 Other nonspecific abnormal finding of lung field; W17.81XA Fall down embankment (hill), initial encounter; Y93.9 Activity, unspecified; Y99.8 Other external cause status; Y92.9 Unspecified place or not applicable; R51.9 Headache, unspecified; Z79.899 Other long term (current) drug therapy; Z87.891 Personal history of nicotine dependence
CPT/HCPCS: 36415; 70450; 71250; 72125; 74176; 80048; 80307; 82550; 85025; 85610

== ENCOUNTER → 2024-05-01 07:10 | Outpatient (BNV) | payer OTHER, MEDICAID, SELFPAY | PROVIDERS: Emergency Provider Emergency Medicine Emergency Medical Services; PCP General Practice; Visit Provider Radiology Diagnostic Radiology | DX: R91.8 Other nonspecific abnormal finding of lung field (principal); R07.9 Chest pain, unspecified; M54.2 Cervicalgia; S00.93XA Contusion of unspecified part of head, initial encounter; Z03.89 Encounter for observation for other suspected diseases and conditions ruled out | CPT/HCPCS: 70450; 71046; 71250; 72125; 74176 ==

== ENCOUNTER 2024-05-01 18:39 | Emergency (ER) | payer OTHER, MEDICAID, SELFPAY ==
--- NOTE | ~2024-05-01 | XR_ITS ---
CLINICAL HISTORY: pain 2 view chest x-ray Comparison: Chest x-ray from 02/03/2024 Findings: No consolidation, pneumothorax, or pleural effusion. Moderate emphysematous changes are redemonstrated. Imaged mediastinum is unchanged. Cardiac device with leads redemonstrated. Degenerative changes include imaged shoulders and imaged spine. No definite worsening or progression of the mild imaged vertebral height losses. IMPRESSION: 1. No consolidation. 2. Redemonstration of the emphysematous changes. This document has been electronically signed by: Sher Perez MD on 05/01/2024 20:46:51
--- NOTE | 2024-05-01 18:45 | ECG_ITS ---
Test Reason : CHEST PAIN Blood Pressure : */* mmHG Vent. Rate : 75 BPM Atrial Rate : * BPM P-R Int : * ms QRS Dur : 102 ms QT Int : 406 ms P-R-T Axes : * 83 33 degrees QTcB Int : 453 ms Atrial fibrillation Minimal voltage criteria for LVH, may be normal variant ( Noe product ) Abnormal ECG When compared with ECG of 03-Feb-2024 12:11, Atrial fibrillation has replaced Electronic ventricular pacemaker Referred By: Generic ED Physician Electronically Signed By: Richard Cespedes
[2024-05-01 18:46] VITALS: BP 124/67; BP 126/90; PULSE 86; PULSE 97; RESP 16; TEMP 37.1; O2SAT 97; O2SAT 98; BMI 21.3
[2024-05-01 18:52] VITALS: PULSE 97; RESP 16; O2SAT 96
--- NOTE | 2024-05-01 19:05 | MHC.EDTECH ---
pt refusing ekg. rn aware.
--- NOTE | 2024-05-01 19:07 | PC.NURSE ---
patient just arrived on unit apparently had some SI himeless insufficient support. appears in no distress presently.
[2024-05-01 20:02] LABS: MANUAL DIFF FLAG NO
--- NOTE | 2024-05-01 20:08 | ED.GENADULT ---
HPI - General Adult General Chief complaint: Psychiatric Symptoms Stated complaint: chest pain, si Time Seen by Provider: 05/01/24 19:07 Source: patient, RN notes reviewed and old records reviewed Mode of arrival: EMS Limitations: no limitations History of Present Illness ED Provider: Travis HPI narrative: [age] past medical history significant for atrial fibrillation Xarelto, aortic stenosis, the, hyperlipidemia, COPD, GERD, hypertension anxiety and depression presents for evaluation of chest pain and suicidal ideation. Patient reports that he had an episode of chest pain about 430 this afternoon, but 3-1/2 hours ago. He currently denies having any chest pain. He reports ?I just can not be outside in this cold, I am too old for this. ? He perseverates on being homeless for the last 13 months. The patient states that he is due to see surgeon at [facility] for his aortic stenosis Denies any nausea, vomiting, diarrhea The patient reports that he does not want to harm himself currently but occasionally has thoughts of suicide Related Data Home Medications ?Medication ?Instructions ?Recorded ?Confirmed atorvastatin 80 mg tablet 80 mg PO BEDTIME 09/20/23 05/01/24 hydroxyzine HCl 25 mg tablet 50 mg PO DAILY PRN Anxiety 09/20/23 05/01/24 melatonin 3 mg tablet 3 mg PO BEDTIME PRN Insomnia 09/20/23 05/01/24 albuterol sulfate 90 mcg/actuation 2 puff inhalation Q3-4H PRN 05/01/24 05/01/24 aerosol inhaler Wheezing fluticasone furoate 200 1 ea inhalation DAILY 05/01/24 05/01/24 mcg-vilanterol 25 mcg/dose inhalation powder (Breo Ellipta) Previous Rx's ?Medication ?Instructions ?Recorded rivaroxaban 20 mg tablet (Xarelto) 20 mg PO QPM #90 tabs 12/29/19 paroxetine HCl 30 mg tablet 30 mg PO DAILY #90 tabs 06/27/20 metoprolol succinate 25 mg 25 mg PO DAILY 30 days #30 tabs 08/25/23 tablet,extended release 24 hr (Toprol XL) Allergies Allergy/AdvReac Type Severity Reaction Status Date / Time codeine [CODEINE] Allergy Mild NAUSEA Verified 05/01/24 18:47 Penicillins [PENICILLINS] Allergy Unknown ANAPHYLAXIS Verified 05/01/24 18:47 Review of Systems Constitutional: Constitutional: Denies body ache(s), Denies chills, Denies fever(s) and Denies headache(s) Eyes: Eyes: Denies blurry vision ENT: Denies headache(s) Cardiovascular: Cardiovascular: Reports chest pain, Reports chest pain at rest and Denies dyspnea Respiratory: Respiratory: Denies cough and Denies dyspnea Gastrointestinal: Gastrointestinal: Denies abdominal pain, Denies nausea and Denies vomiting Musculoskeletal: Musculoskeletal: Denies back pain Integumentary/Breasts: Skin/Breast: Denies rash Neurologic: Denies headache(s) Psychiatric: Psychiatric: Reports anxiety, Reports depression, Denies auditory hallucinations, Denies visual hallucinations and Reports suicidal ideation PMF Past Medical History Medical History Homeless Atrial fibrillation Hypercholesterolemia Esophageal dysmotility Tobacco abuse COPD (chronic obstructive pulmonary disease) GERD (gastroesophageal reflux disease) Anxiety and depression Hypertension Coronary artery disease Surgical History History of surgery History of surgery History of angioplasty Family History Family History Father Myocardial infarction Mother Medical history unknown Sister No problems noted. Brother No problems noted. Son No problems noted. Social History Social History Alcohol intake: never Patient Tobacco Use Status: Former Tobacco user Tobacco use type: Cigarette Cigarettes Per Day: 3 Substance Use Type: Marijuana Advance Directives: No Advance Directives Information Provided: No Physical Exam ED Vital Signs: Vital Signs - 24 hr 05/01/24 18:46 05/01/24 18:52 Temperature 98.7 F Pulse Rate 97 97 Respiratory Rate 16 16 Blood Pressure 126/90 H Pulse Oximetry 98 96 Oxygen Delivery Method Room Air Room Air BMI result Body Mass Index 21.3 Const General: healthy appearing, comfortable, no acute distress, alert and awake Nutritional Appearance: well nourished Orientation/consciousness: patient oriented x3 HENMT Head: Yes normocephalic and Yes atraumatic Eyes Eyelids: Yes eyelids normal Conjunctivae: conjunctivae normal Sclerae: sclerae normal Corneas: corneas normal Pupils: Equal, round and reactive pupils present EOM: EOMs intact bilaterally Neck Neck: Yes full ROM Resp Effort & Inspection: normal respiratory effort, able to speak in complete sentences, no audible wheezes and not labored Auscultation: clear to auscultation bilaterally Cardio Rhythm: abnormal rhythm irregularly irregular GI Inspection: No distended Palpation (GI): Soft to palpation, not firm, nontender, no guarding and not rigid Skin General skin exam: elasticity normal Neuro General: patient oriented x3 Cranial nerves: Yes Equal, round and reactive pupils present and Yes Bilaterally intact EOM present Cognition (Neuro): normal cognition Extrem Other: Moving all extremities well without any obvious deformities Course Reevaluation(s) Reevaluation #1: Patient is seen by the care team. He was cleared for discharge. Given the patient is homeless as needed for midnight, we will keep the patient's in the morning and discharge him 1st thing in the morning. He has outpatient referrals from a recent hospital admission Time: 00:17 Medications Administered Generic Name Dose Route Start Last Admin Trade Name Freq PRN Reason Stop Dose Admin Atorvastatin Calcium 80 mg 05/02/24 21:00 05/02/24 00:01 Atorvastatin Calcium 80 Mg Tablet PO 80 mg BEDTIME KANDI Administration Melatonin 3 mg 05/01/24 23:47 05/02/24 00:09 Melatonin 3 Mg Tablet PO 3 mg BEDTIME PRN Administration Insomnia Rivaroxaban 20 mg 05/01/24 23:45 05/02/24 00:02 Rivaroxaban 20 Mg Tablet PO 20 mg DAILY@1700 KANDI Administration Medical Decision Making Medical Decision Making MDM Narrative: 68-year-old male past medical history as above presents for evaluation of suicidal ideation. He also mentions chest pain that he has a few hours prior to arrival. His EKG shows atrial fibrillation but no evidence of ischemia. Plan for troponin to rule him out for ACS. We will also get a chest x-ray given the reported chest pain although his lungs are clear to auscultation. If the patient is medically. , he will require a care team evaluation for his suicidal ideation. 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 Differential Diagnosis Differential Diagnoses: The differential diagnosis associated with the presentation includes Chest pain ACS AFib Bronchitis Pneumonia Depression Suicidal ideation Admission/Observation Consideration of admission/observation: Escalation of care including admission/observation considered Lab Data 05/01/24 19:59 05/01/24 19:59 Labs: Lab Results 05/01/24 05/01/24 Range/Units 19:59 23:37 WBC 6.8 (4.8-10.8) X10*3/uL RBC 4.35 L (4.60-5.80) X10*6/uL Hgb 12.2 L (14.0-18.0) g/dl Hct 37.1 L (42.0-52.0) % MCV 85.3 (80.0-98.0) fL MCH 28.0 (27.0-33.0) pg MCHC 32.9 (31.0-36.0) g/dl RDW 14.3 (11.0-16.0) % Plt Count 171 (160-400) X10*3/uL MPV 10.2 (9.4-12.4) fL Immature Gran % (Auto) 0.4 (0.0-0.4) % Neut % (Auto) 67.2 (45-73) % Lymph % (Auto) 18.3 L (20-40) % [place] % (Auto) 13.1 H (2-11) % Eos % (Auto) 0.6 (0-4) % Baso % (Auto) 0.4 (0-2) % Lymph # (Auto) 1.2 (1.2-4.9) X10*3/uL [place] # (Auto) 0.9 (0.1-1.2) X10*3/uL Eos # (Auto) 0.0 (0.0-0.4) X10*3/uL Baso # (Auto) 0.0 (0.0-0.2) X10*3/uL Abs Immat Gran (auto) 0.03 (0.00-0.03) X10*3/uL Absolute Neuts (auto) 4.6 (2.0-8.3) x10*3/uL Absolute Nucleated RBC 0.000 (0.0-0.012) X10*3/uL Nucleated RBC % (auto) 0.0 (0.0-0.2) /100WBC Sodium 142 (135-145) mmol/L Potassium 3.7 (3.3-5.1) mmol/L Chloride 109 H (96-108) mmol/L Carbon Dioxide 23 (22-29) mmol/L Anion Gap 14 (12-20) BUN 25 H (9-16) mg/dL Creatinine 0.77 (0.5-1.4) mg/dL Estim Creat Clear Calc 84.7 Estimated GFR > 60 Random Glucose 101 (60-115) mg/dL Calcium 8.8 (8.4-10.2) mg/dL Total Bilirubin 1.7 H (0.0-1.0) mg/dL AST 55 H (5-37) U/L ALT 30 (0-40) U/L Alkaline Phosphatase 77 (39-117) U/L Troponin I High Sens 10.1 D (<3.5-35.0) ng/L Total Protein 6.9 (6.5-8.0) g/dL Albumin 4.0 (3.5-5.0) g/dL Urine Color Dark Yellow Urine Appearance Clear Urine pH 5.5 (5.0-9.0) Ur Specific [place] >= 1.030 H (1.005-1.025) Urine Protein 100 (2+) H (Neg-Trace) mg/dL Urine Glucose (UA) 500 H (Negative) mg/dL Urine Ketones Trace (Negative) mg/dL Urine Blood Negative (Negative) Urine Nitrite Negative (Negative) Ur Leukocyte Esterase Negative (Negative) Urine RBC 0-2 (0-2) /HPF Urine WBC 0-5 (0-5) /HPF Ur Squamous Epith Cells 0-2 (0-2) /HPF Urine Bacteria None Seen (None Seen) Hyaline Casts 0-2 (0-2) /LPF Salicylates < 5.0 L (15-30) mg/dL Urine Opiates Screen Not Detected (Not Detect) Ur Buprenorphine Scrn Not Detected (Not Detect) ng/mL Ur Oxycodone Screen Not Detected (Not Detect) ng/mL Urine Methadone Screen Not Detected (Not Detect) ng/mL Urine Fentanyl Screen Not Detected (Not Detect) Acetaminophen < 3 (<30) mcg/mL Ur Barbiturates Screen Not Detected (Not Detect) Ur Phencyclidine Scrn Not Detected (Not Detect) Ur Amphetamines Screen Not Detected (Not Detect) U Benzodiazepines Scrn Not Detected (Not Detect) Urine Cocaine Screen Not Detected (Not Detect) U Marijuana (THC) Screen POSITIVE H (Not Detect) Ethyl Alcohol 10 mg/dL Independent Interpretation I performed an independent interpretation of an: EKG Interpretation: AFib with a rate of [address] changes Discharge Plan Discharge Clinical Impression: Chest pain, Depression Patient Disposition: Home, Self-Care Instructions: Depression (ED), Chest Pain (ED) Additional Instructions: Take all your medications as prescribed. Follow-up with your outpatient providers Return for new or worsening symptoms Prescriptions: No Action Xarelto 20 mg tablet 20 mg PO QPM Qty: 90 3RF Rx Instructions: must administer with evening meal paroxetine HCl 30 mg tablet 30 mg PO DAILY Qty: 90 0RF metoprolol succinate [Toprol XL] 25 mg tablet extended release 24 hr 25 mg PO DAILY 30 Days Qty: 30 0RF Rx Instructions: must make cardiology appt for refills albuterol sulfate 90 mcg/actuation HFA aerosol inhaler 2 puff inhalation Q3-4H PRN (Reason: Wheezing) fluticasone furoate-vilanterol [Breo Ellipta] 200-25 mcg/dose blister with device 1 ea inhalation DAILY atorvastatin 80 mg tablet 80 mg PO BEDTIME hydroxyzine HCl 25 mg tablet 50 mg PO DAILY PRN (Reason: Anxiety) melatonin 3 mg tablet 3 mg PO BEDTIME MDD 3mg PRN (Reason: Insomnia) Interventions: [place]-Suicide Risk Severity Scale Last Done: 05/02/24 00:16 Print Language: Palauan
[2024-05-01 20:15] LABS: Basophils Percent Auto 0.4 % (0-2); Eosinophils Percent Auto 0.6 % (0-4); Hematocrit 37.1 % (42.0-52.0); Hemoglobin 12.2 g/dl (14.0-18.0); Imm Gran Abs Auto 0.03 X10*3/uL (0.00-0.03); Imm Gran Pct Auto 0.4 % (0.0-0.4); Lymphocytes Absolute Auto 1.2 X10*3/uL (1.2-4.9); Lymphocytes Percent Auto 18.3 % (20-40); Mean Corpuscular HGB Conc 32.9 g/dl (31.0-36.0); Mean Corpuscular Volume 85.3 fL (80.0-98.0); Mean Platelet Volume 10.2 fL (9.4-12.4); Monocytes Absolute Auto 0.9 X10*3/uL (0.1-1.2); Monocytes Percent Auto 13.1 % (2-11); Neutrophils Absolute Auto 4.6 x10*3/uL (2.0-8.3); Neutrophils Percent Auto 67.2 % (45-73); Platelet Count 171 X10*3/uL (160-400); Red Blood Count 4.35 X10*6/uL (4.60-5.80); Red Cell Distribution Width 14.3 % (11.0-16.0); White Blood Count 6.8 X10*3/uL (4.8-10.8)
[2024-05-01 20:18] LABS: Alanine Aminotransferase 30 U/L (0-40); Alkaline Phosphatase 77 U/L (39-117); Anion Gap 14 (12-20); Aspartate Amino Transferase 55 U/L (5-37); Bilirubin Total 1.7 mg/dL (0.0-1.0); Blood Urea Nitrogen 25 mg/dL (9-16); Calcium 8.8 mg/dL (8.4-10.2); Carbon Dioxide 23 mmol/L (22-29); Chloride 109 mmol/L (96-108); Creatinine Clr Calc Pharmacy 84.7; Estimated Glomerular Filt Rate > 60; Ethanol 10 mg/dL; Glucose Random 101 mg/dL (60-115); Potassium 3.7 mmol/L (3.3-5.1); Sodium 142 mmol/L (135-145); Total Protein 6.9 g/dL (6.5-8.0)
[2024-05-01 20:19] LABS: Acetaminophen LAB < 3 mcg/mL (<30); Salicylate < 5.0 mg/dL (15-30)
[2024-05-01 20:25] LABS: Troponin-I High Sensitivity 10.1 ng/L (<3.5-35.0)
[2024-05-01 23:45] LABS: Appearance Urine Clear; Color Urine Dark Yellow; Glucose Urine UA 500 mg/dL (Negative); Leukocyte Esterase Urine Negative (Negative); Nitrite Urine Negative (Negative); PH 5.5 (5.0-9.0); Specific Gravity - Urine >= 1.030 (1.005-1.025); UMIC TRIGGER UACC YES; Urine Blood Negative (Negative); Urine Ketones Trace mg/dL (Negative); Urine Protein 100 (2+) mg/dL (Neg-Trace)
[2024-05-01 23:47] LABS: Bacteria Urine None Seen (None Seen); Hyaline Casts Urine 0-2 /LPF (0-2); RBC Urine 0-2 /HPF (0-2); Squamous Epithelial Cell Urine 0-2 /HPF (0-2); WBC Urine 0-5 /HPF (0-5)
[2024-05-01 23:56] LABS: Amphetamine Screen Urine Not Detected (Not Detect); Barbiturates, Urine Not Detected (Not Detect); Benzodiazepines Screen Urine Not Detected (Not Detect); Buprenorphine Scr Not Detected (Not Detect); Cannabinoid Screen Urine POSITIVE (Not Detect); Cocaine Screen Urine Not Detected (Not Detect); Fentanyl, urine Not Detected (Not Detect); Methadone Screen, Urine Not Detected (Not Detect); Opiate Screen Urine Not Detected (Not Detect); Oxycodone Screen Urine Not Detected (Not Detect); Phencyclidine Screen Urine Not Detected (Not Detect)
[2024-05-02] MEDS: Atorvastatin Calcium 80 MG TABLET PO (00:01)
[2024-05-02] MEDS: Rivaroxaban 20 MG TABLET PO (00:02)
[2024-05-02] MEDS: Melatonin 3 MG TABLET PO (00:09)
[2024-05-02] MEDS: diphenhydrAMINE HCL 25 MG CAPSULE 50 MG PO (01:58)
--- NOTE | 2024-05-02 05:19 | PC.NURSE ---
administered benadryl allowed client to sleep.
[2024-05-02 08:39] VITALS: BP 128/95; PULSE 84
[2024-05-02] MEDS: Metoprolol Succinate ER 25 MG TAB.ER.24H PO (08:39)
[2024-05-02] MEDS: PARoxetine HCL 30 MG TABLET PO (08:39)
[2024-05-02 08:40] VITALS: BP 128/95; PULSE 84; RESP 14; TEMP 36.8; O2SAT 97
== END 2024-05-02 09:02 | disposition home or self-care (01) ==
PROVIDERS: Physician Assistant; Emergency Provider Emergency Medicine
DX: R45.851 Suicidal ideations (principal); F33.1 Major depressive disorder, recurrent, moderate; R07.89 Other chest pain; I48.91 Unspecified atrial fibrillation; M54.2 Cervicalgia; R51.9 Headache, unspecified; Z79.01 Long term (current) use of anticoagulants; Z79.899 Other long term (current) drug therapy; Z59.00 Homelessness unspecified; Z87.891 Personal history of nicotine dependence; Z51.81 Encounter for therapeutic drug level monitoring
CPT/HCPCS: 36415; 70450; 71046; 71250; 72125; 74176; 80048; 80053; 80143; 80179; 80307; 81001; 82550; 84484; 85025; 85610; 93005; 99285; S9485

== ENCOUNTER → 2024-05-01 18:45 | Outpatient (BNV) | payer OTHER, MEDICAID, SELFPAY | PROVIDERS: Emergency Provider Emergency Medicine; Visit Provider Internal Medicine Cardiovascular Disease | DX: R07.9 Chest pain, unspecified (principal); I48.91 Unspecified atrial fibrillation; R94.31 Abnormal electrocardiogram [ECG] [EKG] | CPT/HCPCS: 93010 ==

== ENCOUNTER 2024-05-03 07:44 | Emergency (ER) | payer OTHER, MEDICAID, SELFPAY ==
[2024-05-03 07:46] VITALS: BP 125/93; BP 146/98; PULSE 74; PULSE 98; RESP 16; TEMP 36.1; O2SAT 100; O2SAT 98; BMI 20.6
--- NOTE | 2024-05-03 11:09 | ED.GENADULT ---
HPI - General Adult General Chief complaint: General Medical Stated complaint: homeless, cold from sleeping outside Time Seen by Provider: 05/03/24 09:01 Source: patient and RN notes reviewed Mode of arrival: ambulatory Limitations: no limitations History of Present Illness ED Provider: Karol Posadas PA-C HPI narrative: This is a 68-year-old male, with a history of atrial fibrillation on Xarelto, aortic stenosis, hyperlipidemia, COPD, GERD, hypertension, anxiety depression, who presents emergency department for evaluation of homelessness Patient reports that he has been homeless for 13 months and it is getting too cold for him to stay out side. He states that he can no longer stay out in the cold. He states that he was very depressed. He also reports that he has had suicidal ideation. When asked, he states that he has had passive thoughts of ending his life due to his living situation. He states that he was at a respite for several weeks and then was told to go to a homeless fpc where he did not want to stay therefore he has been living on the [address]. He has no physical elements other than chronic neck pain. No chest pain, shortness for breath, abdominal pain, nausea, vomiting or diarrhea. No homicidal ideation. No other complaints or concerns at this time. MD complaint: Homelessness, SI Onset (ago): day(s) Radiation: non-radiation Quality: aching Pain Consistency: constant Relieving factors: none Exacerbating factors: none Associated symptoms: denies other symptoms Treatments prior to arrival: none Related Data Home Medications ?Medication ?Instructions ?Recorded ?Confirmed atorvastatin 80 mg tablet 80 mg PO BEDTIME 09/20/23 05/01/24 hydroxyzine HCl 25 mg tablet 50 mg PO DAILY PRN Anxiety 09/20/23 05/01/24 melatonin 3 mg tablet 3 mg PO BEDTIME PRN Insomnia 09/20/23 05/01/24 albuterol sulfate 90 mcg/actuation 2 puff inhalation Q3-4H PRN 05/01/24 05/01/24 aerosol inhaler Wheezing fluticasone furoate 200 1 ea inhalation DAILY 05/01/24 05/01/24 mcg-vilanterol 25 mcg/dose inhalation powder (Breo Ellipta) Previous Rx's ?Medication ?Instructions ?Recorded rivaroxaban 20 mg tablet (Xarelto) 20 mg PO QPM #90 tabs 12/29/19 paroxetine HCl 30 mg tablet 30 mg PO DAILY #90 tabs 06/27/20 metoprolol succinate 25 mg 25 mg PO DAILY 30 days #30 tabs 08/25/23 tablet,extended release 24 hr (Toprol XL) Allergies Allergy/AdvReac Type Severity Reaction Status Date / Time codeine [CODEINE] Allergy Mild NAUSEA Verified 05/03/24 07:54 Penicillins [PENICILLINS] Allergy Unknown ANAPHYLAXIS Verified 05/03/24 07:54 Review of Systems Review of Systems: Yes all other systems are reviewed and are negative Constitutional: Constitutional: Reports as per HPI [facility] Past Medical History Medical History Homeless Atrial fibrillation Hypercholesterolemia Esophageal dysmotility Tobacco abuse COPD (chronic obstructive pulmonary disease) GERD (gastroesophageal reflux disease) Anxiety and depression Hypertension Coronary artery disease Surgical History History of surgery History of surgery History of angioplasty Family History Family History Father Myocardial infarction Mother Medical history unknown Sister No problems noted. Brother No problems noted. Son No problems noted. Social History Social History Alcohol intake: never Patient Tobacco Use Status: Former Tobacco user Tobacco use type: Cigarette Cigarettes Per Day: 3 Substance Use Type: Marijuana Physical Exam ED Vital Signs: Vital Signs - 24 hr 05/03/24 07:46 05/03/24 11:51 05/03/24 17:11 Temperature 96.9 F 97.9 F Pulse Rate 74 69 69 Respiratory Rate 16 17 17 Blood Pressure 125/93 H 118/80 118/80 Pulse Oximetry 98 97 97 Oxygen Delivery Method Room Air Room Air Room Air BMI result Body Mass Index 20.6 Const General: cooperative, comfortable and no acute distress Orientation/consciousness: patient oriented x3 Limitations: no limitations HENMT Head: Yes normal to inspection, Yes normocephalic and Yes atraumatic Ears: hearing grossly normal bilaterally General nose exam: Normal external nose present Face and sinus: Yes normal facial exam Mouth: Normal oral and palatal mucosa present, oropharynx normal and moist mucous membranes Throat: Yes posterior oropharynx normal Eyes General: appearance normal, both eyes and all related structures Eyelids: Yes eyelids normal Conjunctivae: conjunctivae normal Sclerae: sclerae normal Pupils: Equal, round and reactive pupils present EOM: EOMs intact bilaterally Neck Neck: Yes normal visual inspection, Yes full ROM and Yes no lymphadenopathy Lymphatic: no lymphadenopathy noted Chest Chest palpation & inspection: normal inspection of the chest Resp Effort & Inspection: normal respiratory effort and able to speak in complete sentences Auscultation: clear to auscultation bilaterally, no crackles, no rales, no rhonchi and no wheezes Cardio Rate: regular rate Rhythm: regular rhythm Heart sounds: S1 normal heart sound present and S2 normal heart sound present GI Inspection: Yes normal to inspection Skin General skin exam: no rashes or lesions noted Trauma: no lacerations or abrasions Wounds: no wounds Neuro General: patient oriented x3 and moves all extremities Cranial nerves: Yes Equal, round and reactive pupils present Extrem General: Yes normal to inspection Right upper extremity: normal to inspection Left upper extremity: normal to inspection Right lower extremity: normal to inspection Left lower extremity: normal to inspection Psych Appearance: disheveled Speech and movement: Normal speech and movement present Affect: Sad affect present and Anxious affect present Attitude: cooperative Thought process: Circumstantial thought process present and Perseverating thought process present Thought content: Suicidality present and Depressive thoughts present Insight: Limited insight present (Psych) Judgement: Limited judgement present (Psych) Course Reevaluation(s) Reevaluation #1: Patient's medical workup today reassuring. He was seen by the care team who cleared him, no current concerns. Patient given resources for housing as well as shelters. I discussed this with patient, he was irritated as he states that he does not know what shelters are good, and he does not want to stay at a fpc. I told him that we do not have any other options for him. Patient frustrated, patient is overall stable for discharge. Time: 17:04 Medical Decision Making Medical Decision Making MDM Narrative: This is a 68-year-old male, with a history of atrial fibrillation on Xarelto, aortic stenosis, hyperlipidemia, COPD, GERD, hypertension, anxiety depression, who presents emergency department for evaluation of homelessness. On arrival, vital signs within normal limits. He is speaking full sentences under no acute distress. Patient reports suicidal ideation as he states that he no longer can without side. No homicidal ideation. Patient was seen here 2 days ago, was seen by the care team and was medically cleared to however patient reports that he does have thoughts of ending his life as he no longer wants to be on the street. No homicidal ideation. Will obtain basic labs, and be seen by the care team. Patient was placed with sitter. We will continue to monitor Differential Diagnosis Differential Diagnoses: The differential diagnosis associated with the presentation includes Depression, anxiety, suicidal ideation, homicidal ideation Lab Data MDM Lab Attestation statement: I reviewed the patient's lab results. No leukocytosis, microcytic anemia with an H&H of 12.2/37, chemistry revealing slight elevation in T bili at 1.9, AST slightly elevated at 38, BUN at around his baseline. No evidence of MAYRA. Troponin x2 negative. Urine with no evidence of infection. U tox positive for THC. 05/03/24 12:25 05/03/24 12:25 Labs: Lab Results 05/03/24 05/03/24 05/03/24 Range/Units 12:25 15:45 16:11 WBC 6.3 (4.8-10.8) X10*3/uL RBC 4.28 L (4.60-5.80) X10*6/uL Hgb 12.2 L (14.0-18.0) g/dl Hct 37.0 L (42.0-52.0) % MCV 86.4 (80.0-98.0) fL MCH 28.5 (27.0-33.0) pg MCHC 33.0 (31.0-36.0) g/dl RDW 14.5 (11.0-16.0) % Plt Count 163 (160-400) X10*3/uL MPV 9.8 (9.4-12.4) fL Immature Gran % (Auto) 0.5 H (0.0-0.4) % Neut % (Auto) 70.7 (45-73) % Lymph % (Auto) 17.6 L (20-40) % [place] % (Auto) 10.2 (2-11) % Eos % (Auto) 0.8 (0-4) % Baso % (Auto) 0.2 (0-2) % Lymph # (Auto) 1.1 L (1.2-4.9) X10*3/uL [place] # (Auto) 0.6 (0.1-1.2) X10*3/uL Eos # (Auto) 0.1 (0.0-0.4) X10*3/uL Baso # (Auto) 0.0 (0.0-0.2) X10*3/uL Abs Immat Gran (auto) 0.03 (0.00-0.03) X10*3/uL Absolute Neuts (auto) 4.5 (2.0-8.3) x10*3/uL Absolute Nucleated RBC 0.000 (0.0-0.012) X10*3/uL Nucleated RBC % (auto) 0.0 (0.0-0.2) /100WBC Sodium 140 (135-145) mmol/L Potassium 3.7 (3.3-5.1) mmol/L Chloride 108 (96-108) mmol/L Carbon Dioxide 27 (22-29) mmol/L Anion Gap 9 L (12-20) BUN 27 H (9-16) mg/dL Creatinine 0.74 (0.5-1.4) mg/dL Estim Creat Clear Calc 82.9 Estimated GFR > 60 Random Glucose 163 H (60-115) mg/dL Calcium 9.1 (8.4-10.2) mg/dL Total Bilirubin 1.9 H (0.0-1.0) mg/dL AST 38 H (5-37) U/L ALT 33 (0-40) U/L Alkaline Phosphatase 71 (39-117) U/L Troponin I High Sens 4.8 D 5.0 (<3.5-35.0) ng/L Total Protein 6.7 (6.5-8.0) g/dL Albumin 3.8 (3.5-5.0) g/dL Urine Color Dark Yellow Urine Appearance Clear Urine pH 6.0 (5.0-9.0) Ur Specific [place] 1.025 (1.005-1.025) Urine Protein 100 (2+) H (Neg-Trace) mg/dL Urine Glucose (UA) 100 H (Negative) mg/dL Urine Ketones Trace (Negative) mg/dL Urine Blood Negative (Negative) Urine Nitrite Negative (Negative) Ur Leukocyte Esterase Negative (Negative) Urine RBC 0-2 (0-2) /HPF Urine WBC 0-5 (0-5) /HPF Ur Squamous Epith Cells 0-2 (0-2) /HPF Urine Bacteria None Seen (None Seen) Hyaline Casts 0-2 (0-2) /LPF Salicylates < 5.0 L (15-30) mg/dL Urine Opiates Screen Not Detected (Not Detect) Ur Buprenorphine Scrn Not Detected (Not Detect) ng/mL Ur Oxycodone Screen Not Detected (Not Detect) ng/mL Urine Methadone Screen Not Detected (Not Detect) ng/mL Urine Fentanyl Screen Not Detected (Not Detect) Acetaminophen < 3 (<30) mcg/mL Ur Barbiturates Screen Not Detected (Not Detect) Ur Phencyclidine Scrn Not Detected (Not Detect) Ur Amphetamines Screen Not Detected (Not Detect) U Benzodiazepines Scrn Not Detected (Not Detect) Urine Cocaine Screen Not Detected (Not Detect) U Marijuana (THC) Screen POSITIVE H (Not Detect) Ethyl Alcohol < 10 mg/dL Independent Interpretation I performed an independent interpretation of an: EKG Interpretation: EKG revealing ventricular paced rhythm at 75 beats per minute, no ST elevation or depression. Discharge Plan Discharge Clinical Impression: Depression, Homeless Patient Disposition: Still a Patient Instructions: Depression (ED) Additional Instructions: You were seen in the ER. You were medically cleared. You were seen and evaluated by the care team. Please utilize all of the resources provided to you. If any new or worsening symptoms occur, including but not limited to worsening thoughts, please seek emergent care. Prescriptions: No Action Xarelto 20 mg tablet 20 mg PO QPM Qty: 90 3RF Rx Instructions: must administer with evening meal paroxetine HCl 30 mg tablet 30 mg PO DAILY Qty: 90 0RF metoprolol succinate [Toprol XL] 25 mg tablet extended release 24 hr 25 mg PO DAILY 30 Days Qty: 30 0RF Rx Instructions: must make cardiology appt for refills albuterol sulfate 90 mcg/actuation HFA aerosol inhaler 2 puff inhalation Q3-4H PRN (Reason: Wheezing) fluticasone furoate-vilanterol [Breo Ellipta] 200-25 mcg/dose blister with device 1 ea inhalation DAILY atorvastatin 80 mg tablet 80 mg PO BEDTIME hydroxyzine HCl 25 mg tablet 50 mg PO DAILY PRN (Reason: Anxiety) melatonin 3 mg tablet 3 mg PO BEDTIME MDD 3mg PRN (Reason: Insomnia) Interventions: ED Discharge Assessment Last Done: 05/03/24 17:11 Discharge Date/Time: 05/03/24 17:23 Print Language: Hungarian
--- NOTE | 2024-05-03 11:20 | ECG_ITS ---
Test Reason : CP Blood Pressure : */* mmHG Vent. Rate : 75 BPM Atrial Rate : 89 BPM P-R Int : * ms QRS Dur : 168 ms QT Int : 460 ms P-R-T Axes : * -83 97 degrees QTcB Int : 513 ms Ventricular-paced rhythm Abnormal ECG When compared with ECG of 01-May-2024 19:17, Electronic ventricular pacemaker has replaced Atrial fibrillation Referred By: Karol Posadas Electronically Signed By: Richard Cespedes
[2024-05-03 11:51] VITALS: BP 118/80; PULSE 69; RESP 17; O2SAT 97
[2024-05-03 12:33] LABS: MANUAL DIFF FLAG NO
[2024-05-03 12:34] LABS: Basophils Percent Auto 0.2 % (0-2); Eosinophils Absolute Auto 0.1 X10*3/uL (0.0-0.4); Eosinophils Percent Auto 0.8 % (0-4); Hemoglobin 12.2 g/dl (14.0-18.0); Imm Gran Abs Auto 0.03 X10*3/uL (0.00-0.03); Imm Gran Pct Auto 0.5 % (0.0-0.4); Lymphocytes Absolute Auto 1.1 X10*3/uL (1.2-4.9); Lymphocytes Percent Auto 17.6 % (20-40); Mean Corpuscular Hemoglobin 28.5 pg (27.0-33.0); Mean Corpuscular Volume 86.4 fL (80.0-98.0); Mean Platelet Volume 9.8 fL (9.4-12.4); Monocytes Absolute Auto 0.6 X10*3/uL (0.1-1.2); Monocytes Percent Auto 10.2 % (2-11); Neutrophils Absolute Auto 4.5 x10*3/uL (2.0-8.3); Neutrophils Percent Auto 70.7 % (45-73); Platelet Count 163 X10*3/uL (160-400); Red Blood Count 4.28 X10*6/uL (4.60-5.80); Red Cell Distribution Width 14.5 % (11.0-16.0); White Blood Count 6.3 X10*3/uL (4.8-10.8)
[2024-05-03 12:54] LABS: Acetaminophen LAB < 3 mcg/mL (<30); Alanine Aminotransferase 33 U/L (0-40); Albumin Level 3.8 g/dL (3.5-5.0); Alkaline Phosphatase 71 U/L (39-117); Anion Gap 9 (12-20); Aspartate Amino Transferase 38 U/L (5-37); Bilirubin Total 1.9 mg/dL (0.0-1.0); Blood Urea Nitrogen 27 mg/dL (9-16); Calcium 9.1 mg/dL (8.4-10.2); Carbon Dioxide 27 mmol/L (22-29); Chloride 108 mmol/L (96-108); Creatinine Clr Calc Pharmacy 82.9; Estimated Glomerular Filt Rate > 60; Ethanol < 10 mg/dL; Glucose Random 163 mg/dL (60-115); Potassium 3.7 mmol/L (3.3-5.1); Salicylate < 5.0 mg/dL (15-30); Sodium 140 mmol/L (135-145); Total Protein 6.7 g/dL (6.5-8.0)
--- NOTE | 2024-05-03 14:13 | MHC.EDTECH ---
lab called to add on troponin to previously drawn lab work
[2024-05-03 14:33] LABS: Troponin-I High Sensitivity 4.8 ng/L (<3.5-35.0)
[2024-05-03 15:55] LABS: Appearance Urine Clear; Color Urine Dark Yellow; Glucose Urine UA 100 mg/dL (Negative); Leukocyte Esterase Urine Negative (Negative); Nitrite Urine Negative (Negative); Specific Gravity - Urine 1.025 (1.005-1.025); UMIC TRIGGER UACC YES; Urine Blood Negative (Negative); Urine Ketones Trace mg/dL (Negative); Urine Protein 100 (2+) mg/dL (Neg-Trace)
[2024-05-03 16:00] LABS: Bacteria Urine None Seen (None Seen); Hyaline Casts Urine 0-2 /LPF (0-2); RBC Urine 0-2 /HPF (0-2); Squamous Epithelial Cell Urine 0-2 /HPF (0-2); WBC Urine 0-5 /HPF (0-5)
[2024-05-03 16:07] LABS: Amphetamine Screen Urine Not Detected (Not Detect); Barbiturates, Urine Not Detected (Not Detect); Benzodiazepines Screen Urine Not Detected (Not Detect); Buprenorphine Scr Not Detected (Not Detect); Cannabinoid Screen Urine POSITIVE (Not Detect); Cocaine Screen Urine Not Detected (Not Detect); Fentanyl, urine Not Detected (Not Detect); Methadone Screen, Urine Not Detected (Not Detect); Opiate Screen Urine Not Detected (Not Detect); Oxycodone Screen Urine Not Detected (Not Detect); Phencyclidine Screen Urine Not Detected (Not Detect)
[2024-05-03 17:11] VITALS: BP 118/80; PULSE 69; RESP 17; TEMP 36.6; O2SAT 97
== END 2024-05-03 17:23 | disposition still patient (30) ==
PROVIDERS: Physician Assistant Medical; Emergency Provider Emergency Medicine; PCP General Practice
DX: R45.851 Suicidal ideations (principal); F33.1 Major depressive disorder, recurrent, moderate; M54.2 Cervicalgia; R07.89 Other chest pain; I48.91 Unspecified atrial fibrillation; R94.31 Abnormal electrocardiogram [ECG] [EKG]; Z79.01 Long term (current) use of anticoagulants; Z59.00 Homelessness unspecified; Z79.899 Other long term (current) drug therapy; Z87.891 Personal history of nicotine dependence; Z51.81 Encounter for therapeutic drug level monitoring
CPT/HCPCS: 36415; 80053; 80143; 80179; 80307; 81001; 84484; 85025; 93005; 99284; S9485

== ENCOUNTER → 2024-05-03 11:20 | Outpatient (BNV) | payer OTHER, MEDICAID, SELFPAY | PROVIDERS: Emergency Provider Emergency Medicine; PCP General Practice; Visit Provider Internal Medicine Cardiovascular Disease | DX: R07.9 Chest pain, unspecified (principal); R94.31 Abnormal electrocardiogram [ECG] [EKG] | CPT/HCPCS: 93010 ==

== ENCOUNTER 2024-05-06 23:36 | Emergency (ER) | payer OTHER, MEDICAID, SELFPAY ==
[2024-05-06 23:58] VITALS: BP 140/100; PULSE 68; O2SAT 99
[2024-05-06 23:59] VITALS: BP 135/95; PULSE 63; RESP 16; TEMP 35.9; O2SAT 97; BMI 23.5
--- NOTE | 2024-05-07 00:07 | ED.GENADULT ---
HPI - General Adult General Chief complaint: General Medical Stated complaint: cold exposure Time Seen by Provider: 05/06/24 23:41 Source: patient and EMS Mode of arrival: EMS Limitations: no limitations History of Present Illness ED Provider: Dr. Margot Mccartney HPI narrative: patient comes to the emergency room via ambulance. Patient states that he admits that he called the ambulance stating that he had shortness of breath. However, patient states that it is just too cold outside and he was not able to get into a senior living. Patient denies chest pain or shortness of breath. Patient requesting to allow him to stay until the morning. Related Data Home Medications ?Medication ?Instructions ?Recorded ?Confirmed atorvastatin 80 mg tablet 80 mg PO BEDTIME 09/20/23 05/01/24 hydroxyzine HCl 25 mg tablet 50 mg PO DAILY PRN Anxiety 09/20/23 05/01/24 melatonin 3 mg tablet 3 mg PO BEDTIME PRN Insomnia 09/20/23 05/01/24 albuterol sulfate 90 mcg/actuation 2 puff inhalation Q3-4H PRN 05/01/24 05/01/24 aerosol inhaler Wheezing fluticasone furoate 200 1 ea inhalation DAILY 05/01/24 05/01/24 mcg-vilanterol 25 mcg/dose inhalation powder (Breo Ellipta) Previous Rx's ?Medication ?Instructions ?Recorded rivaroxaban 20 mg tablet (Xarelto) 20 mg PO QPM #90 tabs 12/29/19 paroxetine HCl 30 mg tablet 30 mg PO DAILY #90 tabs 06/27/20 metoprolol succinate 25 mg 25 mg PO DAILY 30 days #30 tabs 08/25/23 tablet,extended release 24 hr (Toprol XL) Allergies Allergy/AdvReac Type Severity Reaction Status Date / Time codeine [CODEINE] Allergy Mild NAUSEA Verified 05/07/24 00:02 Penicillins [PENICILLINS] Allergy Unknown ANAPHYLAXIS Verified 05/07/24 00:02 Review of Systems Review of Systems: Constitutional : No Weight loss, No Fever, No Chills, No Night Sweats, No Fatigue, No Malaise , complaining of feeling cold ENT/Mouth : No Hearing loss, No Ear Pain, No Nasal Congestion, No Sinus Pain, No Hoarseness, No sore throat, No Rhinorrhea, No Swallowing Difficulty Eyes: No Eye Pain, No Swelling, No Redness, No Foreign Body, No Discharge, No Vision Changes Cardiovascular : No Chest Pain, No SOB, No Dyspnea on Exertion, No Orthopnea, No Edema, No Palpitations Respiratory : No Cough, No Sputum, No Wheezing, No Smoke Exposure, No Dyspnea Gastrointestinal : No Nausea, No Vomiting, No Diarrhea, No Constipation, No abdominal Pain, No Hematochezia, No Melena Genitourinary : no irregular bleeding, No Dysuria, No Urinary Frequency, No Hematuria, No Urinary Incontinence, No Urgency, No Flank Pain, No Urinary Flow Changes, No Hesitancy Musculoskeletal : No joint pain, No Myalgias, No Joint Swelling Skin : No Skin Lesions, No rash Neuro : No Weakness, No Numbness, No Paresthesias, No Loss of Consciousness, No Dizziness, No Headache Psych : No Anxiety/Panic, No Depression, No SI/HI/AH/VH, homeless Heme/Lymph: No Bruising, No Bleeding,No Lymphadenopathy Endocrine : No Polyuria, No Polydipsia, No Temperature Intolerance [facility] Past Medical History Medical History Homeless Atrial fibrillation Hypercholesterolemia Esophageal dysmotility Tobacco abuse COPD (chronic obstructive pulmonary disease) GERD (gastroesophageal reflux disease) Anxiety and depression Hypertension Coronary artery disease Surgical History History of surgery History of surgery History of angioplasty Family History Family History Father Myocardial infarction Mother Medical history unknown Sister No problems noted. Brother No problems noted. Son No problems noted. Social History Social History Alcohol intake: never Patient Tobacco Use Status: Former Tobacco user Tobacco use type: Cigarette Cigarettes Per Day: 3 Substance Use Type: Marijuana Physical Exam ED Vital Signs: Vital Signs - 24 hr 05/06/24 23:59 Temperature 96.7 F L Pulse Rate 63 Respiratory Rate 16 Blood Pressure 135/95 H Pulse Oximetry 97 Oxygen Delivery Method Room Air BMI result Body Mass Index 23.5 Const Other: Appearance: Alert. Oriented X3. No acute distress. Eyes: Pupils equal, round and reactive to light. ENT: Pharynx normal. Neck: Normal inspection. Neck supple. No lymph nodes noted. No crepitus CVS: Normal heart rate and rhythm. Pulses normal. Normal S1 and S2 Respiratory: No respiratory distress. Breath sounds normal. No Wheezing. No rales Abdomen: Soft and nontender. No rigidity. No distention. Skin: Skin warm and dry. Normal skin color. Normal skin turgor. Extremities: No lower extremity edema. No Lacerations. No Rash Neuro: Oriented X 3. No motor deficit. No sensory deficit. Moving all extremities. No slurred speech. CN 2 through 12 grossly intact Psych: calm, cooperative, normal affect Medical Decision Making Medical Decision Making MDM Narrative: patient's rectal temperature 96.7 degrees. Otherwise no abnormality. Patient agrees that at 06:30, he will be discharged. patient was provided with information for homeless shelters Discharge Plan Discharge Clinical Impression: Homeless Patient Disposition: Home, Self-Care Additional Instructions: Please follow-up with your primary care physician tomorrow. If you have any worsening or new symptoms, please return to the emergency room or call 911 Prescriptions: No Action Xarelto 20 mg tablet 20 mg PO QPM Qty: 90 3RF Rx Instructions: must administer with evening meal paroxetine HCl 30 mg tablet 30 mg PO DAILY Qty: 90 0RF metoprolol succinate [Toprol XL] 25 mg tablet extended release 24 hr 25 mg PO DAILY 30 Days Qty: 30 0RF Rx Instructions: must make cardiology appt for refills albuterol sulfate 90 mcg/actuation HFA aerosol inhaler 2 puff inhalation Q3-4H PRN (Reason: Wheezing) fluticasone furoate-vilanterol [Breo Ellipta] 200-25 mcg/dose blister with device 1 ea inhalation DAILY atorvastatin 80 mg tablet 80 mg PO BEDTIME hydroxyzine HCl 25 mg tablet 50 mg PO DAILY PRN (Reason: Anxiety) melatonin 3 mg tablet 3 mg PO BEDTIME MDD 3mg PRN (Reason: Insomnia) Print Language: Hong Konger
[2024-05-07 03:22] VITALS: BP 132/71; PULSE 67; RESP 16; TEMP 36.6; O2SAT 96
[2024-05-07 06:19] VITALS: BP 111/71; PULSE 77; RESP 16; TEMP 36.6; O2SAT 96
[2024-05-07 06:40] VITALS: BP 111/71; PULSE 77; RESP 16; TEMP 36.6; O2SAT 96
== END 2024-05-07 06:58 | disposition home or self-care (01) ==
LOC: HO.ED 05-07 06:40
PROVIDERS: Emergency Provider Emergency Medicine
DX: R06.02 Shortness of breath (principal); Z59.00 Homelessness unspecified
CPT/HCPCS: 99284

== ENCOUNTER 2024-05-07 11:44 | Emergency (ER) | payer OTHER, MEDICAID, SELFPAY ==
[2024-05-07 11:50] VITALS: BP 128/80; BP 148/76; PULSE 111; PULSE 76; RESP 18; TEMP 36.9; O2SAT 97; O2SAT 98; BMI 21.1
--- NOTE | 2024-05-07 11:59 | ED_ITS ---
HPI - General Adult General Chief complaint: General Medical Stated complaint: COLD AND BODY PAIN Time Seen by Provider: 05/07/24 11:58 Source: patient and EMS Mode of arrival: EMS Limitations: no limitations History of Present Illness ED Provider: Cindy Junior PA-C HPI narrative: Patient is a 68 year old assigned male at with a history of atrial fib, CAD, COPD, GERD, anxiety, ischemic cardiomyopathy, HTN, and homelessness, presenting to the emergency department today requesting fci. Patient states that he has been homeless 18 months and has been trying to get into a fci that he deems acceptable but is on multiple wait lists with no openings any time soon. Patient states that he wants a place to relax, warm up, and a cup of coffee. Patient denies any dizziness, lightheadedness, abdominal pain, nausea, vomiting, fever, chills, blurry vision, double vision, loss of vision, chest pain, difficulty breathing, shortness of breath, back pain, night sweats, pain with urination, increased urinary frequency, increased urinary urgency, blood in his urine or stool, syncope or a near syncopal episode, recent trauma or falls, bowel incontinence, bladder incontinence, or any other complaints at this time. Relieving factors: none Exacerbating factors: none Associated symptoms: denies other symptoms Treatments prior to arrival: none Related Data Home Medications ?Medication ?Instructions ?Recorded ?Confirmed atorvastatin 80 mg tablet 80 mg PO BEDTIME 09/20/23 05/01/24 hydroxyzine HCl 25 mg tablet 50 mg PO DAILY PRN Anxiety 09/20/23 05/01/24 melatonin 3 mg tablet 3 mg PO BEDTIME PRN Insomnia 09/20/23 05/01/24 albuterol sulfate 90 mcg/actuation 2 puff inhalation Q3-4H PRN 05/01/24 05/01/24 aerosol inhaler Wheezing fluticasone furoate 200 1 ea inhalation DAILY 05/01/24 05/01/24 mcg-vilanterol 25 mcg/dose inhalation powder (Breo Ellipta) Previous Rx's ?Medication ?Instructions ?Recorded rivaroxaban 20 mg tablet (Xarelto) 20 mg PO QPM #90 tabs 12/29/19 paroxetine HCl 30 mg tablet 30 mg PO DAILY #90 tabs 06/27/20 metoprolol succinate 25 mg 25 mg PO DAILY 30 days #30 tabs 08/25/23 tablet,extended release 24 hr (Toprol XL) Allergies Allergy/AdvReac Type Severity Reaction Status Date / Time codeine [CODEINE] Allergy Mild NAUSEA Verified 05/07/24 11:59 Penicillins [PENICILLINS] Allergy Unknown ANAPHYLAXIS Verified 05/07/24 00:02 Review of Systems Constitutional: Constitutional: Reports no additional constitutional complaints, Denies chills, Denies fever(s) and Denies night sweats Eyes: Eyes: Reports no additional eye complaints, Denies blurry vision, Denies change in vision, Denies diplopia, Denies eye discharge, Denies loss of vision and Denies eye pain ENT: Denies dizziness Cardiovascular: Cardiovascular: Reports no additional cardiovascular complaints, Denies chest pain, Denies lightheadedness, Denies Loss of Consciousness and Denies dyspnea Respiratory: Respiratory: Reports no additional respiratory complaints and Denies dyspnea Gastrointestinal: Gastrointestinal: Reports no additional gastrointestinal complaints, Denies abdominal pain, Denies melena, Denies hematochezia, Denies change in bowel habits and Denies change in stool character Genitourinary: Genitourinary: Reports no additional male genitourinary complaints, Denies hematuria, Denies oliguria, Denies difficulty urinating, Denies dysuria, Denies urinary frequency, Denies urinary hesitancy, Denies urinary incontinence and Denies urinary urgency Musculoskeletal: Musculoskeletal: Reports no additional musculoskeletal complaints, Denies numbness and Denies tingling Neurologic: Denies dizziness, Denies loss of vision, Denies numbness and Denies tingling Psychiatric: Psychiatric: Reports no additional psychiatric complaints Endocrine: Endocrine: Reports no additional endocrine complaints Hematologic/Lymphatic: Hematologic/Lymphatic: Reports no additional hematologic/lymphatic complaints Allergic/Immunologic: Allergic/Immunologic: Reports no additional allergic/immunologic complaints [facility] Past Medical History Attestation statement: The following information was validated with the patient. Source: old records reviewed and nursing notes reviewed Medical History Homeless Atrial fibrillation Hypercholesterolemia Esophageal dysmotility Tobacco abuse COPD (chronic obstructive pulmonary disease) GERD (gastroesophageal reflux disease) Anxiety and depression Hypertension Coronary artery disease Surgical History History of surgery History of surgery History of angioplasty Family History Family History Father Myocardial infarction Mother Medical history unknown Sister No problems noted. Brother No problems noted. Son No problems noted. Social History Social History Alcohol intake: never Patient Tobacco Use Status: Former Tobacco user Tobacco use type: Cigarette Cigarettes Per Day: 3 Substance Use Type: Marijuana Advance Directives: No Advance Directives Information Provided: Yes Physical Exam ED Vital Signs: Vital Signs - 24 hr 05/07/24 11:50 05/07/24 13:33 Temperature 98.5 F 98.5 F Pulse Rate 111 H 111 H Respiratory Rate 18 18 Blood Pressure 128/80 128/80 Pulse Oximetry 98 98 Oxygen Delivery Method Room Air Room Air BMI result Body Mass Index 21.1 Const General: cooperative, no acute distress, alert and awake Nutritional Appearance: well nourished Orientation/consciousness: patient oriented x3 Limitations: no limitations HENMT Head: Yes normal to inspection and Yes atraumatic Ears: hearing grossly normal bilaterally and external ears normal General nose exam: Normal external nose present, no nasal discharge noted and no epistaxis Face and sinus: Yes normal facial exam, No abrasion and No laceration Mouth: Normal oral and palatal mucosa present, no drooling and no muffled voice Eyes General: appearance normal, both eyes and all related structures Periorbital: periorbital findings normal Eyelids: Yes eyelids normal Conjunctivae: conjunctivae normal Pupils: Equal, round and reactive pupils present EOM: EOMs intact bilaterally Neck Neck: Yes normal visual inspection, Yes full ROM and Yes no lymphadenopathy Chest Chest palpation & inspection: normal inspection of the chest Resp Effort & Inspection: normal respiratory effort and able to speak in complete sentences GI Inspection: Yes normal to inspection Neuro General: patient oriented x3, moves all extremities and CN's II-XI intact bilaterally Cranial nerves: Yes Equal, round and reactive pupils present Cognition (Neuro): normal cognition Extrem General: Yes normal to inspection, Yes full ROM and Yes capillary refill normal Psych Appearance: grossly normal Mental Status: mental status grossly normal Affect: normal affect Attitude: cooperative Thought process: Normal thought process present Thought content: Normal thought content present Insight: Good insight present (Psych) Medical Decision Making Medical Decision Making MDM Narrative: Patient is a 68 year old assigned male at with a history of atrial fib, CAD, COPD, GERD, anxiety, ischemic cardiomyopathy, HTN, and homelessness, presenting to the emergency department today requesting fci. Patient's physical exam was unremarkable. I explained my physical exam findings to the patient. I answered all questions asked by the patient. Patient was allowed to be in the emergency department for some time and given a cup of coffee. I stressed the importance of the patient taking his medication as directed (either prescribed or as the over the counter packaging recommends). I stressed the importance of the patient following up with his primary care provider. I stressed the importance of the patient returning to the emergency department immediately if his symptoms were to worsen or if he were to develop any dizziness, shortness of breath, difficulty breathing, chest pain, blurry vision, loss of vision, nausea, vomiting, abdominal pain, fever, chills, back pain, or any other complaints. Patient verbalized agreement and understanding with this treatment plan and discharge. Differential Diagnosis Differential Diagnoses: The differential diagnosis associated with the presentation includes Homelessness Independent Historian Clinical information obtained from an independent historian. History obtained from or confirmed by: EMS (EMS provided additional history and confirmed the history provided by the patient. ) Discharge Plan Discharge Clinical Impression: Homelessness Patient Disposition: Home, Self-Care Additional Instructions: Return to the emergency department immediately or call 911 if you develop any numbness, tingling, dizziness, shortness of breath, difficulty breathing, chest pain, blurry vision, loss of vision, nausea, vomiting, abdominal pain, fever, chills, back pain, or any other complaints. Please see the information below about our Patient Portal. If you are not yet enrolled in the [facility] Patient Portal, you will receive an enrollment email invitation following your visit to any [facility] setting. You may also self-enroll in the Patient Portal by visiting our website: [email or web address] The following information is required to access the Patient Portal: - Your [facility] Medical Record Number - Your personal home email address (must match what is in your electronic medical record, Registration staff can assist with this) - Name - Date of Capabilities of the Patient Portal: - Message some providers - View upcoming appointments - Access your health summary, medical history, and visit history - View current conditions and allergies - View procedure and lab results - View your medications, including guidelines, side effects, and precautions - Complete pre-appointment questionnaires requested by your provider - Ready summary reports of your office visits and procedures To access the Patient Portal Mobile [employer], follow these directions: - Search [employer] in the [employer] Store or [employer] Store - Download the [employer] - Search for [facility] - Enter your login/password Prescriptions: No Action Xarelto 20 mg tablet 20 mg PO QPM Qty: 90 3RF Rx Instructions: must administer with evening meal paroxetine HCl 30 mg tablet 30 mg PO DAILY Qty: 90 0RF metoprolol succinate [Toprol XL] 25 mg tablet extended release 24 hr 25 mg PO DAILY 30 Days Qty: 30 0RF Rx Instructions: must make cardiology appt for refills albuterol sulfate 90 mcg/actuation HFA aerosol inhaler 2 puff inhalation Q3-4H PRN (Reason: Wheezing) fluticasone furoate-vilanterol [Breo Ellipta] 200-25 mcg/dose blister with device 1 ea inhalation DAILY atorvastatin 80 mg tablet 80 mg PO BEDTIME hydroxyzine HCl 25 mg tablet 50 mg PO DAILY PRN (Reason: Anxiety) melatonin 3 mg tablet 3 mg PO BEDTIME MDD 3mg PRN (Reason: Insomnia) Referrals: Yumi Alarcon MD [Primary Care Provider] - Interventions: ED Discharge Assessment Last Done: 05/07/24 13:33 Print Language: Thai
[2024-05-07 13:33] VITALS: BP 128/80; PULSE 111; RESP 18; TEMP 36.9; O2SAT 98
--- NOTE | 2024-05-07 13:33 | PC.NURSE ---
pt DCed to waiting room. Per Cindy BARRAGAN, pt can wait in the waiting room until he can go to the senior living. When told that this is likely until tomorrow, PA said that pt can wait there overnight.
== END 2024-05-07 13:40 | disposition home or self-care (01) ==
PROVIDERS: Emergency Provider Emergency Medicine; PCP General Practice
DX: I10 Essential (primary) hypertension (principal); I48.91 Unspecified atrial fibrillation; I25.10 Atherosclerotic heart disease of native coronary artery without angina pectoris; J44.9 Chronic obstructive pulmonary disease, unspecified; K21.9 Gastro-esophageal reflux disease without esophagitis; Z59.00 Homelessness unspecified; Z79.899 Other long term (current) drug therapy
CPT/HCPCS: 99282; 99283; 99284

== ENCOUNTER 2024-05-09 08:59 | Emergency (ER) | payer OTHER, SELFPAY ==
--- NOTE | ~2024-05-09 | CT_ITS ---
EXAMINATION: CT HEAD WITHOUT CONTRAST CLINICAL INFORMATION: fall with blood thinners COMPARISON: May 01, 2024. TECHNIQUE: Contiguous axial imaging was performed from the skull base to vertex without intravenous administration of contrast. This CT examination was performed using dose optimization techniques as appropriate, variously including the following: *Automated exposure control *Adjustment of mA and/or kV according to patient size (this includes techniques or standardized protocols for targeted exams where dose is matched to indication/reason for exam; i.e. extremities or head) *Use of iterative reconstruction technique DLP: 953 mGy-cm FINDINGS: Limited by patient's motion artifact. No acute intracranial hemorrhage, mass effect, midline shift, hydrocephalus or herniation. Gutierrez-white matter differentiation is normal. Bilateral multifocal patchy and confluent deep periventricular white matter subcortical white matter hypodensities involving centrum semiovale and reeves radiata. The bony calvarium is intact. The posterior cranial fossa contents demonstrated no acute intracranial hemorrhage or mass effect. 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 Calcified plaques in the cavernous supracavernous segments both ICAs. No air-fluid levels in the paranasal sinuses. Tympanic cavities and mastoid air cells are aerated. CT/CT head/brain wo IV con IMPRESSION: No acute intracranial hemorrhage. White matter disease likely related to small vessel occlusive disease. No acute fracture, bony calvarium. Electronically signed by: Lefi Charles MD 05/09/2024 10:42 AM EDT
--- NOTE | 2024-05-09 09:21 | ED_ITS ---
HPI - General Adult General Chief complaint: General Medical Stated complaint: BACK/NECK PAIN/DEPRESSED/NO SI/HI Time Seen by Provider: 05/09/24 09:19 Source: patient, RN notes reviewed and old records reviewed Mode of arrival: ambulatory Limitations: no limitations History of Present Illness ED Provider: Collin HPI narrative: Patient is a 68-year-old male with history of aortic stenosis, pacemaker, atrial fibrillation on Xarelto, ischemic cardiomyopathy, hypercholesterolemia, tobacco use, COPD, GERD, anxiety and depression, HTN, CAD presenting to the emergency department with complaint of chronic neck and back pain as well as feeling cold after sleeping outdoors. Patient is currently experiencing homelessness for the past few months, states he has been sleeping on concrete ledges underneath overpasses, or whatever other locations he can find. States that last week he rolled off the edge of concrete and down the slope under the overpass. Reports that he did call an ambulance at that time, but is unsure if any imaging was obtained at the hospital. Still seeing his PCP and compliant with his medications. States he has been very cold the past few nights due to rain. Denies cough, fevers, abdominal pain. States neck pain is on the left side. Denies any weakness, numbness, or tingling to extremities. Reports feeling depressed due to ongoing homelessness. Denies suicidal or homicidal ideation. MD complaint: neck and back pain, cold Onset (ago): day(s) Related Data Home Medications ?Medication ?Instructions ?Recorded ?Confirmed atorvastatin 80 mg tablet 80 mg PO BEDTIME 09/20/23 05/01/24 hydroxyzine HCl 25 mg tablet 50 mg PO DAILY PRN Anxiety 09/20/23 05/01/24 melatonin 3 mg tablet 3 mg PO BEDTIME PRN Insomnia 09/20/23 05/01/24 albuterol sulfate 90 mcg/actuation 2 puff inhalation Q3-4H PRN 05/01/24 05/01/24 aerosol inhaler Wheezing fluticasone furoate 200 1 ea inhalation DAILY 05/01/24 05/01/24 mcg-vilanterol 25 mcg/dose inhalation powder (Breo Ellipta) Previous Rx's ?Medication ?Instructions ?Recorded rivaroxaban 20 mg tablet (Xarelto) 20 mg PO QPM #90 tabs 12/29/19 paroxetine HCl 30 mg tablet 30 mg PO DAILY #90 tabs 06/27/20 metoprolol succinate 25 mg 25 mg PO DAILY 30 days #30 tabs 08/25/23 tablet,extended release 24 hr (Toprol XL) Allergies Allergy/AdvReac Type Severity Reaction Status Date / Time codeine [CODEINE] Allergy Mild NAUSEA Verified 05/09/24 09:56 Penicillins [PENICILLINS] Allergy Unknown ANAPHYLAXIS Verified 05/09/24 09:56 Review of Systems 2 Review of Systems: As per HPI Yes all other systems are reviewed and are negative Constitutional: Constitutional: Reports as per HPI [facility] Past Medical History Medical History Homeless Atrial fibrillation Hypercholesterolemia Esophageal dysmotility Tobacco abuse COPD (chronic obstructive pulmonary disease) GERD (gastroesophageal reflux disease) Anxiety and depression Hypertension Coronary artery disease Surgical History History of surgery History of surgery History of angioplasty Family History Family History Father Myocardial infarction Mother Medical history unknown Sister No problems noted. Brother No problems noted. Son No problems noted. Social History Social History Alcohol intake: never Patient Tobacco Use Status: Former Tobacco user Tobacco use type: Cigarette Cigarettes Per Day: 3 Use of substances other than those prescribed or required for medical reasons: No Substance Use Type: Marijuana Advance Directives: No Advance Directives Information Provided: Yes Physical Exam ED Vital Signs: Vital Signs - 24 hr 05/09/24 09:51 05/09/24 15:19 Temperature 97.6 F 97.8 F Pulse Rate 61 83 Respiratory Rate 16 16 Blood Pressure 107/80 101/80 Pulse Oximetry 98 98 Oxygen Delivery Method Room Air Room Air BMI result Body Mass Index 22.0 Vital signs have been reviewed and appear to be correct. Blood pressure normal. Heart rate normal. Respiratory rate normal. Temperature normal. Oxygen saturation normal. Const General: cooperative, healthy appearing and no acute distress Orientation/consciousness: oriented to person, oriented to place, oriented to time and patient oriented x3 Limitations: no limitations HENMT Head: Yes normocephalic and Yes atraumatic Ears: external ears normal General nose exam: Normal external nose present Face and sinus: Yes face symmetric Mouth: oropharynx normal and moist mucous membranes Throat: Yes uvula midline Eyes Pupils: Equal, round and reactive pupils present Neck Neck: Yes normal visual inspection and Yes supple Resp Effort & Inspection: normal respiratory effort and able to speak in complete sentences Auscultation: clear to auscultation bilaterally Cardio Rate: regular rate Rhythm: regular rhythm Heart sounds: S1 normal heart sound present and S2 normal heart sound present GI Palpation (GI): Soft to palpation and nontender Auscultation: normoactive bowel sounds General: Yes no CVA tenderness Back/Spine/Pelvis Back: no CVA tenderness Cervical Spine: normal cervical lordosis, cervical ROM normal, cervical muscular tenderness (left), No Cervical spine tenderness and No step off deformity Thoracic/Lumbar Spine: thoracic and lumbar spine normal to inspection, thoraco- lumbar ROM normal, No thoracic spinal tenderness and No lumbar spinal tenderness Pelvis: no pain with anterior-posterior compression and no pain with lateral compression Skin General skin exam: elasticity normal and turgor normal Neuro General: oriented to person, oriented to place, oriented to time, patient oriented x3, gait normal, tone normal, moves all extremities, Normal light touch and pain sensation, no focal motor deficits, CN's II-XI intact bilaterally and deep tendon reflexes 2+ bilaterally Cranial nerves: Yes Equal, round and reactive pupils present Cognition (Neuro): normal cognition Motor exam (neuro): 5/5 motor strength present throughout Extrem General: Yes full ROM, Yes no pedal edema and Yes no calf tenderness Psych Mental Status: mental status grossly normal Affect: normal affect Thought process: Normal thought process present Medical Decision Making Medical Decision Making MDM Narrative: Patient is a 68-year-old male with history of aortic stenosis, pacemaker, atrial fibrillation on Xarelto, ischemic cardiomyopathy, hypercholesterolemia, tobacco use, COPD, GERD, anxiety and depression, HTN, CAD presenting to the emergency department with complaint of chronic neck and back pain as well as feeling cold after sleeping outdoors. On exam patient is awake, A+Ox3, VS WNL, afebrile, normal neurological exam without focal deficits, physical exam findings as above. Given reported symptoms and physical exam findings, initial differential includes but is not limited to ICH/skull fracture due to fall, neck strain, depression. Labs unremarkable. CT head notable for no evidence of ICH or skull fracture. My interpretation is in agreement with the radiologist's interpretation. Patient give list of shelters in the ED and RN assisting patient to call and find [facility]. Patient medically cleared, however, is unable to reach any shelters by phone. Per Barbara from [facility], calls to shelters need to be made first thing in the morning. Will place patient on physician observation and keep him in the ED overnight so he can make calls first thing in the morning. Patient's clothing still in washer/dryer at this time. Differential Diagnosis Differential Diagnoses: The differential diagnosis associated with the presentation includes As per [facility] Lab Data [facility] Lab Attestation statement: I reviewed the patient's lab results. As per [facility] 05/09/24 10:46 05/09/24 10:46 Labs: Lab Results 05/09/24 05/09/24 Range/Units 10:43 10:46 WBC 6.7 (4.8-10.8) X10*3/uL RBC 4.12 L (4.60-5.80) X10*6/uL Hgb 11.7 L (14.0-18.0) g/dl Hct 36.7 L (42.0-52.0) % MCV 89.1 (80.0-98.0) fL MCH 28.4 (27.0-33.0) pg MCHC 31.9 (31.0-36.0) g/dl RDW 14.5 (11.0-16.0) % Plt Count 166 (160-400) X10*3/uL MPV 10.5 (9.4-12.4) fL Immature Gran % (Auto) 0.6 H (0.0-0.4) % Neut % (Auto) 74.5 H (45-73) % Lymph % (Auto) 12.6 L (20-40) % Heard % (Auto) 10.7 (2-11) % Eos % (Auto) 1.3 (0-4) % Baso % (Auto) 0.3 (0-2) % Lymph # (Auto) 0.9 L (1.2-4.9) X10*3/uL Heard # (Auto) 0.7 (0.1-1.2) X10*3/uL Eos # (Auto) 0.1 (0.0-0.4) X10*3/uL Baso # (Auto) 0.0 (0.0-0.2) X10*3/uL Abs Immat Gran (auto) 0.04 H (0.00-0.03) X10*3/uL Absolute Neuts (auto) 5.0 (2.0-8.3) x10*3/uL Absolute Nucleated RBC 0.000 (0.0-0.012) X10*3/uL Nucleated RBC % (auto) 0.0 (0.0-0.2) /100WBC PT 14.9 H (10.9-12.4) SEC INR 1.3 H (0.9-1.1) Sodium 142 (135-145) mmol/L Potassium 3.7 (3.3-5.1) mmol/L Chloride 109 H (96-108) mmol/L Carbon Dioxide 27 (22-29) mmol/L Anion Gap 10 L (12-20) BUN 25 H (9-16) mg/dL Creatinine 0.75 (0.5-1.4) mg/dL Estim Creat Clear Calc 90.1 Estimated GFR > 60 Random Glucose 164 H (60-115) mg/dL Calcium 8.9 (8.4-10.2) mg/dL Total Bilirubin 1.2 H (0.0-1.0) mg/dL AST 25 (5-37) U/L ALT 20 (0-40) U/L Alkaline Phosphatase 63 (39-117) U/L Total Protein 6.2 L (6.5-8.0) g/dL Albumin 3.7 (3.5-5.0) g/dL Urine Color Dark Yellow Urine Appearance Cloudy Urine pH 5.0 (5.0-9.0) Ur Specific [place] 1.025 (1.005-1.025) Urine Protein 100 (2+) H (Neg-Trace) mg/dL Urine Glucose (UA) Negative (Negative) mg/dL Urine Ketones Trace (Negative) mg/dL Urine Blood Negative (Negative) Urine Nitrite Negative (Negative) Ur Leukocyte Esterase Negative (Negative) Urine RBC 0-2 (0-2) /HPF Urine WBC 0-5 (0-5) /HPF Ur Squamous Epith Cells 0-2 (0-2) /HPF Urine Bacteria None Seen (None Seen) Hyaline Casts 3-5 (0-2) /LPF External Record Review External record reviewed: Inpatient record, Office record and Outpatient record Discharge Plan Discharge Clinical Impression: Chronic neck and back pain Patient Disposition: Still a Patient Prescriptions: No Action Xarelto 20 mg tablet 20 mg PO QPM Qty: 90 3RF Rx Instructions: must administer with evening meal paroxetine HCl 30 mg tablet 30 mg PO DAILY Qty: 90 0RF metoprolol succinate [Toprol XL] 25 mg tablet extended release 24 hr 25 mg PO DAILY 30 Days Qty: 30 0RF Rx Instructions: must make cardiology appt for refills albuterol sulfate 90 mcg/actuation HFA aerosol inhaler 2 puff inhalation Q3-4H PRN (Reason: Wheezing) fluticasone furoate-vilanterol [Breo Ellipta] 200-25 mcg/dose blister with device 1 ea inhalation DAILY atorvastatin 80 mg tablet 80 mg PO BEDTIME hydroxyzine HCl 25 mg tablet 50 mg PO DAILY PRN (Reason: Anxiety) melatonin 3 mg tablet 3 mg PO BEDTIME MDD 3mg PRN (Reason: Insomnia) Print Language: Ukrainian
[2024-05-09 09:51] VITALS: BP 107/80; BP 136/84; PULSE 61; PULSE 68; RESP 16; TEMP 36.4; O2SAT 98; O2SAT 99; BMI 22.0
[2024-05-09 11:13] LABS: MANUAL DIFF FLAG NO
[2024-05-09 11:15] LABS: Basophils Percent Auto 0.3 % (0-2); Eosinophils Absolute Auto 0.1 X10*3/uL (0.0-0.4); Eosinophils Percent Auto 1.3 % (0-4); Hematocrit 36.7 % (42.0-52.0); Hemoglobin 11.7 g/dl (14.0-18.0); Imm Gran Abs Auto 0.04 X10*3/uL (0.00-0.03); Imm Gran Pct Auto 0.6 % (0.0-0.4); Lymphocytes Absolute Auto 0.9 X10*3/uL (1.2-4.9); Lymphocytes Percent Auto 12.6 % (20-40); Mean Corpuscular HGB Conc 31.9 g/dl (31.0-36.0); Mean Corpuscular Hemoglobin 28.4 pg (27.0-33.0); Mean Corpuscular Volume 89.1 fL (80.0-98.0); Mean Platelet Volume 10.5 fL (9.4-12.4); Monocytes Absolute Auto 0.7 X10*3/uL (0.1-1.2); Monocytes Percent Auto 10.7 % (2-11); Neutrophils Percent Auto 74.5 % (45-73); Platelet Count 166 X10*3/uL (160-400); Red Blood Count 4.12 X10*6/uL (4.60-5.80); Red Cell Distribution Width 14.5 % (11.0-16.0); White Blood Count 6.7 X10*3/uL (4.8-10.8)
[2024-05-09 11:18] LABS: Appearance Urine Cloudy; Color Urine Dark Yellow; Glucose Urine UA Negative (Negative); Leukocyte Esterase Urine Negative (Negative); Nitrite Urine Negative (Negative); Specific Gravity - Urine 1.025 (1.005-1.025); UMIC TRIGGER UACC YES; Urine Blood Negative (Negative); Urine Ketones Trace mg/dL (Negative); Urine Protein 100 (2+) mg/dL (Neg-Trace)
[2024-05-09 11:25] LABS: INTERNATIONAL NORM RATIO 1.3 (0.9-1.1); Prothrombin Time 14.9 SEC (10.9-12.4)
[2024-05-09 11:31] LABS: Bacteria Urine None Seen (None Seen); RBC Urine 0-2 /HPF (0-2); Squamous Epithelial Cell Urine 0-2 /HPF (0-2); WBC Urine 0-5 /HPF (0-5)
--- NOTE | 2024-05-09 11:48 | PC.NURSE ---
Pt coming from station with complaints of chronic back and neck pain. Pt reporting he has been homeless for a couple of months after getting kicked out of his apartment d/t not paying rent. Pt reporting he has been sleeping under the bridges during weather. Pt reporting he rolled down the cement area of the bridge and thinks he might have hit his head. Pt has been compliant with his medications which includes a blood thinner, CT placed. Pt changed into clean dry cloths by this RN, pt cloths obtained and are currently being washed and dried. Pt given multiple items of food and drinks, given warm blankets and is currently resting comfortably. Pt reports depression but no SI/HI. He reports he just wants help to get into a safe alf or housing options at this time. Denies ETOH/ drug use.
[2024-05-09 11:52] LABS: Alanine Aminotransferase 20 U/L (0-40); Albumin Level 3.7 g/dL (3.5-5.0); Alkaline Phosphatase 63 U/L (39-117); Anion Gap 10 (12-20); Aspartate Amino Transferase 25 U/L (5-37); Bilirubin Total 1.2 mg/dL (0.0-1.0); Blood Urea Nitrogen 25 mg/dL (9-16); Calcium 8.9 mg/dL (8.4-10.2); Carbon Dioxide 27 mmol/L (22-29); Chloride 109 mmol/L (96-108); Creatinine Clr Calc Pharmacy 90.1; Estimated Glomerular Filt Rate > 60; Glucose Random 164 mg/dL (60-115); Potassium 3.7 mmol/L (3.3-5.1); Sodium 142 mmol/L (135-145); Total Protein 6.2 g/dL (6.5-8.0)
[2024-05-09 15:19] VITALS: BP 101/80; PULSE 83; RESP 16; TEMP 36.6; O2SAT 98
--- NOTE | 2024-05-09 20:07 | PC.NURSE ---
Patient requested and provided with a turkey sandwich,vanilla ice cream, and apple juice, tolerated well no complaints of nausea, vomiting, abdominal pain.
--- NOTE | 2024-05-10 09:44 | PC.NURSE ---
patient's own phone given back and encouraged to make phone calls to shelters
[2024-05-10 10:13] VITALS: BP 130/76; PULSE 82; RESP 18; O2SAT 100
[2024-05-10 13:36] VITALS: BP 130/76; PULSE 82; RESP 18; TEMP 36.4; O2SAT 100
== END 2024-05-10 13:37 | disposition home or self-care (01) ==
PROVIDERS: Registered Nurse Emergency; Emergency Provider Emergency Medicine Emergency Medical Services; PCP General Practice
DX: M54.2 Cervicalgia (principal); M54.9 Dorsalgia, unspecified; I48.91 Unspecified atrial fibrillation; J44.9 Chronic obstructive pulmonary disease, unspecified; I10 Essential (primary) hypertension; Z95.0 Presence of cardiac pacemaker; Z79.899 Other long term (current) drug therapy; Z79.01 Long term (current) use of anticoagulants
CPT/HCPCS: 36415; 70450; 80053; 81001; 85025; 85610; 99284

== ENCOUNTER → 2024-05-09 10:18 | Outpatient (BNV) | payer OTHER, SELFPAY | PROVIDERS: Emergency Provider Emergency Medicine Emergency Medical Services; PCP General Practice; Visit Provider Radiology Diagnostic Radiology | DX: R90.82 White matter disease, unspecified (principal) | CPT/HCPCS: 70450 ==

== ENCOUNTER 2024-05-27 16:56 | Emergency (ER) | payer OTHER, SELFPAY ==
--- NOTE | 2024-05-27 | ECG_ITS ---
Test Reason : CHEST PAIN Blood Pressure : */* mmHG Vent. Rate : 78 BPM Atrial Rate : * BPM P-R Int : * ms QRS Dur : 102 ms QT Int : 388 ms P-R-T Axes : * 92 18 degrees QTcB Int : 442 ms Atrial fibrillation Rightward axis Abnormal ECG When compared with ECG of 03-May-2024 11:48, Atrial fibrillation has replaced Electronic ventricular pacemaker Referred By: Annalisa Werner Electronically Signed By: Richard Cespedes
--- NOTE | ~2024-05-27 | XR_ITS ---
CLINICAL HISTORY: chest pain 1 view chest x-ray. Comparison: CT 05/01/2024. Plain films 05/01/2024. Findings: Heart size normal. ICD electrodes are in satisfactory position. No consolidation. No pleural effusion. No acute fracture. Impression: Normal heart size with normal pulmonary vasculature. Hyperinflation with no infiltrates or consolidations. This document has been electronically signed by: Malcolm Joaquin MD on 05/27/2024 17:37:56
[2024-05-27 16:57] VITALS: BP 111/75; BP 115/70; PULSE 75; PULSE 90; RESP 18; TEMP 36.6; O2SAT 98; BMI 20.7
--- NOTE | 2024-05-27 17:11 | ED.CHESTPAIN ---
HPI - Chest Pain General Chief Complaint: Chest Pain Stated Complaint: chest pain Time Seen by Provider: 05/27/24 16:59 Source: patient and EMS Mode of arrival: EMS Limitations: no limitations History of Present Illness ED Provider: chris pollard np HPI narrative: Patient is a 68-year-old male who presents emergency department for evaluation. He comes via EMS, he is currently homeless residing in a tent. He is persistently fixated on the fact that he can not continue to keep living outside, he has been homeless for approximately 1.5 years, he simply can not take it anymore. He states the cold is intolerable. He feels it is the cause of his symptoms today. He expresses feeling generally weak, somewhat short of breath on exertion, a cough, and having a throbbing pain to his mid anterior chest earlier today that has since resolved. He also states that he ran out of his Xarelto a few days ago, reports that he went to the pharmacy and try to call his primary care doctor's office but was unable to get the medication. He reports he is currently being followed by [facility] he is due to have an ?Aortic valve replacement in June. Related Data Home Medications ?Medication ?Instructions ?Recorded ?Confirmed atorvastatin 80 mg tablet 80 mg PO BEDTIME 09/20/23 05/01/24 hydroxyzine HCl 25 mg tablet 50 mg PO DAILY PRN Anxiety 09/20/23 05/01/24 melatonin 3 mg tablet 3 mg PO BEDTIME PRN Insomnia 09/20/23 05/01/24 albuterol sulfate 90 mcg/actuation 2 puff inhalation Q3-4H PRN 05/01/24 05/01/24 aerosol inhaler Wheezing fluticasone furoate 200 1 ea inhalation DAILY 05/01/24 05/01/24 mcg-vilanterol 25 mcg/dose inhalation powder (Breo Ellipta) Previous Rx's ?Medication ?Instructions ?Recorded rivaroxaban 20 mg tablet (Xarelto) 20 mg PO QPM #90 tabs 12/29/19 paroxetine HCl 30 mg tablet 30 mg PO DAILY #90 tabs 06/27/20 metoprolol succinate 25 mg 25 mg PO DAILY 30 days #30 tabs 08/25/23 tablet,extended release 24 hr (Toprol XL) rivaroxaban 20 mg tablet (Xarelto) 20 mg PO QPM #30 tabs 05/27/24 Allergies Allergy/AdvReac Type Severity Reaction Status Date / Time codeine [CODEINE] Allergy Mild NAUSEA Verified 05/27/24 17:01 Penicillins [PENICILLINS] Allergy Unknown ANAPHYLAXIS Verified 05/27/24 17:01 Review of Systems Review of Systems: Yes all other systems are reviewed and are negative [facility] Past Medical History Attestation statement: The following information was validated with the patient. Source: old records reviewed Medical History Homeless Atrial fibrillation Hypercholesterolemia Esophageal dysmotility Tobacco abuse COPD (chronic obstructive pulmonary disease) GERD (gastroesophageal reflux disease) Anxiety and depression Hypertension Coronary artery disease Surgical History History of surgery History of surgery History of angioplasty Family History Family History Father Myocardial infarction Mother Medical history unknown Sister No problems noted. Brother No problems noted. Son No problems noted. Social History Social History Alcohol intake: never Patient Tobacco Use Status: Former Tobacco user Tobacco use type: Cigarette Cigarettes Per Day: 3 Smoked in Last 30 Days: Yes Use of substances other than those prescribed or required for medical reasons: No Substance Use Type: Marijuana Advance Directives: No Advance Directives Information Provided: No Do you have a plan to hurt others: No Plan Physical Exam Vital Signs: Vital Signs: Last Vital Signs Temp 97.8 F 05/27/24 16:57 Pulse 75 05/27/24 16:57 Resp 18 05/27/24 16:57 BP 111/75 05/27/24 16:57 Pulse Ox 98 05/27/24 16:57 O2 Del Method Room Air 05/27/24 16:57 BMI result Body Mass Index 20.7 Appearance: Alert.?Oriented to person, place and time. No acute distress.?Normal affect. Eyes: Pupils equal, round and reactive to light.? ENT: Pharynx normal.?? Neck: Normal inspection.? Neck supple.??No JVD. CVS: Atrial fibrillation, S1/S2, systolic murmur. Pulses normal.?? Respiratory: No respiratory distress.? Lung sounds clear to auscultation bilaterally?? Abdomen: Soft and non-tender. Normoactive bowel sounds. No pulsatile mass.?? Skin: Skin warm and dry.? Normal skin color.? ?? Extremities: No lower extremity edema.? No calf ttp? Neuro: Moves all extremities spontaneously. Sensation intact bilaterally. CN II-XII intact. No focal neuro deficits. Ambulates with normal steady gait. Medical Decision Making Medical Decision Making MDM Narrative: Patient is a 68-year-old female with past medical history of CAD, atrial fibrillation on Xarelto, COPD, SS as s/p [employer] pacemaker, severe low-flow low gradient aortic stenosis, smoker, depression, homelessness on disability without social support, has been in and out of group homes previously who presents to the emergency department for evaluation with complaint of looseness, shortness of breath, cough, chest pain. He is followed by [facility] Dr. Nolan, most recently seen on 05/17/2024 office visit note reviewed on [facility]; planning for aortic valve replacement by patient's account is scheduled for June of 2024. Currently he is without reports of active chest pain or shortness of breath. He is heavily fixated on his social circumstances, we spoke at a great length about this, reviewed resources that we are able to help establish from an emergency room standpoint including local shelters of which he has no current interest in. He is in no apparent distress, lung sounds are clear to the apices bilaterally, he is afebrile without tachycardia tachypnea or hypoxia, no hypotension. No evidence of volume overload or shock on exam. EKG revealing atrial fibrillation with ventricular rate of 78, QTC 442, no ST-elevation, no ST-depression. He admits that he has been off his Xarelto for a few days, he has no hypoxia tachypnea or tachycardia however will check a D-dimer to exclude pulmonary embolism the currently he is asymptomatic I think this is probably less likely. Will obtain CBC to evaluate for leukocytosis/ anemia, CMP and lipase to evaluate for abnormal electrolytes /abnormal renal function/ abnormal hepatic/biliary function, EKG and troponin to evaluate for ischemia/ACS. Chest x-ray to evaluate for consolidation/ infiltrate/ mass/ pulmonary congestion and Urinalysis. Differential Diagnosis Differential Diagnoses: The differential diagnosis associated with the presentation includes (See narrative above) Admission/Observation Consideration of admission/observation: Escalation of care including admission/observation considered (See narrative above and course narrative for further detail) Lab Data MDM Lab Attestation statement: I reviewed the patient's lab results. 05/27/24 17:18 05/27/24 17:18 Labs: Lab Results 05/27/24 05/27/24 Range/Units 17:18 19:35 WBC 3.2 L (4.8-10.8) X10*3/uL RBC 4.44 L (4.60-5.80) X10*6/uL Hgb 12.7 L (14.0-18.0) g/dl Hct 38.2 L (42.0-52.0) % MCV 86.0 (80.0-98.0) fL MCH 28.6 (27.0-33.0) pg MCHC 33.2 (31.0-36.0) g/dl RDW 14.1 (11.0-16.0) % Plt Count 170 (160-400) X10*3/uL MPV 10.2 (9.4-12.4) fL Immature Gran % (Auto) 0.3 (0.0-0.4) % Neut % (Auto) 42.8 L (45-73) % Lymph % (Auto) 41.2 H (20-40) % Mason % (Auto) 13.2 H (2-11) % Eos % (Auto) 1.9 (0-4) % Baso % (Auto) 0.6 (0-2) % Lymph # (Auto) 1.3 (1.2-4.9) X10*3/uL Mason # (Auto) 0.4 (0.1-1.2) X10*3/uL Eos # (Auto) 0.1 (0.0-0.4) X10*3/uL Baso # (Auto) 0.0 (0.0-0.2) X10*3/uL Abs Immat Gran (auto) 0.01 (0.00-0.03) X10*3/uL Absolute Neuts (auto) 1.4 L (2.0-8.3) x10*3/uL Absolute Nucleated RBC 0.000 (0.0-0.012) X10*3/uL Nucleated RBC % (auto) 0.0 (0.0-0.2) /100WBC PT 13.3 H (10.9-12.4) SEC INR 1.1 (0.9-1.1) APTT 31.6 (26.0-36.8) SEC D-Dimer High Sensitivty < 150 NG/ML Sodium 143 (135-145) mmol/L Potassium 3.8 (3.3-5.1) mmol/L Chloride 108 (96-108) mmol/L Carbon Dioxide 25 (22-29) mmol/L Anion Gap 14 (12-20) BUN 21 H (9-16) mg/dL Creatinine 0.72 (0.5-1.4) mg/dL Estim Creat Clear Calc 85.5 Estimated GFR > 60 Random Glucose 89 (60-115) mg/dL Calcium 8.7 (8.4-10.2) mg/dL Magnesium 1.9 (1.6-2.6) mg/dL Total Bilirubin 0.9 (0.0-1.0) mg/dL AST 30 (5-37) U/L ALT 20 (0-40) U/L Alkaline Phosphatase 69 (39-117) U/L Troponin I High Sens 6.8 7.0 (<3.5-35.0) ng/L Total Protein 6.4 L (6.5-8.0) g/dL Albumin 3.8 (3.5-5.0) g/dL Independent Interpretation I performed an independent interpretation of an: EKG (See narrative above) and Plain X-Ray (No consolidation or infiltrate) Radiology Impression Discussion of test interpretation with radiology: I have reviewed the radiologist's reading. Radiologist Impression: 1 view chest x-ray. Comparison: CT 05/01/2024. Plain films 05/01/2024. Findings: Heart size normal. ICD electrodes are in satisfactory position. No consolidation. No pleural effusion. No acute fracture. Impression: Normal heart size with normal pulmonary vasculature. Hyperinflation with no infiltrates or consolidations. Independent Historian Clinical information obtained from an independent historian. History obtained from or confirmed by: EMS External Record Review External record reviewed: Outpatient record Chronic Conditions Patient?s care impacted by: Other (See narrative above) Discharge Plan Discharge Clinical Impression: Chest pain Patient Disposition: Home, Self-Care Instructions: Chest Pain (ED) Additional Instructions: As discussed, your workup today does not show evidence of a heart attack. You should follow-up accordingly with your pmo business analyst as scheduled for your aortic valve surgery. You were offered information regarding local shelters your currently homeless, you however have declined interest in nursing home at this time. Please contact your primary care doctor to arrange for follow-up appointment within the next 3 days. You may return to emergency department any new or worsening symptoms or concerns. On review of pharmacy records it appears as though your primary care doctor sent your prescription for Xarelto to [facility] on 05/25/2024. If by chance we were unable to shredder picker this prescription, I have sent an additional prescription to the [facility] pharmacy in [place] that you listed as your pharmacy. Prescriptions: New Xarelto 20 mg tablet 20 mg PO QPM Qty: 30 0RF Rx Instructions: must administer with evening meal No Action Xarelto 20 mg tablet 20 mg PO QPM Qty: 90 3RF Rx Instructions: must administer with evening meal paroxetine HCl 30 mg tablet 30 mg PO DAILY Qty: 90 0RF metoprolol succinate [Toprol XL] 25 mg tablet extended release 24 hr 25 mg PO DAILY 30 Days Qty: 30 0RF Rx Instructions: must make cardiology appt for refills albuterol sulfate 90 mcg/actuation HFA aerosol inhaler 2 puff inhalation Q3-4H PRN (Reason: Wheezing) fluticasone furoate-vilanterol [Breo Ellipta] 200-25 mcg/dose blister with device 1 ea inhalation DAILY atorvastatin 80 mg tablet 80 mg PO BEDTIME hydroxyzine HCl 25 mg tablet 50 mg PO DAILY PRN (Reason: Anxiety) melatonin 3 mg tablet 3 mg PO BEDTIME MDD 3mg PRN (Reason: Insomnia) Referrals: Physician,Unknown J [Primary Care Provider] - Print Language: Montenegrin
[2024-05-27 17:24] LABS: MANUAL DIFF FLAG NO
[2024-05-27 17:26] LABS: Basophils Percent Auto 0.6 % (0-2); Eosinophils Absolute Auto 0.1 X10*3/uL (0.0-0.4); Eosinophils Percent Auto 1.9 % (0-4); Hematocrit 38.2 % (42.0-52.0); Hemoglobin 12.7 g/dl (14.0-18.0); Imm Gran Abs Auto 0.01 X10*3/uL (0.00-0.03); Imm Gran Pct Auto 0.3 % (0.0-0.4); Lymphocytes Absolute Auto 1.3 X10*3/uL (1.2-4.9); Lymphocytes Percent Auto 41.2 % (20-40); Mean Corpuscular HGB Conc 33.2 g/dl (31.0-36.0); Mean Corpuscular Hemoglobin 28.6 pg (27.0-33.0); Mean Platelet Volume 10.2 fL (9.4-12.4); Monocytes Absolute Auto 0.4 X10*3/uL (0.1-1.2); Monocytes Percent Auto 13.2 % (2-11); Neutrophils Absolute Auto 1.4 x10*3/uL (2.0-8.3); Neutrophils Percent Auto 42.8 % (45-73); Platelet Count 170 X10*3/uL (160-400); Red Blood Count 4.44 X10*6/uL (4.60-5.80); Red Cell Distribution Width 14.1 % (11.0-16.0); White Blood Count 3.2 X10*3/uL (4.8-10.8)
[2024-05-27 17:32] LABS: INTERNATIONAL NORM RATIO 1.1 (0.9-1.1); Prothrombin Time 13.3 SEC (10.9-12.4)
[2024-05-27 17:35] LABS: Partial Thromboplastin Time 31.6 SEC (26.0-36.8)
[2024-05-27 17:44] LABS: Alanine Aminotransferase 20 U/L (0-40); Albumin Level 3.8 g/dL (3.5-5.0); Alkaline Phosphatase 69 U/L (39-117); Anion Gap 14 (12-20); Aspartate Amino Transferase 30 U/L (5-37); Bilirubin Total 0.9 mg/dL (0.0-1.0); Blood Urea Nitrogen 21 mg/dL (9-16); Calcium 8.7 mg/dL (8.4-10.2); Carbon Dioxide 25 mmol/L (22-29); Chloride 108 mmol/L (96-108); Creatinine Clr Calc Pharmacy 85.5; Estimated Glomerular Filt Rate > 60; Glucose Random 89 mg/dL (60-115); Magnesium 1.9 mg/dL (1.6-2.6); Potassium 3.8 mmol/L (3.3-5.1); Sodium 143 mmol/L (135-145); Total Protein 6.4 g/dL (6.5-8.0)
[2024-05-27 17:45] LABS: D Dimer High Sensitivity < 150 NG/ML
[2024-05-27 17:51] LABS: Troponin-I High Sensitivity 6.8 ng/L (<3.5-35.0)
[2024-05-27 20:54] VITALS: BP 125/89; PULSE 61; RESP 20; TEMP 36.4; O2SAT 95
[2024-05-27 20:57] VITALS: BP 125/89; PULSE 61; RESP 20; TEMP 36.4; O2SAT 95
== END 2024-05-27 21:39 | disposition home or self-care (01) ==
PROVIDERS: Nurse Practitioner Family; Emergency Provider Emergency Medicine Emergency Medical Services
DX: R07.89 Other chest pain (principal); R06.02 Shortness of breath; R05.9 Cough, unspecified; I48.91 Unspecified atrial fibrillation; Z59.00 Homelessness unspecified; Z79.899 Other long term (current) drug therapy; Z79.01 Long term (current) use of anticoagulants; Z87.891 Personal history of nicotine dependence
CPT/HCPCS: 36415; 71045; 80053; 83735; 84484; 85025; 85379; 85610; 85730; 93005; 99283; 99285

== ENCOUNTER → 2024-05-27 17:00 | Outpatient (BNV) | payer OTHER, SELFPAY | PROVIDERS: Emergency Provider Emergency Medicine Emergency Medical Services; Visit Provider Radiology Diagnostic Radiology | DX: R07.9 Chest pain, unspecified (principal) | CPT/HCPCS: 71045 ==

== ENCOUNTER → 2024-05-27 17:08 | Outpatient (BNV) | payer OTHER, SELFPAY | PROVIDERS: Emergency Provider Emergency Medicine Emergency Medical Services; Visit Provider Internal Medicine Cardiovascular Disease | DX: I48.91 Unspecified atrial fibrillation (principal) | CPT/HCPCS: 93010 ==

== ENCOUNTER 2024-05-28 03:15 | Emergency (ER) | payer OTHER, SELFPAY ==
--- NOTE | 2024-05-28 | ECG_ITS ---
Test Reason : CP Blood Pressure : */* mmHG Vent. Rate : 72 BPM Atrial Rate : * BPM P-R Int : * ms QRS Dur : 102 ms QT Int : 400 ms P-R-T Axes : * -35 53 degrees QTcB Int : 438 ms Atrial fibrillation with occasional ventricular-paced complexes Left axis deviation Minimal voltage criteria for LVH, may be normal variant ( Noe product ) Abnormal ECG When compared with ECG of 27-May-2024 17:08, Electronic ventricular pacemaker has replaced Atrial fibrillation Referred By: Generic ED Physician Electronically Signed By: Richard Cespedes
[2024-05-28 03:23] VITALS: BP 129/93; PULSE 86; O2SAT 98
[2024-05-28 03:29] VITALS: BP 135/72; PULSE 69; RESP 20; TEMP 36.4; O2SAT 98; BMI 20.4
--- NOTE | 2024-05-28 04:42 | ED_ITS ---
HPI - General Adult General Chief complaint: General Medical Stated complaint: chest pain Time Seen by Provider: 05/28/24 04:42 Source: patient Mode of arrival: ambulatory Limitations: no limitations History of Present Illness ED Provider: HPI narrative: Patient is homeless was seen earlier yesterday as it was cold and wanted to rest for some time does have history of atrial fibrillation and aortic stenosis plan for TAVR comes here as feeling cold outside wants some rest no chest pain no palpitation patient has missed his Xarelto for last 3 days Related Data Home Medications ?Medication ?Instructions ?Recorded ?Confirmed atorvastatin 80 mg tablet 80 mg PO BEDTIME 09/20/23 05/01/24 hydroxyzine HCl 25 mg tablet 50 mg PO DAILY PRN Anxiety 09/20/23 05/01/24 melatonin 3 mg tablet 3 mg PO BEDTIME PRN Insomnia 09/20/23 05/01/24 albuterol sulfate 90 mcg/actuation 2 puff inhalation Q3-4H PRN 05/01/24 05/01/24 aerosol inhaler Wheezing fluticasone furoate 200 1 ea inhalation DAILY 05/01/24 05/01/24 mcg-vilanterol 25 mcg/dose inhalation powder (Breo Ellipta) Previous Rx's ?Medication ?Instructions ?Recorded rivaroxaban 20 mg tablet (Xarelto) 20 mg PO QPM #90 tabs 12/29/19 paroxetine HCl 30 mg tablet 30 mg PO DAILY #90 tabs 06/27/20 metoprolol succinate 25 mg 25 mg PO DAILY 30 days #30 tabs 08/25/23 tablet,extended release 24 hr (Toprol XL) rivaroxaban 20 mg tablet (Xarelto) 20 mg PO QPM #30 tabs 05/27/24 Allergies Allergy/AdvReac Type Severity Reaction Status Date / Time codeine [CODEINE] Allergy Mild NAUSEA Verified 05/28/24 03:34 Penicillins [PENICILLINS] Allergy Unknown ANAPHYLAXIS Verified 05/28/24 03:34 Review of Systems Review of Systems: Yes all other systems are reviewed and are negative PMF Past Medical History Medical History Homeless Atrial fibrillation Hypercholesterolemia Esophageal dysmotility Tobacco abuse COPD (chronic obstructive pulmonary disease) GERD (gastroesophageal reflux disease) Anxiety and depression Hypertension Coronary artery disease Surgical History History of surgery History of surgery History of angioplasty Family History Family History Father Myocardial infarction Mother Medical history unknown Sister No problems noted. Brother No problems noted. Son No problems noted. Social History Social History Alcohol intake: never Patient Tobacco Use Status: Former Tobacco user Tobacco use type: Cigarette Cigarettes Per Day: 3 Substance Use Type: Marijuana Advance Directives: No Physical Exam ED Vital Signs: Vital Signs - 24 hr 05/28/24 03:29 05/28/24 06:23 Temperature 97.5 F 97.5 F Pulse Rate 69 69 Respiratory Rate 20 20 Blood Pressure 135/72 135/72 Pulse Oximetry 98 98 Oxygen Delivery Method Room Air Room Air BMI result Body Mass Index 20.4 Appearance: Alert. Oriented X3. No acute distress. Eyes: PERRLA, No Nystagmus ENT: Pharynx normal. Oral Mucosa moist Neck: Normal inspection. Neck supple. CVS: Irregularly irregular heart rate Pulses normal Systolic ejection murmur at the base 3/6 Respiratory: No respiratory distress. Equal air entry bilateral, no wheezing/rales/rhonchi Abdomen: Soft and nontender. Bowel sounds are present, no mass palpable, no CVA tenderness Skin: Skin warm and dry. Normal skin color. Normal skin turgor. Extremities: No lower extremity edema. No calf tenderness Neuro: Oriented X 3. No motor deficit. No sensory deficit.No cerebellar signs , cranial nerves II-XII intact Medications Administered Discontinued Medications Generic Name Dose Route Start Last Admin Trade Name Freq PRN Reason Stop Dose Admin Rivaroxaban 20 mg 05/28/24 04:46 05/28/24 06:17 Rivaroxaban 20 Mg Tablet PO 05/28/24 04:47 20 mg ONCE ONE Administration Medical Decision Making Medical Decision Making MDM Narrative: Patient is homeless with atrial fibrillation with aortic stenosis missed his Xarelto for 3days does have prescription pharmacy [facility] waiting to picked up will give a dose of Xarelto tonight Discharge Plan Discharge Clinical Impression: Atrial fibrillation, Homeless Patient Disposition: Home, Self-Care Instructions: A-fib (Atrial Fibrillation) (ED) Additional Instructions: Take medication on time Follow with your food and beverage operations manager Prescriptions: No Action Xarelto 20 mg tablet 20 mg PO QPM Qty: 90 3RF Rx Instructions: must administer with evening meal paroxetine HCl 30 mg tablet 30 mg PO DAILY Qty: 90 0RF metoprolol succinate [Toprol XL] 25 mg tablet extended release 24 hr 25 mg PO DAILY 30 Days Qty: 30 0RF Rx Instructions: must make cardiology appt for refills albuterol sulfate 90 mcg/actuation HFA aerosol inhaler 2 puff inhalation Q3-4H PRN (Reason: Wheezing) fluticasone furoate-vilanterol [Breo Ellipta] 200-25 mcg/dose blister with device 1 ea inhalation DAILY atorvastatin 80 mg tablet 80 mg PO BEDTIME hydroxyzine HCl 25 mg tablet 50 mg PO DAILY PRN (Reason: Anxiety) melatonin 3 mg tablet 3 mg PO BEDTIME MDD 3mg PRN (Reason: Insomnia) Xarelto 20 mg tablet 20 mg PO QPM Qty: 30 0RF Rx Instructions: must administer with evening meal Interventions: ED Discharge Assessment Last Done: 05/28/24 06:23 Discharge Date/Time: 05/28/24 06:37 Print Language: Hungarian
[2024-05-28] MEDS: Rivaroxaban 20 MG TABLET PO (06:17)
[2024-05-28 06:23] VITALS: BP 135/72; PULSE 69; RESP 20; TEMP 36.4; O2SAT 98
--- NOTE | 2024-05-28 06:36 | PC.NURSE ---
ambulatory with steady gait out of tx room, no apparent distress noted at time of discharge. pt hesitant to be discharged however reassured that prior visit workout last night was all reassuring no acute findings. encouraged to chicken picker xarelto and take as prescribed.
== END 2024-05-28 06:37 | disposition home or self-care (01) ==
PROVIDERS: Emergency Provider Internal Medicine; PCP General Practice
DX: R07.9 Chest pain, unspecified (principal); I48.91 Unspecified atrial fibrillation; I35.0 Nonrheumatic aortic (valve) stenosis; Z59.00 Homelessness unspecified; Z79.899 Other long term (current) drug therapy
CPT/HCPCS: 93005; 99283; 99284

== ENCOUNTER → 2024-05-28 03:22 | Outpatient (BNV) | payer OTHER, SELFPAY | PROVIDERS: Emergency Provider Internal Medicine; PCP General Practice; Visit Provider Internal Medicine Cardiovascular Disease | DX: I48.91 Unspecified atrial fibrillation (principal); Z95.0 Presence of cardiac pacemaker | CPT/HCPCS: 93010 ==

== ENCOUNTER 2024-07-31 19:48 | Emergency (ER) | payer OTHER, SELFPAY ==
--- NOTE | 2024-07-31 | ECG_ITS ---
Test Reason : dizziness Blood Pressure : */* mmHG Vent. Rate : 67 BPM Atrial Rate : * BPM P-R Int : * ms QRS Dur : 100 ms QT Int : 402 ms P-R-T Axes : * 93 -9 degrees QTcB Int : 424 ms Atrial fibrillation with occasional ventricular-paced complexes Rightward axis Minimal voltage criteria for LVH, may be normal variant ( Noe product ) ST & T wave abnormality, consider inferior ischemia Abnormal ECG When compared with ECG of 28-May-2024 03:22, Vent. rate has decreased by 5 bpm Referred By: Generic ED Physician Electronically Signed By: Richard Cespedes
--- NOTE | ~2024-07-31 | XR_ITS ---
CLINICAL HISTORY: cough, phlegm 1 view chest x-ray. Comparison: CR - XR CHEST 1V - 05/27/24 17:10 EDT Findings: No consolidation, pneumothorax, or effusion. Heart size is borderline enlarged. Dual lead left subclavian cardiac pacemaker device in place. Impression: 1. Borderline cardiomegaly. Otherwise, no acute cardiopulmonary process. No focal pulmonary consolidation. This document has been electronically signed by: Maldonado Quinones MD on 07/31/2024 21:10:38
[2024-07-31 20:09] VITALS: BP 129/88; BP 136/97; PULSE 75; PULSE 76; RESP 20; TEMP 36.5; O2SAT 97; O2SAT 98; BMI 22.1
[2024-07-31 20:30] LABS: MANUAL DIFF FLAG NO
[2024-07-31 20:31] LABS: Basophils Percent Auto 0.8 % (0-2); Eosinophils Absolute Auto 0.2 X10*3/uL (0.0-0.4); Eosinophils Percent Auto 3.6 % (0-4); Hematocrit 39.2 % (42.0-52.0); Imm Gran Abs Auto 0.02 X10*3/uL (0.00-0.03); Imm Gran Pct Auto 0.4 % (0.0-0.4); Lymphocytes Absolute Auto 1.3 X10*3/uL (1.2-4.9); Lymphocytes Percent Auto 24.9 % (20-40); Mean Corpuscular HGB Conc 33.2 g/dl (31.0-36.0); Mean Corpuscular Hemoglobin 28.1 pg (27.0-33.0); Mean Corpuscular Volume 84.7 fL (80.0-98.0); Mean Platelet Volume 10.3 fL (9.4-12.4); Monocytes Absolute Auto 0.7 X10*3/uL (0.1-1.2); Monocytes Percent Auto 13.5 % (2-11); Neutrophils Absolute Auto 2.9 x10*3/uL (2.0-8.3); Neutrophils Percent Auto 56.8 % (45-73); Platelet Count 161 X10*3/uL (160-400); Red Blood Count 4.63 X10*6/uL (4.60-5.80); Red Cell Distribution Width 13.7 % (11.0-16.0)
[2024-07-31 20:36] LABS: INTERNATIONAL NORM RATIO 1.2 (0.9-1.1); Prothrombin Time 14.1 SEC (10.9-12.4)
[2024-07-31 20:48] LABS: Alanine Aminotransferase 25 U/L (0-40); Albumin Level 4.3 g/dL (3.5-5.0); Alkaline Phosphatase 72 U/L (39-117); Anion Gap 15 (12-20); Aspartate Amino Transferase 27 U/L (5-37); Blood Urea Nitrogen 25 mg/dL (9-16); Calcium 9.3 mg/dL (8.4-10.2); Carbon Dioxide 24 mmol/L (22-29); Chloride 105 mmol/L (96-108); Creatinine Clr Calc Pharmacy 84.1; Estimated Glomerular Filt Rate > 60; Glucose Random 106 mg/dL (60-115); Lipase 8 U/L (8-78); Magnesium 1.9 mg/dL (1.6-2.6); Potassium 3.8 mmol/L (3.3-5.1); Sodium 140 mmol/L (135-145); Total Protein 7.1 g/dL (6.5-8.0)
[2024-07-31 20:55] LABS: Troponin-I High Sensitivity 3.8 ng/L (<3.5-35.0)
--- NOTE | 2024-07-31 21:15 | ED_ITS ---
HPI - Dizziness General Chief Complaint: Dizziness Stated Complaint: feeling faint Time Seen by Provider: 07/31/24 20:59 Source: patient and EMS Mode of arrival: EMS Limitations: no limitations History of Present Illness ED Provider: HPI Narrative: 68-year-old male he is scheduled for valve replacement on August 16, currently has a pacemaker in place, on Xarelto for AFib, he states he has episodes of weakness and feeling like he is going to faint, this is a recurrent issue he states he has been through [facility] and here for this in the past, he denies chest pains but states occasionally has midsternal discomfort, he states he does not drink enough fluids. Occasional smokes tobacco. Currently stays in [place] [address], anxious about staying by himself. Related Data Home Medications ?Medication ?Instructions ?Recorded ?Confirmed atorvastatin 80 mg tablet 80 mg PO BEDTIME 09/20/23 05/01/24 hydroxyzine HCl 25 mg tablet 50 mg PO DAILY PRN Anxiety 09/20/23 05/01/24 melatonin 3 mg tablet 3 mg PO BEDTIME PRN Insomnia 09/20/23 05/01/24 albuterol sulfate 90 mcg/actuation 2 puff inhalation Q3-4H PRN 05/01/24 05/01/24 aerosol inhaler Wheezing fluticasone furoate 200 1 ea inhalation DAILY 05/01/24 05/01/24 mcg-vilanterol 25 mcg/dose inhalation powder (Breo Ellipta) Previous Rx's ?Medication ?Instructions ?Recorded rivaroxaban 20 mg tablet (Xarelto) 20 mg PO QPM #90 tabs 12/29/19 paroxetine HCl 30 mg tablet 30 mg PO DAILY #90 tabs 06/27/20 metoprolol succinate 25 mg 25 mg PO DAILY 30 days #30 tabs 08/25/23 tablet,extended release 24 hr (Toprol XL) rivaroxaban 20 mg tablet (Xarelto) 20 mg PO QPM #30 tabs 05/27/24 Allergies Allergy/AdvReac Type Severity Reaction Status Date / Time codeine [CODEINE] Allergy Mild NAUSEA Verified 07/31/24 20:13 Penicillins [PENICILLINS] Allergy Unknown ANAPHYLAXIS Verified 07/31/24 20:13 Review of Systems 2 Constitutional: Constitutional: Reports as per HPI COUNTS INCLUDE 234 BEDS AT THE [facility] Past Medical History Medical History Homeless Atrial fibrillation Hypercholesterolemia Esophageal dysmotility Tobacco abuse COPD (chronic obstructive pulmonary disease) GERD (gastroesophageal reflux disease) Anxiety and depression Hypertension Coronary artery disease Surgical History History of surgery History of surgery History of angioplasty Family History Family History Father Myocardial infarction Mother Medical history unknown Sister No problems noted. Brother No problems noted. Son No problems noted. Social History Social History Alcohol intake: never Patient Tobacco Use Status: Former Tobacco user Tobacco use type: Cigarette Cigarettes Per Day: 3 Substance Use Type: Marijuana Advance Directives: No Advance Directives Information Provided: No Do you have a plan to hurt others: No Plan Physical Exam 2 Vital Signs: Vital Signs: Last Vital Signs Temp 97.7 F 07/31/24 20:09 Pulse 76 07/31/24 20:09 Resp 20 07/31/24 20:09 BP 136/97 H 07/31/24 20:09 Pulse Ox 98 07/31/24 20:09 O2 Del Method Room Air 07/31/24 20:09 BMI result Body Mass Index 22.1 Const: Other: * Gen: ?Overall well-appearing patient * HEENT: PERRLA, EOMI, MMM, * Neck: Supple, no LAD * CV: Irregular pulse, radial pulses +2 bilaterally, pacemaker palpable over the left upper chest * Resp: ?No wheezing rales rhonchi no stridor moving air well * Abd: ?Bowel sounds are present, no tenderness no rebound no rigidity * MSK: FROM, strength 5/5 all extremities * Skin: Warm, dry, intact, * Neuro: ?Alert and oriented x3, moving upper and lower extremities symmetrically, no obvious facial asymmetry noted, no dysmetria upper or lower extremities, no nystagmus Medications Administered Generic Name Dose Route Start Last Admin Trade Name Freq PRN Reason Stop Dose Admin Sodium Chloride 1,000 mls @ 999 mls/hr 07/31/24 21:30 07/31/24 21:33 Ns IV 07/31/24 22:30 999 mls/hr .Q1H1M KANDI Administration Medical Decision Making Medical Decision Making [facility] Narrative: Overall well-appearing male, no physical exam findings to suspect either cerebellar stroke or benign peripheral vertigo, his blood pressure is stable he is not hypotensive, blood work did reveal slightly elevated BUN we will give him fluids he may be dehydrated, otherwise he is definitely anxious and this is a recurrent issue and what he is feeling less only a few sec and then it passes and he states he has been seeking care for this in the past multiple times. Differential Diagnosis Differential Diagnoses: The differential diagnosis associated with the presentation includes Pacemaker dysfunction, dehydration, electrolyte derangements, ACS, cerebellar stroke, BPPV Admission/Observation Consideration of admission/observation: Escalation of care including admission/observation considered Lab Data [facility] Lab Attestation statement: I reviewed the patient's lab results. 07/31/24 20:14 07/31/24 20:14 Labs: Lab Results 07/31/24 Range/Units 20:14 WBC 5.0 (4.8-10.8) X10*3/uL RBC 4.63 (4.60-5.80) X10*6/uL Hgb 13.0 L (14.0-18.0) g/dl Hct 39.2 L (42.0-52.0) % MCV 84.7 (80.0-98.0) fL MCH 28.1 (27.0-33.0) pg MCHC 33.2 (31.0-36.0) g/dl RDW 13.7 (11.0-16.0) % Plt Count 161 (160-400) X10*3/uL MPV 10.3 (9.4-12.4) fL Immature Gran % (Auto) 0.4 (0.0-0.4) % Neut % (Auto) 56.8 (45-73) % Lymph % (Auto) 24.9 (20-40) % [place] % (Auto) 13.5 H (2-11) % Eos % (Auto) 3.6 (0-4) % Baso % (Auto) 0.8 (0-2) % Lymph # (Auto) 1.3 (1.2-4.9) X10*3/uL [place] # (Auto) 0.7 (0.1-1.2) X10*3/uL Eos # (Auto) 0.2 (0.0-0.4) X10*3/uL Baso # (Auto) 0.0 (0.0-0.2) X10*3/uL Abs Immat Gran (auto) 0.02 (0.00-0.03) X10*3/uL Absolute Neuts (auto) 2.9 (2.0-8.3) x10*3/uL Absolute Nucleated RBC 0.000 (0.0-0.012) X10*3/uL Nucleated RBC % (auto) 0.0 (0.0-0.2) /100WBC PT 14.1 H (10.9-12.4) SEC INR 1.2 H (0.9-1.1) Sodium 140 (135-145) mmol/L Potassium 3.8 (3.3-5.1) mmol/L Chloride 105 (96-108) mmol/L Carbon Dioxide 24 (22-29) mmol/L Anion Gap 15 (12-20) BUN 25 H (9-16) mg/dL Creatinine 0.78 (0.5-1.4) mg/dL Estim Creat Clear Calc 84.1 Estimated GFR > 60 Random Glucose 106 (60-115) mg/dL Calcium 9.3 D (8.4-10.2) mg/dL Magnesium 1.9 (1.6-2.6) mg/dL Total Bilirubin 1.0 (0.0-1.0) mg/dL AST 27 (5-37) U/L ALT 25 (0-40) U/L Alkaline Phosphatase 72 (39-117) U/L Troponin I High Sens 3.8 (<3.5-35.0) ng/L Total Protein 7.1 (6.5-8.0) g/dL Albumin 4.3 (3.5-5.0) g/dL Lipase 8 (8-78) U/L Independent Interpretation I performed an independent interpretation of an: EKG (67 beats per minute, AFib, occasional paced beats, no changes to suspect underlying pacemaker failure, ACS no other underlying dysrhythmia) Radiology Impression Discussion of test interpretation with radiology: I have reviewed the radiologist's reading. Radiologist Impression: [address] [address] XRay Report Signed Patient: Taj Granger MR#: [id number] : 1955 Acct:[id number] Age/Sex: 68 / M ADM Date: 07/31/24 Loc: HO.ED Attending Dr: Ordering Physician: Bobo Garcia DO Date of Service: 07/31/24 Procedure(s): XR chest 1V Accession Number(s): [id number] cc: Physician,Unknown ; Bobo Garcia DO~ CLINICAL HISTORY: cough, phlegm 1 view chest x-ray. Comparison: CR - XR CHEST 1V - 05/27/24 17:10 EDT Findings: No consolidation, pneumothorax, or effusion. Heart size is borderline enlarged. Dual lead left subclavian cardiac pacemaker device in place. Impression: 1. Borderline cardiomegaly. Otherwise, no acute cardiopulmonary process. No focal pulmonary consolidation. Discharge Plan Discharge Clinical Impression: Dizziness Atrial fibrillation Qualifiers: Atrial fibrillation type: longstanding persistent Qualified Code(s): I48.11 - Longstanding persistent atrial fibrillation Patient Disposition: Home, Self-Care Additional Instructions: Your blood work has been reassuring, your vital signs are stable, EKG without underlying abnormalities except for atrial fibrillation for which you take medications including blood thinners, and the pace maker is functional, overall I am reassured by a physical examination, I am hoping that your symptoms will improve after you have a valve replaced. Continue to follow up with the PCP and experimental display builder any other issues concerns come back to the ER Prescriptions: No Action Xarelto 20 mg tablet 20 mg PO QPM Qty: 90 3RF Rx Instructions: must administer with evening meal paroxetine HCl 30 mg tablet 30 mg PO DAILY Qty: 90 0RF metoprolol succinate [Toprol XL] 25 mg tablet extended release 24 hr 25 mg PO DAILY 30 Days Qty: 30 0RF Rx Instructions: must make cardiology appt for refills albuterol sulfate 90 mcg/actuation HFA aerosol inhaler 2 puff inhalation Q3-4H PRN (Reason: Wheezing) fluticasone furoate-vilanterol [Breo Ellipta] 200-25 mcg/dose blister with device 1 ea inhalation DAILY atorvastatin 80 mg tablet 80 mg PO BEDTIME hydroxyzine HCl 25 mg tablet 50 mg PO DAILY PRN (Reason: Anxiety) melatonin 3 mg tablet 3 mg PO BEDTIME MDD 3mg PRN (Reason: Insomnia) Xarelto 20 mg tablet 20 mg PO QPM Qty: 30 0RF Rx Instructions: must administer with evening meal Print Language: Bengali
[2024-07-31] MEDS: 0.9 % Sodium Chloride 1,000 ML 999 ML IV (21:33)
[2024-07-31 22:22] VITALS: BP 122/86; PULSE 65; RESP 16; TEMP 36.6; O2SAT 98
--- NOTE | 2024-07-31 22:22 | PC.NURSE ---
pt ambulatory with a steady gait at time of d/c.
== END 2024-07-31 22:25 | disposition home or self-care (01) ==
PROVIDERS: Emergency Provider Emergency Medicine
DX: R42 Dizziness and giddiness (principal); I48.11 Longstanding persistent atrial fibrillation; R53.1 Weakness; F41.8 Other specified anxiety disorders; R05.9 Cough, unspecified; I10 Essential (primary) hypertension; E78.00 Pure hypercholesterolemia, unspecified; J44.9 Chronic obstructive pulmonary disease, unspecified; Z95.0 Presence of cardiac pacemaker; Z59.01 Sheltered homelessness; Z87.891 Personal history of nicotine dependence; Z79.01 Long term (current) use of anticoagulants; Z79.02 Long term (current) use of antithrombotics/antiplatelets; Z79.899 Other long term (current) drug therapy
CPT/HCPCS: 36415; 71045; 80053; 83690; 83735; 84484; 85025; 85610; 93005; 96360; 99284; 99285

== ENCOUNTER → 2024-07-31 20:04 | Outpatient (BNV) | payer OTHER, SELFPAY | PROVIDERS: Emergency Provider Emergency Medicine; Visit Provider Internal Medicine Cardiovascular Disease | DX: I48.91 Unspecified atrial fibrillation (principal); I49.3 Ventricular premature depolarization | CPT/HCPCS: 93010 ==

== ENCOUNTER → 2024-07-31 20:30 | Outpatient (BNV) | payer OTHER, SELFPAY | PROVIDERS: Emergency Provider Emergency Medicine; Visit Provider Radiology Diagnostic Radiology | DX: R05.9 Cough, unspecified (principal) | CPT/HCPCS: 71045 ==

== ENCOUNTER 2024-11-10 08:20 | Emergency (ER) | payer OTHER, SELFPAY ==
--- NOTE | ~2024-11-10 | CT_ITS ---
EXAMINATION: CT HEAD WITHOUT IV CONTRAST HISTORY: Fall yesterday, room spinning dizziness today. TECHNIQUE: Unenhanced helical CT of the head was performed per standard departmental protocol. Coronal and sagittal reformats of the head were also evaluated. One or more of the following techniques was used for dose reduction: Automated exposure control, adjustment of the mA and/or kV according to patient size, use of iterative reconstruction technique. DLP: 618 mGy-cm COMPARISON: Comparison is made with the prior examination dated 05/09/2024. FINDINGS: BRAIN: There is mild prominence of the ventricular system and cortical sulci, consistent with atrophy. Periventricular and subcortical white matter hypodensities are noted which are nonspecific, but often seen in the setting of small vessel ischemic disease. There is no mass effect or midline shift. No intra- or extra-axial fluid collections are identified. SINUSES: The visualized paranasal sinuses are clear. The mastoid air cells and middle ear cavities are well pneumatized. ORBITS: The visualized orbits are unremarkable. BONES/SOFT TISSUES: The extracranial soft tissues are unremarkable. The calvarium is intact. No suspicious lytic or sclerotic lesions. CT/CT head/brain wo IV con IMPRESSION: No acute intracranial abnormality. Electronically signed by: Guy Peterson MD 11/10/2024 10:33 AM EDT
--- NOTE | 2024-11-10 08:24 | ECG_ITS ---
Test Reason : dizziness Blood Pressure : */* mmHG Vent. Rate : 82 BPM Atrial Rate : * BPM P-R Int : * ms QRS Dur : 98 ms QT Int : 400 ms P-R-T Axes : * 98 -81 degrees QTcB Int : 467 ms Atrial fibrillation Rightward axis ST & T wave abnormality, consider lateral ischemia Abnormal ECG When compared with ECG of 31-Jul-2024 20:04, Atrial fibrillation has replaced Electronic ventricular pacemaker Referred By: Generic ED Physician Electronically Signed By: Richard Cespedes
[2024-11-10 08:37] VITALS: BP 108/58; BP 142/94; PULSE 85; PULSE 89; RESP 17; TEMP 36.3; O2SAT 100; O2SAT 96; BMI 20.4
--- NOTE | 2024-11-10 09:04 | ED.DIZZY ---
HPI - Dizziness General Chief Complaint: Dizziness Stated Complaint: DIZZINESS X 2 HOURS PER EMS Time Seen by Provider: 11/10/24 09:02 Source: patient Mode of arrival: EMS Limitations: no limitations History of Present Illness ED Provider: Dr. Pascual Fontaine HPI Narrative: 69-year-old male with a history of headache, dizziness, pacemaker, nonrheumatic aortic stenosis status post aortic valve replacement, atrial fibrillation, ischemic cardiomyopathy,, high cholesterol, COPD, GERD, anxiety who presents emergency department for evaluation of dizziness and fall. Patient states that yesterday afternoon, he was sitting on the side of his bed, lost his balance and fell forward striking his face on the floor. He had no loss of consciousness. He states that this morning at around 08:00 hours he developed a sudden onset of a room spinning sensation. Patient had no other associated symptoms. He denied change in vision, headache, nausea, vomiting, chest pain, shortness of breath. Patient states that the room spinning sensation has since resolved. Patient had a an aortic valve replacement on 08/29/2024, he believes that he may have also had another valve replaced as well. He states that these valves replaced since he was feeling short of breath and had dyspnea on exertion. He states that since the valve replacement he still feels dyspnea on exertion and has been very fatigued. He denied fever, chills, shortness of breath at rest Patient states he is currently and [facility] housing and he has only provided 1 meal per day and he believes that he is malnourished and dehydrated. Related Data Home Medications ?Medication ?Instructions ?Recorded ?Confirmed atorvastatin 80 mg tablet 80 mg PO BEDTIME 09/20/23 05/01/24 hydroxyzine HCl 25 mg tablet 50 mg PO DAILY PRN Anxiety 09/20/23 05/01/24 melatonin 3 mg tablet 3 mg PO BEDTIME PRN Insomnia 09/20/23 05/01/24 albuterol sulfate 90 mcg/actuation 2 puff inhalation Q3-4H PRN 05/01/24 05/01/24 aerosol inhaler Wheezing fluticasone furoate 200 1 ea inhalation DAILY 05/01/24 05/01/24 mcg-vilanterol 25 mcg/dose inhalation powder (Breo Ellipta) Previous Rx's ?Medication ?Instructions ?Recorded rivaroxaban 20 mg tablet (Xarelto) 20 mg PO QPM #90 tabs 12/29/19 paroxetine HCl 30 mg tablet 30 mg PO DAILY #90 tabs 06/27/20 metoprolol succinate 25 mg 25 mg PO DAILY 30 days #30 tabs 08/25/23 tablet,extended release 24 hr (Toprol XL) rivaroxaban 20 mg tablet (Xarelto) 20 mg PO QPM #30 tabs 05/27/24 ferrous sulfate 325 mg (65 mg 325 mg PO DAILY #30 tabs 11/10/24 iron) tablet,delayed release meclizine 25 mg tablet (Dramamine 25 mg PO TID PRN dizziness #20 tabs 11/10/24 Less Drowsy) Allergies Allergy/AdvReac Type Severity Reaction Status Date / Time codeine (CODEINE) Allergy Mild NAUSEA Verified 11/10/24 08:41 Penicillins (PENICILLINS) Allergy Unknown ANAPHYLAXIS Verified 11/10/24 08:41 Review of Systems Review of Systems: Yes all other systems are reviewed and are negative [facility] Past Medical History Medical History Homeless Atrial fibrillation Hypercholesterolemia Esophageal dysmotility Tobacco abuse COPD (chronic obstructive pulmonary disease) GERD (gastroesophageal reflux disease) Anxiety and depression Hypertension Coronary artery disease Surgical History History of surgery History of surgery History of angioplasty Family History Family History Father Myocardial infarction Mother Medical history unknown Sister No problems noted. Brother No problems noted. Son No problems noted. Social History Social History Alcohol intake: never Patient Tobacco Use Status: Former Tobacco user Tobacco use type: Cigarette Cigarettes Per Day: 3 Substance Use Type: Marijuana Advance Directives: No Advance Directives Information Provided: Yes Do you have a plan to hurt others: No Plan Physical Exam Vital Signs: Vital Signs: Last Vital Signs Temp 97.8 F 11/10/24 11:06 Pulse 83 11/10/24 11:06 Resp 12 11/10/24 11:06 BP 137/83 11/10/24 11:06 Pulse Ox 99 11/10/24 11:06 O2 Del Method Room Air 11/10/24 11:06 BMI result Body Mass Index 20.4 Vital signs were normal Exam: General: Awake, alert in no distress Head: Normocephalic, atraumatic EENT: PERRL, sclera and conjunctiva are normal, mouth with no erythema or exudates Neck: Supple, no adenopathy Lung: breath sounds symmetric, no wheezing, no rales and no rhonchi Chest: symmetric movement, nontender Heart: regular rate and rhythm, normal S1, S2 no murmurs or rubs Abdomen: soft, non-tender, nondistended, normal bowel sounds Back: no vertebral tenderness, no CVAT Extremities: no deformities, moves all extremities symmetrically, no edema Neuro: General: ?Awake, alert, oriented, normal speech Cranial nerves: ?Cranial nerves ?intact Strength: ?Moves all extremities symmetrically, strength 5/5 Cerebellar: ?Good wlohdp-am-bhih-to-finger, good rapid finger movement, normal heel to todd Psych: Pleasant, cooperative Medications Administered Discontinued Medications Generic Name Dose Route Start Last Admin Trade Name Freq PRN Reason Stop Dose Admin Sodium Chloride 1,000 mls @ 999 mls/hr 11/10/24 09:49 11/10/24 10:30 Ns IV 11/10/24 10:49 999 mls/hr .Q1H1M STA Administration Meclizine HCl 25 mg 11/10/24 09:49 11/10/24 10:29 Meclizine Hcl 25 Mg Tablet PO 11/10/24 09:50 25 mg ONCE STA Administration Medical Decision Making Medical Decision Making MDM Narrative: 69-year-old male with a history of headache, dizziness, pacemaker, nonrheumatic aortic stenosis status post aortic valve replacement, atrial fibrillation, ischemic cardiomyopathy,, high cholesterol, COPD, GERD, anxiety who presents emergency department for evaluation of dizziness and fall. Patient states that yesterday afternoon, he was sitting on the side of his bed, lost his balance and fell forward striking his face on the floor. He had no loss of consciousness. He states that this morning at around 08:00 hours he developed a sudden onset of a room spinning sensation. Patient had no other associated symptoms. He denied change in vision, headache, nausea, vomiting, chest pain, shortness of breath. Patient states that the room spinning sensation has since resolved. Vital signs were normal. Physical examination was normal with a normal cerebellar exam. Differential diagnosis: ?Includes but is not limited to myocardial infarction, myocardial ischemia, stroke, positional vertigo, anemia, electrolyte abnormalities, dehydration Course: 11:39 My independent interpretation patient's laboratory evaluation is as follows: WBC low 4000, microcytic anemia of 9.2 and 30.8 with a MCV of 78-this is new compared to 07/31/2024 in the patient's H&H was 13 and 39.2.-patient most likely has iron deficient anemia. CMP was normal. CT scan of the brain revealed no acute abnormalities. At this time, the patient has no dizziness and I suspect that his dizziness is caused by positional vertigo and I discuss this with him. I prescribed meclizine 25 mg 3 times a day as needed for dizziness. Patient was also prescribed ferrous sulfate 325 mg pills, 1 pill daily for 3 months. He was given printed and verbal instructions and discharged home. Differential Diagnosis Differential Diagnoses: The differential diagnosis associated with the presentation includes (See above) Admission/Observation Consideration of admission/observation: Escalation of care including admission/observation considered (Yes) Lab Data MDM Lab Attestation statement: I reviewed the patient's lab results. 11/10/24 10:10 11/10/24 10:10 Labs: Lab Results 11/10/24 Range/Units 10:10 WBC 4.0 L (4.8-10.8) X10*3/uL RBC 3.95 L (4.60-5.80) X10*6/uL Hgb 9.2 L D (14.0-18.0) g/dl Hct 30.8 L D (42.0-52.0) % MCV 78.0 L (80.0-98.0) fL MCH 23.3 L (27.0-33.0) pg MCHC 29.9 L (31.0-36.0) g/dl RDW 16.0 (11.0-16.0) % Plt Count 165 (160-400) X10*3/uL MPV 9.9 (9.4-12.4) fL Immature Gran % (Auto) 0.3 (0.0-0.4) % Neut % (Auto) 60.5 (45-73) % Lymph % (Auto) 23.3 (20-40) % [place] % (Auto) 12.8 H (2-11) % Eos % (Auto) 2.3 (0-4) % Baso % (Auto) 0.8 (0-2) % Lymph # (Auto) 0.9 L (1.2-4.9) X10*3/uL [place] # (Auto) 0.5 (0.1-1.2) X10*3/uL Eos # (Auto) 0.1 (0.0-0.4) X10*3/uL Baso # (Auto) 0.0 (0.0-0.2) X10*3/uL Abs Immat Gran (auto) 0.01 (0.00-0.03) X10*3/uL Absolute Neuts (auto) 2.4 (2.0-8.3) x10*3/uL Absolute Nucleated RBC 0.000 (0.0-0.012) X10*3/uL Nucleated RBC % (auto) 0.0 (0.0-0.2) /100WBC Sodium 139 (135-145) mmol/L Potassium 4.3 (3.3-5.1) mmol/L Chloride 106 (96-108) mmol/L Carbon Dioxide 25 (22-29) mmol/L Anion Gap 12 (12-20) BUN 18 H (9-16) mg/dL Creatinine 0.67 (0.5-1.4) mg/dL Estim Creat Clear Calc 89.2 Estimated GFR > 60 Random Glucose 108 (60-115) mg/dL Calcium 9.1 (8.4-10.2) mg/dL Total Bilirubin 1.4 H (0.0-1.0) mg/dL AST 31 (5-37) U/L ALT 14 (0-40) U/L Alkaline Phosphatase 138 H (39-117) U/L Troponin I High Sens 3.0 (<3.5-35.0) ng/L Total Protein 7.6 (6.5-8.0) g/dL Albumin 4.0 (3.5-5.0) g/dL Lipase 5 L (8-78) U/L Independent Interpretation I performed an independent interpretation of an: EKG Interpretation: My independent interpretation patient's 12 EKG is as follows: Atrial fibrillation with a rate of 82, normal QRS duration and QTC interval, less than [address] segment depression V5 and V6, inverted T-waves in 2, AVF, no PACs, no PVCs. Compared to an EKG dated 07/31/2024 at 20:04 hours, inverted T-waves in [address] F [address] old ST segment depression in his old, patient did have paced rhythms on the previous EKG. Radiology Impression Discussion of test interpretation with radiology: I have reviewed the radiologist's reading. Radiologist Impression: CT head/brain wo IV con IMPRESSION: No acute intracranial abnormality. Electronically signed by: Guy Peterson MD 11/10/2024 10:33 AM EDT Prescription Management I considered prescription management with: Other (Anti vertigo: Meclizine and ferrous sulfate) Chronic Conditions Patient?s care impacted by: Other (Atrial fibrillation, cardiomyopathy, COPD, hypertension) Discharge Plan Discharge Clinical Impression: Vertigo, Iron deficiency anemia Patient Disposition: Home, Self-Care Instructions: Iron Rich Diet (ED), Vertigo (ED), Anemia (ED) Additional Instructions: The CT scan of your head was normal with no evidence of a stroke, bleeding in the brain or skull fracture. Take meclizine 25 mg pills, 1 pill 3 times a day for the next 3 days for dizziness then as needed for dizziness. ?This medication will make you sleepy. ?Do not drive or work while taking this medication. Your blood work did reveal iron deficient anemia. Take ferrous sulfate 325 mg pills, 1 pill daily for 3 months. Follow-up with your doctor in 2 days. Please return to the emergency department if your symptoms get worse or if you develop any symptoms that are concerning to you. Prescriptions: New meclizine [Dramamine Less Drowsy] 25 mg tablet 25 mg PO TID PRN (Reason: dizziness) Qty: 20 0RF ferrous sulfate 325 mg (65 mg iron) tablet,delayed release (DR/EC) 325 mg PO DAILY Qty: 30 3RF No Action Xarelto 20 mg tablet 20 mg PO QPM Qty: 90 3RF Rx Instructions: must administer with evening meal paroxetine HCl 30 mg tablet 30 mg PO DAILY Qty: 90 0RF metoprolol succinate [Toprol XL] 25 mg tablet extended release 24 hr 25 mg PO DAILY 30 Days Qty: 30 0RF Rx Instructions: must make cardiology appt for refills albuterol sulfate 90 mcg/actuation HFA aerosol inhaler 2 puff inhalation Q3-4H PRN (Reason: Wheezing) fluticasone furoate-vilanterol [Breo Ellipta] 200-25 mcg/dose blister with device 1 ea inhalation DAILY atorvastatin 80 mg tablet 80 mg PO BEDTIME hydroxyzine HCl 25 mg tablet 50 mg PO DAILY PRN (Reason: Anxiety) melatonin 3 mg tablet 3 mg PO BEDTIME MDD 3mg PRN (Reason: Insomnia) Xarelto 20 mg tablet 20 mg PO QPM Qty: 30 0RF Rx Instructions: must administer with evening meal Print Language: Swedish
--- OUTSIDE RECORDS SUMMARY | 2024-11-10 09:42 | XMS_ITS | Encounter Summary ---
Author Organization [employer] Address [address] [place] [address] Care Team Providers Care Mental Health Coordinator Name Role Phone Yumi Alarcon MD Primary Care Provider [phone] Encounter Details Date Type Department Care Team (Late st Contact Info) Description 02/11/2023 Abstract [facility] [address], [place] [phone] Yumi Alarcon MD [address] [place], [place] [phone] Social History Tobacco Use Types Packs/Day Years [...] as of this encounter Plan of Treatment Not on file documented as of this encounter Visit Diagnoses Not on filedocumented in this encounter Care Teams Mental Health Coordinator Relationship Specialty Start Date End Date Yumi Alarcon MD [address] [place] [id number] PCP - General Family Medicine 08/09/20 Lucy Luis Carlos 09/28/24 documented as of this encounter
--- OUTSIDE RECORDS SUMMARY | 2024-11-10 09:42 | XMS_ITS | Patient Health Record ---
Author Organization [facility] Address [address] [place] [address] Care Team Providers Care Pneumatic Hoist Operator Name Role Phone Po Gayatri LOCK Primary Care Provider Guy Montano [phone] Allergies Allergen (clinical drug ingredient) Drug/Non Drug Allergy documented on EMR Reaction Allergy Type Onset Date Status Penicillin Unknown Drug Allergy Active codeine Codeine Sulfate Unknown Drug Allergy A ctive Reason For Referral No Information Medications Medication SIG (Take, Route, Frequency, Duration) Notes Start Date End Date Status Aspirin EC 81 MG 1 tablet Orally Once a day Active Spiriva HandiHaler 18 MCG 1 capsule Inha lation Once a day Active Lipitor 80 MG 1 tablet Orally Once a day Active Lisinopril 2.5 MG 1 tablet Orally Once a day Active Prilosec 20 MG 1 capsule Orally Onc e a day Active Paxil 30 MG 1 tablet in the morn ing Orally Once a day Active Colyte w Flavor Packs 240 GM as directed Orally as directed for 1 day(s) 06/15/2014 Active Immunizations Vaccine Route Administration Date Status Comme nts Flu vaccine no Preserv 3 and > Unknown 10/05/2013 Admin istered Problems Problem Type SNOMED Code ICD Code Onset Dates Problem Status W/U Status Risk Notes Problem Colon cancer screening (724787787) Colon cancer screening (V76.51) Active confirmed Problem Gastroesophageal reflux disease (548487160) GERD (gastroesopha geal reflux disease) (530.81) Active confirmed Plan Of Treatment Future Test Test Name Order Date UPPER GI ENDOSCOPY 06/13/2014 COLONOSCOPY 06/13/2014 Insurance Providers Payer Name Payer Address Payer Phone Subscriber Number Group Number Insured Name Patient Relationship to Insured Coverage Start Date Coverage End Date MEDICARE OF [place] [address] [place] [address] [phone] [id number] INDRA SANCHES Self - patient is the insured MEDICAID OF [facility] [address] [place] [id number] [phone] [id number] INDRA SANCHES Self - patient is the insured Medical (General) History Medical History History ICD Code ? Asthma SD at age 41--age 49 had angioplasty and stent placement Pacemaker Hyperlipidemia GERD--UGI in 2006 with GERD-no hiatal he rnia Denies DM,CVA,renal disease Anxiety Surgical History Surgery Date(Month/Year) Pacemaker 2 Back surgeries
--- OUTSIDE RECORDS SUMMARY | 2024-11-10 09:42 | XMS_ITS | Encounter Summary ---
Author Organization [employer] Address [address] [facility] [place] [address] Care Team Providers Care Vice President Consulting Services Name Role Phone Yumi Alarcon MD Primary Care Provider Encounter Details Date Type Department Care Team (Late st Contact Info) Description 06/30/2023 Telephone [facility] [address] [place], [place] [phone] Yumi Alarcon MD 230 [place], [place] [phone] Social History Tobacco Use Types Packs/Day Years [...] documented as of this encounter Care Teams Vice President Consulting Services Relationship Specialty Start Date End Date Yumi Alarcon MD [address] [place] [address] PCP - General Family Medicine 08/09/20 Lucy GRAYSON 09/28/24 documented as of this encounter
--- OUTSIDE RECORDS SUMMARY | 2024-11-10 09:42 | XMS_ITS | Clinical Summary ---
Author Organization [facility] Address [address] [facility] [address] [place], [place] [phone] Phone Care Team Providers Care Lace Mender Name Role Phone Yumi Alarcon MD Primary Care Provider + Social History Tobacco Use Types Packs/Day Years Used Date Smoking Tobacco: Never Assessed Education Answer Date Recorded Are you interested in more education? Not on pamella e 09/22/2023 Are you concerned about learning? Not on file 09/22/2023 No 09/22/2023 No 09/22/2023 Digital Access Answer Date Recorded No 09/22/2023 No 09/22/2023 Reliable internet access at home? Not on file 09/22/2023 Device with a working camera? Not on file Sex and Gender Information Value Date Recorded Sex Assigned at Not on file Legal Sex Male 9:51 PM EDT Gender Identity Not on file Sexual Orientation Not on file Plan of Treatment Not on file Medical Devices Not on file Insurance [place] [id number] [facility] MEDICARE REPLACEMENT [place] [id number] MEDICARE PART A & B [facility] [place] [id number] MEDICARE PART A & B MEDICARE PART A & B MEDICARE PART A & B MEDICARE REPLACEMENT [place] [id number] MEDICARE PART A & B MEDICARE PART A & B [employer] MEDICARE REPLACEMENT MEDICARE PART A & B [facility] MEDICARE REPLACEMENT [place] [id number] MEDICARE PART A & B [facility] SNP MEDICARE REPLACEMENT [place] [id number] Care Teams Lace Mender Relationship Specialty Start Date End Date Yumi Alarcon MD 230 [place] [address] PCP - General 07/06/24 Additional Source Comments The information contained in this document represents components of the legal health record. It is not the complete legal health record.[facility]
--- OUTSIDE RECORDS SUMMARY | 2024-11-10 09:42 | XMS_ITS | Encounter Summary ---
Author Organization [employer] Address [address] [place] [address] Care Team Providers Care Business Objects Name Role Phone Yumi Alarcon MD Primary Care Provider [phone] Encounter Details Date Type Department Care Team (Late st Contact Info) Description 06/30/2024 Orders Only [facility] 230 [place], [place] [phone] Yumi Alarcon MD [address] [place], [place] [phone] Social History Tobacco Use Types Packs/Day Years [...] documented as of this encounter Care Teams Business Objects Relationship Specialty Start Date End Date Yumi Alarcon MD 230 [place] [address] PCP - General Family Medicine 08/09/20 Lucy GRAYSON 09/28/24 documented as of this encounter
--- OUTSIDE RECORDS SUMMARY | 2024-11-10 09:42 | XMS_ITS | Encounter Summary ---
Author Organization [employer] Address [address] [facility] 7t [place] [address] Care Team Providers Care Fountain Server Name Role Phone Yumi Alarcon MD Primary Care Provider [phone] Encounter Details Date Type Department Care Team (Late st Contact Info) Description 03/20/2022 Orders Only [facility] 230 [place], [place] [phone] Vanna Mtz LPN Social History Tobacco Use [...] on filedocumented in this encounter Care Teams Fountain Server Relationship Specialty Start Date End Date Yumi Alarcon MD 230 [place], [place] [phone] PCP - General Family Medicine [facility] documented as of this encounter
--- OUTSIDE RECORDS SUMMARY | 2024-11-10 09:42 | XMS_ITS | Encounter Summary ---
Author Organization [employer] Address [address] [place] [address] Care Team Providers Care Foil Operator Name Role Phone Yumi Alarcon MD Primary Care Provider [phone] Encounter Details Date Type Department Care Team (Late st Contact Info) Description 08/01/2024 Orders Only [facility] 230 [place], [place] [phone] Yumi Alarcon MD 230 [place], [place] [phone] Social History Tobacco Use Types Packs/Day Years [...] documented as of this encounter Care Teams Foil Operator Relationship Specialty Start Date End Date Yumi Alarcon MD 230 [place] [address] PCP - General Family Medicine 08/09/20 Lucy GRAYSON 09/28/24 documented as of this encounter
--- OUTSIDE RECORDS SUMMARY | 2024-11-10 09:42 | XMS_ITS | Encounter Summary ---
Author Organization [employer] Address [address] [facility] [address] [place] [address] Care Team Providers Care Balance Sheet Analyst Name Role Phone Yumi Alarcon MD Primary Care Provider [phone] Encounter Details Date Type Department Care Team (Late st Contact Info) Description 02/17/2023 Abstract [facility] 230 [place], [place] [phone] Yumi Alarcon MD 230 [place], [place] [phone] Social History Tobacco Use Types Packs/Day Years [...] on filedocumented in this encounter Care Teams Balance Sheet Analyst Relationship Specialty Start Date End Date Yumi Alarcon MD [address] [place] [address] PCP - General Family Medicine 08/09/20 Lucy Luis Carlos 09/28/24 documented as of this encounter
--- OUTSIDE RECORDS SUMMARY | 2024-11-10 09:42 | XMS_ITS | Clinical Summary ---
Author Organization [employer] Address [address] [facility] 7t [place] [address] Care Team Providers Care Tape Cutter Name Role Phone Yumi Alarcon MD Primary Care Provider [phone] Allergies Active Allergy Reactions Criticality Noted Date Comments Codeine 09/14/2022 Penicillins 09/14/2022 Medications * This document contains information received from the source organization and may not represent a complete record from that organization. acetaminophen (Tylenol) 325 MG tablet Take 650 mg by mouth. 2 Active fluticasone (Flonase) 50 MCG/ACT nasal spray Administer 2 sprays into each nostril in the morning. 16 g 1 4 Active Skin Protectants, Misc. (eucerin) creamIndications:C ellulitis of multiple sites of hand and fingers,Intrinsic eczema Apply topically if needed for wound care. 99 g 11 4 025 Active albuterol 108 (90 Base) MCG/ACT inhaler Inhale 2 puffs every 6 (six) hours if needed for wheezing. 18 g 11 4 Active acetaminophen (Tylenol 8 Hour) 650 MG ER tablet 5 Active rivaroxaban (Xarelto) 20 MG tabletIndications: Chronic atrial fibrillation (CMS/HCC) TAKE 1 TABLET BY MOUTH EVERY DAY WITH DINNER 90 tablet 3 5 Active PARoxetine (Paxil) 30 MG tabletIndications: Depression, unspecified depression type TAKE 1 TABLET BY MOUTH EVERY DAY 90 tablet 3 5 Active meclizine (Antivert) 25 MG tablet Take 1 tablet (25 mg) by mouth if needed in the morning and at bedtime for dizziness. 30 tablet 2 5 Active Emollient (EQL Moisturizing) cream Apply 1 Application. topically if needed (itching). 453 g 3 5 Active triamcinolone (Kenalog) 0.1 % ointment APPLY A THIN LAYER TO FINGERS TWICE DAILY. DO NOT USE FOR MORE THAN 14 DAYS IN A ROW 30 g 1 5 Active atorvastatin (Lipitor) 80 MG tabletIndications: Hyperlipidemia, unspecified hyperlipidemia type TAKE 1 TABLET BY MOUTH EVERY EVENING 90 tablet 3 5 Active Fluticasone Furoate-Vilanterol (Breo Ellipta) 200-25 MCG/ACT aerosol powder Inhale 1 puff 1 (one) time for 1 dose. 1 each 11 5 Active metoprolol succinate XL (Toprol-XL) 25 MG 24 hr tablet TAKE 1 TABLET BY MOUTH EVERY DAY 90 tablet 3 5 Active doxycycline (Adoxa) 100 MG tablet Take 1 tablet by mouth 2 times daily. 5 Active V-R HYDROCORTISONE 1 % cream APPLY TO THE AFFECTED AREA(S) TWICE DAILY FOR 7 DAYS 5 Active PARoxetine (Paxil) 40 MG tablet Take 1 tablet (40 mg) by mouth in the morning. 90 tablet 3 5 Active melatonin 3 MG tablet TAKE 1 TABLET BY MOUTH AT BEDTIME 90 tablet 3 5 Active Active Problems Problem Noted Date Diagnosed Date Moderately severe major depression 04/17/2024 Assessment & Plan (04/17/2024 10:09 AM EST): Is enjoying group model of recovery support, will engage in chronic pain groups as well for neck pain Arteriosclerosis of coronary artery 01/15/2023 01/15/2023 Hyperlipidemia 01/15/2023 01/15/2023 Sick sinus syndrome 01/15/2023 01/15/2023 Underweight 01/15/2023 01/15/2023 Protein-calorie malnutrition, unspecified severi ty 10/14/2022 Assessment & Plan (04/17/2024 10:08 AM EST): Eat whole foods as much as possible, multiple small meals a day Assessment & Plan (10/14/2022 1:59 PM EDT): [...] Health Integration Plan Internal Follow up with [facility] Patient Self Plan Patient to utilize skills provided in intervention , Patient to reach out to [facility] team as needed, and Patient to reach [...] situation. He is currently living in a correction in [place] and reports he is not able to stay in during the day. He is looking to find somewhere he could also spend the mornings in, especially during the winter days. Pt reports the correction is charging $65 weekly for a spot. He has done other applications with Contractually and is currently looking for section 8 apartments. Anxiety is highly associated with current housing situation. clinician engaged patient with active/reflective listening. Reviewed and assessed for risk, current stressors and protective factors using open ended questions. Sent request to CM to assist with housing situation. Provided patient with information from [facility] and [facility] [employer] to seek out for additional support with correction placements. Assessment & Plan (06/09/2023 3:38 PM [...] Health Integration Plan Internal Follow up with [facility] Patient Self Plan Patient to utilize skills provided in intervention , Patient to reach out to [facility] team as needed, and Patient to reach out to [facility] as needed. Pt agreed to reach out to clinician during next medical appointment. CM connected with patient to assist with housing and food insecurity during today's session. Back pain 10/08/2022 Bronchitis 10/08/2022 Severe aortic valve stenosis 01/01/2022 Assessment & Plan (04/17/2024 10:06 AM EST): Saw cardiology 03/23/24 and having repeat Echo to assess and prepare for TAVR He is having supports put in place to assist with stability for potential TAVR Assessment & Plan (01/22/2024 12:33 PM EST): Needs to see [facility] cardiology, repeat Echo to monitor progression of , and potentially prepare for TAVR Assessment & Plan (10/14/2022 1:59 PM EDT): Managed per cardiology, aware of and planning to go to appointment 10/26/22 for repeat Echo Cardiac pacemaker in situ 08/13/2020 Assessment & Plan (04/17/2024 10:07 AM EST): Continue device checks Hypertensive disorder 08/13/2020 Assessment & Plan (04/17/2024 10:08 AM EST): At goal <140/90 Lumbar post-laminectomy syndrome 08/13/2020 Myocardial infarction 08/13/2020 Resolved Problems Problem Noted Date Diagnosed Date Resolved Date Lives in homeless correction 12/13/2023 Assessment & Plan (12/13/2023 4:14 PM [...] situation. He is currently living in a correction in [place] and reports he is not able to stay in during the day. He is looking to find somewhere he could also spend the mornings in, especially during the winter days. Pt reports the correction is charging $65 weekly for a spot. He has done other applications with [employer] and is currently looking for section 8 apartments. Anxiety is highly associated with current housing situation. clinician engaged patient with active/reflective listening. Reviewed and assessed for risk, current stressors and protective factors using open ended questions. Sent request to CM to assist with housing situation. Provided patient with information from [facility] and [facility] to seek out for additional support with correction placements. Assessment & Plan (06/09/2023 3:39 PM [...] Health Integration Plan Internal Follow up with [facility] Patient Self Plan Patient to utilize skills provided in intervention , Patient to reach out to [facility] team as needed, and Patient to reach out to [facility] as needed. Pt agreed to reach out to clinician during next medical appointment. CM connected with patient to assist with housing and food insecurity during today's session. Depressive disorder 08/13/2020 04/18/19 25 Encounters Date Type Department Care Team Description 10/04/2024 Telephone [facility] [address] [place] [address] Yumi Alarcon MD Medication Question 10/04/2024 Refill [facility] [address] [place] [address] Yumi Alarcon MD 09/22/2024 Telephone [facility] [address] [place], [place] [phone] Yumi Alarcon MD Record Request from Last 3 Months Immunizations Immunization Administration Dates Next Due Influenza injectable quadriv alent IIV4 with preservative 11/15/2017 Influenza injectable quadriv alent preservative free 12/31/2021,03/01/2017 Influenza, IIV3, injectable 12/31/2021,1 ,03/01/2017,10/24,12/20/2007 Pfizer Covid-19 Vaccine 12+ Bivalent 12/31/2021 Pneumococcal Polysaccharide PPSV23 02/25/2011, TD (adult), 2 [...] Sign Reading Time Taken Comments Blood Pressure 124/84 04/14/2024 1:35 PM EST Pulse 78 04/14/2024 1:35 PM EST Temperature 36.5 C (97.7 F) 04/14/2024 1:35 PM EST Respiratory Rate 18 04/14/2024 1:35 PM EST Oxygen Saturation 98% 04/14/2024 1:35 PM EST Inhaled Oxygen Concentration - - Weight 60.7 kg (133 lb 12.8 oz) 04/14/2024 1:35 PM EST Height 171.5 cm (5' 7.5 ) 04/14/2024 1:35 PM EST Body Mass Index 20.65 04/14/2024 1:35 PM EST Plan of Treatment Health Maintenance Due Date Last Done Comments [...] Additional history exists SDOH Screening 10/13/2023 10/12/2022 Depression Monitoring 07/31/2024 01/31/2024, 024 COVID-19 Vaccine ( - season) 2024 12/31/2021, 12/31/2021, 03/06/2021, Additional history exists Influenza Vaccine (#1) 2024 , 12/31/2021, 11/15/2017, Additional history exists Tobacco Screening 04/17/2025 04/17/2024 HIB Vaccines Aged Out No longer eligi [...] patient's age to complete this topic Meningococcal B Vaccine Aged Out No l onger eligible based on patient's age to complete this topic Meningococcal Vaccine Aged Out No andrei emmanuel eligible based on patient's age to complete this topic RSV under 20 months Aged Out No longe r eligible based on patient's age to complete this topic Rotavirus Vaccines Aged Out No longer eligible based on patient's age to complete this topic Insurance [facility] Member Subscriber Plan / Payer (Ef fective 2023-Present) Name:Taj Granger Relation to Subscriber:Self Name:Taj Granger Payer ID:Not on file Group ID:Not on file Type:Medicaid Address: [facility] [id number] [place] [id number] [place] [address] Care Teams Tape Cutter Relationship Specialty Start Date End Date Yumi Alarcon MD [address] [place] [address] PCP - General Family Medicine 08/09/20 Lucy A 09/28/24
--- OUTSIDE RECORDS SUMMARY | 2024-11-10 09:42 | XMS_ITS | Encounter Summary ---
Author Organization [employer] Address [address] [place] [address] Care Team Providers Care Reaming Machine Operator Name Role Phone Yumi Alarcon MD Primary Care Provider [phone] Encounter Details Date Type Department Care Team (Late st Contact Info) Description 08/23/2023 Telephone [facility] [address] [place], [place] [phone] Yumi Alarcon MD [address] [place], [place] [phone] Social History Tobacco Use Types Packs/Day Years [...] get into a home instead of a long-term . Igot in contact with care management and was advised pt will be getting a call back . documented in this encounter Plan of Treatment Not on file documented as of this encounter Visit Diagnoses Not on filedocumented in this encounter Additional Health Concerns Assessment Noted Time PHQ-9 Depression Total Score: 10 024 2:46 PM EDT documented as of this encounter Care Teams Reaming Machine Operator Relationship Specialty Start Date End Date Yumi Alarcon MD [address] [place] [address] PCP - General Family Medicine 08/09/20 Lucy GRAYSON 09/28/24 documented as of this encounter
--- OUTSIDE RECORDS SUMMARY | 2024-11-10 09:42 | XMS_ITS | Encounter Summary ---
Author Organization [employer] Address [address] [place] [address] Care Team Providers Care Aerodynamicist Name Role Phone Yumi Alarcon MD Primary Care Provider [phone] Reason for Visit * Reason Comments Med Change Request Encounter Details Date Type Department Care Team (Late st Contact Info) Description 12/20/2023 Refill [facility] [address] [place], [place] [phone] Yumi Alarcon MD [address] [place], [place] [phone] Cellulitis of multiple sites of hand and [...] documented as of this encounter Care Teams Aerodynamicist Relationship Specialty Start Date End Date Yumi Alarcon MD [address] [place] [address] PCP - General Family Medicine 08/09/20 Lucy GRAYSON 09/28/24 documented as of this encounter
--- OUTSIDE RECORDS SUMMARY | 2024-11-10 09:42 | XMS_ITS | Encounter Summary ---
Author Organization [employer] Address [address] [facility] 7t [place] [address] Care Team Providers Care Golf Ball Marker Name Role Phone Yumi Alarcon MD Primary Care Provider [phone] Reason for Referral * Consultation (Routine) - Closed Specialty Diagnoses / Procedures Referred By Contac t Referred To Contact Diagnoses Moderately severe major depression (CMS/HCC) Food insecurity Homeless single person Yumi Alarcon MD [address] [place] [address] Phone: tel: fax: [address] [address] Phone: tel: fax: Referral ID Status Reason Start Date Expiration Date V isits Requested Visits Authorized [id number] Closed Specialty Services Required 05/08/2024 05/08/2025 1 1 Encounter Details Date Type Department Care Team (Late st Contact Info) Description 05/08/2024 Orders Only [facility] MEDICINE [address] [place] [phone] Yumi Alarcon MD [address] [place] [phone] Moderately severe major depression (CMS/HCC) (Primary Dx); Food insecurity; Homeless single person Social History Tobacco Use Types Packs/Day Years [...] as of this encounter Plan of Treatment Scheduled Referrals Name Type Priority Associated Diagnoses Order Schedule Referral to Care Management Outpatient Referral Routine Moderately severe major depression (CMS/HCC) Food insecurity Homeless single person Expected: 05/08/2024 (Approximate), Expires: 05/08/2025 documented as of this encounter Visit Diagnoses Diagnosis Moderately severe major depression (CMS/HCC)- Primary Food insecurity Homeless single person documented in this encounter Additional Health Concerns Assessment Noted Time PHQ-9 Depression Total Score: 15 024 3:08 PM EST documented as of this encounter Care Teams Golf Ball Marker Relationship Specialty Start Date End Date Yumi Alarcon MD [address] [place] [address] PCP - General Family Medicine 08/09/20 Lucy GRAYSON 09/28/24 documented as of this encounter
--- OUTSIDE RECORDS SUMMARY | 2024-11-10 09:42 | XMS_ITS | Encounter Summary ---
Author Organization [employer] Address [address] [facility] [place] [address] Care Team Providers Care Warehouse Stock Clerk Name Role Phone Yumi Alarcon MD Primary Care Provider Encounter Details Date Type Department Care Team (Late st Contact Info) Description 08/20/2022 Orders Only [facility] [address] [place] [address] Trinh Spencer LPN Social History Tobacco Use [...] on filedocumented in this encounter Care Teams Warehouse Stock Clerk Relationship Specialty Start Date End Date Yumi Alarcon MD [address] [place] [address] PCP - General Family Medicine [facility] documented as of this encounter
[2024-11-10 10:25] LABS: MANUAL DIFF FLAG NO
[2024-11-10 10:29] LABS: Hematocrit 30.8 % (42.0-52.0); Hemoglobin 9.2 g/dl (14.0-18.0); Imm Gran Abs Auto 0.01 X10*3/uL (0.00-0.03); Imm Gran Pct Auto 0.3 % (0.0-0.4); Lymphocytes Absolute Auto 0.9 X10*3/uL (1.2-4.9); Mean Corpuscular HGB Conc 29.9 g/dl (31.0-36.0); Mean Corpuscular Hemoglobin 23.3 pg (27.0-33.0); Mean Corpuscular Volume 78.0 fL (80.0-98.0); NRBC Abs Auto 0.000 X10*3/uL (0.0-0.012); NRBC Pct Auto 0.0 /100WBC (0.0-0.2); Platelet Count 165 X10*3/uL (160-400); Red Blood Count 3.95 X10*6/uL (4.60-5.80); White Blood Count 4.0 X10*3/uL (4.8-10.8)
[2024-11-10 10:47] LABS: Alanine Aminotransferase 14 U/L (0-40); Albumin Level 4.0 g/dL (3.5-5.0); Alkaline Phosphatase 138 U/L (39-117); Anion Gap 12 (12-20); Aspartate Amino Transferase 31 U/L (5-37); Blood Urea Nitrogen 18 mg/dL (9-16); Calcium 9.1 mg/dL (8.4-10.2); Carbon Dioxide 25 mmol/L (22-29); Chloride 106 mmol/L (96-108); Creatinine Clr Calc Pharmacy 89.2; Estimated Glomerular Filt Rate > 60; Lipase 5 U/L (8-78); Potassium 4.3 mmol/L (3.3-5.1); Sodium 139 mmol/L (135-145); Total Protein 7.6 g/dL (6.5-8.0)
[2024-11-10 10:49] LABS: Troponin-I High Sensitivity 3.0 ng/L (<3.5-35.0)
[2024-11-10 11:06] VITALS: BP 137/83; PULSE 83; RESP 12; TEMP 36.6; O2SAT 99
[2024-11-10 11:43] VITALS: BP 121/91; PULSE 93; RESP 11
[2024-11-10 13:17] VITALS: BP 121/91; PULSE 93; RESP 11; TEMP 36.3; O2SAT 96
== END 2024-11-10 13:18 | disposition home or self-care (01) ==
PROVIDERS: Emergency Provider Emergency Medicine Emergency Medical Services; PCP General Practice
DX: R42 Dizziness and giddiness (principal); D50.9 Iron deficiency anemia, unspecified; Z95.0 Presence of cardiac pacemaker; I48.91 Unspecified atrial fibrillation; J44.9 Chronic obstructive pulmonary disease, unspecified; Z95.2 Presence of prosthetic heart valve
CPT/HCPCS: 36415; 70450; 80053; 83690; 84484; 85025; 93005; 96360; 99284; 99285

== ENCOUNTER → 2024-11-10 08:24 | Outpatient (BNV) | payer OTHER, SELFPAY | PROVIDERS: Emergency Provider Emergency Medicine Emergency Medical Services; PCP General Practice; Visit Provider Internal Medicine Cardiovascular Disease | DX: I48.91 Unspecified atrial fibrillation (principal) | CPT/HCPCS: 93010 ==

== ENCOUNTER → 2024-11-10 09:50 | Outpatient (BNV) | payer OTHER, SELFPAY | PROVIDERS: Emergency Provider Emergency Medicine Emergency Medical Services; PCP General Practice; Visit Provider Radiology Diagnostic Radiology | DX: R42 Dizziness and giddiness (principal); W19.XXXA Unspecified fall, initial encounter | CPT/HCPCS: 70450 ==

== ENCOUNTER 2025-01-09 12:57 | Emergency (ER) | payer OTHER, SELFPAY ==
--- NOTE | ~2025-01-09 | XR_ITS ---
EXAMINATION: XR CHEST CLINICAL INFORMATION: weakness COMPARISON: Previous chest x-rays most recent July [address] April 2024 TECHNIQUE: 2 views of the chest were obtained. FINDINGS: The lungs are clear. No consolidation or pulmonary edema. Pulmonary nodule in the chest appreciated. No pleural effusion or pneumothorax. Left subclavian dual-chamber pacemaker with leads projecting over the right atrium and right ventricle. Aortic valve replacement new in the interval from July 2024. Cardiac and mediastinal contours otherwise stable. Pericardial calcification similar to previous exam. Degenerative changes of the spine. Median sternotomy wires.. XR/XR chest 2V IMPRESSION: New postsurgical changes from aortic valve replacement. No evidence for acute disease in the chest. Electronically signed by: Yuko Acosta MD 01/09/2025 02:29 PM JANNETTE
[2025-01-09 13:09] VITALS: BP 136/88; PULSE 89; O2SAT 98
[2025-01-09 13:17] VITALS: BP 112/86; PULSE 70; RESP 17; TEMP 36.4; O2SAT 95; BMI 20.4
--- NOTE | 2025-01-09 13:18 | ECG_ITS ---
Test Reason : SYNCOPE Blood Pressure : */* mmHG Vent. Rate : 74 BPM Atrial Rate : * BPM P-R Int : * ms QRS Dur : 98 ms QT Int : 416 ms P-R-T Axes : * 101 -24 degrees QTcB Int : 461 ms Atrial fibrillation Rightward axis Nonspecific ST and T wave abnormality Prolonged QT Abnormal ECG When compared with ECG of 10-Nov-2024 08:46, T wave inversion no longer evident in Lateral leads Referred By: Gregg Mayorga Electronically Signed By: Richard Cespedes
--- NOTE | 2025-01-09 13:28 | ED.GENADULT ---
HPI - General Adult General Chief complaint: Dizziness Stated complaint: Dizziness Time Seen by Provider: 01/09/25 13:08 History of Present Illness ED Provider: Tierra CORONADO narrative: The patient is a 69-year-old male with a history of coronary disease and valvular heart disease. He has a history of atrial fibrillation and is on rivaroxaban. He also has a history of sick sinus syndrome and has a [employer]tronic pacemaker. He also has a history of COPD, aortic stenosis, hypertension, depression, and a lot of social challenges including homelessness. Four months ago on 08/30/2024 he had coronary artery bypass graft surgery x1 vessel (CABG x 1, YBARRA-LAD) and aortic valve replacement (a 27 mm Inspiris bioprosthetic valve) and ascending aortic replacement (30 mm Gelweave graft) with the cardiac surgeon Dr. Nolan. The patient says that since his surgery he has had problems with dizziness that he calls vertigo. He says that he was prescribed medication for this once. He says he no longer has a medication. The patient is currently living at a [facility] which is a group home run by the [employer]. Apparently staff at the facility called 911 for the patient because he has been complaining of dizziness as well as other somatic complaints including insomnia, general malaise, and generally being anxious and unhappy. He has had no fever, sweats, chills. Related Data Home Medications ?Medication ?Instructions ?Recorded ?Confirmed atorvastatin 80 mg tablet 80 mg PO BEDTIME 09/20/23 05/01/24 hydroxyzine HCl 25 mg tablet 50 mg PO DAILY PRN Anxiety 09/20/23 05/01/24 melatonin 3 mg tablet 3 mg PO BEDTIME PRN Insomnia 09/20/23 05/01/24 albuterol sulfate 90 mcg/actuation 2 puff inhalation Q3-4H PRN 05/01/24 05/01/24 aerosol inhaler Wheezing fluticasone furoate 200 1 ea inhalation DAILY 05/01/24 05/01/24 mcg-vilanterol 25 mcg/dose inhalation powder (Breo Ellipta) Previous Rx's ?Medication ?Instructions ?Recorded rivaroxaban 20 mg tablet (Xarelto) 20 mg PO QPM #90 tabs 12/29/19 paroxetine HCl 30 mg tablet 30 mg PO DAILY #90 tabs 06/27/20 metoprolol succinate 25 mg 25 mg PO DAILY 30 days #30 tabs 08/25/23 tablet,extended release 24 hr (Toprol XL) rivaroxaban 20 mg tablet (Xarelto) 20 mg PO QPM #30 tabs 05/27/24 ferrous sulfate 325 mg (65 mg 325 mg PO DAILY #30 tabs 11/10/24 iron) tablet,delayed release meclizine 25 mg tablet (Dramamine 25 mg PO TID PRN dizziness #20 tabs 11/10/24 Less Drowsy) Allergies Allergy/AdvReac Type Severity Reaction Status Date / Time codeine (CODEINE) Allergy Mild NAUSEA Verified 01/09/25 13:22 Penicillins (PENICILLINS) Allergy Unknown ANAPHYLAXIS Verified 01/09/25 13:22 Review of Systems Review of Systems: Yes all other systems are reviewed and are negative [facility] Past Medical History Medical History Homeless Atrial fibrillation Hypercholesterolemia Esophageal dysmotility Tobacco abuse COPD (chronic obstructive pulmonary disease) GERD (gastroesophageal reflux disease) Anxiety and depression Hypertension Coronary artery disease Surgical History History of surgery History of surgery History of angioplasty Family History Family History Father Myocardial infarction Mother Medical history unknown Sister No problems noted. Brother No problems noted. Son No problems noted. Social History Social History Alcohol intake: never Patient Tobacco Use Status: Former Tobacco user Tobacco use type: Cigarette Cigarettes Per Day: 3 Substance Use Type: Marijuana Advance Directives: No Advance Directives Information Provided: No Physical Exam ED Vital Signs: Vital Signs - 24 hr 01/09/25 13:17 01/09/25 16:13 Temperature 97.6 F 97.6 F Pulse Rate 70 70 Respiratory Rate 17 17 Blood Pressure 112/86 112/86 Pulse Oximetry 95 95 Oxygen Delivery Method Room Air Room Air BMI result Body Mass Index 20.4 Const Other: The patient has a slight 69-year-old man who was awake and alert. He does not seem acutely ill. He was talking a great deal. No signs of respiratory distress or obvious discomfort. HENMT Other: The face is symmetrical. ?Mucous membranes moist. Eyes Other: Pupils are round equal, conjunctivae are clear, extraocular movements intact. No obvious nystagmus seen. Neck Neck: Yes normal visual inspection, Yes full ROM, Yes no lymphadenopathy and Yes no JVD Resp Effort & Inspection: normal respiratory effort Auscultation: clear to auscultation bilaterally Cardio Rate: regular rate Rhythm: regular rhythm Heart sounds: S1 normal heart sound present and S2 normal heart sound present GI Other: Abdomen is soft and nontender Skin Other: Skin is dry and unremarkable Neuro Other: The patient is awake, alert, oriented and with a normal mental status. He is very talkative. Pupils are round equal, extraocular movements are intact, no nystagmus is apparent, face is symmetrical, speech is clear, he has symmetrical strength and sensation in his extremities. He walks unassisted with a steady gait. Extrem Other: No peripheral edema. No calf swelling or tenderness or asymmetry. He has excellent pulses in all extremities. Medications Administered Discontinued Medications Generic Name Dose Route Start Last Admin Trade Name Jaleelq PRN Reason Stop Dose Admin Meclizine HCl 12.5 mg 01/09/25 13:21 01/09/25 13:30 Meclizine Hcl 12.5 Mg Tablet PO 01/09/25 13:22 12.5 mg ONCE ONE Administration Medical Decision Making Medical Decision Making [facility] Narrative: The patient is a 69-year-old male who was brought to the hospital by ambulance from the group home run by [facility] where he has been staying recently. This is a [facility]. The patient does not seem obviously acutely ill. He is complaining of dizziness but he seems to have no trouble walking and no signs of any neurological deficit. This seems to be a subacute complaint. The paramedics who brought him to the emergency room seemed to be quite familiar with him. My overall impression is that the patient is not acutely ill. His EKG is unremarkable. His labs are unremarkable. He has no neurological findings on his neurological exam. He has a steady gait. My impression is that the patient has complains about his situation a great deal to the staff at the group home and that they called 911 to ensure that he was not having any definite acute medical event. My impression is he does not have any acute medical issues. He seems stable. I think he may be discharged. He is advised to contact his primary care doctor for follow up. Lab Data 01/09/25 13:54 01/09/25 13:54 Labs: Lab Results 01/09/25 01/09/25 Range/Units 13:54 13:58 WBC 4.2 L (4.8-10.8) X10*3/uL RBC 4.55 L (4.60-5.80) X10*6/uL Hgb 10.6 L (14.0-18.0) g/dl Hct 36.6 L (42.0-52.0) % MCV 80.4 (80.0-98.0) fL MCH 23.3 L (27.0-33.0) pg MCHC 29.0 L (31.0-36.0) g/dl RDW 17.9 H (11.0-16.0) % Plt Count 129 L (160-400) X10*3/uL MPV 9.6 (9.4-12.4) fL Immature Gran % (Auto) 0.5 H (0.0-0.4) % Neut % (Auto) 57.9 (45-73) % Lymph % (Auto) 25.9 (20-40) % [place] % (Auto) 12.4 H (2-11) % Eos % (Auto) 2.6 (0-4) % Baso % (Auto) 0.7 (0-2) % Lymph # (Auto) 1.1 L (1.2-4.9) X10*3/uL [place] # (Auto) 0.5 (0.1-1.2) X10*3/uL Eos # (Auto) 0.1 (0.0-0.4) X10*3/uL Baso # (Auto) 0.0 (0.0-0.2) X10*3/uL Abs Immat Gran (auto) 0.02 (0.00-0.03) X10*3/uL Absolute Neuts (auto) 2.4 (2.0-8.3) x10*3/uL Absolute Nucleated RBC 0.000 (0.0-0.012) X10*3/uL Nucleated RBC % (auto) 0.0 (0.0-0.2) /100WBC Sodium 142 (135-145) mmol/L Potassium 3.7 (3.3-5.1) mmol/L Chloride 107 (96-108) mmol/L Carbon Dioxide 29 (22-29) mmol/L Anion Gap 10 L (12-20) BUN 22 H (9-16) mg/dL Creatinine 0.73 (0.5-1.4) mg/dL Estim Creat Clear Calc 81.8 Estimated GFR > 60 Random Glucose 104 (60-115) mg/dL Calcium 9.0 (8.4-10.2) mg/dL Magnesium 1.8 (1.6-2.6) mg/dL Total Bilirubin 1.0 (0.0-1.0) mg/dL AST 24 (5-37) U/L ALT 16 (0-40) U/L Alkaline Phosphatase 101 (39-117) U/L Troponin I High Sens < 2.7 (<3.5-35.0) ng/L C-Reactive Protein 0.34 (< or = 0.50) mg/dL NT-Pro-B Natriuret Pep 777.1 H (<300) pg/mL Total Protein 7.3 (6.5-8.0) g/dL Albumin 4.3 (3.5-5.0) g/dL Urine Color Yellow Urine Appearance Clear Urine pH 8.5 (5.0-9.0) Ur Specific [place] 1.020 (1.005-1.025) Urine Protein 30 (1+) H (Neg-Trace) mg/dL Urine Glucose (UA) Negative (Negative) mg/dL Urine Ketones Negative (Negative) mg/dL Urine Blood Negative (Negative) Urine Nitrite Negative (Negative) Ur Leukocyte Esterase Negative (Negative) Urine RBC 0-2 (0-2) /HPF Urine WBC 0-5 (0-5) /HPF Ur Squamous Epith Cells 0-2 (0-2) /HPF Urine Bacteria None Seen (None Seen) Hyaline Casts 0-2 (0-2) /LPF Urine Opiates Screen Not Detected (Not Detect) Ur Buprenorphine Scrn Not Detected (Not Detect) ng/mL Ur Oxycodone Screen Not Detected (Not Detect) ng/mL Urine Methadone Screen Not Detected (Not Detect) ng/mL Urine Fentanyl Screen Not Detected (Not Detect) Ur Barbiturates Screen Not Detected (Not Detect) Ur Phencyclidine Scrn Not Detected (Not Detect) Ur Amphetamines Screen Not Detected (Not Detect) U Benzodiazepines Scrn Not Detected (Not Detect) Urine Cocaine Screen Not Detected (Not Detect) U Marijuana (THC) Screen POSITIVE H (Not Detect) Ethyl Alcohol < 10 mg/dL Influenza Type A (PCR) NEGATIVE (Negative) Influenza Type B (PCR) NEGATIVE (Negative) RSV RNA Qual (PCR) NEGATIVE (Negative) SARS-CoV-2 RNA (RT-PCR) NEGATIVE (Negative) Independent Interpretation I performed an independent interpretation of an: EKG Interpretation: EKG at 13:56 shows atrial fibrillation at 74 beats per minute. No acute ischemic changes. Discharge Plan Discharge Clinical Impression: Dizziness Patient Disposition: Home, Self-Care Additional Instructions: Your testing in the emergency room today seems very reassuring. Please try to follow up with your regular doctor soon to discuss these symptoms further. Return to the emergency room if significantly worse. Prescriptions: No Action Xarelto 20 mg tablet 20 mg PO QPM Qty: 90 3RF Rx Instructions: must administer with evening meal paroxetine HCl 30 mg tablet 30 mg PO DAILY Qty: 90 0RF metoprolol succinate [Toprol XL] 25 mg tablet extended release 24 hr 25 mg PO DAILY 30 Days Qty: 30 0RF Rx Instructions: must make cardiology appt for refills albuterol sulfate 90 mcg/actuation HFA aerosol inhaler 2 puff inhalation Q3-4H PRN (Reason: Wheezing) fluticasone furoate-vilanterol [Breo Ellipta] 200-25 mcg/dose blister with device 1 ea inhalation DAILY meclizine [Dramamine Less Drowsy] 25 mg tablet 25 mg PO TID PRN (Reason: dizziness) Qty: 20 0RF ferrous sulfate 325 mg (65 mg iron) tablet,delayed release (DR/EC) 325 mg PO DAILY Qty: 30 3RF atorvastatin 80 mg tablet 80 mg PO BEDTIME hydroxyzine HCl 25 mg tablet 50 mg PO DAILY PRN (Reason: Anxiety) melatonin 3 mg tablet 3 mg PO BEDTIME MDD 3mg PRN (Reason: Insomnia) Xarelto 20 mg tablet 20 mg PO QPM Qty: 30 0RF Rx Instructions: must administer with evening meal Referrals: Yumi Alarcon MD [Primary Care Provider, Internal Medicine] Interventions: ED Discharge Assessment Last Done: 01/09/25 16:13 Discharge Date/Time: 01/09/25 16:16 Print Language: Vietnamese
--- NOTE | 2025-01-09 13:55 | PC.NURSE ---
Pt observed to walk to BR with steady gait. Dr. Escobedo made aware.
[2025-01-09 13:59] LABS: MANUAL DIFF FLAG NO
[2025-01-09 14:04] LABS: Hematocrit 36.6 % (42.0-52.0); Hemoglobin 10.6 g/dl (14.0-18.0); Imm Gran Abs Auto 0.02 X10*3/uL (0.00-0.03); Imm Gran Pct Auto 0.5 % (0.0-0.4); Lymphocytes Absolute Auto 1.1 X10*3/uL (1.2-4.9); Mean Corpuscular HGB Conc 29.0 g/dl (31.0-36.0); Mean Corpuscular Hemoglobin 23.3 pg (27.0-33.0); Mean Corpuscular Volume 80.4 fL (80.0-98.0); NRBC Abs Auto 0.000 X10*3/uL (0.0-0.012); NRBC Pct Auto 0.0 /100WBC (0.0-0.2); Platelet Count 129 X10*3/uL (160-400); Red Blood Count 4.55 X10*6/uL (4.60-5.80); White Blood Count 4.2 X10*3/uL (4.8-10.8)
[2025-01-09 14:14] LABS: Appearance Urine Clear; Glucose Urine UA Negative (Negative); PH 8.5 (5.0-9.0); Specific Gravity - Urine 1.020 (1.005-1.025); UMIC TRIGGER UACC YES
[2025-01-09 14:17] LABS: Cannabinoid Screen Urine POSITIVE (Not Detect)
[2025-01-09 14:18] LABS: Magnesium 1.8 mg/dL (1.6-2.6)
[2025-01-09 14:28] LABS: Troponin-I High Sensitivity < 2.7 ng/L (<3.5-35.0)
[2025-01-09 14:49] LABS: Resp Syncy Virus RNA Qual PCR NEGATIVE (Negative); SARS COV2 PCR INHOUSE NEGATIVE (Negative)
[2025-01-09 15:07] LABS: Alanine Aminotransferase 16 U/L (0-40); Albumin Level 4.3 g/dL (3.5-5.0); Alkaline Phosphatase 101 U/L (39-117); Anion Gap 10 (12-20); Aspartate Amino Transferase 24 U/L (5-37); Blood Urea Nitrogen 22 mg/dL (9-16); Calcium 9.0 mg/dL (8.4-10.2); Carbon Dioxide 29 mmol/L (22-29); Chloride 107 mmol/L (96-108); Creatinine Clr Calc Pharmacy 81.8; Estimated Glomerular Filt Rate > 60; Potassium 3.7 mmol/L (3.3-5.1); Sodium 142 mmol/L (135-145); Total Protein 7.3 g/dL (6.5-8.0)
[2025-01-09 15:45] LABS: NT Pro B Type Natriuretic Pept 777.1 pg/mL (<300)
[2025-01-09 16:13] VITALS: BP 112/86; PULSE 70; RESP 17; TEMP 36.4; O2SAT 95
--- OUTSIDE RECORDS SUMMARY | 2025-01-09 18:32 | XMS_ITS | Encounter Summary ---
Author Organization [employer] Address [address] [place] [address] Care Team Providers Care Assistant Strength Coach Name Role Phone Yumi Alarcon MD Primary Care Provider [phone] Encounter Details Date Type Department Care Team (Late st Contact Info) Description 06/30/2024 Orders Only [facility] [address] [place], [place] [phone] Yumi Alarcon MD [address] [place], [place] [phone] Social History Tobacco Use Types Packs/Day Years [...] documented as of this encounter Care Teams Assistant Strength Coach Relationship Specialty Start Date End Date Yumi Alarcon MD [address] [place] [address] PCP - General Family Medicine 08/09/20 Lucy GRAYSON 09/28/24 11/23/24 documented as of this encounter
--- OUTSIDE RECORDS SUMMARY | 2025-01-09 18:33 | XMS_ITS | Encounter Summary ---
Author Organization [employer] Address [address] [place] [address] Care Team Providers Care Ssis Etl Developer Name Role Phone Yumi Alarcon MD Primary Care Provider [phone] Encounter Details Date Type Department Care Team (Late st Contact Info) Description 02/17/2023 Abstract [facility] [address] [place], [place] [phone] Yumi Alarcon MD [address] [place], [place] [phone] Social History Tobacco Use Types Packs/Day Years Used Date Smoking Tobacco: Every Day Cigarettes Housing Stability Answer Date Recorded What is your housing situation today? I have jose lusimaco garces 12/08/[address] you [...] on filedocumented in this encounter Care Teams Ssis Etl Developer Relationship Specialty Start Date End Date Yumi Alarcon MD [address] [place] [address] PCP - General Family Medicine 08/09/20 Lucy GRAYSON 09/28/24 11/23/24 documented as of this encounter
--- OUTSIDE RECORDS SUMMARY | 2025-01-09 18:33 | XMS_ITS | Encounter Summary ---
Author Organization [employer] Address [address] [place] [address] Care Team Providers Care Master Deputy Sheriff Court Security Name Role Phone Yumi Alarcon MD Primary Care Provider [phone] Encounter Details Date Type Department Care Team (Late st Contact Info) Description 06/30/2023 Telephone [facility] [address] [place], [place] [phone] Yumi Alarcon MD [address] [place], [place] [phone] Social History Tobacco Use Types Packs/Day Years [...] documented as of this encounter Care Teams Master Deputy Sheriff Court Security Relationship Specialty Start Date End Date Yumi Alarcon MD [address] [place] [address] PCP - General Family Medicine 08/09/20 Lucy GRAYSON 09/28/24 11/23/24 documented as of this encounter
--- OUTSIDE RECORDS SUMMARY | 2025-01-09 18:33 | XMS_ITS | Encounter Summary ---
Author Organization [employer] Address [address] [facility] 7t [place] [address] Care Team Providers Care Hat Block Bench Hand Name Role Phone Yumi Alarcon MD Primary Care Provider [phone] Encounter Details Date Type Department Care Team (Late st Contact Info) Description 03/20/2022 Orders Only [facility] [address] [place], [place] [phone] Vanna Mtz LPN Social History Tobacco Use [...] on filedocumented in this encounter Care Teams Hat Block Bench Hand Relationship Specialty Start Date End Date Yumi Alarcon MD [address] [place], [place] [phone] PCP - General Family Medicine 08/09/20 [facility] 09/28/24 11/23/24 documented as of this encounter
--- OUTSIDE RECORDS SUMMARY | 2025-01-09 18:33 | XMS_ITS | Encounter Summary ---
Author Organization [employer] Address [address] [place] [address] Care Team Providers Care Roofer Vinyl Coating Name Role Phone Yumi Alarcon MD Primary Care Provider [phone] Encounter Details Date Type Department Care Team (Late st Contact Info) Description 08/23/2023 Telephone [facility] [address] [place], [place] [phone] Yumi Alarcon MD [address] [place], [place] [phone] Social History Tobacco Use Types Packs/Day Years [...] get into a home instead of a care home . Igot in contact with care management and was advised pt will be getting a call back . documented in this encounter Plan of Treatment Not on file documented as of this encounter Visit Diagnoses Not on filedocumented in this encounter Additional Health Concerns Assessment Noted Time PHQ-9 Depression Total Score: 10 024 2:46 PM EDT documented as of this encounter Care Teams Roofer Vinyl Coating Relationship Specialty Start Date End Date Yumi Alarcon MD [address] [place] [address] PCP - General Family Medicine 08/09/20 Lucy GRAYSON 09/28/24 11/23/24 documented as of this encounter
--- OUTSIDE RECORDS SUMMARY | 2025-01-09 18:33 | XMS_ITS | Patient Health Record ---
Author Organization [facility] Address [address] [place] [address] Care Team Providers Care Technical Account Representative Name Role Phone Po Gayatri LOCK Primary Care Provider Guy Montano [phone] Allergies Allergen (clinical drug ingredient) Drug/Non Drug Allergy documented on EMR Reaction Allergy Type Onset Date Status codeine Codeine Sulfate Unknown Drug Allergy A ctive Penicillin Unknown Drug Allergy Active Reason For Referral No Information Medications Medication SIG (Take, Route, Frequency, Duration) Notes Start Date End Date Status Aspirin EC 81 MG Tablet Delayed Release 1 tablet Orally Once a day Active Spiriva HandiHaler 18 MCG Capsule 1 capsule Inhalation Once a day Active Lipitor 80 MG Tablet 1 tablet Orally Onc e a day Active Lisinopril 2.5 MG Tablet 1 tablet Orally Once a day Active Prilosec 20 MG Capsule Delayed Release 1 capsule Orally Once a day Active Paxil 30 MG Tablet 1 tablet in the morn ing Orally Once a day Active Colyte w Flavor Packs 240 GM Solution Reconstituted as directed Orally as directed; Duration: 1 day(s) 06/15/2014 Active Immunizations Vaccine Route Administration Date Status Comme nts Flu vaccine no Preserv 3 and > Unknown 10/05/2013 Admin istered Social History Social History Additional Details Category Social Info Options Details Miscellaneous: Marital status: single 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 Section Notes: Smoker 1/2 ppd; no alcohol Problems Problem Type SNOMED Code ICD Code Onset Dates Problem Status W/U Status Risk Notes Problem Colon cancer screening (364014148) Colon cancer screening (V76.51) Active confirmed Problem Gastroesophageal reflux disease (945706355) GERD (gastroesopha geal reflux disease) (530.81) Active confirmed Plan Of Treatment Future Test Test Name Order Date UPPER GI ENDOSCOPY 06/13/2014 COLONOSCOPY 06/13/2014 Insurance Providers Payer Name Payer Address Payer Phone Subscriber Number Group Number Insured Name Patient Relationship to Insured Coverage Start Date Coverage End Date MEDICARE OF [place] [address] [place] [address] [id number] MYRON INDRA Self - patient is the insured MEDICAID OF [facility] [address] [place] [address] [phone] [id number] MYRON, INDRA Self - patient is the insured Medical (General) History Medical History History ICD Code ? Asthma [place] at age 41--age 49 had angioplasty and stent placement Pacemaker Hyperlipidemia GERD--UGI in 2006 with GERD-no hiatal he rnia Denies DM,CVA,renal disease Anxiety Surgical History Surgery Date(Month/Year) Pacemaker 2 Back surgeries
--- OUTSIDE RECORDS SUMMARY | 2025-01-09 18:33 | XMS_ITS | Encounter Summary ---
Author Organization [employer] Address [address] [place] [address] Care Team Providers Care Supervisor Coffee Name Role Phone Yumi Alarcon MD Primary Care Provider Encounter Details Date Type Department Care Team (Late st Contact Info) Description 08/20/2022 Orders Only [facility] [address] [place] [address] Trinh Spencer LPN Social History Tobacco Use [...] on filedocumented in this encounter Care Teams Supervisor Coffee Relationship Specialty Start Date End Date Yumi Alarcon MD [address] [place] [address] PCP - General Family Medicine 08/09/20 [facility] 09/28/[facility] 11/23/24 documented as of this encounter
--- OUTSIDE RECORDS SUMMARY | 2025-01-09 18:33 | XMS_ITS | Clinical Summary ---
Author Organization [facility] Address [address] [facility] [address] [place], [place] [phone] Phone Care Team Providers Care Talent Acquisition Consultant Name Role Phone Yumi Alarcon MD Primary [...] [place] [id number] [facility] MEDICARE REPLACEMENT JENNYFER ALLISON [id number] MEDICARE PART A & B [facility] [place] [phone] MEDICARE PART A & B MEDICARE PART A & B MEDICARE PART A & B MEDICARE REPLACEMENT JENNYFER ALLISON [address] MEDICARE PART A & B MEDICARE PART A & B MEDICARE REPLACEMENT MEDICARE PART A & B Member Subscriber Plan / Payer (Ef fective 2002-Present) Name:Taj Granger Member ID:[id number] Relation to Subscriber:Self Name:Taj Granger Subscriber ID:[id number] Payer ID:[id number] Group ID:Not on file Type:Medicare Address: [facility] [employer] [facility] [employer] [facility] [address] [place] [phone] [facility] [place] [address] MEDICARE PART A & B Member Subscriber Plan / Payer (Ef fective 2002-Present) Name:Taj Granger Member ID:[id number] Relation to Subscriber:Self Name:Taj Granger Subscriber ID:[id number] Payer ID:[id number] Group ID:Not on file Type:Medicare Address: [facility] [employer] [facility] [facility] [address] [place], [place] [phone] [facility] [place] [phone] Care Teams Talent Acquisition Consultant Relationship Specialty Start Date End Date Yumi Alarcon MD [address] [place] [address] PCP - General 07/06/24 Additional Source Comments The information contained in this document represents components of the legal health record. It is not the complete legal health record.[facility]
--- OUTSIDE RECORDS SUMMARY | 2025-01-09 18:33 | XMS_ITS | Encounter Summary ---
Author Organization [employer] Address [address] [facility] [place] [address] Care Team Providers Care Sisal Picker Name Role Phone Yumi Alarcon MD Primary Care Provider Encounter Details Date Type Department Care Team (Late st Contact Info) Description 02/11/2023 Abstract [facility] [address] [place], [place] [phone] Yumi Alarcon MD [address] [place], [place] [phone] Social History Tobacco Use Types Packs/Day Years [...] on filedocumented in this encounter Care Teams Sisal Picker Relationship Specialty Start Date End Date Yumi Alarcon MD [address] [place] [id number] PCP - General Family Medicine 08/09/20 Lucy GRAYSON 09/28/24 11/23/24 documented as of this encounter
--- OUTSIDE RECORDS SUMMARY | 2025-01-09 18:33 | XMS_ITS | Encounter Summary ---
Author Organization [employer] Address [address] [facility] [address] [place] [address] Care Team Providers Care Sugarcane Research Technician Name Role Phone Yumi Alarcon MD Primary Care Provider Reason for Referral * Consultation (Routine) - Closed Specialty Diagnoses / Procedures Referred By Contac t Referred To Contact Diagnoses Moderately severe major depression (CMS/HCC) (HCC) Food insecurity Homeless single person Yumi Alarcon MD [address] [place] [address] Phone: tel: fax: [address] [phone] Phone: tel: fax: Referral ID Status Reason Start Date Expiration Date V isits Requested Visits Authorized [id number] Closed Specialty Services Required 05/08/2024 05/08/2025 1 1 Encounter Details Date Type Department Care Team (Late st Contact Info) Description 05/08/2024 Orders Only [facility] MEDICINE [address] [place] [phone] Yumi Alarcon MD [address] [place], [place] [phone] Moderately severe major depression (CMS/HCC) (Primary Dx); [...] Visit Diagnoses Diagnosis Moderately severe major depression (CMS/HCC) (HCC)- Primary Food insecurity Homeless single person documented in this encounter Additional Health Concerns Assessment Noted Time PHQ-9 Depression Total Score: 15 024 3:08 PM EST documented as of this encounter Care Teams Sugarcane Research Technician Relationship Specialty Start Date End Date Yumi Alarcon MD [address] [place] [address] PCP - General Family Medicine 08/09/20 Lucy GRAYSON 09/28/24 11/23/24 documented as of this encounter
--- OUTSIDE RECORDS SUMMARY | 2025-01-09 18:33 | XMS_ITS | Encounter Summary ---
Author Organization [employer] Address [address] [place] [address] Care Team Providers Care Kiln Firer Helper Name Role Phone Yumi Alarcon MD Primary Care Provider [phone] Reason for Visit * Reason Comments Med Change Request Encounter Details Date Type Department Care Team (Late st Contact Info) Description 12/20/2023 Refill [facility] [address] [place], [place] [phone] Yumi Alarcon MD [address] [place], [place] [phone] Cellulitis of multiple sites of hand and [...] documented as of this encounter Care Teams Kiln Firer Helper Relationship Specialty Start Date End Date Yumi Alarcon MD [address] [place] [phone] PCP - General Family Medicine 08/09/20 Lucy GRAYSON 09/28/24 11/23/24 documented as of this encounter
--- OUTSIDE RECORDS SUMMARY | 2025-01-09 18:33 | XMS_ITS | Clinical Summary ---
Author Organization [employer] Address [address] [facility] [address] [place] [address] Care Team Providers Care Supplier Quality Manager Name Role Phone Yumi Alarcon MD Primary Care Provider [phone] Allergies Active Allergy Reactions Criticality Noted Date Comments Codeine 09/14/2022 Penicillins 09/14/2022 Medications * This document contains information received from the source organization and may not represent a complete record from that organization. acetaminophen (Tylenol) 325 MG tablet Take 650 mg by mouth. 022 Active fluticasone (Flonase) 50 MCG/ACT nasal spray Administer 2 sprays into each nostril in the morning. 16 g 1 024 Active albuterol 108 (90 Base) MCG/ACT inhaler Inhale 2 puffs every 6 (six) hours if needed for wheezing. 18 g 11 024 Active acetaminophen (Tylenol 8 Hour) 650 MG ER tablet 025 Active rivaroxaban (Xarelto) 20 MG tabletIndications :Chronic atrial fibrillation (CMS/HCC) (HCC) TAKE 1 TABLET BY MOUTH EVERY DAY WITH DINNER 90 tablet 3 025 Active PARoxetine (Paxil) 30 MG tabletIndications :Depression, unspecified depression type TAKE 1 TABLET BY MOUTH EVERY DAY 90 tablet 3 025 Active Emollient (EQL Moisturizing) cream Apply 1 Application. topically if needed (itching). 453 g 3 025 Active triamcinolone (Kenalog) 0.1 % ointment APPLY A THIN LAYER TO FINGERS TWICE DAILY. DO NOT USE FOR MORE THAN 14 DAYS IN A ROW 30 g 1 025 Active atorvastatin (Lipitor) 80 MG tabletIndications :Hyperlipidemia, unspecified hyperlipidemia type TAKE 1 TABLET BY MOUTH EVERY EVENING 90 tablet 3 Active Fluticasone Furoate-Vilantero l (Breo Ellipta) 200-25 MCG/ACT aerosol powder Inhale 1 puff 1 (one) time for 1 dose. 1 each 11 Active metoprolol succinate XL (Toprol-XL) 25 MG 24 hr tablet TAKE 1 TABLET BY MOUTH EVERY DAY 90 tablet 3 Active doxycycline (Adoxa) 100 MG tablet Take 1 tablet by mouth 2 times daily. Active V-R HYDROCORTISONE 1 % cream APPLY TO THE AFFECTED AREA(S) TWICE DAILY FOR 7 DAYS Active PARoxetine (Paxil) 40 MG tablet Take 1 tablet (40 mg) by mouth in the morning. 90 tablet 3 Active melatonin 3 MG tablet TAKE 1 TABLET BY MOUTH AT BEDTIME 90 tablet 3 Active meclizine (Antivert) 25 MG tablet Take 1 tablet (25 mg) by mouth if needed in the morning and at bedtime for dizziness. 30 tablet 2 Active Skin Protectants, Misc. (eucerin) creamIndications: Cellulitis of multiple sites of hand and fingers,Intrinsic eczema Apply topically if needed for wound care. 99 g 11 024 2024 meclizine (Antivert) 25 MG tablet Take 1 tablet (25 mg) by mouth if needed in the morning and at bedtime for dizziness. 30 tablet 2 025 2024 Discontinued(R eorder (will not trigger notification to Pharmacy)) Active Problems Problem Noted Date Diagnosed Date Moderately severe major depression (CMS/HCC) 04/2024 Assessment & Plan (04/17/2024 10:09 AM EST): Is enjoying group model of recovery support, will engage in chronic pain groups as well for neck pain Arteriosclerosis of coronary artery 01/15/2023 01/15/2023 Hyperlipidemia 01/15/2023 01/15/2023 Sick sinus syndrome (CMS/HCC) 01/15/2023 Underweight 01/15/2023 01/15/2023 Protein-calorie malnutrition, unspecified [...] Health Integration Plan Internal Follow up with [facility] Patient Self Plan Patient to utilize skills provided in intervention , Patient to [facility] as needed, and Patient to [...] situation. He is currently living in a assisted in [place] and reports he is not able to stay in during the day. He is looking to find somewhere he could also spend the mornings in, especially during the winter days. Pt reports the assisted is charging $65 weekly for a spot. He has done other applications with [employer] and is currently looking for section 8 apartments. Anxiety is highly associated with current housing situation. clinician engaged patient with active/reflective listening. Reviewed and assessed for risk, current stressors and protective factors using open ended questions. Sent request to CM to assist with housing situation. Provided patient with information from [facility] and [employer] to seek out for additional support with assisted placements. Assessment & Plan (06/09/2023 3:38 PM [...] Health Integration Plan Internal Follow up with [facility] Patient Self Plan Patient to utilize skills provided in intervention , Patient to [facility] team as needed, and Patient to [...] (01/22/2024 12:33 PM EST): Needs to see [facility] cardiology, repeat Echo to monitor progression of [...] Diagnosed Date Resolved Date Lives in homeless assisted 12/13/2023 Assessment & Plan (12/13/2023 4:14 PM [...] situation. He is currently living in a assisted in [place] and reports he is not able to stay in during the day. He is looking to find somewhere he could also spend the mornings in, especially during the winter days. Pt reports the assisted is charging $65 weekly for a spot. [...] housing situation. Provided patient with information from [facility] and [employer] to seek out for additional support with assisted placements. Assessment & Plan (06/09/2023 3:39 PM EDT): During IB Consult Taj presenting with excessive worry/anxiety, difficulty [...] Health Integration Plan Internal Follow up with [facility] Patient Self Plan Patient to utilize skills provided in intervention , Patient to reach out to [facility] team as needed, and Patient to reach out to [facility] as needed. Pt agreed to reach out to clinician during next medical appointment. CM connected with patient to assist with housing and food insecurity during today's session. Depressive disorder 08/13/2020 04/18/19 25 Encounters Date Type Department Care Team Description 01/09/2025 Orders Only GENERIC EXTERNAL DATA DEPARTMENT Provider, Generic External Data 12/26/2024 Refill [facility] [address] [place] [phone] Yumi Alarcon MD 12/12/2024 Telephone [facility] [address] [place] [phone] Yumi Alarcon MD Referral 11/13/2024 Results Follow-Up [facility] [address] [place] [address] Yumi Alarcon MD CBC auto differential, Comprehensive Metabolic Panel, Lipase, High Sensitivity Troponin I 11/10/2024 Orders Only [facility] External Provider, [facility] from Last 3 Months Immunizations Immunization Administration [...] your housing situation today? I have jose ulis garces 12/08/[address] [...] Use Screening 1967 Hepatitis C Screening 08/12/1975 RSV Patients and Patients Aged 60 years or older (1 - Risk 50-74 years 1-dose series) 08/12/2007 Zoster Vaccines (1 of 2) 08/12/2007 Pneumococcal Vaccine: 50+ Years (2 of 2 - PCV) 02/26/2012 02/25/2011, 12/20/2007 DTaP/Tdap/Td Vaccines (1 - Tdap) 01/01/2022 12/31/2021, 12/31/2021, 03/04/2011, Additional history exists SDOH Screening 10/13/2023 10/12/2022 Depression Monitoring 07/31/2024 01/31/2024, 024 COVID-19 Vaccine ( season) 2024 12/31/2021, 12/31/2021, 03/06/2021, Additional history [...] Procedure Name Priority Date/Time Associated Diagnosis Comments XR CHEST 2 VIEWS Routine 01/09/2025 2:18 PM EST DRUG MONITOR, PANEL 1, SCREEN, URINE Routine 01/09/2025 1:58 PM EST URINALYSIS, COMPLETE, WITH REFLEX TO CULTURE Routine 01/09/2025 1:58 PM EST NT-PROBNP Routine 01/09/2025 1:54 PM EST COMPREHENSIVE METABOLIC PANEL Routine 01/09/2025 1:54 PM EST HIGH SENSITIVITY TROPONIN I Routine 01/09/2025 1:54 PM EST ETHANOL Routine 01/09/2025 1:54 PM EST C-REACTIVE PROTEIN Routine 01/09/2025 1: 54 PM EST MAGNESIUM Routine 01/09/2025 1:54 PM EST CBC WITH AUTO DIFFERENTIAL Routine 01/09/2025 1:54 PM EST SARS COV2/INFLUENZA A/B AND RSV RNA QL NAAT Routine 01/09/2025 1:[address] HEAD WO CONTRAST Routine 11/10/2024 1 0:13 AM EDT HIGH SENSITIVITY TROPONIN I Routine 11/10/2024 10:10 AM EDT LIPASE Routine 11/10/2024 10:10 AM EDT COMPREHENSIVE METABOLIC PANEL Routine 11/10/2024 10:10 AM EDT CBC WITH AUTO DIFFERENTIAL Routine 11/10/2024 10:10 AM EDT from Last 3 Months Results * XR Chest 2 Views (01/09/2025 2:18 PM EST) Anatomical Region Laterality Modality Chest Radiographic Juliette ging 01/09/2025 2:18 PM EST Narrative 01/09/2025 2:33 PM EST [address] [address] XRay Report Signed Patient: Taj Granger MR#: [id number] : 1955 Acct:[id number] Age/Sex: 69 / M ADM Date: 01/09/25 Loc: HO.ED Attending Dr: Ordering Physician: Gregg Mayorga MD Date of Service: 01/09/25 Procedure(s): XR chest 2V Accession Number(s): [id number] cc: Yumi Alarcon; Gregg Mayorga MD Reason for Exam: weakness EXAMINATION: XR CHEST CLINICAL INFORMATION: weakness COMPARISON: Previous chest x-rays most recent July [address] April 2024 TECHNIQUE: 2 views of the chest were obtained. FINDINGS: The lungs are clear. No consolidation or pulmonary edema. Pulmonary nodule in the chest appreciated. No pleural effusion or pneumothorax. Left subclavian dual-chamber pacemaker with leads projecting over the right atrium and right ventricle. Aortic valve replacement new in the interval from July 2024. Cardiac and mediastinal contours otherwise stable. Pericardial calcification similar to previous exam. Degenerative changes of the spine. Median sternotomy wires.. XR/XR chest 2V IMPRESSION: New postsurgical changes from aortic valve replacement. No evidence for acute disease in the chest. Electronically signed by: Yuko Acosta MD 01/09/2025 02:29 PM EST Dictated By: Yuko Acosta MD Signed By: <Electronically signed by Yuko Acosta MD in OV> 01/09/25 1429 DD/ 1418 TD/TT: 01/09/25 1423 Industrial Rehabilitation Consultant: MAGGIE Procedure Note Donotuseinterpreter, Image - 01/09/[address] [address] XRay Report Signed Patient: Taj Granger R#: [id number] : 8Acct:[id number] Age/Sex: 69 / MADM Date: 01/09/25 Loc: .ED Attending Dr: Ordering Physician: Gregg Mayorga MD Date of Service: 01/09/25 Procedure(s): XR chest 2V Accession Number(s): [id number] cc: Yumi Alarcon; Gregg Mayorga MD Reason for Exam: weakness EXAMINATION: XR CHEST CLINICAL INFORMATION: weakness COMPARISON: Previous chest x-rays most recent July [address] April 2024 TECHNIQUE: 2 views of the chest were obtained. FINDINGS: The lungs are clear. No consolidation or pulmonary edema. Pulmonary nodule in the chest appreciated. No pleural effusion or pneumothorax. Left subclavian dual-chamber pacemaker with leads projecting over the right atrium and right ventricle. Aortic valve replacement new in the interval from July 2024. Cardiac and mediastinal contours otherwise stable. Pericardial calcification similar to previous exam. Degenerative changes of the spine. Median sternotomy wires.. XR/XR chest 2V IMPRESSION: New postsurgical changes from aortic valve replacement. No evidence for acute disease in the chest. Electronically signed by: Yuko Acosta MD 01/09/2025 02:29 PM EST RP Dictated By: Yuko Acosta MD Signed By: <Electronically signed by Yuko Acosta MD in OV> 01/09/25 1429 DD/ 1418 TD/TT: 01/09/25 1423 Industrial Rehabilitation Consultant: MAGGIE [facility] External Provider IMG XR PROCEDURES Final Result * (ABNORMAL) Urinalysis, Complete, with Reflex to Culture (01/09/2025 1:58 PM EST) Color Urine Yellow [facility] Appearance Urine Clear [facility] PH 8.5 5.0 - 9.0 [facility] Glucose Urine UA Negative Negative mg/dL [facility] Urine Blood Negative Negative [facility] Specific Ulysses - Urine 1.020 1.005 - 1.025 [facility] Urine Protein 30 (1+)(A) Neg-Trace mg/dL [facility] Urine Ketones Negative Negative mg/dL [facility] Nitrite Urine Negative Negative [facility] Leukocyte Esterase Urine Negative Negative [facility] RBC Urine 0-2 0 - 2 /HPF [facility] Urine WBC 0-5 0 - 5 /HPF [facility] Urine Squamous Epithelial Cell 0-2 0 - 2 /HPF [facility] Urine Bacteria None Seen None Seen [facility] Hyaline Casts, Urine 0-2 0 - 2 /LPF [facility] 01/09/2025 1:58 PM EST 01/09/2025 2:00 PM EST Narrative [facility] - 01/09/2025 2:20 PM EST Urine, Clean Catch us Generic External Data Provider LAB URINE ORDERAB LES Final Result [facility] [address] [place] [address] [phone] * (ABNORMAL) Drug Monitoring, Panel 1, Screen, Urine (01/09/2025 1:58 PM EST) Opiate Screen Urine Not Detected Not Detect [facility] Comment:Opiate cut-off is 30 0 ng/mL.Positive results are unconfirmed and should not be used fornon-medical purposes. Barbiturates, Urine Not Detected Not Detect [facility] Comment:Barbiturate cut-off is 200 ng/mL.Positive results are unconfirmed and should not be used fornon-medical purposes. Phencyclidine Screen Urine Not Detected Not Detect [facility] Comment:Phencyclidine cut-of f is 25 ng/mL.Positive results are unconfirmed and should not be used fornon-medical purposes. Amphetamine Screen Urine Not Detected Not Detect [facility] Comment:Amphetamine cut-off is 1000 ng/mL.Positive results are unconfirmed and should not be used fornon-medical purposes. Benzodiazepines Screen Urine Not Detected Not Detect [facility] Comment:Benzodiazepine cut-o ff is 200 ng/mL.Positive results are unconfirmed and should not be used fornon-medical purposes. Cocaine Screen Urine Not Detected Not Detect [facility] Comment:Cocaine cut-off is 3 00 ng/mL.Positive results are unconfirmed and should not be used fornon-medical purposes. Cannabinoid Screen Urine POSITIVE(A) Not Detect [facility] Comment:Cannabinoid cut-off is 50 ng/mL.Positive results are unconfirmed and should not be used fornon-medical purposes. Methadone Screen, Urine Not Detected Not Detect ng/mL [facility] Comment:Methadone cut-off is 300 ng/mL.Positive results are unconfirmed and should not be used fornon-medical purposes. FENTANYL URINE Not Detected Not Detect [facility] Comment:Fentanyl cut-off is 1 ng/mL.Positive results are unconfirmed and should not be used fornon-medical purposes. Oxycodone Urine Screen Not Detected Not Detect ng/mL [facility] Comment:Oxycodone cut-off is 100 ng/mL.Positive results are unconfirmed and should not be used fornon-medical purposes. Buprenorphine Screen Not Detected Not Detect ng/mL [facility] Comment:Buprenorphine cut-of f is 5 ng/mL.Positive results are unconfirmed and should not be used fornon-medical purposes. 01/09/2025 1:58 PM EST 01/09/2025 2:00 PM EST Generic External Data Provider LAB URINE ORDERAB LES Final Result Performing Organization Address [facility] de Phone Number [facility] [address] [place] [phone] * High Sensitivity Troponin I (01/09/2025 1:54 PM EST) Only the most recent of2 resultswithin the time period is included. TROPONIN I HIGH SENSITIVITY <2.7 <3.5 - 35.0 ng/L [facility] Comment:The Arriola high sens itivity Troponin-I results should beused in conjunction with other diagnostic information suchas ECG, clinical observations and information, and patientsymptoms to aid in the diagnosis of OR. 01/09/2025 1:54 PM EST 01/09/2025 1:58 PM EST Generic External Data Provider LAB BLOOD ORDERAB LES Final Result Performing Organization Address [facility] Co de Phone Number [facility] [address] [place] [phone] * Ethanol (01/09/2025 1:54 PM EST) ETHANOL (MG/DL) IN SER/PLAS <10 mg/dL [facility] Comment:Serum/plasma ethanol results are to be used formedical/treatment purposes only. 01/09/2025 1:54 PM EST 01/09/2025 1:58 PM EST Generic External Data Provider LAB BLOOD ORDERAB LES Final Result Performing Organization Address [facility] Co de Phone Number [facility] [address] [place] [phone] * SARS-CoV-2 RNA, Influenza A/B, and RSV RNA, Ql NAAT (01/09/2025 1:54 PM EST) Influenza A PCR NEGATIVE Negative [facility] Influenza B PCR NEGATIVE Negative [facility] Resp Syncy Virus RNA Qual PCR NEGATIVE Negative [facility] SARS COV2 PCR NEGATIVE Negative [facility] Comment:All test results mus t be correlated with clinical findings.Negative results do not preclude SARS-CoV2, influenza Avirus, influenza B virus and/or RSV infectionand should not be used as the sole basis for treatment orother patient management decisions. Negative results must becombined with clinical observations, patient history, andepidemiological information.This test has not been evaluated for monitoring treatment ofinfection.This test has been authorized by the FDA under an EmergencyUse Authorization (EUA) for use by authorized laboratories.Testing performed on the emere GeneXpert utilizingreal-time RT-PCR.All SARS CoV2 and positive influenza A/B results arereported to [facility]. 01/09/2025 1:54 PM EST 01/09/2025 1:58 PM EST Generic External Data Provider LAB MICROBIOLOGY - GENERAL ORDERABLES Final Result Performing Organization Address [facility] Co de Phone Number [facility] [address] [place] [phone] * (ABNORMAL) NT-proBNP (01/09/2025 1:54 PM EST) NT-proBNP 777.1(H) <300 pg/mL [facility] Comment:Reference Range:Age Group (years) NT-proBNP (pg/ml) InterpretationAll <300 Negative: HF unlikelyFor patients presenting to the ED with clinical suspicion ofnew onset or worsening HF, see below:18 to <50 >299.9 to <450.0 Grayzone: [id number] to 75 >299.9 to <900.0 other causes of>75 >299.9 to <1800.0 NT-proBNP [id number] to <50 >449.9 Positive: HF [id number] >899.9>75 >1799.9Note: Elevated NT-proBNP levels should be interpreted inthe context of other clinical information. 01/09/2025 1:54 PM EST 01/09/2025 1:58 PM EST us Generic External Data Provider LAB BLOOD ORDERAB LES Final Result [facility] [address] [place] [phone] * (ABNORMAL) CBC auto differential (01/09/2025 1:54 PM EST) Only the most recent of2 resultswithin the time period is included. White Blood Count 4.2(L) 4.8 - 10.8 X10*3/uL [facility] Red Blood Count 4.55(L) 4.60 - 5.80 X10*6/uL [facility] Hemoglobin 10.6(L) 14.0 - 18.0 g/dl [facility] Hematocrit 36.6(L) 42.0 - 52.0 % [facility] Mean Corpuscular Volume 80.4 80.0 - 98.0 fL [facility] Mean Corpuscular Hemoglobin 23.3(L) 27.0 - 33.0 pg [facility] Mean Corpuscular HGB Conc 29.0(L) 31.0 - 36.0 g/dl [facility] Red Cell Distribution Width 17.9(H) 11.0 - 16.0 % [facility] Platelet Count 129(L) 160 - 400 X10*3/uL [facility] Mean Platelet Volume 9.6 9.4 - 12.4 fL [facility] Neutrophils Percent Auto 57.9 45 - 73 % [facility] Imm Gran Pct Auto 0.5(H) 0.0 - 0.4 % [facility] Lymphocytes Percent Auto 25.9 20 - 40 % [facility] Monocytes Percent Auto 12.4(H) 2 - 11 % [facility] Eosinophils Percent Auto 2.6 0 - 4 % [facility] Basophils Percent Auto 0.7 0 - 2 % [facility] NRBC Pct Auto 0.0 0.0 - 0.2 /100WBC [facility] Neutrophils Absolute Auto 2.4 2.0 - 8.3 x10*3/uL [facility] Imm Gran Abs Auto 0.02 0.00 - 0.03 X10*3/uL [facility] Lymphocytes Absolute Auto 1.1(L) 1.2 - 4.9 X10*3/uL [facility] Monocytes Absolute Auto 0.5 0.1 - 1.2 X10*3/uL [facility] Eosinophils Absolute Auto 0.1 0.0 - 0.4 X10*3/uL [facility] Basophils Absolute Auto 0.0 0.0 - 0.2 X10*3/uL [facility] NRBC Abs Auto 0.000 0.0 - 0.012 X10*3/uL [facility] 01/09/2025 1:54 PM EST 01/09/2025 1:58 PM EST us Generic External Data Provider LAB BLOOD ORDERAB LES Final Result Performing Organization Address [facility] Co de Phone Number [facility] [address] [place] [phone] * C-reactive Protein (01/09/2025 1:54 PM EST) C Reactive Protein 0.34 < or = 0.50 mg/dL [facility] 01/09/2025 1:54 PM EST 01/09/2025 1:58 PM EST us Generic External Data Provider LAB BLOOD ORDERAB LES Final Result Performing Organization Address [facility]/ZIP Co de Phone Number [facility] [address] [place] [phone] * Magnesium (01/09/2025 1:54 PM EST) Magnesium 1.8 1.6 - 2.6 mg/dL [facility] 01/09/2025 1:54 PM EST 01/09/2025 1:58 PM EST us Generic External Data Provider LAB BLOOD ORDERAB LES Final Result [facility] [address] [place] [address] [phone] * (ABNORMAL) Comprehensive Metabolic Panel (01/09/2025 1:54 PM EST) Only the most recent of2 resultswithin the time period is included. Pathologist [facility] Sodium 142 135 - 145 mmol/L [facility] Potassium 3.7 3.3 - 5.1 mmol/L [facility] Chloride 107 96 - 108 mmol/L [facility] Carbon Dioxide 29 22 - 29 mmol/L [facility] Anion Gap 10(L) 12 - 20 [facility] Urea Nitrogen (BUN) 22(H) 9 - 16 mg/dL [facility] Creatinine, Serum 0.73 0.5 - 1.4 mg/dL [facility] Creatinine Clr Calc Pharmacy 81.8 [facility] Comment:eGFR (calculated fro m the MDRD study equation) and eCrCl(calculated from the Cockcroft-Gault equation) are based ondifferent parameters and may not yield comparable results.If eCrCl result is absurd, please check patient'sheight/weight. Estimated Glomerular Filt Rate >60 [facility] Comment:Chronic Kidney Disea se: Estimated GFR < 60 mL/min/[id number] Kidney Disease: Estimated GFR < 15 mL/min/1.73m2 Glucose 104 60 - 115 mg/dL [facility] Calcium 9.0 8.4 - 10.2 mg/dL [facility] Bilirubin, Total 1.0 0.0 - 1.0 mg/dL [facility] Aspartate Amino Transferase 24 5 - 37 U/L [facility] Alanine Aminotransferase 16 0 - 40 U/L [facility] Total Protein 7.3 6.5 - 8.0 g/dL [facility] Albumin Level 4.3 3.5 - 5.0 g/dL [facility] Alkaline Phosphatase 101 39 - 117 U/L [facility] 01/09/2025 1:54 PM EST 01/09/2025 1:58 PM EST us Generic External Data Provider LAB BLOOD ORDERAB LES Final Result Performing Organization Address City/State/[facility] Co de Phone Number [facility] [address] [place] [address] [phone] * CT Head w/o Contrast (11/10/2024 10:13 AM EDT) Anatomical Region Laterality Modality Head, Neck Computed Tomogra phy 11/10/2024 10:1 3 AM EDT Narrative 11/10/2024 10:36 AM EDT [place] [address] [address] Scan Report Signed Patient: Taj Granger MR#: [id number] : 1955 Acct:[id number] Age/Sex: 69 / M ADM Date: 11/10/24 Loc: HO.ED Attending Dr: Ordering Physician: Pascual Fontaine MD Date of Service: 11/10/24 Procedure(s): CT head/brain wo IV con Accession Number(s): [id number] cc: Yumi Alarcon; Pascual Fontaine MD Report Number: [id number]: Total DLP = 618.00 mGy-cm Reason for Exam: Fall yesterday, room spinning dizziness today EXAMINATION: CT HEAD WITHOUT IV CONTRAST HISTORY: Fall yesterday, room spinning dizziness today. TECHNIQUE: Unenhanced helical CT of the head was performed per standard departmental protocol. Coronal and sagittal reformats of the head were also evaluated. One or more of the following techniques was used for dose reduction: Automated exposure control, adjustment of the mA and/or kV according to patient size, use of iterative reconstruction technique. DLP: 618 mGy-cm COMPARISON: Comparison is made with the prior examination dated 05/09/2024. FINDINGS: BRAIN: There is mild prominence of the ventricular system and cortical sulci, consistent with atrophy. Periventricular and subcortical white matter hypodensities are noted which are nonspecific, but often seen in the setting of small vessel ischemic disease. There is no mass effect or midline shift. No intra- or extra-axial fluid collections are identified. SINUSES: The visualized paranasal sinuses are clear. The mastoid air cells and middle ear cavities are well pneumatized. ORBITS: The visualized orbits are unremarkable. BONES/SOFT TISSUES: The extracranial soft tissues are unremarkable. The calvarium is intact. No suspicious lytic or sclerotic lesions. CT/CT head/brain wo IV con IMPRESSION: No acute intracranial abnormality. Electronically signed by: Guy Peterson MD 11/10/2024 10:33 AM EDT RP Dictated By: Guy Peterson MD Signed By: <Electronically signed by Guy Peterson MD in OV> 11/10/24 1033 DD/ 1013 TD/TT: 11/10/24 1022 Industrial Rehabilitation Consultant: Procedure Note Donotuseinterpreter, Image - 11/10/[address] [address] [address] Scan Report Signed Patient: Taj Granger R#: [id number] : 8Acct:[id number] Age/Sex: 69 / MADM Date: 11/10/24 Loc: HO.ED Attending Dr: Ordering Physician: Pascual Fontaine MD Date of Service: 11/10/24 Procedure(s): CT head/brain wo IV con Accession Number(s): [id number] cc: Yumi Alarcon; Pascual Fontaine MD Report Number: [id number]: Total DLP = 618.00 mGy-cm Reason for Exam: Fall yesterday, room spinning dizziness today EXAMINATION: CT HEAD WITHOUT IV CONTRAST HISTORY: Fall yesterday, room spinning dizziness today. TECHNIQUE: Unenhanced helical CT of the head was performed per standard departmental protocol. Coronal and sagittal reformats of the head were also evaluated. One or more of the following techniques was used for dose reduction: Automated exposure control, adjustment of the mA and/or kV according to patient size, use of iterative reconstruction technique. DLP: 618 mGy-cm COMPARISON: Comparison is made with the prior examination dated 05/09/2024. FINDINGS: BRAIN: There is mild prominence of the ventricular system and cortical sulci, consistent with atrophy. Periventricular and subcortical white matter hypodensities are noted which are nonspecific, but often seen in the setting of small vessel ischemic disease. There is no mass effect or midline shift. No intra- or extra-axial fluid collections are identified. SINUSES: The visualized paranasal sinuses are clear. The mastoid air cells and middle ear cavities are well pneumatized. ORBITS: The visualized orbits are unremarkable. BONES/SOFT TISSUES: The extracranial soft tissues are unremarkable. The calvarium is intact. No suspicious lytic or sclerotic lesions. CT/CT head/brain wo IV con IMPRESSION: No acute intracranial abnormality. Electronically signed by: Guy Peterson MD 11/10/2024 10:33 AM EDT Dictated By: Guy Peterson MD Signed By: <Electronically signed by Guy Peterson MD in OV> 11/10/24 1033 DD/ 1013 TD/TT: 11/10/24 1022 Industrial Rehabilitation Consultant: [facility] External Provider IMG CT PROCEDURES Final Result * (ABNORMAL) Lipase (11/10/2024 10:10 AM EDT) Lipase 5(L) 8 - 78 U/L [facility] 11/10/2024 10:1 0 AM EDT 11/10/2024 10:23 AM EDT us Generic External Data Provider LAB BLOOD ORDERAB LES Final Result Performing Organization Address City/State/[facility] Co de Phone Number [facility] [address] [place] [address] [phone] from Last 3 Months Insurance [employer] Member Subscriber Plan / Payer (Ef fective 2023-Present) Name:Taj Granger Relation to Subscriber:Self Name:Taj Granger Payer ID:Not on file Group ID:Not on file Type:Medicaid Address: [facility] [id number] [place] [id number] [place], [place] [id number] Care Teams Supplier Quality Manager Relationship Specialty Start Date End Date Yumi Alarcon MD [address] [place] [phone] PCP - General Family Medicine 08/09/20
--- OUTSIDE RECORDS SUMMARY | 2025-01-09 18:33 | XMS_ITS | Encounter Summary ---
Author Organization [employer] Address [address] [place] [address] Care Team Providers Care Power Equipment Technology Instructor Name Role Phone Yumi Alarcon MD Primary Care Provider [phone] Encounter Details Date Type Department Care Team (Late st Contact Info) Description 01/09/2025 Orders Only GENERIC EXTERNAL DATA DEPARTMENT Provider, Generic External Data Social History Tobacco Use Types Packs/Day Years [...] on file documented as of this encounter Procedures Procedure Name Priority Date/Time Associated Diagnosis Comments XR CHEST 2 VIEWS Routine 01/09/2025 2:18 PM EST URINALYSIS, COMPLETE, WITH REFLEX TO CULTURE Routine 01/09/2025 1:58 PM EST DRUG MONITOR, PANEL 1, SCREEN, URINE Routine 01/09/2025 1:58 PM EST HIGH SENSITIVITY TROPONIN I Routine 01/09/2025 1:54 PM EST ETHANOL Routine 01/09/2025 1:54 PM EST SARS COV2/INFLUENZA A/B AND RSV RNA QL NAAT Routine 01/09/2025 1:54 PM EST NT-PROBNP Routine 01/09/2025 1:54 PM EST CBC WITH AUTO DIFFERENTIAL Routine 01/09/2025 1:54 PM EST C-REACTIVE PROTEIN Routine 01/09/2025 1: 54 PM EST MAGNESIUM Routine 01/09/2025 1:54 PM EST COMPREHENSIVE METABOLIC PANEL Routine 01/09/2025 1:54 PM EST documented in this encounter Results * XR Chest 2 Views (01/09/2025 2:18 PM EST) Anatomical Region Laterality Modality Chest Radiographic Juliette ging 01/09/2025 2:18 PM EST Narrative 01/09/2025 2:33 PM EST [address] [address] XRay Report Signed Patient: Taj Granger MR#: [id number] : 1955 Acct:[id number] Age/Sex: 69 / M ADM Date: 01/09/25 Loc: HO.ED Attending Dr: Ordering Physician: Gregg Mayorga MD Date of Service: 01/09/25 Procedure(s): XR chest 2V Accession Number(s): [id number] cc: Yumi Alarcon; Gregg Mayorga MD Reason [...] by: Yuko Acosta MD 01/09/2025 02:29 PM [facility] Dictated By: Yuko Acosta MD Signed By: <Electronically signed by Yuko Acosta MD in OV> 01/09/25 1429 DD/ 1418 TD/TT: 01/09/25 1423 Loan Administrator: MAGGIE Procedure Note Donotuseinterpreter, Image - 01/09/[address] [address] XRay Report Signed Patient: Taj Granger JMR#: [id number] : 1955cct:[id number] Age/Sex: 69 / MADM Date: 01/09/25 Loc: .ED Attending Dr: Ordering Physician: Gregg Mayorga MD Date of Service: 01/09/25 Procedure(s): XR chest 2V Accession Number(s): [id number] cc: Yumi Alarcon; Gregg Mayorga MD Reason [...] 01/09/25 1429 DD/ 1418 TD/TT: 01/09/25 1423 Loan Administrator: MAGGIE [facility] External Provider IMG XR PROCEDURES Final Result * (ABNORMAL) Drug Monitoring, Panel 1, Screen, Urine (01/09/2025 1:58 PM EST) Opiate Screen Urine Not Detected Not Detect [facility] Comment:Opiate cut-off is 30 0 ng/mL.Positive results are unconfirmed and should not be used fornon-medical purposes. Barbiturates, Urine Not Detected Not Detect [facility] Comment:Barbiturate cut-off is 200 ng/mL.Positive results are unconfirmed and should not be used fornon-medical purposes. Phencyclidine Screen Urine Not Detected Not Detect [facility] Comment:Phencyclidine cut-of f is 25 ng/mL.Positive results are unconfirmed and should not be used fornon-medical purposes. Amphetamine Screen Urine Not Detected Not Detect [facility] Comment:Amphetamine cut-off is 1000 ng/mL.Positive results are unconfirmed and should not be used fornon-medical purposes. Benzodiazepines Screen Urine Not Detected Not Detect [facility] Comment:Benzodiazepine cut-o ff is 200 ng/mL.Positive results are unconfirmed and should not be used fornon-medical purposes. Cocaine Screen Urine Not Detected Not Detect [facility] Comment:Cocaine cut-off is 3 00 ng/mL.Positive results are unconfirmed and should not be used fornon-medical purposes. Cannabinoid Screen Urine POSITIVE(A) Not Detect [facility] Comment:Cannabinoid cut-off is 50 ng/mL.Positive results are unconfirmed and should not be used fornon-medical purposes. Methadone Screen, Urine Not Detected Not Detect ng/mL [facility] Comment:Methadone cut-off is 300 ng/mL.Positive results are unconfirmed and should not be used fornon-medical purposes. FENTANYL URINE Not Detected Not Detect [facility] Comment:Fentanyl cut-off is 1 ng/mL.Positive results are unconfirmed and should not be used fornon-medical purposes. Oxycodone Urine Screen Not Detected Not Detect ng/mL [facility] Comment:Oxycodone cut-off is 100 ng/mL.Positive results are unconfirmed and should not be used fornon-medical purposes. Buprenorphine Screen Not Detected Not Detect ng/mL [facility] Comment:Buprenorphine cut-of f is 5 ng/mL.Positive results are unconfirmed and should not be used fornon-medical purposes. 01/09/2025 1:58 PM EST 01/09/2025 2:00 PM EST Generic External Data Provider LAB URINE ORDERAB LES Final Result [facility] [address] [place], [place] [phone] * (ABNORMAL) Urinalysis, Complete, with Reflex to Culture (01/09/2025 1:58 PM EST) Color Urine Yellow [facility] Appearance Urine Clear [facility] PH 8.5 5.0 - 9.0 [facility] Glucose Urine UA Negative Negative mg/dL [facility] Urine Blood Negative Negative [facility] Specific [place] - Urine 1.020 1.005 - 1.025 [facility] Urine Protein 30 (1+)(A) Neg-Trace mg/dL [facility] Urine Ketones Negative Negative mg/dL [facility] Nitrite Urine Negative Negative [facility] Leukocyte Esterase Urine Negative Negative [facility] RBC Urine 0-2 0 - 2 /HPF [facility] Urine WBC 0-5 0 - 5 /HPF [facility] Urine Squamous Epithelial Cell 0-2 0 - 2 /HPF [facility] Urine Bacteria None Seen None Seen [facility] Hyaline Casts, Urine 0-2 0 - 2 /LPF [facility] 01/09/2025 1:58 PM EST 01/09/2025 2:00 PM EST Narrative [facility] - 01/09/2025 2:20 PM EST Urine, Clean Catch us Generic External Data Provider LAB URINE ORDERAB LES Final Result [facility] [address] [place] [address] [phone] * (ABNORMAL) NT-proBNP (01/09/2025 1:54 PM EST) NT-proBNP 777.1(H) <300 pg/mL [facility] Comment:Reference Range:Age Group (years) NT-proBNP (pg/ml) InterpretationAll <300 Negative: HF unlikelyFor patients presenting to the ED with clinical suspicion ofnew onset or worsening HF, see below:18 to <50 >299.9 to <450.0 Grayzone: [id number] to 75 >299.9 to <900.0 other causes of>75 >299.9 to <1800.0 NT-proBNP zdugonccl12 to <50 >449.9 Positive: HF -45 >899.9>75 >1799.9Note: Elevated NT-proBNP levels should be interpreted inthe context of other clinical information. 01/09/2025 1:54 PM EST 01/09/2025 1:58 PM EST us Generic External Data Provider LAB BLOOD ORDERAB LES Final Result [facility] [address] [place] [address] [phone] * (ABNORMAL) Comprehensive Metabolic Panel (01/09/2025 1:54 PM EST) Sodium 142 135 - 145 mmol/L [facility] Potassium 3.7 3.3 - 5.1 mmol/L [facility] Chloride 107 96 - 108 mmol/L [facility] Carbon Dioxide 29 22 - 29 mmol/L [facility] Anion Gap 10(L) 12 - 20 [facility] Urea Nitrogen (BUN) 22(H) 9 - 16 mg/dL [facility] Creatinine, Serum 0.73 0.5 - 1.4 mg/dL [facility] Creatinine Clr Calc Pharmacy 81.8 [facility] Comment:eGFR (calculated fro m the MDRD study equation) and eCrCl(calculated from the Cockcroft-Gault equation) are based ondifferent parameters and may not yield comparable results.If eCrCl result is absurd, please check patient'sheight/weight. Estimated Glomerular Filt Rate >60 [facility] Comment:Chronic Kidney Disea se: Estimated GFR < 60 mL/min/1.81n7Rvfccg Kidney Disease: Estimated GFR < 15 mL/min/1.73m2 Glucose 104 60 - 115 mg/dL [facility] Calcium 9.0 8.4 - 10.2 mg/dL [facility] Bilirubin, Total 1.0 0.0 - 1.0 mg/dL [facility] Aspartate Amino Transferase 24 5 - 37 U/L [facility] Alanine Aminotransferase 16 0 - 40 U/L [facility] Total Protein 7.3 6.5 - 8.0 g/dL [facility] Albumin Level 4.3 3.5 - 5.0 g/dL [facility] Alkaline Phosphatase 101 39 - 117 U/L [facility] 01/09/2025 1:54 PM EST 01/09/2025 1:58 PM EST Generic External Data Provider LAB BLOOD ORDERAB LES Final Result Performing Organization Address [facility] Co de Phone Number [facility] [address] [place] [phone] * SARS-CoV-2 RNA, Influenza A/B, and RSV RNA, Ql NAAT (01/09/2025 1:54 PM EST) Pathologist [facility] Influenza A PCR NEGATIVE Negative [facility] Influenza B PCR NEGATIVE Negative [facility] Resp Syncy Virus RNA Qual PCR NEGATIVE Negative [facility] SARS COV2 PCR NEGATIVE Negative [facility] Comment:All test results mus t be [...] use by authorized laboratories.Testing performed on the [employer] GeneXpert utilizingreal-time RT-PCR.All SARS CoV2 and positive influenza A/B results arereported to [facility]. 01/09/2025 1:54 PM EST 01/09/2025 1:58 PM EST Generic External Data Provider LAB MICROBIOLOGY - GENERAL ORDERABLES Final Result Performing Organization Address [facility]/ZIP Co de Phone Number [facility] [address] [place] [phone] * High Sensitivity Troponin I (01/09/2025 1:54 PM EST) TROPONIN I HIGH SENSITIVITY <2.7 <3.5 - 35.0 ng/L [facility] Comment:The Arriola high sens itivity Troponin-I results should beused in conjunction with other diagnostic information suchas ECG, clinical observations and information, and patientsymptoms to aid in the diagnosis of [place]. 01/09/2025 1:54 PM EST 01/09/2025 1:58 PM EST Generic External Data Provider LAB BLOOD ORDERAB LES Final Result Performing Organization Address [facility] Co de Phone Number [facility] [address] [place] [phone] * Ethanol (01/09/2025 1:54 PM EST) ETHANOL (MG/DL) IN SER/PLAS <10 mg/dL [facility] Comment:Serum/plasma ethanol results are to be used formedical/treatment purposes only. 01/09/2025 1:54 PM EST 01/09/2025 1:58 PM EST Generic External Data Provider LAB BLOOD ORDERAB LES Final Result Performing Organization Address [facility] de Phone Number [facility] [address] [place] [phone] * C-reactive Protein (01/09/2025 1:54 PM EST) C Reactive Protein 0.34 < or = 0.50 mg/dL [facility] 01/09/2025 1:54 PM EST 01/09/2025 1:58 PM EST Generic External Data Provider LAB BLOOD ORDERAB LES Final Result Performing Organization Address [facility] Phone Number [facility] [address] [place] [phone] * Magnesium (01/09/2025 1:54 PM EST) Magnesium 1.8 1.6 - 2.6 mg/dL [facility] 01/09/2025 1:54 PM EST 01/09/2025 1:58 PM EST us Generic External Data Provider LAB BLOOD ORDERAB LES Final Result [facility] [address] [place] [phone] [phone] * (ABNORMAL) CBC auto differential (01/09/2025 1:54 PM EST) White Blood Count 4.2(L) 4.8 - 10.8 X10*3/uL [facility] Red Blood Count 4.55(L) 4.60 - 5.80 X10*6/uL [facility] Hemoglobin 10.6(L) 14.0 - 18.0 g/dl [facility] Hematocrit 36.6(L) 42.0 - 52.0 % [facility] Mean Corpuscular Volume 80.4 80.0 - 98.0 fL [facility] Mean Corpuscular Hemoglobin 23.3(L) 27.0 - 33.0 pg [facility] Mean Corpuscular HGB Conc 29.0(L) 31.0 - 36.0 g/dl [facility] Red Cell Distribution Width 17.9(H) 11.0 - 16.0 % [facility] Platelet Count 129(L) 160 - 400 X10*3/uL [facility] Mean Platelet Volume 9.6 9.4 - 12.4 fL [facility] Neutrophils Percent Auto 57.9 45 - 73 % [facility] Imm Gran Pct Auto 0.5(H) 0.0 - 0.4 % [facility] Lymphocytes Percent Auto 25.9 20 - 40 % [facility] Monocytes Percent Auto 12.4(H) 2 - 11 % [facility] Eosinophils Percent Auto 2.6 0 - 4 % [facility] Basophils Percent Auto 0.7 0 - 2 % [facility] NRBC Pct Auto 0.0 0.0 - 0.2 /100WBC [facility] Neutrophils Absolute Auto 2.4 2.0 - 8.3 x10*3/uL [facility] Imm Gran Abs Auto 0.02 0.00 - 0.03 X10*3/uL [facility] Lymphocytes Absolute Auto 1.1(L) 1.2 - 4.9 X10*3/uL [facility] Monocytes Absolute Auto 0.5 0.1 - 1.2 X10*3/uL [facility] Eosinophils Absolute Auto 0.1 0.0 - 0.4 X10*3/uL [facility] Basophils Absolute Auto 0.0 0.0 - 0.2 X10*3/uL [facility] NRBC Abs Auto 0.000 0.0 - 0.012 X10*3/uL [facility] 01/09/2025 1:54 PM EST 01/09/2025 1:58 PM EST us Generic External Data Provider LAB BLOOD ORDERAB LES Final Result Performing Organization Address City/State/[facility] Co de Phone Number [facility] [address] [place] [phone] documented in this encounter Visit Diagnoses Not on filedocumented in this encounter Additional Health Concerns Assessment Noted Time PHQ-9 Depression Total Score: 15 12/16/2 024 3:08 PM EST documented as of this encounter Care Teams Power Equipment Technology Instructor Relationship Specialty Start Date End Date Yumi Alarcon MD [address] [place] [phone] PCP - General Family Medicine 08/09/20 documented as of this encounter
--- OUTSIDE RECORDS SUMMARY | 2025-01-09 18:33 | XMS_ITS | Encounter Summary ---
Author Organization [employer] Address [address] [place] [address] Care Team Providers Care Lead Material Handler Name Role Phone Yumi Alarcon MD Primary Care Provider [phone] Encounter Details Date Type Department Care Team (Late st Contact Info) Description 08/01/2024 Orders Only [facility] MEDICINE [address] [place], [place] [phone] Yumi Alarcon MD [address] [place], [place] [phone] Social History Tobacco Use Types Packs/Day Years [...] documented as of this encounter Care Teams Lead Material Handler Relationship Specialty Start Date End Date Yumi Alarcon MD [address] [place] [address] PCP - General Family Medicine 08/09/20 Lucy GRAYSON 09/28/24 11/23/24 documented as of this encounter
== END 2025-01-09 16:16 | disposition home or self-care (01) ==
PROVIDERS: Emergency Provider Emergency Medicine; PCP General Practice
DX: R42 Dizziness and giddiness (principal); Z03.818 Encounter for observation for suspected exposure to other biological agents ruled out; I48.91 Unspecified atrial fibrillation; I49.5 Sick sinus syndrome; J44.9 Chronic obstructive pulmonary disease, unspecified; I10 Essential (primary) hypertension; Z79.01 Long term (current) use of anticoagulants; Z95.1 Presence of aortocoronary bypass graft; Z79.899 Other long term (current) drug therapy
CPT/HCPCS: 36415; 71046; 80053; 80307; 81001; 83735; 83880; 84484; 85025; 86140; 87637; 93005; 99284; 99285

== ENCOUNTER → 2025-01-09 13:18 | Outpatient (BNV) | payer OTHER, SELFPAY | PROVIDERS: Emergency Provider Emergency Medicine; PCP General Practice; Visit Provider Internal Medicine Cardiovascular Disease | DX: I48.91 Unspecified atrial fibrillation (principal) | CPT/HCPCS: 93010 ==

== ENCOUNTER → 2025-01-09 13:19 | Outpatient (BNV) | payer OTHER, SELFPAY | PROVIDERS: Emergency Provider Emergency Medicine; PCP General Practice; Visit Provider Radiology Diagnostic Radiology | DX: R53.1 Weakness (principal) | CPT/HCPCS: 71046 ==

== ENCOUNTER 2025-01-12 08:37 | Emergency (ER) | payer OTHER, SELFPAY ==
--- NOTE | 2025-01-12 | ECG_ITS ---
Test Reason : DIZZINESS Blood Pressure : */* mmHG Vent. Rate : 75 BPM Atrial Rate : * BPM P-R Int : * ms QRS Dur : 100 ms QT Int : 404 ms P-R-T Axes : * 89 28 degrees QTcB Int : 451 ms Atrial fibrillation Minimal voltage criteria for LVH, may be normal variant ( [place] product ) Septal infarct , age undetermined Abnormal ECG When compared with ECG of 09-Jan-2025 13:56, No significant change was found Referred By: Generic ED Physician Electronically Signed By: Richard Cespedes
--- NOTE | 2025-01-12 | ECG_ITS ---
Test Reason : MEDICAL CLEARENCE Blood Pressure : */* mmHG Vent. Rate : 82 BPM Atrial Rate : * BPM P-R Int : * ms QRS Dur : 104 ms QT Int : 402 ms P-R-T Axes : * 100 -32 degrees QTcB Int : 469 ms Atrial fibrillation Rightward axis Minimal voltage criteria for LVH, may be normal variant ( [place]e product ) Nonspecific ST abnormality Abnormal ECG When compared with ECG of 12-Jan-2025 08:56, Criteria for Septal infarct are no longer Present Referred By: Bobo Garcia Electronically Signed By: KEENAN BENNETT
[2025-01-12 08:42] VITALS: BP 141/91; BP 146/88; PULSE 81; PULSE 95; RESP 14; TEMP 36.6; O2SAT 100; O2SAT 97; BMI 20.6
--- OUTSIDE RECORDS SUMMARY | 2025-01-12 08:58 | XMS_ITS | Encounter Summary ---
Author Organization [employer] Address [address] [place] [address] Care Team Providers Care Clerk Manager Name Role Phone Yumi Alarcon MD Primary Care Provider [phone] Encounter Details Date Type Department Care Team (Late st Contact Info) Description 06/30/2024 Orders Only [facility] MEDICINE [address] [place], [place] [phone] Yumi Alarcon MD [address] [place], [place] [phone] Social History Tobacco Use Types Packs/Day Years [...] documented as of this encounter Care Teams Clerk Manager Relationship Specialty Start Date End Date Yumi Alarcon MD [address] [place] [address] PCP - General Family Medicine 08/09/20 Lucy GRAYSON 09/28/24 11/23/24 documented as of this encounter
--- OUTSIDE RECORDS SUMMARY | 2025-01-12 08:59 | XMS_ITS | Encounter Summary ---
Author Organization [employer] Address [address] [place] [address] Care Team Providers Care Composite Assembler Name Role Phone Yumi Alarcon MD Primary Care Provider [phone] Encounter Details Date Type Department Care Team (Late st Contact Info) Description 06/30/2023 Telephone [facility] MEDICINE [address] [place], [place] [phone] Yumi Alarcon MD [address] [place], [place] [phone] Social History Tobacco Use Types Packs/Day Years [...] documented as of this encounter Care Teams Composite Assembler Relationship Specialty Start Date End Date Yumi Alarcon MD [address] [place] [address] PCP - General Family Medicine 08/09/20 Lucy GRAYSON 09/28/24 11/23/24 documented as of this encounter
--- OUTSIDE RECORDS SUMMARY | 2025-01-12 08:59 | XMS_ITS | Encounter Summary ---
Author Organization [employer] Address [address] [place] [address] Care Team Providers Care Carpet Floor Layer Apprentice Name Role Phone Yumi Alarcon MD Primary Care Provider [phone] Encounter Details Date Type Department Care Team (Late st Contact Info) Description 08/20/2022 Orders Only [facility] [address] [place] [address] Trinh Spencer LPN Social History Tobacco Use [...] on filedocumented in this encounter Care Teams Carpet Floor Layer Apprentice Relationship Specialty Start Date End Date Yumi Alarcon MD [address] [place] [phone] PCP - General Family Medicine 08/09[facility]20 [facility]/28[facility] 11/23/24 documented as of this encounter
--- OUTSIDE RECORDS SUMMARY | 2025-01-12 08:59 | XMS_ITS | Encounter Summary ---
Author Organization [employer] Address [address] 7t [place] [address] Care Team Providers Care Guidance Adviser Name Role Phone Yumi Alarcon MD Primary Care Provider [phone] Reason for Visit * Reason Comments Med Change Request Encounter Details Date Type Department Care Team (Late st Contact Info) Description 12/20/2023 Refill [facility] [address] [place], [place] [phone] Yumi Alarcon MD [address] [place], [place] [phone] Cellulitis of multiple sites of hand and [...] documented as of this encounter Care Teams Guidance Adviser Relationship Specialty Start Date End Date Yumi Alarcon MD [address] [place] [phone] PCP - General Family Medicine 08/09/20 Lucy GRAYOSN 09/28/24 11/23/24 documented as of this encounter
--- OUTSIDE RECORDS SUMMARY | 2025-01-12 08:59 | XMS_ITS | Clinical Summary ---
Author Organization [facility] Address [address] [place], [place] [phone] Phone Care Team Providers Care Roofer Gypsum Name Role Phone Yumi Alarcon MD Primary [...] [place] [id number] [facility] MEDICARE REPLACEMENT JENNYFER ALLISON [id number] MEDICARE PART A & B [facility] [place] [id number] MEDICARE PART A & B MEDICARE PART A & B MEDICARE PART A & B MEDICARE REPLACEMENT JENNYFER ALLISON [id number] MEDICARE PART A & B MEDICARE PART A & B MEDICARE REPLACEMENT MEDICARE PART A & B [facility] [place] [id number] MEDICARE PART A & B [facility] [place] [phone] Care Teams Roofer Gypsum Relationship Specialty Start Date End Date Yumi Alarcon MD [address] [place] [phone] PCP - General 07/06/24 Additional Source Comments The information contained in this document represents components of the legal health record. It is not the complete legal health record.[facility]
--- OUTSIDE RECORDS SUMMARY | 2025-01-12 08:59 | XMS_ITS | Encounter Summary ---
Author Organization [employer] Address [address] [facility] 7t [place] [address] Care Team Providers Care Associate Counsel Name Role Phone Yumi Alarcon MD Primary Care Provider [phone] Encounter Details Date Type Department Care Team (Late st Contact Info) Description 03/20/2022 Orders Only [facility] [address] [place], [place] [phone] Vanna Mtz LPN Social History Tobacco Use [...] filedocumented in this encounter Care Teams Associate Counsel Relationship Specialty Start Date End Date Yumi Alarcon MD [address] [place], [place] [phone] PCP - General Family Medicine 08/09/20 [place] [facility] 09/28/24 11/23/24 documented as of this encounter
--- OUTSIDE RECORDS SUMMARY | 2025-01-12 08:59 | XMS_ITS | Encounter Summary ---
Author Organization [employer] Address [address] 7[address] [place] [address] Care Team Providers Care Summer Nanny Name Role Phone Yumi Alarcon MD Primary Care Provider [phone] Encounter Details Date Type Department Care Team (Late st Contact Info) Description 02/17/2023 Abstract [facility] MEDICINE [address] [place], [place] [phone] Yumi Alarcon MD [address] [place], [place] [phone] Social History Tobacco Use Types Packs/Day Years [...] on filedocumented in this encounter Care Teams Summer Nanny Relationship Specialty Start Date End Date Yumi Alarcon MD [address] [place] [phone] PCP - General Family Medicine 08/09/20 Lucy GRAYSON 09/28/24 11/23/24 documented as of this encounter
--- OUTSIDE RECORDS SUMMARY | 2025-01-12 08:59 | XMS_ITS | Clinical Summary ---
Author Organization [employer] Address [address] [facility] 7t [place] [address] Care Team Providers Care Handbag Operator Name Role Phone Yumi Alarcon MD Primary Care Provider [phone] Allergies Active Allergy Reactions Criticality Noted Date [...] financial concern and housing. During today's visit, aTj reported severity of anxiety symptoms due to current housing situation. CM connected with pt during the appointment and assisted with shelters and food [place] in the area. PLAN: (check all that apply) Further services needed, but declined Behavioral Health Integration Plan Internal Follow up with [facility] Patient Self Plan Patient to utilize skills provided in intervention , Patient [facility], and Patient to [...] situation. He is currently living in a prison in [place] and reports he is not able to stay in during the day. He is looking to find somewhere he could also spend the mornings in, especially during the winter days. Pt reports the prison is charging $65 weekly for a spot. He has done other applications with [employer] and is currently looking for section 8 apartments. Anxiety is highly associated with current housing situation. clinician engaged patient with active/reflective listening. Reviewed and assessed for risk, current stressors and protective factors using open ended questions. Sent request to CM to assist with housing situation. Provided patient with information from [facility] and [employer] to seek out for additional support with prison placements. Assessment & Plan (06/09/2023 3:38 PM [...] Health Integration Plan Internal Follow up with [facility] Patient Self Plan Patient to utilize skills provided in intervention , Patient [facility] as needed, and Patient to [...] (01/22/2024 12:33 PM EST): Needs to see [facility] cardiology, repeat Echo to monitor progression of [...] Diagnosed Date Resolved Date Lives in homeless prison 12/13/2023 Assessment & Plan (12/13/2023 4:14 PM [...] situation. He is currently living in a prison in [place] and reports he is not able to stay in during the day. He is looking to find somewhere he could also spend the mornings in, especially during the winter days. Pt reports the prison is charging $65 weekly for a spot. [...] housing situation. Provided patient with information from [facility] and [employer] to seek out for additional support with prison placements. Assessment & Plan (06/09/2023 3:39 PM [...] Health Integration Plan Internal Follow up with [facility] Patient Self Plan Patient to utilize skills provided in intervention , Patient to reach out to [facility] team as needed, and Patient to reach out to [facility] as needed. Pt agreed to reach out to clinician during next medical appointment. CM connected with patient to assist with housing and food insecurity during today's session. Depressive disorder 08/13/2020 04/18/19 25 Encounters Date Type Department Care Team Description 01/09/2025 Orders Only GENERIC EXTERNAL DATA DEPARTMENT Provider, Generic External Data 12/26/2024 Refill [facility] [address] [place] [address] Yumi Alarcon MD 12/12/2024 Telephone [facility] [address] [place] [address] Yumi Alarcon MD Referral 11/13/2024 Results Follow-Up [facility] [address] [place] [address] Yumi Alarcon MD CBC auto differential, Comprehensive Metabolic Panel, Lipase, High Sensitivity Troponin I 11/10/2024 Orders Only [facility] External Provider, [facility] from Last 3 Months Immunizations Immunization Administration [...] PM EST Narrative 01/09/2025 2:33 PM EST [address] [address] XRay Report Signed Patient: Taj Granger MR#: [id number] : 1955 Acct:[id number] Age/Sex: 69 / M ADM Date: 01/09/25 Loc: HO.ED Attending Dr: Ordering Physician: Gregg Mayorga MD Date of Service: 01/09/25 Procedure(s): XR chest 2V Accession Number(s): [id number] cc: Yumi Alarcon; Gregg Mayorga MD Reason [...] 01/09/25 1429 DD/ 1418 TD/TT: 01/09/25 1423 Police Dispatcher: MAGGIE Procedure Note Donotuseinterpreter, Image - 01/09/[address] [address] XRay Report Signed Patient: Taj Granger R#: [id number] : 8Acct:[id number] Age/Sex: 69 / MADM Date: 01/09/25 Loc: .ED Attending Dr: Ordering Physician: Gregg Mayorga MD Date of Service: 01/09/25 Procedure(s): XR chest 2V Accession Number(s): [id number] cc: Yumi Alarcon; Gregg Mayorga MD Reason [...] 01/09/25 1429 DD/ 1418 TD/TT: 01/09/25 1423 Police Dispatcher: MAGGIE [facility] External Provider IMG XR PROCEDURES Final Result * (ABNORMAL) Urinalysis, Complete, with Reflex to Culture (01/09/2025 1:58 PM EST) Color Urine Yellow [facility] Appearance Urine Clear [facility] PH 8.5 5.0 - 9.0 [facility] Glucose Urine UA Negative Negative mg/dL [facility] Urine Blood Negative Negative [facility] Specific [place] - Urine 1.020 1.005 - 1.025 [facility] Urine Protein 30 (1+)(A) Neg-Trace mg/dL [facility] Urine Ketones Negative Negative mg/dL [facility] Nitrite Urine Negative Negative [facility] Leukocyte Esterase Urine Negative Negative [facility] RBC Urine 0-2 0 - 2 /HPF [facility] Urine WBC 0-5 0 - 5 /HPF [facility] Urine Squamous Epithelial Cell 0-2 0 - 2 /HPF [facility] Urine Bacteria None Seen None Seen [facility] Hyaline Casts, Urine 0-2 0 - 2 /LPF [facility] 01/09/2025 1:58 PM EST 01/09/2025 2:00 PM EST Narrative [facility] - 01/09/2025 2:20 PM EST Urine, Clean Catch us Generic External Data Provider LAB URINE ORDERAB LES Final Result [facility] [address] [place] [phone] [phone] * (ABNORMAL) Drug Monitoring, Panel 1, Screen, Urine (01/09/2025 1:58 PM EST) Opiate Screen Urine Not Detected Not Detect [facility] Comment:Opiate cut-off is 30 0 ng/mL.Positive results are unconfirmed and should not be used fornon-medical purposes. Barbiturates, Urine Not Detected Not Detect [facility] Comment:Barbiturate cut-off is 200 ng/mL.Positive results are unconfirmed and should not be used fornon-medical purposes. Phencyclidine Screen Urine Not Detected Not Detect [facility] Comment:Phencyclidine cut-of f is 25 ng/mL.Positive results are unconfirmed and should not be used fornon-medical purposes. Amphetamine Screen Urine Not Detected Not Detect [facility] Comment:Amphetamine cut-off is 1000 ng/mL.Positive results are unconfirmed and should not be used fornon-medical purposes. Benzodiazepines Screen Urine Not Detected Not Detect [facility] Comment:Benzodiazepine cut-o ff is 200 ng/mL.Positive results are unconfirmed and should not be used fornon-medical purposes. Cocaine Screen Urine Not Detected Not Detect [facility] Comment:Cocaine cut-off is 3 00 ng/mL.Positive results are unconfirmed and should not be used fornon-medical purposes. Cannabinoid Screen Urine POSITIVE(A) Not Detect [facility] Comment:Cannabinoid cut-off is 50 ng/mL.Positive results are unconfirmed and should not be used fornon-medical purposes. Methadone Screen, Urine Not Detected Not Detect ng/mL [facility] Comment:Methadone cut-off is 300 ng/mL.Positive results are unconfirmed and should not be used fornon-medical purposes. FENTANYL URINE Not Detected Not Detect [facility] Comment:Fentanyl cut-off is 1 ng/mL.Positive results are unconfirmed and should not be used fornon-medical purposes. Oxycodone Urine Screen Not Detected Not Detect ng/mL [facility] Comment:Oxycodone cut-off is 100 ng/mL.Positive results are unconfirmed and should not be used fornon-medical purposes. Buprenorphine Screen Not Detected Not Detect ng/mL [facility] Comment:Buprenorphine cut-of f is 5 ng/mL.Positive results are unconfirmed and should not be used fornon-medical purposes. 01/09/2025 1:58 PM EST 01/09/2025 2:00 PM EST Generic External Data Provider LAB URINE ORDERAB LES Final Result Performing Organization Address [facility] de Phone Number [facility] [address] [place] [phone] * High Sensitivity Troponin I (01/09/2025 1:54 PM EST) Only the most recent of2 resultswithin the time period is included. TROPONIN I HIGH SENSITIVITY <2.7 <3.5 - 35.0 ng/L [facility] Comment:The Arriola high sens itivity Troponin-I results should beused in conjunction with other diagnostic information suchas ECG, clinical observations and information, and patientsymptoms to aid in the diagnosis of MT. 01/09/2025 1:54 PM EST 01/09/2025 1:58 PM EST Generic External Data Provider LAB BLOOD ORDERAB LES Final Result Performing Organization Address [facility] Co de Phone Number [facility] [address] [place] [phone] * Ethanol (01/09/2025 1:54 PM EST) ETHANOL (MG/DL) IN SER/PLAS <10 mg/dL [facility] Comment:Serum/plasma ethanol results are to be used formedical/treatment purposes only. 01/09/2025 1:54 PM EST 01/09/2025 1:58 PM EST Generic External Data Provider LAB BLOOD ORDERAB LES Final Result Performing Organization Address [facility] Co de Phone Number [facility] [address] [place] [phone] * SARS-CoV-2 RNA, Influenza A/B, and RSV RNA, Ql NAAT (01/09/2025 1:54 PM EST) Influenza A PCR NEGATIVE Negative [facility] Influenza B PCR NEGATIVE Negative [facility] Resp Syncy Virus RNA Qual PCR NEGATIVE Negative [facility] SARS COV2 PCR NEGATIVE Negative [facility] Comment:All test results mus t be [...] use by authorized laboratories.Testing performed on the Universal [employer] GeneXpert utilizingreal-time RT-PCR.All SARS CoV2 and positive influenza A/B results arereported to [facility]. 01/09/2025 1:54 PM EST 01/09/2025 1:58 PM EST Generic External Data Provider LAB MICROBIOLOGY - GENERAL ORDERABLES Final Result Performing Organization Address [facility] Co de Phone Number [facility] [address] [place] [phone] * (ABNORMAL) NT-proBNP (01/09/2025 1:54 PM EST) NT-proBNP 777.1(H) <300 pg/mL [facility] Comment:Reference Range:Age Group (years) NT-proBNP (pg/ml) InterpretationAll <300 Negative: HF unlikelyFor patients presenting to the ED with clinical suspicion ofnew onset or worsening HF, see below:18 to <50 >299.9 to <450.0 Grayzone: Gskmhidg46 to 75 >299.9 to <900.0 other causes of>75 >299.9 to <1800.0 NT-proBNP dttrdtivl36 to <50 >449.9 Positive: HF secagb26-00 >899.9>75 >1799.9Note: Elevated NT-proBNP levels should be interpreted inthe context of other clinical information. 01/09/2025 1:54 PM EST 01/09/2025 1:58 PM EST us Generic External Data Provider LAB BLOOD ORDERAB LES Final Result [facility] [address] [place] [phone] * (ABNORMAL) CBC auto differential (01/09/2025 1:54 PM EST) Only the most recent of2 resultswithin the time period is included. White Blood Count 4.2(L) 4.8 - 10.8 X10*3/uL [facility] Red Blood Count 4.55(L) 4.60 - 5.80 X10*6/uL [facility] Hemoglobin 10.6(L) 14.0 - 18.0 g/dl [facility] Hematocrit 36.6(L) 42.0 - 52.0 % [facility] Mean Corpuscular Volume 80.4 80.0 - 98.0 fL [facility] Mean Corpuscular Hemoglobin 23.3(L) 27.0 - 33.0 pg [facility] Mean Corpuscular HGB Conc 29.0(L) 31.0 - 36.0 g/dl [facility] Red Cell Distribution Width 17.9(H) 11.0 - 16.0 % [facility] Platelet Count 129(L) 160 - 400 X10*3/uL [facility] Mean Platelet Volume 9.6 9.4 - 12.4 fL [facility] Neutrophils Percent Auto 57.9 45 - 73 % [facility] Imm Gran Pct Auto 0.5(H) 0.0 - 0.4 % [facility] Lymphocytes Percent Auto 25.9 20 - 40 % [facility] Monocytes Percent Auto 12.4(H) 2 - 11 % [facility] Eosinophils Percent Auto 2.6 0 - 4 % [facility] Basophils Percent Auto 0.7 0 - 2 % [facility] NRBC Pct Auto 0.0 0.0 - 0.2 /100WBC [facility] Neutrophils Absolute Auto 2.4 2.0 - 8.3 x10*3/uL [facility] Imm Gran Abs Auto 0.02 0.00 - 0.03 X10*3/uL [facility] Lymphocytes Absolute Auto 1.1(L) 1.2 - 4.9 X10*3/uL [facility] Monocytes Absolute Auto 0.5 0.1 - 1.2 X10*3/uL [facility] Eosinophils Absolute Auto 0.1 0.0 - 0.4 X10*3/uL [facility] Basophils Absolute Auto 0.0 0.0 - 0.2 X10*3/uL [facility] NRBC Abs Auto 0.000 0.0 - 0.012 X10*3/uL [facility] 01/09/2025 1:54 PM EST 01/09/2025 1:58 PM EST us Generic External Data Provider LAB BLOOD ORDERAB LES Final Result Performing Organization Address [facility] Co de Phone Number [facility] [address] [place] [phone] * C-reactive Protein (01/09/2025 1:54 PM EST) C Reactive Protein 0.34 < or = 0.50 mg/dL [facility] 01/09/2025 1:54 PM EST 01/09/2025 1:58 PM EST us Generic External Data Provider LAB BLOOD ORDERAB LES Final Result Performing Organization Address [facility]/ZIP Co de Phone Number [facility] [address] [place] [phone] * Magnesium (01/09/2025 1:54 PM EST) Magnesium 1.8 1.6 - 2.6 mg/dL [facility] 01/09/2025 1:54 PM EST 01/09/2025 1:58 PM EST us Generic External Data Provider LAB BLOOD ORDERAB LES Final Result [facility] [address] [place] [phone] * (ABNORMAL) Comprehensive Metabolic Panel (01/09/2025 1:54 PM EST) Only the most recent of2 resultswithin the time period is included. Pathologist [facility] Sodium 142 135 - 145 mmol/L [facility] Potassium 3.7 3.3 - 5.1 mmol/L [facility] Chloride 107 96 - 108 mmol/L [facility] Carbon Dioxide 29 22 - 29 mmol/L [facility] Anion Gap 10(L) 12 - 20 [facility] Urea Nitrogen (BUN) 22(H) 9 - 16 mg/dL [facility] Creatinine, Serum 0.73 0.5 - 1.4 mg/dL [facility] Creatinine Clr Calc Pharmacy 81.8 [facility] Comment:eGFR (calculated fro m the MDRD study equation) and eCrCl(calculated from the Cockcroft-Gault equation) are based ondifferent parameters and may not yield comparable results.If eCrCl result is absurd, please check patient'sheight/weight. Estimated Glomerular Filt Rate >60 [facility] Comment:Chronic Kidney Disea se: Estimated GFR < 60 mL/min/[id number] Kidney Disease: Estimated GFR < 15 mL/min/1.73m2 Glucose 104 60 - 115 mg/dL [facility] Calcium 9.0 8.4 - 10.2 mg/dL [facility] Bilirubin, Total 1.0 0.0 - 1.0 mg/dL [facility] Aspartate Amino Transferase 24 5 - 37 U/L [facility] Alanine Aminotransferase 16 0 - 40 U/L [facility] Total Protein 7.3 6.5 - 8.0 g/dL [facility] Albumin Level 4.3 3.5 - 5.0 g/dL [facility] Alkaline Phosphatase 101 39 - 117 U/L [facility] 01/09/2025 1:54 PM EST 01/09/2025 1:58 PM EST us Generic External Data Provider LAB BLOOD ORDERAB LES Final Result Performing Organization Address City/State/[facility] Co de Phone Number [facility] [address] [place] [address] [phone] * CT Head w/o Contrast (11/10/2024 10:13 AM EDT) Anatomical Region Laterality Modality Head, Neck Computed Tomogra phy 11/10/2024 10:1 3 AM EDT Narrative 11/10/2024 10:36 AM EDT [place] [address] [address] Scan Report Signed Patient: Taj Granger MR#: [id number] : 1955 Acct:[id number] Age/Sex: 69 / M ADM Date: 11/10/24 Loc: HO.ED Attending Dr: Ordering Physician: Pascual Fontaine MD Date of Service: 11/10/24 Procedure(s): CT head/brain wo IV con Accession Number(s): [id number] cc: Yumi Alarcon; Pascual Fontaine MD Report Number: [id number]: Total DLP = 618.00 mGy-cm Reason for [...] 11/10/24 1033 DD/ 1013 TD/TT: 11/10/24 1022 Police Dispatcher: Procedure Note Donotuseinterpreter, Image - 11/10/[address] [address] [address] Scan Report Signed Patient: Taj Granger R#: [id number] : 8Acct:[id number] Age/Sex: 69 / MADM Date: 11/10/24 Loc: HO.ED Attending Dr: Ordering Physician: Pascual Fontaine MD Date of Service: 11/10/24 Procedure(s): CT head/brain wo IV con Accession Number(s): [id number] cc: Yumi Alarcon; Pascual Fontaine MD Report Number: [id number]: Total DLP = 618.00 mGy-cm Reason for [...] 11/10/24 1033 DD/ 1013 TD/TT: 11/10/24 1022 Police Dispatcher: [facility] External Provider IMG CT PROCEDURES Final Result * (ABNORMAL) Lipase (11/10/2024 10:10 AM EDT) Lipase 5(L) 8 - 78 U/L [facility] 11/10/2024 10:1 0 AM EDT 11/10/2024 10:23 AM EDT us Generic External Data Provider LAB BLOOD ORDERAB LES Final Result Performing Organization Address City/State/[facility] Co de Phone Number [facility] [address] [place] [address] [phone] from Last 3 Months Insurance [facility] STANDARD Member Subscriber Plan / Payer (Ef fective 2023-Present) Name:Taj Granger Relation to Subscriber:Self Name:Taj Granger Payer ID:Not on file Group ID:Not on file Type:Medicaid Address: [facility] [id number] [place] [phone] [place], [place] [address] Care Teams Handbag Operator Relationship Specialty Start Date End Date Yumi Alarcon MD [address] [place] [phone] PCP - General Family Medicine 08/09/20
--- OUTSIDE RECORDS SUMMARY | 2025-01-12 08:59 | XMS_ITS | Encounter Summary ---
Author Organization [employer] Address [address] [place] [address] Care Team Providers Care Inspector Watch Assembly Name Role Phone Yumi Alarcon MD Primary Care Provider [phone] Encounter Details Date Type Department Care Team (Late st Contact Info) Description 08/01/2024 Orders Only [facility] [address] [place], [place] [phone] Yumi Alarcon MD [address] [place], [place] [phone] Social History Tobacco Use Types Packs/Day Years [...] documented as of this encounter Care Teams Inspector Watch Assembly Relationship Specialty Start Date End Date Yumi Alarcon MD [address] [place] [address] PCP - General Family Medicine 08/09/20 Lucy GRAYSON 09/28/24 11/23/24 documented as of this encounter
--- OUTSIDE RECORDS SUMMARY | 2025-01-12 08:59 | XMS_ITS | Encounter Summary ---
Author Organization [employer] Address [address] [place] [address] Care Team Providers Care Medical Detailist Name Role Phone Yumi Alarcon MD Primary Care Provider [phone] Encounter Details Date Type Department Care Team (Late st Contact Info) Description 02/11/2023 Abstract [facility]INE [address] [place], [place] [phone] Yumi Alarcon MD [address] [place], [place] [phone] Social History Tobacco Use Types Packs/Day Years [...] on filedocumented in this encounter Care Teams Medical Detailist Relationship Specialty Start Date End Date Yumi Alarcon MD [address] [place] [phone] PCP - General Family Medicine 08/09/20 Lucy GRAYSON 09/28/24 11/23/24 documented as of this encounter
--- OUTSIDE RECORDS SUMMARY | 2025-01-12 08:59 | XMS_ITS | Encounter Summary ---
Author Organization [employer] Address [address] [facility] 7t [place] [address] Care Team Providers Care Continuous Loft Operator Name Role Phone Yumi Alarcon MD Primary Care Provider [phone] Reason for Referral * Consultation (Routine) - Closed Specialty Diagnoses / Procedures Referred By Contac t Referred To Contact Diagnoses Moderately severe major depression (CMS/HCC) (HCC) Food insecurity Homeless single person Yumi Alarcon MD [address] [place] [address] Phone: tel: fax: [address] [address] Phone: tel: fax: Referral ID Status Reason Start Date Expiration Date V isits Requested Visits Authorized [id number] Closed Specialty Services Required 05/08/2024 05/08/2025 1 1 Encounter Details Date Type Department Care Team (Late st Contact Info) Description 05/08/2024 Orders Only [facility] [address] [place] [phone] Yumi Alarcon MD [address] [place], [place] [phone] Moderately severe major depression (CMS/HCC) (Primary Dx); [...] documented as of this encounter Care Teams Continuous Loft Operator Relationship Specialty Start Date End Date Yumi Alarcon MD [address] [place] [address] PCP - General Family Medicine 08/09/20 Lucy GRAYSON 09/28/24 11/23/24 documented as of this encounter
--- OUTSIDE RECORDS SUMMARY | 2025-01-12 08:59 | XMS_ITS | Encounter Summary ---
Author Organization [employer] Address [address] [place] [address] Care Team Providers Care Setup Operator Name Role Phone Yumi Alarcon MD Primary Care Provider [phone] Encounter Details Date Type Department Care Team [...] PM EST Narrative 01/09/2025 2:33 PM EST [address] [address] XRay Report Signed Patient: Taj Granger MR#: [id number] : 1955 Acct:[id number] Age/Sex: 69 / M ADM Date: 01/09/25 Loc: HO.ED Attending Dr: Ordering Physician: Gregg Mayorga MD Date of Service: 01/09/25 Procedure(s): XR chest 2V Accession Number(s): [id number] cc: Yumi Alarcon; Gregg Mayorga MD Reason [...] by: Yuko Acosta MD 01/09/2025 02:29 PM [facility] Dictated By: Yuko Acosta MD Signed By: <Electronically signed by Yuko Acosta MD in OV> 01/09/25 1429 DD/ 1418 TD/TT: 01/09/25 1423 Coat Operator Insulator: MAGGIE Procedure Note Donotuseinterpreter, Image - 01/09/[address] [address] XRay Report Signed Patient: Taj Granger JMR#: [id number] : 1955cct:[id number] Age/Sex: 69 / MADM Date: 01/09/25 Loc: .ED Attending Dr: Ordering Physician: Gregg Mayorga MD Date of Service: 01/09/25 Procedure(s): XR chest 2V Accession Number(s): [id number] cc: Yumi Alarcon; Gregg Mayorga MD Reason [...] 01/09/25 1429 DD/ 1418 TD/TT: 01/09/25 1423 Coat Operator Insulator: MAGGIE [facility] External Provider IMG XR PROCEDURES Final Result * (ABNORMAL) Drug Monitoring, Panel 1, Screen, Urine (01/09/2025 1:58 PM EST) Opiate Screen Urine Not Detected Not Detect [facility] Comment:Opiate cut-off is 30 0 ng/mL.Positive results are unconfirmed and should not be used fornon-medical purposes. Barbiturates, Urine Not Detected Not Detect [facility] Comment:Barbiturate cut-off is 200 ng/mL.Positive results are unconfirmed and should not be used fornon-medical purposes. Phencyclidine Screen Urine Not Detected Not Detect [facility] Comment:Phencyclidine cut-of f is 25 ng/mL.Positive results are unconfirmed and should not be used fornon-medical purposes. Amphetamine Screen Urine Not Detected Not Detect [facility] Comment:Amphetamine cut-off is 1000 ng/mL.Positive results are unconfirmed and should not be used fornon-medical purposes. Benzodiazepines Screen Urine Not Detected Not Detect [facility] Comment:Benzodiazepine cut-o ff is 200 ng/mL.Positive results are unconfirmed and should not be used fornon-medical purposes. Cocaine Screen Urine Not Detected Not Detect [facility] Comment:Cocaine cut-off is 3 00 ng/mL.Positive results are unconfirmed and should not be used fornon-medical purposes. Cannabinoid Screen Urine POSITIVE(A) Not Detect [facility] Comment:Cannabinoid cut-off is 50 ng/mL.Positive results are unconfirmed and should not be used fornon-medical purposes. Methadone Screen, Urine Not Detected Not Detect ng/mL [facility] Comment:Methadone cut-off is 300 ng/mL.Positive results are unconfirmed and should not be used fornon-medical purposes. FENTANYL URINE Not Detected Not Detect [facility] Comment:Fentanyl cut-off is 1 ng/mL.Positive results are unconfirmed and should not be used fornon-medical purposes. Oxycodone Urine Screen Not Detected Not Detect ng/mL [facility] Comment:Oxycodone cut-off is 100 ng/mL.Positive results are unconfirmed and should not be used fornon-medical purposes. Buprenorphine Screen Not Detected Not Detect ng/mL [facility] Comment:Buprenorphine cut-of f is 5 ng/mL.Positive results are unconfirmed and should not be used fornon-medical purposes. 01/09/2025 1:58 PM EST 01/09/2025 2:00 PM EST Generic External Data Provider LAB URINE ORDERAB LES Final Result [facility] [address], [place] [phone] * (ABNORMAL) Urinalysis, Complete, with Reflex to Culture (01/09/2025 1:58 PM EST) Color Urine Yellow [facility] Appearance Urine Clear [facility] PH 8.5 5.0 - 9.0 [facility] Glucose Urine UA Negative Negative mg/dL [facility] Urine Blood Negative Negative [facility] Specific [place] - Urine 1.020 1.005 - 1.025 [facility] Urine Protein 30 (1+)(A) Neg-Trace mg/dL [facility] Urine Ketones Negative Negative mg/dL [facility] Nitrite Urine Negative Negative [facility] Leukocyte Esterase Urine Negative Negative [facility] RBC Urine 0-2 0 - 2 /HPF [facility] Urine WBC 0-5 0 - 5 /HPF [facility] Urine Squamous Epithelial Cell 0-2 0 - 2 /HPF [facility] Urine Bacteria None Seen None Seen [facility] Hyaline Casts, Urine 0-2 0 - 2 /LPF [facility] 01/09/2025 1:58 PM EST 01/09/2025 2:00 PM EST Narrative [facility] - 01/09/2025 2:20 PM EST Urine, Clean Catch us Generic External Data Provider LAB URINE ORDERAB LES Final Result [facility] [address] [place] [address] [phone] * (ABNORMAL) NT-proBNP (01/09/2025 1:54 PM EST) NT-proBNP 777.1(H) <300 pg/mL [facility] Comment:Reference Range:Age Group (years) NT-proBNP (pg/ml) InterpretationAll <300 Negative: HF unlikelyFor patients presenting to the ED with clinical suspicion ofnew onset or worsening HF, see below:18 to <50 >299.9 to <450.0 Grayzone: [id number] to 75 >299.9 to <900.0 other causes of>75 >299.9 to <1800.0 NT-proBNP [id number] to <50 >449.9 Positive: HF [id number] >899.9>75 >1799.9Note: Elevated NT-proBNP levels should be interpreted inthe context of other clinical information. 01/09/2025 1:54 PM EST 01/09/2025 1:58 PM EST us Generic External Data Provider LAB BLOOD ORDERAB LES Final Result [facility] [address] [place] [address] [phone] * (ABNORMAL) Comprehensive Metabolic Panel (01/09/2025 1:54 PM EST) Sodium 142 135 - 145 mmol/L [facility] Potassium 3.7 3.3 - 5.1 mmol/L [facility] Chloride 107 96 - 108 mmol/L [facility] Carbon Dioxide 29 22 - 29 mmol/L [facility] Anion Gap 10(L) 12 - 20 [facility] Urea Nitrogen (BUN) 22(H) 9 - 16 mg/dL [facility] Creatinine, Serum 0.73 0.5 - 1.4 mg/dL [facility] Creatinine Clr Calc Pharmacy 81.8 [facility] Comment:eGFR (calculated fro m the MDRD study equation) and eCrCl(calculated from the Cockcroft-Gault equation) are based ondifferent parameters and may not yield comparable results.If eCrCl result is absurd, please check patient'sheight/weight. Estimated Glomerular Filt Rate >60 [facility] Comment:Chronic Kidney Disea se: Estimated GFR < 60 mL/min/1.27n6Jtufcw Kidney Disease: Estimated GFR < 15 mL/min/1.73m2 Glucose 104 60 - 115 mg/dL [facility] Calcium 9.0 8.4 - 10.2 mg/dL [facility] Bilirubin, Total 1.0 0.0 - 1.0 mg/dL [facility] Aspartate Amino Transferase 24 5 - 37 U/L [facility] Alanine Aminotransferase 16 0 - 40 U/L [facility] Total Protein 7.3 6.5 - 8.0 g/dL [facility] Albumin Level 4.3 3.5 - 5.0 g/dL [facility] Alkaline Phosphatase 101 39 - 117 U/L [facility] 01/09/2025 1:54 PM EST 01/09/2025 1:58 PM EST Generic External Data Provider LAB BLOOD ORDERAB LES Final Result Performing Organization Address [facility] Co de Phone Number [facility] [address] [place] [phone] * SARS-CoV-2 RNA, Influenza A/B, and RSV RNA, Ql NAAT (01/09/2025 1:54 PM EST) Pathologist [facility] Influenza A PCR NEGATIVE Negative [facility] Influenza B PCR NEGATIVE Negative [facility] Resp Syncy Virus RNA Qual PCR NEGATIVE Negative [facility] SARS COV2 PCR NEGATIVE Negative [facility] Comment:All test results mus t [...] use by authorized laboratories.Testing performed on the CRMnext GeneXpert utilizingreal-time RT-PCR.All SARS CoV2 and positive influenza A/B results arereported to [facility]. 01/09/2025 1:54 PM EST 01/09/2025 1:58 PM EST Generic External Data Provider LAB MICROBIOLOGY - GENERAL ORDERABLES Final Result Performing Organization Address [facility]/ZIP Co de Phone Number [facility] [address] [place] [phone] * High Sensitivity Troponin I (01/09/2025 1:54 PM EST) TROPONIN I HIGH SENSITIVITY <2.7 <3.5 - 35.0 ng/L [facility] Comment:The Arriola high sens itivity Troponin-I results should beused in conjunction with other diagnostic information suchas ECG, clinical observations and information, and patientsymptoms to aid in the diagnosis of AR. 01/09/2025 1:54 PM EST 01/09/2025 1:58 PM EST Generic External Data Provider LAB BLOOD ORDERAB LES Final Result Performing Organization Address [facility] Co de Phone Number [facility] [address] [place] [phone] * Ethanol (01/09/2025 1:54 PM EST) ETHANOL (MG/DL) IN SER/PLAS <10 mg/dL [facility] Comment:Serum/plasma ethanol results are to be used formedical/treatment purposes only. 01/09/2025 1:54 PM EST 01/09/2025 1:58 PM EST Generic External Data Provider LAB BLOOD ORDERAB LES Final Result Performing Organization Address [facility] de Phone Number [facility] [address] [place] [phone] * C-reactive Protein (01/09/2025 1:54 PM EST) C Reactive Protein 0.34 < or = 0.50 mg/dL [facility] 01/09/2025 1:54 PM EST 01/09/2025 1:58 PM EST Generic External Data Provider LAB BLOOD ORDERAB LES Final Result Performing Organization Address [facility] Phone Number [facility] [address] [place] [phone] * Magnesium (01/09/2025 1:54 PM EST) Magnesium 1.8 1.6 - 2.6 mg/dL [facility] 01/09/2025 1:54 PM EST 01/09/2025 1:58 PM EST us Generic External Data Provider LAB BLOOD ORDERAB LES Final Result [facility] [address] [place] [phone] * (ABNORMAL) CBC auto differential (01/09/2025 1:54 PM EST) White Blood Count 4.2(L) 4.8 - 10.8 X10*3/uL [facility] Red Blood Count 4.55(L) 4.60 - 5.80 X10*6/uL [facility] Hemoglobin 10.6(L) 14.0 - 18.0 g/dl [facility] Hematocrit 36.6(L) 42.0 - 52.0 % [facility] Mean Corpuscular Volume 80.4 80.0 - 98.0 fL [facility] Mean Corpuscular Hemoglobin 23.3(L) 27.0 - 33.0 pg [facility] Mean Corpuscular HGB Conc 29.0(L) 31.0 - 36.0 g/dl [facility] Red Cell Distribution Width 17.9(H) 11.0 - 16.0 % [facility] Platelet Count 129(L) 160 - 400 X10*3/uL [facility] Mean Platelet Volume 9.6 9.4 - 12.4 fL [facility] Neutrophils Percent Auto 57.9 45 - 73 % [facility] Imm Gran Pct Auto 0.5(H) 0.0 - 0.4 % [facility] Lymphocytes Percent Auto 25.9 20 - 40 % [facility] Monocytes Percent Auto 12.4(H) 2 - 11 % [facility] Eosinophils Percent Auto 2.6 0 - 4 % [facility] Basophils Percent Auto 0.7 0 - 2 % [facility] NRBC Pct Auto 0.0 0.0 - 0.2 /100WBC [facility] Neutrophils Absolute Auto 2.4 2.0 - 8.3 x10*3/uL [facility] Imm Gran Abs Auto 0.02 0.00 - 0.03 X10*3/uL [facility] Lymphocytes Absolute Auto 1.1(L) 1.2 - 4.9 X10*3/uL [facility] Monocytes Absolute Auto 0.5 0.1 - 1.2 X10*3/uL [facility] Eosinophils Absolute Auto 0.1 0.0 - 0.4 X10*3/uL [facility] Basophils Absolute Auto 0.0 0.0 - 0.2 X10*3/uL [facility] NRBC Abs Auto 0.000 0.0 - 0.012 X10*3/uL [facility] 01/09/2025 1:54 PM EST 01/09/2025 1:58 PM EST us Generic External Data Provider LAB BLOOD ORDERAB LES Final Result Performing Organization Address City/State/[facility] Co de Phone Number [facility] [address] [place] [address] [phone] documented in this encounter Visit Diagnoses Not on filedocumented in this encounter Additional Health Concerns Assessment Noted Time PHQ-9 Depression Total Score: 15 12/16/2 024 3:08 PM EST documented as of this encounter Care Teams Setup Operator Relationship Specialty Start Date End Date Yumi Alarcon MD [address] [place] [phone] PCP - General Family Medicine 08/09/20 documented as of this encounter
--- OUTSIDE RECORDS SUMMARY | 2025-01-12 08:59 | XMS_ITS | Encounter Summary ---
Author Organization [employer] Address [address] [place] [address] Care Team Providers Care Needleworker Name Role Phone Yumi Alarcon MD Primary Care Provider [phone] Encounter Details Date Type Department Care Team (Late st Contact Info) Description 08/23/2023 Telephone [facility] MEDICINE [address] [place], [place] [phone] Yumi Alarcon MD [address] [place], [place] [phone] Social History Tobacco Use Types Packs/Day Years [...] get into a home instead of a half-way . Igot in contact with care management and was advised pt will be getting a call back . documented in this encounter Plan of Treatment Not on file documented as of this encounter Visit Diagnoses Not on filedocumented in this encounter Additional Health Concerns Assessment Noted Time PHQ-9 Depression Total Score: 10 024 2:46 PM EDT documented as of this encounter Care Teams Needleworker Relationship Specialty Start Date End Date Yumi Alarcon MD [address] [place] [address] PCP - General Family Medicine 08/09/20 Lucy GRAYSON 09/28/24 11/23/24 documented as of this encounter
--- OUTSIDE RECORDS SUMMARY | 2025-01-12 08:59 | XMS_ITS | Patient Health Record ---
Author Organization [facility] Address [address] [place] [address] Care Team Providers Care Retort Fireman Name Role Phone Po Gayatri LOCK Primary Care Provider Guy Montano [phone] Allergies Allergen (clinical drug ingredient) Drug/Non Drug [...] Status Risk Notes Problem Colon cancer screening (107354458) Colon cancer screening (V76.51) Active confirmed Problem Gastroesophageal reflux disease (259144656) GERD (gastroesopha geal reflux disease) (530.81) Active confirmed Plan Of Treatment Future Test Test Name Order Date UPPER GI ENDOSCOPY 06/13/2014 COLONOSCOPY 06/13/2014 Insurance Providers Payer Name Payer Address Payer Phone Subscriber Number Group Number Insured Name Patient Relationship to Insured Coverage Start Date Coverage End Date MEDICARE OF [place] [address] [place] [address] [id number] MYRON INDRA Self - patient is the insured MEDICAID OF [facility] [address] [place] [phone] [id number] MYRON, INDRA Self - patient is the insured Medical (General) History Medical History History ICD Code ? Asthma [place] at age 41--age 49 had angioplasty and stent placement Pacemaker Hyperlipidemia GERD--UGI in 2006 with GERD-no hiatal he rnia Denies DM,CVA,renal disease Anxiety Surgical History Surgery Date(Month/Year) Pacemaker 2 Back surgeries
--- NOTE | 2025-01-12 09:53 | PC.NURSE ---
no blood work needed per provider order as patient was recently seen/evaluated x yesterday.
--- NOTE | 2025-01-12 10:02 | ED_ITS ---
HPI - Dizziness General Chief Complaint: Dizziness Stated Complaint: dizzy,anxiety Time Seen by Provider: 01/12/25 09:36 Source: patient and EMS Mode of arrival: EMS Limitations: no limitations History of Present Illness ED Provider: HPI Narrative: The patient is a 69-year-old male with a history of coronary disease and valvular heart disease. He has a history of atrial fibrillation and is on rivaroxaban. He also has a history of sick sinus syndrome and has a Medtronic pacemaker. He also has a history of COPD, aortic stenosis, hypertension, depression, and a lot of social challenges including homelessness. Four months ago on 08/30/2024 he had coronary artery bypass graft surgery x1 vessel (CABG x 1, YBARRA-LAD) and aortic valve replacement (a 27 mm Inspiris bioprosthetic valve) and ascending aortic replacement (30 mm Gelweave graft) with the cardiac surgeon Dr. Nolan. The patient says that since his surgery he has had problems with dizziness that he calls vertigo. He says that he was prescribed medication for this once. He says he no longer has a medication. The patient is currently living at a former [facility] which is a snf run by the [employer]. He was seen here yesterday had full workup and then continued been anxious, stating that his vertigo medication was stolen and sounds like staff send them back in again for crisis evaluation Related Data Home Medications ?Medication ?Instructions ?Recorded ?Confirmed atorvastatin 80 mg tablet 80 mg PO BEDTIME 09/20/23 hydroxyzine HCl 25 mg tablet 50 mg PO DAILY PRN Anxiet y 09/20/23 05/01/24 melatonin 3 mg tablet 3 mg PO BEDTIME PRN Insomnia 09/20/23 05/01/24 albuterol sulfate 90 mcg/actuation 2 puff inhalation Q 3-4H PRN 05/01/24 05/01/24 aerosol inhaler Wheezing fluticasone furoate 200 1 ea inhalation DAILY 05/01/24 mcg-vilanterol 25 mcg/dose inhalation powder (Breo Ellipta) Previous Rx's ?Medication ?Instructions ?Recorded rivaroxaban 20 mg tablet (Xarelto) 20 mg PO QPM #90 ta bs 12/29/19 paroxetine HCl 30 mg tablet 30 mg PO DAILY #90 tabs metoprolol succinate 25 mg 25 mg PO DAILY 30 days #30 tabs 08/25/23 tablet,extended release 24 hr (Toprol XL) rivaroxaban 20 mg tablet (Xarelto) 20 mg PO QPM #30 ta bs 05/27/24 ferrous sulfate 325 mg (65 mg 325 mg PO DAILY #30 tabs 11/10/24 iron) tablet,delayed release meclizine 25 mg tablet (Dramamine 25 mg PO TID PRN diz ziness #20 tabs 11/10/24 Less Drowsy) Allergies Allergy/AdvReac Type Severity Reaction Status Date / Time codeine (CODEINE) Allergy Mild NAUSEA Verified 01/12/25 08:47 Penicillins (PENICILLINS) Allergy Unknown ANAPHYLAXIS Verified 01/12/25 08:47 Review of Systems 2 Constitutional: Constitutional: Reports as per [facility] Past Medical History Medical History Homeless Atrial fibrillation Hypercholesterolemia Esophageal dysmotility Tobacco abuse COPD (chronic obstructive pulmonary disease) GERD (gastroesophageal reflux disease) Anxiety and depression Hypertension Coronary artery disease Surgical History History of surgery History of surgery History of angioplasty Family History Family History Father Myocardial infarction Mother Medical history unknown Sister No problems noted. Brother No problems noted. Son No problems noted. Social History Social History Alcohol intake: never Patient Tobacco Use Status: Former Tobacco user Tobacco use type: Cigarette Cigarettes Per Day: 3 Smoked in Last 30 Days: No Use of substances other than those prescribed or required for medical reasons: No Substance Use Type: Marijuana Advance Directives: No Advance Directives Information Provided: Yes Do you have a plan to hurt others: No Plan Physical Exam 2 Exam: Exam: ?General: ??looks age appropriate, anxious affect ?PERRLA, EOMI, MMM, ?CV: RRR, no obvious murmurs appreciated ?Resp: ?No wheezing rales rhonchi no stridor moving air well Abd: ?Bowel sounds are present, no tenderness no rebound no rigidity MSK: FROM, strength 5/5 all extremities ?Neuro: ?Alert and oriented x3, moving upper and lower extremities symmetrically, no obvious facial asymmetry noted, cranial nerves 2-12 intact, no dysmetria, no nystagmus vertical horizontal or rotary Extremely anxious affect Vital Signs: Vital Signs: Last Vital Signs Temp 97.9 F 01/12/25 08:42 Pulse 82 01/12/25 10:21 Resp 15 01/12/25 10:21 BP 117/89 01/12/25 10:21 Pulse Ox 98 01/12/25 10:21 O2 Del Method Room Air 01/12/25 10:21 BMI result Body Mass Index 20.6 Medications Administered Discontinued Medications Generic Name Dose Route Start Last Admin Trade Name Freq PRN Reason Stop Dose Admin Meclizine HCl 25 mg 01/12/25 10:03 01/12/25 10:24 Meclizine Hcl 25 Mg Tablet PO 01/12/25 10:04 25 mg ONCE ONE Administration Scopolamine 1.5 mg 01/12/25 10:03 01/12/25 10:24 Scopolamine 1.5 Mg Patch.Td.3 EAR-BEHIND 01/12/25 10:04 1.5 mg ONCE ONE Administration Medical Decision Making Medical Decision Making MDM Narrative: 10:16 AM 01/12/2025 (Dr. Bobo Garcia): Patient had full workup yesterday including urine tox, today's ECG we will be repeated I will hold off any other workup, we will ask care team to evaluate the patient, I do not see any obvious evidence for vertigo that he has had these symptoms that he describes as dizziness, he is also reporting poor sleeping and ask in his PCP for something stronger than melatonin, no indication that he needs further imaging such as CT brain no CT angio brain to evaluate for cerebellar stroke 11:09 AM 01/12/2025 (Dr. Bobo Garcia): Crisis recommends inpatient level of care, reached out to a snf, in snf he was endorsing SI with a plan to hang himself, anxious, some delusions 2:40 PM 01/12/2025 (Dr. Bobo Garcia): Psych admission declined, care team requesting case management consult in case snf was not willing to take him back Differential Diagnosis Differential Diagnoses: The differential diagnosis associated with the presentation includes (Dehydration, anemia, vertigo, ACS, dysrhythmia) Admission/Observation Consideration of admission/observation: Escalation of care including admission/observation considered Consult Healthcare Provider Management of the patient was discussed with: Behavioral Health Provider Lab Data 01/12/25 13:02 01/12/25 13:05 Labs: Lab Results 01/12/25 01/12/25 Range/Units 13:02 13:05 WBC 4.9 (4.8-10.8) X10*3/uL RBC 4.72 (4.60-5.80) X10*6/uL Hgb 11.1 L (14.0-18.0) g/dl Hct 37.8 L (42.0-52.0) % MCV 80.1 (80.0-98.0) fL MCH 23.5 L (27.0-33.0) pg MCHC 29.4 L (31.0-36.0) g/dl RDW 18.0 H (11.0-16.0) % Plt Count 130 L (160-400) X10*3/uL MPV 9.6 (9.4-12.4) fL Immature Gran % (Auto) 0.2 (0.0-0.4) % Neut % (Auto) 65.9 (45-73) % Lymph % (Auto) 20.9 (20-40) % [place] % (Auto) 11.2 H (2-11) % Eos % (Auto) 1.0 (0-4) % Baso % (Auto) 0.8 (0-2) % Lymph # (Auto) 1.0 L (1.2-4.9) X10*3/uL [place] # (Auto) 0.6 (0.1-1.2) X10*3/uL Eos # (Auto) 0.1 (0.0-0.4) X10*3/uL Baso # (Auto) 0.0 (0.0-0.2) X10*3/uL Abs Immat Gran (auto) 0.01 (0.00-0.03) X10*3/uL Absolute Neuts (auto) 3.2 (2.0-8.3) x10*3/uL Absolute Nucleated RBC 0.000 (0.0-0.012) X10*3/uL Nucleated RBC % (auto) 0.0 (0.0-0.2) /100WBC Sodium 141 (135-145) mmol/L Potassium 4.4 (3.3-5.1) mmol/L Chloride 106 (96-108) mmol/L Carbon Dioxide 26 (22-29) mmol/L Anion Gap 13 (12-20) BUN 18 H (9-16) mg/dL Creatinine 0.68 (0.5-1.4) mg/dL Estim Creat Clear Calc 86.3 Estimated GFR > 60 Random Glucose 106 (60-115) mg/dL Calcium 9.4 (8.4-10.2) mg/dL Total Bilirubin 1.2 H (0.0-1.0) mg/dL AST 21 (5-37) U/L ALT 15 (0-40) U/L Alkaline Phosphatase 106 (39-117) U/L Total Protein 7.6 (6.5-8.0) g/dL Albumin 4.4 (3.5-5.0) g/dL Urine Color Yellow Urine Appearance Clear Urine pH 5.0 (5.0-9.0) Ur Specific [place] 1.020 (1.005-1.025) Urine Protein 30 (1+) H (Neg-Trace) mg/dL Urine Glucose (UA) Negative (Negative) mg/dL Urine Ketones Negative (Negative) mg/dL Urine Blood Negative (Negative) Urine Nitrite Negative (Negative) Ur Leukocyte Esterase Negative (Negative) Urine RBC 0-2 (0-2) /HPF Urine WBC 0-5 (0-5) /HPF Ur Squamous Epith Cells 0-2 (0-2) /HPF Urine Bacteria None Seen (None Seen) Hyaline Casts 0-2 (0-2) /LPF Urine Opiates Screen Not Detected (Not Detect) Ur Buprenorphine Scrn Not Detected (Not Detect) ng/mL Ur Oxycodone Screen Not Detected (Not Detect) ng/mL Urine Methadone Screen Not Detected (Not Detect) ng/mL Urine Fentanyl Screen Not Detected (Not Detect) Ur Barbiturates Screen Not Detected (Not Detect) Ur Phencyclidine Scrn Not Detected (Not Detect) Ur Amphetamines Screen Not Detected (Not Detect) U Benzodiazepines Scrn Not Detected (Not Detect) Urine Cocaine Screen Not Detected (Not Detect) U Marijuana (THC) Screen POSITIVE H (Not Detect) Independent Interpretation I performed an independent interpretation of an: EKG (75 beats per minute rate controlled AFib) Independent Historian Clinical information obtained from an independent historian. History obtained from or confirmed by: EMS Discharge Plan Discharge Clinical Impression: Anxiety and depression, Suicidal ideation Prescriptions: No Action Xarelto 20 mg tablet 20 mg PO QPM Qty: 90 3RF Rx Instructions: must administer with evening meal paroxetine HCl 30 mg tablet 30 mg PO DAILY Qty: 90 0RF metoprolol succinate [Toprol XL] 25 mg tablet extended release 24 hr 25 mg PO DAILY 30 Days Qty: 30 0RF Rx Instructions: must make cardiology appt for refills albuterol sulfate 90 mcg/actuation HFA aerosol inhaler 2 puff inhalation Q3-4H PRN (Reason: Wheezing) fluticasone furoate-vilanterol [Breo Ellipta] 200-25 mcg/dose blister with device 1 ea inhalation DAILY meclizine [Dramamine Less Drowsy] 25 mg tablet 25 mg PO TID PRN (Reason: dizziness) Qty: 20 0RF ferrous sulfate 325 mg (65 mg iron) tablet,delayed release (DR/EC) 325 mg PO DAILY Qty: 30 3RF atorvastatin 80 mg tablet 80 mg PO BEDTIME hydroxyzine HCl 25 mg tablet 50 mg PO DAILY PRN (Reason: Anxiety) melatonin 3 mg tablet 3 mg PO BEDTIME MDD 3mg PRN (Reason: Insomnia) Xarelto 20 mg tablet 20 mg PO QPM Qty: 30 0RF Rx Instructions: must administer with evening meal Print Language: Syrian
[2025-01-12 10:21] VITALS: BP 117/89; PULSE 82; RESP 15; O2SAT 98
--- NOTE | 2025-01-12 10:26 | PC.NURSE ---
pt medicated per provider order. patch applied behind pt's left ear. pt pending care team consult. pt remains calm/cooperative. plan of care ongoing.
--- NOTE | 2025-01-12 11:06 | MHC.CM.PN ---
CM RECEIVED A CALL FROM [facility] WORKER, ADALID, WHO STATES PT WAS SENT TO THE ED FOR A PSYCH EVAL AFTER SEVERAL DAYS OF EXPRESSING SI AND NEGLECTING SELF CARE SHE SAYS SHE GOT A CALL FROM SOMEONE WHO TOLD HER THAT THE PT WAS CLEARED BECAUSE HE DOES NOT WANT TO DO AN EVAL SHE SAYS SHE WILL HAVE TO DC PT IF HE DOES NOT GET TREATMENT THEY CANNOT HAVE PEOPLE WHO ARE UNABLE TO COMPLETE SELF CARE OR ARE AT RISK STAYING IN THE SKILLED NURSING SHE WAS INFORMED THERE WAS NOT A CM CONSULT ON THIS PT AND THEREFORE, CM COULD NOT INTERFERE CM ENCOURAGED HER TO DISCUSS HER CONCERNS WITH PT, CLINICIAN INVOLVED OR PTS RN
[2025-01-12 13:16] LABS: MANUAL DIFF FLAG NO
[2025-01-12 13:18] LABS: Hematocrit 37.8 % (42.0-52.0); Hemoglobin 11.1 g/dl (14.0-18.0); Imm Gran Abs Auto 0.01 X10*3/uL (0.00-0.03); Imm Gran Pct Auto 0.2 % (0.0-0.4); Lymphocytes Absolute Auto 1.0 X10*3/uL (1.2-4.9); Mean Corpuscular HGB Conc 29.4 g/dl (31.0-36.0); Mean Corpuscular Hemoglobin 23.5 pg (27.0-33.0); Mean Corpuscular Volume 80.1 fL (80.0-98.0); NRBC Abs Auto 0.000 X10*3/uL (0.0-0.012); NRBC Pct Auto 0.0 /100WBC (0.0-0.2); Platelet Count 130 X10*3/uL (160-400); Red Blood Count 4.72 X10*6/uL (4.60-5.80); White Blood Count 4.9 X10*3/uL (4.8-10.8)
[2025-01-12 13:19] LABS: Appearance Urine Clear; Glucose Urine UA Negative (Negative); PH 5.0 (5.0-9.0); Specific Gravity - Urine 1.020 (1.005-1.025); UMIC TRIGGER UACC YES
[2025-01-12 13:30] LABS: Cannabinoid Screen Urine POSITIVE (Not Detect)
[2025-01-12 13:36] LABS: Alanine Aminotransferase 15 U/L (0-40); Albumin Level 4.4 g/dL (3.5-5.0); Alkaline Phosphatase 106 U/L (39-117); Anion Gap 13 (12-20); Aspartate Amino Transferase 21 U/L (5-37); Blood Urea Nitrogen 18 mg/dL (9-16); Calcium 9.4 mg/dL (8.4-10.2); Carbon Dioxide 26 mmol/L (22-29); Chloride 106 mmol/L (96-108); Creatinine Clr Calc Pharmacy 86.3; Estimated Glomerular Filt Rate > 60; Potassium 4.4 mmol/L (3.3-5.1); Sodium 141 mmol/L (135-145); Total Protein 7.6 g/dL (6.5-8.0)
--- NOTE | 2025-01-12 14:29 | MHC.CARE ---
At this time, the repairer typewriter is recommending case management services due to Taj no longer meeting inpatient level of care, is low risk in the community for harm to self and others, and is needing assistance with finding housing as he is medically compromised. His current detention placement is declining/refusing to take him back due to requiring him to receive MH treatment before returning, accusing staff of taking his medications, refusing to take his medications, and not showering regularly per [facility] malt liquors sales supervisor Andria.
--- NOTE | 2025-01-12 15:31 | MHC.CARE ---
This typewriter ribbon winder received a call from aDrlin Garcia, the business operations director at [facility], who voiced concern regarding the pt's change in disposition and indicated that she was contacted by the Fanny from his current care home where he resides who informed her that he was initially made a bed search however, no longer met criteria and had been cleared from a psychiatric stand point. Darlin stated that this is the first she has been notified about the pt however, stated that there is concern for pt to return to his current living situation as he has not been compliant with treatment and will not allow staff to provide him with appropriate care. She indicated that he had two recent medical admissions secondary to pneumonia and reported that she is not sure if his change in presentation is secondary to a medical issue and inquired if a head CT was completed at this time or a medical work up prior to crisis becoming involved. Darlin indicated that he has not been eating or drinking and also has not been compliant with medication including his prescribed medication for his cardiac condition. She reported that he has been increasingly paranoid and continuing to endorse SI and exhibiting increased helpless and hopelessness over the past several days and continues to accuse staff of going into his belongings and taking his medications, however, noted that due to not taking his medications at this time it is unclear why pt is in need of a refills for his medications. She indicated that they do not want to refuse him back at his current placement at the care home however, are unable to meet his needs appropriately as he is not compliant with treatment or medications and is requesting additional help and further stabilization at this time. Darlin noted that she is not aware of details pertaining to his psychiatric background however, provided the number to Fanny who works more closely with the pt at the care home and indicated if further information was needed regarding his history that she would be the best collateral to contact at this time. She noted that she is out of the office today however, is able to follow up upon her return. Information was passed to psychiatric provider Randi Ford who indicated that she would evaluate the pt at this time for a psychiatric consult as he does not appear to meet criteria for IPLOC based off the Care Team evaluation and would likely be more appropriate for case management based off the information obtained at this time as he may be in need of a different living situation based on what his needs are and may not be able to be appropriately accommodated at the care home where he is currently residing. Fanny Jackson - [facility] [phone] (can be contacted if further collateral information is needed)
[2025-01-12 17:48] VITALS: BP 139/89; PULSE 83; RESP 17; TEMP 36.3; O2SAT 98
--- NOTE | 2025-01-12 20:16 | PHA.MEDREC ---
Pharmacy Consult ? Medication Reconciliation Pharmacy has completed the medication reconciliation.Med rec done by nursing but matches with claim history
[2025-01-12] MEDS: Metoprolol Succinate ER 25 MG TAB.ER.24H PO (20:31)
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
--- NOTE | 2025-01-12 23:29 | PC.NURSE ---
Took over care at 23:00. pt sleeping at this time.
--- NOTE | 2025-01-13 03:05 | PC.NURSE ---
several blankets given, pt resting in bed.
[2025-01-13 06:07] VITALS: BP 114/72; PULSE 78; RESP 18; TEMP 36.4; O2SAT 100
--- NOTE | 2025-01-13 07:21 | PC.NURSE ---
patient a&ox3, ambulatory with steady gait, rr equal/non labored, presently denied pain, vss, plan of care ongoing
[2025-01-13 08:11] VITALS: BP 114/72; PULSE 78
[2025-01-13] MEDS: Ferrous Sulfate 324 MG TABLET.DR PO (08:11)
[2025-01-13] MEDS: Metoprolol Succinate ER 25 MG TAB.ER.24H PO (08:11)
[2025-01-13] MEDS: PARoxetine HCL 40 MG TABLET PO (08:11)
--- NOTE | 2025-01-13 08:16 | PC.NURSE ---
pt medicated per order took meds whole with his coffee
--- NOTE | 2025-01-13 09:49 | PC.NURSE ---
pharmacy notified for missing medication
--- NOTE | 2025-01-13 14:39 | P.CNPS_ITS ---
History of Present Illness Date of Service: 01/14/2025 Chief Complaint: dizzy,anxiety Sources of Information: patient interviewed, chart reviewed and crisis/core team assessment reviewed HPI Narrative: Mr. Granger is a 69 year-old male with unclear psychiatric history. He has been seen by care team a number of times since 07/2021. He has been assessed in the past for anxiety, poor sleep, passive SI and itchiness. He has not been described as psychotic or delusions. However, it has been noted that since 2021 he has been unhoused. Very limited information is know from his family or other people who may know him for a long period of time. He is being prescribed paxil by his PCP, Dr. Pauline Alarcon. To our knowledge, there has never been any incidences of self harm or harm to others. Per recent record, he had been admitted psychiatrically back in 03/2024 to [facility]. He has been noted to be consistently positive for THC. Pt presents as calm, cooperative. He reports he is not sure why he was sent to the hospital. He reports staff at [facility] detention does groceries for him and he noticed that last time he got groceries he was told total was $138 and he suspects that amount of groceries he got do not amount to $138 but something like $68. He does state that he did not ask for the receipt. He also reports that he used to have medication with him but now it is the staff who is holding the medications and he has not been able to take them. He reports he likes the detention and feels safe there. He would like to return there. He denies SI/HI. No signs of psychosis. Past Psychiatric History: Inpt: [facility] 04/2024 OP: none PCP prescribed paxil. No known self harm or harm to others. [facility] Medical History Homeless Atrial fibrillation Hypercholesterolemia Esophageal dysmotility Tobacco abuse COPD (chronic obstructive pulmonary disease) GERD (gastroesophageal reflux disease) Anxiety and depression Hypertension Coronary artery disease Surgical History History of surgery History of surgery History of angioplasty Diagnostics Vital Signs (24Hr): Vital Signs - 24 hr 01/12/25 17:48 01/13/25 06:07 01/13/25 08:11 Temperature 97.4 F 97.6 F Pulse Rate 83 78 78 Respiratory Rate 17 18 Blood Pressure 139/89 114/72 114/72 Pulse Oximetry 98 100 Oxygen Delivery Method Room Air Room Air BMI result Body Mass Index 20.6 Labs 01/12/25 13:02 01/12/25 13:05 Labs: Laboratory Results - last 48 hr 01/12/25 01/12/25 13:02 13:05 WBC 4.9 RBC 4.72 Hgb 11.1 L Hct 37.8 L MCV 80.1 MCH 23.5 L MCHC 29.4 L RDW 18.0 H Plt Count 130 L MPV 9.6 Immature Gran % (Auto) 0.2 Neut % (Auto) 65.9 Lymph % (Auto) 20.9 [place] % (Auto) 11.2 H Eos % (Auto) 1.0 Baso % (Auto) 0.8 Lymph # (Auto) 1.0 L [place] # (Auto) 0.6 Eos # (Auto) 0.1 Baso # (Auto) 0.0 Abs Immat Gran (auto) 0.01 Absolute Neuts (auto) 3.2 Absolute Nucleated RBC 0.000 Nucleated RBC % (auto) 0.0 Sodium 141 Potassium 4.4 Chloride 106 Carbon Dioxide 26 Anion Gap 13 BUN 18 H Creatinine 0.68 Estim Creat Clear Calc 86.3 Estimated GFR > 60 Random Glucose 106 Calcium 9.4 Total Bilirubin 1.2 H AST 21 ALT 15 Alkaline Phosphatase 106 Total Protein 7.6 Albumin 4.4 Urine Color Yellow Urine Appearance Clear Urine pH 5.0 Ur Specific [place] 1.020 Urine Protein 30 (1+) H Urine Glucose (UA) Negative Urine Ketones Negative Urine Blood Negative Urine Nitrite Negative Ur Leukocyte Esterase Negative Urine RBC 0-2 Urine WBC 0-5 Ur Squamous Epith Cells 0-2 Urine Bacteria None Seen Hyaline Casts 0-2 Urine Opiates Screen Not Detected Ur Buprenorphine Scrn Not Detected Ur Oxycodone Screen Not Detected Urine Methadone Screen Not Detected Urine Fentanyl Screen Not Detected Ur Barbiturates Screen Not Detected Ur Phencyclidine Scrn Not Detected Ur Amphetamines Screen Not Detected U Benzodiazepines Scrn Not Detected Urine Cocaine Screen Not Detected U Marijuana (THC) Screen POSITIVE H Mental Status Exam Mental Status Exam Narrative: Appearance: wearing hospital gown, fair hygiene, in NAD Behavior: cooperative, friendly Psychomotor: no agitation or retardation noted Speech: clear, normal rate/rhyhtm/volume, spontaneous TP: linear TC: wanting to return to the detention Mood: cold! it's cold here Affect: calm, congruent SI: denies HI: none VH/AH: none Delusions: none Insight/judgement: poor x 2. but seems intact Memory/cog: alert, oriented to place, month, year and situation. not formally tested. Medications Medications Current Medications Albuterol Sulfate (Albuterol Sulfate 90 Mcg 8 Gm Inhaler) 2 puff INHALE Q3H PRN PRN Reason: Wheezing Atorvastatin Calcium (Atorvastatin Calcium 80 Mg Tablet) 80 mg PO BEDTIME [facility] Last Admin: 01/12/25 20:31 Dose: 80 mg Ferrous Sulfate (Ferrous Sulfate 324 Mg Tablet.Dr) 324 mg PO DAILY [facility] Last Admin: 01/13/25 08:11 Dose: 324 mg Fluticasone/Vilanterol (Fluticasone/Vilanterol 200/25 Blst.W.Dev) 1 puff INHALE RDAILY [facility] Last Admin: 01/13/25 09:57 Dose: Not Given Hydroxyzine HCl (Hydroxyzine Hcl 50 Mg Tablet) 50 mg PO DAILY PRN PRN Reason: Anxiety Last Admin: 01/12/25 20:32 Dose: 50 mg Meclizine HCl (Meclizine Hcl 25 Mg Tablet) 25 mg PO TID PRN PRN Reason: dizziness Melatonin (Melatonin 3 Mg Tablet) 3 mg PO BEDTIME PRN PRN Reason: Insomnia Last Admin: 01/12/25 20:32 Dose: 3 mg Metoprolol Succinate (Metoprolol Succinate Er 25 Mg Tab.Er.24h) 25 mg PO DAILY [facility]; Protocol Last Admin: 01/13/25 08:11 Dose: 25 mg Paroxetine HCl (Paroxetine Hcl 40 Mg Tablet) 40 mg PO DAILY [facility] Last Admin: 01/13/25 08:11 Dose: 40 mg Rivaroxaban (Rivaroxaban 20 Mg Tablet) 20 mg PO DAILY@1700 [facility] Last Admin: 01/12/25 20:30 Dose: 20 mg Allergies Allergies Allergy/AdvReac Type Severity Reaction Status Date / Time codeine (CODEINE) Allergy Mild NAUSEA Verified 01/12/25 08:47 Penicillins (PENICILLINS) Allergy Unknown ANAPHYLAXIS Verified 01/12/25 08:47 Assessment & Plan Assessment & Plan (1) Mood disorder: Status: Acute Code(s): F39 - Unspecified mood [affective] disorder Plan Mr. Granger is a 69 year-old with unclear psych hx. HE has been treated for depression by his PCP on paxil. Pt does not present with SI or HI. He is not acutely psychotic nor delusions. He may have underlying cognitive impairments but extent is unknown. He is oriented x 4. [facility] may want to consider different living situation is able to do so. PLAN 1. No need for IPLOC. 2. if need additional resources at home, pt can be referred to case management. Total time managing care of this patient today ____ minutes.
--- NOTE | 2025-01-13 15:26 | MHC.CM.PN ---
CM WILL AWAIT PSYCH CONSULT, CONTINUING TO FOLLOW FOR DC NEEDS.
--- NOTE | 2025-01-13 17:26 | PC.NURSE ---
pt medicated for anxiety per his request
[2025-01-13 17:53] VITALS: BP 138/86; PULSE 117; RESP 18; TEMP 36.4; O2SAT 98
--- NOTE | 2025-01-13 18:29 | PC.NURSE ---
patient sleeping in common area on couch as he feels his room is too cold, boiler room was contacted about the temperature- security attempted to adjust temperature without much change.
--- NOTE | 2025-01-13 19:24 | PC.NURSE ---
pt wanting to go bed, medicated per mar.
--- NOTE | 2025-01-14 00:48 | PC.NURSE ---
pt oob bed to bathroom wth a steady gait and back to bed.
[2025-01-14 03:16] VITALS: BP 119/85; PULSE 84; RESP 16; TEMP 36.4; O2SAT 97
--- NOTE | 2025-01-14 07:26 | PC.NURSE ---
Assumed care of patient at 0645, patient appears to be in no apparent distress at this time, resting in bed, respirations even and unlabored. Continue plan of care for scottie IPLOC
[2025-01-14 07:36] VITALS: BP 140/84; PULSE 80; RESP 20; TEMP 36.4; O2SAT 98
[2025-01-14 08:22] VITALS: BP 140/84; PULSE 80
[2025-01-14] MEDS: Ferrous Sulfate 324 MG TABLET.DR PO (08:22)
[2025-01-14] MEDS: Fluticasone/Vilanterol 200/25 BLST.W.DEV 1 PUFF INHALE (08:22)
[2025-01-14] MEDS: PARoxetine HCL 40 MG TABLET PO (08:22)
[2025-01-14] MEDS: Metoprolol Succinate ER 25 MG TAB.ER.24H PO (08:22)
--- NOTE | 2025-01-14 15:17 | MHC.CM.PN ---
PT WAS SEEN/CLEARED BY PSYCH. THIS CM SPOKE WITH [facility] WORKER ADALID CHAN WHO STATES PT MAY RETURN TO [facility] TODAY. RN/PROVIDER MADE AWARE. PER REQUEST, THIS CM EMAILED DC/ED PAPERWORK TO [facility] WORKER VIA . LYFT RIDE SCHEDULED FOR RETURN HOME.
[2025-01-14 15:59] VITALS: BP 129/74; PULSE 69; RESP 14; TEMP 37.2; O2SAT 96
== END 2025-01-14 16:00 | disposition home or self-care (01) ==
PROVIDERS: Emergency Provider Emergency Medicine; PCP General Practice
DX: F33.1 Major depressive disorder, recurrent, moderate (principal); R45.851 Suicidal ideations; F39 Unspecified mood [affective] disorder; F41.9 Anxiety disorder, unspecified; R42 Dizziness and giddiness; I25.10 Atherosclerotic heart disease of native coronary artery without angina pectoris; I49.5 Sick sinus syndrome; Z59.00 Homelessness unspecified; Z79.899 Other long term (current) drug therapy; Z87.891 Personal history of nicotine dependence; Z51.81 Encounter for therapeutic drug level monitoring
CPT/HCPCS: 36415; 80053; 80307; 81001; 85025; 93005; 99285; S9485

== ENCOUNTER → 2025-01-12 08:53 | Outpatient (BNV) | payer OTHER, SELFPAY | PROVIDERS: Emergency Provider Emergency Medicine; PCP General Practice; Visit Provider Social Worker | DX: F39 Unspecified mood [affective] disorder (principal) | CPT/HCPCS: 99285 ==

== ENCOUNTER → 2025-01-12 08:56 | Outpatient (BNV) | payer OTHER, SELFPAY | PROVIDERS: Emergency Provider Emergency Medicine; PCP General Practice; Visit Provider Internal Medicine Cardiovascular Disease | DX: I48.91 Unspecified atrial fibrillation (principal) | CPT/HCPCS: 93010 ==

== ENCOUNTER 2025-01-23 03:35 | Emergency (ER) | payer OTHER, SELFPAY ==
[2025-01-23 03:38] VITALS: BP 128/88; BP 152/82; PULSE 73; PULSE 86; RESP 20; TEMP 36.3; O2SAT 100; O2SAT 96; BMI 23.3
[2025-01-23 03:45] VITALS: BP 128/88; PULSE 75; RESP 20; TEMP 36.3; O2SAT 100
[2025-01-23 04:00] VITALS: BP 128/88; PULSE 75; RESP 20; TEMP 36.3; O2SAT 100
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
--- OUTSIDE RECORDS SUMMARY | 2025-01-23 04:24 | XMS_ITS | Encounter Summary ---
Author Organization [employer] Address [address] [facility] 7t [place] [address] Care Team Providers Care Study Abroad Coordinator Name Role Phone Yumi Alarcon MD Primary Care Provider [phone] Reason for Visit * Reason Onset Date Comments chart prep 01/22/2025 Encounter Details Date Type Department Care Team ([facility] st Contact Info) Description 01/22/2025 Telephone [facility] [address] [place], [place] [phone] Trinh Mendez DO [address] [place], [place] [phone] chart prep Social History Tobacco Use Types Packs/Day Years [...] encounter Miscellaneous Notes * Telephone Encounter - Brenda Thomas MA - 01/22/2025 2:51 PM EST Chart Prep Labs: done Images: done Screenings: Colonoscopy Vaccines due: Covid Due, Tdap Due, PCV20 Due, Flu Due, RSV in Pharmacy Due, and Shingles in pharmacy Due Referrals: Completed Overdue care gaps: Sbirt, SDOH, PHQ9, GAD7, and Oral Health documented in this encounter Plan of Treatment Upcoming Encounters Date Type Department Care Team (Late st Contact Info) Description 01/23/2025 12:00 PM EST Office Visit [facility] [address] [place] [address] Trinh Mendez DO [address] [place] [address] documented as of this encounter Visit Diagnoses Not on filedocumented in this encounter Additional Health Concerns Assessment Noted Time PHQ-9 Depression Total Score: 15 024 3:08 PM EST documented as of this encounter Care Teams Study Abroad Coordinator Relationship Specialty Start Date End Date Yumi Alarcon MD [address] [place] [address] PCP - General Family Medicine 08/09/20 documented as of this encounter
--- OUTSIDE RECORDS SUMMARY | 2025-01-23 04:24 | XMS_ITS | Encounter Summary ---
Author Organization [employer] Address [address] [facility] 7t [place] [address] Care Team Providers Care Vice President Global Advertising Sales Name Role Phone Yumi Alarcon MD Primary Care Provider [phone] Reason for Referral * Consultation (Routine) - Closed Specialty Diagnoses / Procedures Referred By Contac t Referred To Contact Diagnoses Moderately severe major depression (CMS/HCC) (HCC) Food insecurity Homeless single person Yumi Alarcon MD [address] [place] [address] Phone: tel: fax: [address] [address] Phone: tel: fax: Referral ID Status Reason Start Date Expiration Date V isits Requested Visits Authorized [id number] Closed Specialty Services Required 05/08/2024 05/08/2025 1 1 Encounter Details Date Type Department Care Team (Late st Contact Info) Description 05/08/2024 Orders Only [facility] [address] [place] [phone] Yumi Alarcon MD [address] [place], [place] [phone] Moderately severe major depression (CMS/HCC) (Primary Dx); [...] Description 01/23/2025 12:00 PM EST Office Visit [facility] [address] [place] [address] Trinh Mendez DO [address] [place] [address] Scheduled Referrals Name Type Priority Associated Diagnoses [...] of this encounter Care Teams Vice President Global Advertising Sales Relationship Specialty Start Date End Date Yumi Alarcon MD [address] [facility] [place] [address] PCP - General Family Medicine 08/09/20 Lucy GRAYSON 09/28/24 11/23/24 documented as of this encounter
--- OUTSIDE RECORDS SUMMARY | 2025-01-23 04:24 | XMS_ITS | Encounter Summary ---
Author Organization [employer] Address [address] [facility] [address] [place] [address] Care Team Providers Care Comic Book Writer Name Role Phone Yumi Alarcon MD Primary Care Provider [phone] Reason for Visit * Reason Onset Date Comments Med Refill 01/18/2025 Encounter Details Date Type Department Care Team ([facility] st Contact Info) Description 01/18/2025 Telephone [facility] [address] [place], [place] [phone] Yumi Alarcon MD [address] [place], [place] [phone] Med Refill Social History Tobacco Use Types Packs/Day Years [...] encounter Miscellaneous Notes * Telephone Encounter - Vanna Mtz LPN - 01/18/2025 2:37 PM EST PARoxetine (Paxil) 40 MG tablet has refills on file and meclizine (Antivert) 25 MG tablet was sent on 12.17.24. with 2 refills * Telephone Encounter - Marco A Lamb - 01/18/2025 2:26 PM EST TC from pt requesting medication refill. Medications needing refill : PARoxetine (Paxil) 40 MG tablet meclizine (Antivert) 25 MG tablet To be sent to: [facility] - [place], [place] - [address] [place] [address] documented in this encounter Plan of Treatment Upcoming Encounters Date Type Department Care Team (Late st Contact Info) Description 01/23/2025 12:00 PM EST Office Visit [facility] [address] [place] [address] Trinh Mendez DO [address] [place] [address] documented as of this encounter Visit Diagnoses Not on filedocumented in this encounter Additional Health Concerns Assessment Noted Time PHQ-9 Depression Total Score: 15 024 3:08 PM EST documented as of this encounter Care Teams Comic Book Writer Relationship Specialty Start Date End Date Yumi Alarcon MD [address] [place] [address] PCP - General Family Medicine 08/09/20 documented as of this encounter
--- OUTSIDE RECORDS SUMMARY | 2025-01-23 04:24 | XMS_ITS | Clinical Summary ---
Author Organization [facility] Address [address] [facility] [address] [place], [place] [phone] Phone Care Team Providers Care Retail Advertising Account Executive Name Role Phone Yumi Alarcon MD Primary [...] [place] [id number] [facility] MEDICARE REPLACEMENT JENNYFER ALLISON [phone] MEDICARE PART A & B [facility] [place] [id number] MEDICARE PART A & B MEDICARE PART A & B MEDICARE PART A & B MEDICARE REPLACEMENT JENNYFER ALLISON [phone] MEDICARE PART A & B MEDICARE PART A & B MEDICARE REPLACEMENT MEDICARE PART A & B [facility] [place] [id number] MEDICARE PART A & B [facility] [place] [id number] Care Teams Retail Advertising Account Executive Relationship Specialty Start Date End Date Yumi Alarcon MD [address] [place] [address] PCP - General 07/06/24 Additional Source Comments The information contained in this document represents components of the legal health record. It is not the complete legal health record.[facility]
--- OUTSIDE RECORDS SUMMARY | 2025-01-23 04:24 | XMS_ITS | Encounter Summary ---
Author Organization [employer] Address [address] [facility] [address] [place] [address] Care Team Providers Care Knot Borer Name Role Phone Yumi Alarcon MD Primary Care Provider [phone] Reason for Visit * Reason Onset Date Comments Medication Question 01/22/2025 Encounter Details Date Type Department Care Team ([facility] st Contact Info) Description 01/22/2025 Telephone [facility] [address] [place], [place] [phone] Yumi Alarcon MD [address] [place], [place] [phone] Medication Question Social History Tobacco Use Types Packs/Day Years [...] Telephone Encounter - Alexia Oswald RN - 01/22/2025 2:07 PM EST Noted. Patient spoke to triage this morning and is scheduled to see PCP tomorrow. No further f/u isneeded at this time. * Telephone Encounter - Escobar Canas - 01/22/2025 9:51 AM EST TC from pt reporting meclizine (Antivert) 25 MG tablet is not helping him and is requesting to get prescribed scopolamine patch . Once prescribed to him when he discharged from hospital . documented in this encounter Plan of Treatment Upcoming Encounters Date Type Department Care Team (Late st Contact Info) Description 01/23/2025 12:00 PM EST Office Visit [facility] [address] [place] [address] Trinh Mendez DO [address] [place] [address] documented as of this encounter Visit Diagnoses Not on filedocumented in this encounter Additional Health Concerns Assessment Noted Time PHQ-9 Depression Total Score: 15 024 3:08 PM EST documented as of this encounter Care Teams Knot Borer Relationship Specialty Start Date End Date Yumi Alarcon MD [address] [place] [address] PCP - General Family Medicine 08/09/20 documented as of this encounter
--- OUTSIDE RECORDS SUMMARY | 2025-01-23 04:24 | XMS_ITS | Encounter Summary ---
Author Organization [employer] Address [address] [facility] [address] [place] [address] Care Team Providers Care Timber Bucker Name Role Phone Yumi Alarcon MD Primary Care Provider [phone] Reason for Visit * Reason Onset Date Comments Medication Question 01/22/2025 Encounter Details Date Type Department Care Team ([facility] st Contact Info) Description 01/22/2025 Telephone [facility] [address] [place], [place] [phone] Yumi Alarcon MD [address] [place], [place] [phone] Medication Question Social History Tobacco Use Types [...] encounter Miscellaneous Notes * Telephone Encounter - Hansel Hall - 01/22/2025 10:48 AM EST Tc from pt requesting a script for Scopolamine Patch to help with vertigo Contact pt at [phone] documented in this encounter Plan of Treatment Upcoming Encounters Date Type Department Care Team (Late st Contact Info) Description 01/23/2025 12:00 PM EST Office Visit [facility] [address] [place] [address] Trinh Mendez DO [address] [place] [address] documented as of this encounter Visit Diagnoses Not on filedocumented in this encounter Additional Health Concerns Assessment Noted Time PHQ-9 Depression Total Score: 15 024 3:08 PM EST documented as of this encounter Care Teams Timber Bucker Relationship Specialty Start Date End Date Yumi Alarcon MD [address] [place] [address] PCP - General Family Medicine 08/09/20 documented as of this encounter
--- OUTSIDE RECORDS SUMMARY | 2025-01-23 04:24 | XMS_ITS | Clinical Summary ---
Author Organization [employer] Address [address] [place] [address] Care Team Providers Care Ehs Specialist Name Role Phone Yumi Alarcon MD Primary Care Provider [phone] Allergies Active Allergy Reactions Criticality Noted Date [...] BY MOUTH AT BEDTIME 90 tablet 3 025 Active meclizine (Antivert) 25 MG tablet Take 1 tablet (25 mg) by mouth if needed in the morning and at bedtime for dizziness. 30 tablet 2 025 Active meclizine (Antivert) 25 MG tablet Take [...] Health Integration Plan Internal Follow up with [facility] Patient Self Plan Patient to utilize skills provided in intervention , Patient to [facility] to [facility] team as needed, and Patient [...] & Plan (12/13/2023 4:14 PM EDT): During IB Consult Taj presenting [...] situation. He is currently living in a fdc in [place] and reports he is not able to stay in during the day. He is looking to find somewhere he could also spend the mornings in, especially during the winter days. Pt reports the fdc is charging $65 weekly for a spot. He has done other applications with [employer] and is currently looking for section 8 apartments. Anxiety is highly associated with current housing situation. clinician engaged patient with active/reflective listening. Reviewed and assessed for risk, current stressors and protective factors using open ended questions. Sent request to CM to assist with housing situation. Provided patient with information from [facility] and [employer] to seek out for additional support with fdc placements. Assessment & Plan (06/09/2023 3:38 PM [...] Health Integration Plan Internal Follow up with [facility] Patient Self Plan Patient to utilize skills provided in intervention , Patient to [facility] to [facility] team as needed, and Patient [...] (01/22/2024 12:33 PM EST): Needs to see [facility] cardi[facility], repeat Echo to monitor progression of [...] Diagnosed Date Resolved Date Lives in homeless fdc 12/13/2023 Assessment & Plan (12/13/2023 4:14 PM [...] situation. He is currently living in a fdc in [place] and reports he is not able to stay in during the day. He is looking to find somewhere he could also spend the mornings in, especially during the winter days. Pt reports the fdc is charging $65 weekly for a spot. He has done other applications with [employer] and is currently looking for section 8 apartments. Anxiety is highly associated with current housing situation. clinician engaged patient with active/reflective listening. Reviewed and assessed for risk, current stressors and protective factors using open ended questions. Sent request to CM to assist with housing situation. Provided patient with information from [facility] and [employer] to seek out for additional support with fdc placements. Assessment & Plan (06/09/2023 3:39 PM [...] Health Integration Plan Internal Follow up with [facility] Patient Self Plan Patient to utilize skills provided in intervention , Patient to reach out to [facility] team as needed, and Patient to reach out to [facility] as needed. Pt agreed to reach out to clinician during next medical appointment. CM connected with patient to assist with housing and food insecurity during today's session. Depressive disorder 08/13/2020 04/18/19 25 Encounters Date Type Department Care Team Description 01/22/2025 Telephone [facility] [address] [place] [phone] Trinh Mendez DO chart prep 01/22/2025 Telephone [facility] [address] [place] [phone] Yumi Alarcon MD Nurse Triage 01/22/2025 Telephone [facility] [address] [place] [phone] Yumi Alarcon MD Medication Question 01/22/2025 Telephone [facility] [address] [place] [phone] Yumi Alarcon MD Medication Question 01/18/2025 Telephone [facility] [address] [place] [address] Yumi Alarcon MD Med Refill 01/12/2025 Orders Only GENERIC EXTERNAL DATA DEPARTMENT Provider, Generic External Data 01/09/2025 Orders Only GENERIC EXTERNAL DATA DEPARTMENT Provider, Generic External Data 12/26/2024 Refill [facility] [address] [place] [address] Yumi Alarcon MD 12/12/[address] [address] Yumi Alarcon MD Referral 11/13/2024 Results Follow-Up [address] [address] Yumi Alarcon MD CBC auto differential, Comprehensive Metabolic Panel, Lipase, High Sensitivity Troponin I 11/10/2024 Orders Only [facility] External Provider, [facility] from Last 3 Months Immunizations Immunization Administration [...] 04/14/2024 1:35 PM EST Plan of Treatment Upcoming Encounters Date Type Department Care Team (Late st Contact Info) Description 01/23/2025 12:00 PM EST Office Visit [facility] [address] [place] [address] Charlotte Mendeznifer, [address] [place] [address] Health Maintenance Due Date Last Done Comments [...] Procedure Name Priority Date/Time Associated Diagnosis Comments COMPREHENSIVE METABOLIC PANEL Routine 01/12/2025 1:05 PM EST DRUG MONITOR, PANEL 1, SCREEN, URINE Routine 01/12/2025 1:02 PM EST URINALYSIS, COMPLETE, WITH REFLEX TO CULTURE Routine 01/12/2025 1:02 PM EST CBC WITH AUTO DIFFERENTIAL Routine 01/12/2025 1:02 PM EST XR CHEST 2 VIEWS Routine 01/09/2025 2:18 [...] EDT from Last 3 Months Results * (ABNORMAL) Comprehensive Metabolic Panel (01/12/2025 1:05 PM EST) Only the most recent of3 resultswithin the time period is included. Sodium 141 135 - 145 mmol/L [facility] Potassium 4.4 3.3 - 5.1 mmol/L [facility] Chloride 106 96 - 108 mmol/L [facility] Carbon Dioxide 26 22 - 29 mmol/L [facility] Anion Gap 13 12 - 20 [facility] Urea Nitrogen (BUN) 18(H) 9 - 16 mg/dL [facility] Creatinine, Serum 0.68 0.5 - 1.4 mg/dL [facility] Creatinine Clr Calc Pharmacy 86.3 [facility] Comment:eGFR (calculated fro m the MDRD study equation) and eCrCl(calculated from the Cockcroft-Gault equation) are based ondifferent parameters and may not yield comparable results.If eCrCl result is absurd, please check patient'sheight/weight. Estimated Glomerular Filt Rate >60 [facility] Comment:Chronic Kidney Disea se: Estimated GFR < 60 mL/min/1.04q1Jbokeg Kidney Disease: Estimated GFR < 15 mL/min/1.73m2 Glucose 106 60 - 115 mg/dL [facility] Calcium 9.4 8.4 - 10.2 mg/dL [facility] Bilirubin, Total 1.2(H) 0.0 - 1.0 mg/dL [facility] Aspartate Amino Transferase 21 5 - 37 U/L [facility] Alanine Aminotransferase 15 0 - 40 U/L [facility] Total Protein 7.6 6.5 - 8.0 g/dL [facility] Albumin Level 4.4 3.5 - 5.0 g/dL [facility] Alkaline Phosphatase 106 39 - 117 U/L [facility] 01/12/2025 1:05 PM EST 01/12/2025 1:15 PM EST us Generic External Data Provider LAB BLOOD ORDERAB LES Final Result [facility] [address] [place] [address] [phone] * (ABNORMAL) Urinalysis, Complete, with Reflex to Culture (01/12/2025 1:02 PM EST) Only the most recent of2 resultswithin the time period is included. Color Urine Yellow [facility] Appearance Urine Clear [facility] PH 5.0 5.0 - 9.0 [facility] Glucose Urine UA Negative Negative mg/dL [facility] Urine Blood Negative Negative [facility] Specific Rindge - Urine 1.020 1.005 - 1.025 [facility] Urine Protein 30 (1+)(A) Neg-Trace mg/dL [facility] Urine Ketones Negative Negative mg/dL [facility] Nitrite Urine Negative Negative [facility] Leukocyte Esterase Urine Negative Negative [facility] RBC Urine 0-2 0 - 2 /HPF [facility] Urine WBC 0-5 0 - 5 /HPF [facility] Urine Squamous Epithelial Cell 0-2 0 - 2 /HPF [facility] Urine Bacteria None Seen None Seen [facility] Hyaline Casts, Urine 0-2 0 - 2 /LPF [facility] 01/12/2025 1:02 PM EST 01/12/2025 1:15 PM EST Narrative [facility] - 01/12/2025 1:27 PM EST [id number], [employer] us Generic External Data Provider LAB URINE ORDERAB LES Final Result [facility] [address] [place] [address] [phone] * (ABNORMAL) Drug Monitoring, Panel 1, Screen, Urine (01/12/2025 1:02 PM EST) Only the most recent of2 resultswithin the time period is included. Opiate Screen Urine Not Detected Not Detect [facility] Comment:Opiate cut-off is 30 0 ng/mL.Positive results are unconfirmed and should not be used fornon-medical purposes. Barbiturates, Urine Not Detected Not Detect [facility] Comment:Barbiturate cut-off is 200 ng/mL.Positive results are unconfirmed and should not be used fornon-medical purposes. Phencyclidine Screen Urine Not Detected Not Detect [facility] Comment:Phencyclidine cut-of f is 25 ng/mL.Positive results are unconfirmed and should not be used fornon-medical purposes. Amphetamine Screen Urine Not Detected Not Detect [facility] Comment:Amphetamine cut-off is 1000 ng/mL.Positive results are unconfirmed and should not be used fornon-medical purposes. Benzodiazepines Screen Urine Not Detected Not Detect [facility] Comment:Benzodiazepine cut-o ff is 200 ng/mL.Positive results are unconfirmed and should not be used fornon-medical purposes. Cocaine Screen Urine Not Detected Not Detect [facility] Comment:Cocaine cut-off is 3 00 ng/mL.Positive results are unconfirmed and should not be used fornon-medical purposes. Cannabinoid Screen Urine POSITIVE(A) Not Detect [facility] Comment:Cannabinoid cut-off is 50 ng/mL.Positive results are unconfirmed and should not be used fornon-medical purposes. Methadone Screen, Urine Not Detected Not Detect ng/mL [facility] Comment:Methadone cut-off is 300 ng/mL.Positive results are unconfirmed and should not be used fornon-medical purposes. FENTANYL URINE Not Detected Not Detect [facility] Comment:Fentanyl cut-off is 1 ng/mL.Positive results are unconfirmed and should not be used fornon-medical purposes. Oxycodone Urine Screen Not Detected Not Detect ng/mL [facility] Comment:Oxycodone cut-off is 100 ng/mL.Positive results are unconfirmed and should not be used fornon-medical purposes. Buprenorphine Screen Not Detected Not Detect ng/mL [facility] Comment:Buprenorphine cut-of f is 5 ng/mL.Positive results are unconfirmed and should not be used fornon-medical purposes. 01/12/2025 1:02 PM EST 01/12/2025 1:15 PM EST us Generic External Data Provider LAB URINE ORDERAB LES Final Result [facility] [address] [place] [address] [phone] * (ABNORMAL) CBC auto differential (01/12/2025 1:02 PM EST) Only the most recent of3 resultswithin the time period is included. White Blood Count 4.9 4.8 - 10.8 X10*3/uL [facility] Red Blood Count 4.72 4.60 - 5.80 X10*6/uL [facility] Hemoglobin 11.1(L) 14.0 - 18.0 g/dl [facility] Hematocrit 37.8(L) 42.0 - 52.0 % [facility] Mean Corpuscular Volume 80.1 80.0 - 98.0 fL [facility] Mean Corpuscular Hemoglobin 23.5(L) 27.0 - 33.0 pg [facility] Mean Corpuscular HGB Conc 29.4(L) 31.0 - 36.0 g/dl [facility] Red Cell Distribution Width 18.0(H) 11.0 - 16.0 % [facility] Platelet Count 130(L) 160 - 400 X10*3/uL [facility] Mean Platelet Volume 9.6 9.4 - 12.4 fL [facility] Neutrophils Percent Auto 65.9 45 - 73 % [facility] Imm Gran Pct Auto 0.2 0.0 - 0.4 % [facility] Lymphocytes Percent Auto 20.9 20 - 40 % [facility] Monocytes Percent Auto 11.2(H) 2 - 11 % [facility] Eosinophils Percent Auto 1.0 0 - 4 % [facility] Basophils Percent Auto 0.8 0 - 2 % [facility] NRBC Pct Auto 0.0 0.0 - 0.2 /100WBC [facility] Neutrophils Absolute Auto 3.2 2.0 - 8.3 x10*3/uL [facility] Imm Gran Abs Auto 0.01 0.00 - 0.03 X10*3/uL [facility] Lymphocytes Absolute Auto 1.0(L) 1.2 - 4.9 X10*3/uL [facility] Monocytes Absolute Auto 0.6 0.1 - 1.2 X10*3/uL [facility] Eosinophils Absolute Auto 0.1 0.0 - 0.4 X10*3/uL [facility] Basophils Absolute Auto 0.0 0.0 - 0.2 X10*3/uL [facility] NRBC Abs Auto 0.000 0.0 - 0.012 X10*3/uL [facility] 01/12/2025 1:02 PM EST 01/12/2025 1:15 PM EST us Generic External Data Provider LAB BLOOD ORDERAB LES Final Result [facility] [address] [place] [address] [phone] * XR Chest 2 Views (01/09/2025 2:18 PM EST) Anatomical Region Laterality Modality Chest Radiographic Juliette ging 01/09/2025 2:18 PM EST Narrative 01/09/2025 2:33 PM EST [address] [address] XRay Report Signed Patient: Taj Granger MR#: [id number] : 1955 Acct:[id number] Age/Sex: 69 / M ADM Date: 01/09/25 Loc: HO.ED Attending Dr: Ordering Physician: Gregg Mayorga MD Date of Service: 01/09/25 Procedure(s): XR chest 2V Accession Number(s): [id number] cc: Yumi Alarcon; Gregg Mayorga MD Reason [...] by: Yuko Acosta MD 01/09/2025 02:29 PM [facility] Dictated By: Yuko Acosta MD Signed By: <Electronically signed by Yuko Acosta MD in OV> 01/09/25 1429 DD/ 1418 TD/TT: 01/09/25 1423 Music Specialist: MAGGIE Procedure Note Donotuseinterpreter, Image - 01/09/[address] [address] XRay Report Signed Patient: Taj Granger JMR#: [id number] : 1955cct:[id number] Age/Sex: 69 / MADM Date: 01/09/25 Loc: .ED Attending Dr: Ordering Physician: Gregg Mayorga MD Date of Service: 01/09/25 Procedure(s): XR chest 2V Accession Number(s): [id number] cc: Yumi Alarcon; Gregg Mayorga MD Reason [...] 01/09/25 1429 DD/ 1418 TD/TT: 01/09/25 1423 Music Specialist: MAGGIE [facility] External Provider IMG XR PROCEDURES Final Result * High Sensitivity Troponin I (01/09/2025 1:54 PM EST) Only the most recent of2 resultswithin the time period is included. TROPONIN I HIGH SENSITIVITY <2.7 <3.5 - 35.0 ng/L [facility] Comment:The Arriola high sens itivity Troponin-I results should beused in conjunction with other diagnostic information suchas ECG, clinical observations and information, and patientsymptoms to aid in the diagnosis of NE. 01/09/2025 1:54 PM EST 01/09/2025 1:58 PM EST Generic External Data Provider LAB BLOOD ORDERAB LES Final Result [facility] [address] [place] [phone] * Ethanol (01/09/2025 1:54 PM EST) ETHANOL (MG/DL) IN SER/PLAS <10 mg/dL [facility] Comment:Serum/plasma ethanol results are to be used formedical/treatment purposes only. 01/09/2025 1:54 PM EST 01/09/2025 1:58 PM EST Generic External Data Provider LAB BLOOD ORDERAB LES Final Result Performing Organization Address [facility]/ZIP Co de Phone Number [facility] [address] [place] [phone] * SARS-CoV-2 RNA, Influenza A/B, and RSV RNA, Ql NAAT (01/09/2025 1:54 PM EST) Influenza A PCR NEGATIVE Negative [facility] Influenza B PCR NEGATIVE Negative [facility] Resp Syncy Virus RNA Qual PCR NEGATIVE Negative [facility] SARS COV2 PCR NEGATIVE Negative [facility] Comment:All test results mus t be [...] use by authorized laboratories.Testing performed on the [employer] GeneXpert utilizingreal-time RT-PCR.All SARS CoV2 and positive influenza A/B results arereported to [facility]. 01/09/2025 1:54 PM EST 01/09/2025 1:58 PM EST Generic External Data Provider LAB MICROBIOLOGY - GENERAL ORDERABLES Final Result Performing Organization Address [facility]/ZIP Co de Phone Number [facility] [address] [place] [phone] * (ABNORMAL) NT-proBNP (01/09/2025 1:54 PM EST) NT-proBNP 777.1(H) <300 pg/mL [facility] Comment:Reference Range:Age Group (years) NT-proBNP (pg/ml) InterpretationAll <300 Negative: HF unlikelyFor patients presenting to the ED with clinical suspicion ofnew onset or worsening HF, see below:18 to <50 >299.9 to <450.0 Grayzone: [id number] to 75 >299.9 to <900.0 other causes of>75 >299.9 to <1800.0 NT-proBNP [id number] to <50 >449.9 Positive: HF [id number] >899.9>75 >1799.9Note: Elevated NT-proBNP levels should be interpreted inthe context of other clinical information. 01/09/2025 1:54 PM EST 01/09/2025 1:58 PM EST Generic External Data Provider LAB BLOOD ORDERAB LES Final Result Performing Organization Address City/[facility]/ZIP Co de Phone Number [facility] [address] [place] [phone] * C-reactive Protein (01/09/2025 1:54 PM EST) C Reactive Protein 0.34 < or = 0.50 mg/dL [facility] 01/09/2025 1:54 PM EST 01/09/2025 1:58 PM EST [employer] External Data Provider LAB BLOOD ORDERAB LES Final Result Performing Organization Address City/[facility]/ZIP Co de Phone Number [facility] [address] [place] [phone] * Magnesium (01/09/2025 1:54 PM EST) Magnesium 1.8 1.6 - 2.6 mg/dL [facility] 01/09/2025 1:54 PM EST 01/09/2025 1:58 PM EST us Generic External Data Provider LAB BLOOD ORDERAB LES Final Result Performing Organization Address City/State/[facility] Co de Phone Number [facility] [address] [place] [phone] * CT Head w/o Contrast (11/10/2024 10:13 AM EDT) Anatomical Region Laterality Modality Head, Neck Computed Tomogra phy 11/10/2024 10:1 3 AM EDT Narrative 11/10/2024 10:36 AM EDT [address] [address] [address] Scan Report Signed Patient: Taj Granger MR#: [id number] : 1955 Acct:[id number] Age/Sex: 69 / M ADM Date: 11/10/24 Loc: HO.ED Attending Dr: Ordering Physician: Pascual Fontaine MD Date of Service: 11/10/24 Procedure(s): CT head/brain wo IV con Accession Number(s): [id number] cc: Yumi Alarcon; Pascual Fontaine MD Report Number: [id number]: Total DLP = 618.00 mGy-cm Reason for [...] 11/10/24 1033 DD/ 1013 TD/TT: 11/10/24 1022 Music Specialist: Procedure Note Donotuseinterpreter, Image - 11/10/[address] [place] [address] [address] Scan Report Signed Patient: Taj Granger R#: [id number] : 8Acct:[id number] Age/Sex: 69 / MADM Date: 11/10/24 Loc: .ED Attending Dr: Ordering Physician: Pascual Fontaine MD Date of Service: 11/10/24 Procedure(s): CT head/brain wo IV con Accession Number(s): [id number] cc: Yumi Alarcon; Pascual Fontaine MD Report Number: [id number]: Total DLP = 618.00 mGy-cm Reason for [...] 11/10/24 1033 DD/ 1013 TD/TT: 11/10/24 1022 Music Specialist: [facility] External Provider IMG CT PROCEDURES Final Result * (ABNORMAL) Lipase (11/10/2024 10:10 AM EDT) Lipase 5(L) 8 - 78 U/L [facility] 11/10/2024 10:1 0 AM EDT 11/10/2024 10:23 AM EDT Generic External Data Provider LAB BLOOD ORDERAB LES Final Result [facility] [address] [place] [phone] from Last 3 Months Insurance [facility] Care Teams Ehs Specialist Relationship Specialty Start Date End Date Yumi Alarcon MD [address] [place] [phone] PCP - General Family Medicine 08/09/20
--- OUTSIDE RECORDS SUMMARY | 2025-01-23 04:24 | XMS_ITS | Encounter Summary ---
Author Organization [employer] Address [address] [place] [address] Care Team Providers Care Plant And Maintenance Technician Name Role Phone Yumi Alarcon MD Primary Care Provider [phone] Encounter Details Date Type Department Care Team (Late st Contact Info) Description 02/11/2023 Abstract [facility] [address] [place], [place] [phone] Yumi Alarcon MD [address] [place], [place] [phone] Social History Tobacco Use Types Packs/Day Years [...] Description 01/23/2025 12:00 PM EST Office Visit [facility] [address] [place] [address] Trinh Mendez DO [address] [place] [address] documented as of this encounter Visit Diagnoses Not on filedocumented in this encounter Care Teams Plant And Maintenance Technician Relationship Specialty Start Date End Date Yumi Alarcon MD [address] [place] [address] PCP - General Family Medicine 08/09/20 Lucy ANDREWSA 09/28/24 11/23/24 documented as of this encounter
--- OUTSIDE RECORDS SUMMARY | 2025-01-23 04:24 | XMS_ITS | Encounter Summary ---
Author Organization [employer] Address [address] [place] [address] Care Team Providers Care Millwright Apprentice Name Role Phone Yumi Alarcon MD Primary Care Provider [phone] Encounter Details Date Type Department Care Team (Late st Contact Info) Description 08/20/2022 Orders Only [facility] [address] [place] [address] Trinh Spencer LPN Social History Tobacco Use [...] Description 01/23/2025 12:00 PM EST Office Visit [facility] [address] [place] [address] Trinh Mendez DO [address] [place] [address] documented as of this encounter Visit Diagnoses Not on filedocumented in this encounter Care Teams Millwright Apprentice Relationship Specialty Start Date End Date Yumi Alarcon MD [address] [place] [address] PCP - General Family Medicine 08/09/20 [facility] 09/28/24 11/23/24 documented as of this encounter
--- OUTSIDE RECORDS SUMMARY | 2025-01-23 04:24 | XMS_ITS | Encounter Summary ---
Author Organization [email or web address] Address [address] [facility] [address] [place] [address] Care Team Providers Care Anthropologist Physical Name Role Phone Yumi Alarcon MD Primary Care Provider [phone] Reason for Visit * Reason Onset Date Comments Nurse Triage 01/22/2025 Encounter Details Date Type Department Care Team ([facility] st Contact Info) Description 01/22/2025 Telephone [facility] MEDICINE [address] [place], [place] [phone] Yumi Alarcon MD [address] [place], [place] [phone] Nurse Triage Social History Tobacco Use Types Packs/Day Years [...] encounter Miscellaneous Notes * Telephone Encounter - Marlene Cruz RN - 01/22/2025 1:55 PM EST TC placed to [facility] staff at [facility]. Nato reported staff has noticed patient is constantly requesting medications unsure where the meds are at times, staff found the medications in his room. Tristanreported staff at the [facility] is not med certified and needs a referral for VNA services with medications. Patient also needs F/U appt with a provider for his ED visit on 01/09 for Dizziness. This RNscheduled an appt with a provider for 01/23/25 at 12 pm. Nato reported patient will be transported, however the patient will be alone going to his visit. RN advised Nato if patient worsens overnight to go to the ED for further evaluation. Nato verbalized understanding. Protocol Used: Confusion - Delirium (Adult) Protocol-Based Disposition: See in Office or Video Visit Today Positive Triage Questions: * Brief confusion (now gone) * Patient wants to be seen (or caregiver requests) * All higher-acuity triage questions were negative. Care Advice Discussed: * Reasons To Call Back - You have more questions * Telephone Encounter - Avelino Lamb - 01/22/2025 11:38 AM EST Symptom: Confusion Outcome: Schedule an urgent appointment (within 1 hour) or talk to a nurse or provider soon Reason: Getting worse Please contact Nato [phone]. documented in this encounter Plan of Treatment Upcoming Encounters Date Type Department Care Team (Late st Contact Info) Description 01/23/2025 12:00 PM EST Office Visit [facility] MEDICINE [address] [place] [address] Trinh Mendez DO [address] [place] [address] documented as of this encounter Visit Diagnoses Not on filedocumented in this encounter Additional Health Concerns Assessment Noted Time PHQ-9 Depression Total Score: 15 024 3:08 PM EST documented as of this encounter Care Teams Anthropologist Physical Relationship Specialty Start Date End Date Yumi Alarcon MD [address] [place] [address] PCP - General Family Medicine 08/09/20 documented as of this encounter
--- OUTSIDE RECORDS SUMMARY | 2025-01-23 04:24 | XMS_ITS | Encounter Summary ---
Author Organization [employer] Address [address] [place] [address] Care Team Providers Care Elevator Operator Service Name Role Phone Yumi Alarcon MD Primary Care Provider [phone] Encounter Details Date Type Department Care Team (Late st Contact Info) Description 06/30/2024 Orders Only [facility] MED[facility]INE [address] [place], [place] [phone] Yumi Alarcon MD [address] [place], [place] [phone] Social History Tobacco Use Types Packs/Day Years [...] Description 01/23/2025 12:00 PM EST Office Visit [facility] [address] [place] [address] Trinh Mendez DO [address] [place] [address] documented as of this encounter Visit Diagnoses Not on filedocumented in this encounter Additional Health Concerns Assessment Noted Time PHQ-9 Depression Total Score: 15 024 3:08 PM EST documented as of this encounter Care Teams Elevator Operator Service Relationship Specialty Start Date End Date Yumi Alarcon MD [address] [place] [address] PCP - General Family Medicine 08/09/20 Lucy GRAYSON 09/28/24 11/23/24 documented as of this encounter
--- OUTSIDE RECORDS SUMMARY | 2025-01-23 04:24 | XMS_ITS | Encounter Summary ---
Author Organization [employer] Address [address] 7[address] [place] [address] Care Team Providers Care Stripper And Printer Name Role Phone Yumi Alarcon MD Primary Care Provider [phone] Encounter Details Date Type Department Care Team (Late st Contact Info) Description 02/17/2023 Abstract [facility] MEDICINE [address] [place], [place] [phone] Yumi Alarcon MD [address] [place], [place] [phone] Social History Tobacco Use Types Packs/Day Years [...] 12:00 PM EST Office Visit [facility] [address] [place] [address] Trinh Mendez DO [address] [place] [address] documented as of this encounter Visit Diagnoses Not on filedocumented in this encounter Care Teams Stripper And Printer Relationship Specialty Start Date End Date Yumi Alarcon MD [address] [place] [address] PCP - General Family Medicine 08/09/20 Lucy ANDREWSA 09/28/24 11/23/24 documented as of this encounter
--- OUTSIDE RECORDS SUMMARY | 2025-01-23 04:25 | XMS_ITS | Encounter Summary ---
Author Organization [employer] Address [address] [place] [address] Care Team Providers Care Size Changer Name Role Phone Yumi Alarcon MD Primary Care Provider [phone] Encounter Details Date Type Department Care Team (Late st Contact Info) Description 08/01/2024 Orders Only [facility] MEDICINE [address] [place], [place] [phone] Yumi Alarcon MD [address] [place], [place] [phone] Social History Tobacco Use Types Packs/Day Years [...] Description 01/23/2025 12:00 PM EST Office Visit [facility] MED[facility]INE [address] [place] [address] Trinh Mendez DO [address] [place] [address] documented as of this encounter Visit Diagnoses Not on filedocumented in this encounter Additional Health Concerns Assessment Noted Time PHQ-9 Depression Total Score: 15 024 3:08 PM EST documented as of this encounter Care Teams Size Changer Relationship Specialty Start Date End Date Yumi Alarcon MD [address] [place] [address] PCP - General Family Medicine 08/09/20 Lucy GRAYSON 09/28/24 11/23/24 documented as of this encounter
--- OUTSIDE RECORDS SUMMARY | 2025-01-23 04:25 | XMS_ITS | Encounter Summary ---
Author Organization [employer] Address [address] [facility] 7t [place] [address] Care Team Providers Care Clinical Support Specialist Name Role Phone Yumi Alarcon MD Primary Care Provider [phone] Encounter Details Date Type Department Care Team (Late st Contact Info) Description 03/20/2022 Orders Only [facility] MED[facility]INE [address] [place] [address] Vanna Mtz LPN Social History Tobacco Use [...] Description 01/23/2025 12:00 PM EST Office Visit [facility] [address] [place] [address] Trinh Mendez DO [address] [place] [address] documented as of this encounter Visit Diagnoses Not on filedocumented in this encounter Care Teams Clinical Support Specialist Relationship Specialty Start Date End Date Yumi Alarcon MD [address] [place] [address] PCP - General Family Medicine 08/09/20 [facility] 09/28/24 11/23/24 documented as of this encounter
--- OUTSIDE RECORDS SUMMARY | 2025-01-23 04:25 | XMS_ITS | Patient Health Record ---
Author Organization [facility] Address [address] [place] [address] Care Team Providers Care Professor Of Literature Name Role Phone Po Gayatri LOCK Primary Care Provider Guy Montano [phone] Allergies Allergen (clinical drug ingredient) Drug/Non Drug [...] Status Risk Notes Problem Colon cancer screening (775827573) Colon cancer screening (V76.51) Active confirmed Problem Gastroesophageal reflux disease (133432097) GERD (gastroesopha geal reflux disease) (530.81) Active confirmed Plan Of Treatment Future Test Test Name Order Date UPPER GI ENDOSCOPY 06/13/2014 COLONOSCOPY 06/13/2014 Insurance Providers Payer Name Payer Address Payer Phone Subscriber Number Group Number Insured Name Patient Relationship to Insured Coverage Start Date Coverage End Date MEDICARE OF [place] [address] [place] [address] [id number] MYRON INDRA Self - patient is the insured MEDICAID OF [facility] [address] [place] [phone] [id number] MYRON, INDRA Self - patient is the insured Medical (General) History Medical History History ICD Code ? Asthma ME at age 41--age 49 had angioplasty and stent placement Pacemaker Hyperlipidemia GERD--UGI in 2006 with GERD-no hiatal he rnia Denies DM,CVA,renal disease Anxiety Surgical History Surgery Date(Month/Year) Pacemaker 2 Back surgeries
--- OUTSIDE RECORDS SUMMARY | 2025-01-23 04:25 | XMS_ITS | Encounter Summary ---
Author Organization [employer] Address [address] 7[address] [place] [address] Care Team Providers Care Automation Tender Name Role Phone Yumi Alarcon MD Primary Care Provider Encounter Details Date Type Department Care Team (Late st Contact Info) Description 08/23/2023 Telephone [facility] MEDICINE [address] [place], [place] [phone] Yumi Alarcon MD [address] [place], [place] [phone] Social History Tobacco Use Types Packs/Day Years [...] get into a home instead of a [facility] . Igot in contact with care management and was advised pt will be getting a call back . documented in this encounter Plan of Treatment Upcoming Encounters Date Type Department Care Team (Late st Contact Info) Description 01/23/2025 12:00 PM EST Office Visit [facility]INE [address] [place] [address] Trinh Mendez DO [address] [place] [address] documented as of this encounter Visit Diagnoses Not on filedocumented in this encounter Additional Health Concerns Assessment Noted Time PHQ-9 Depression Total Score: 10 024 2:46 PM EDT documented as of this encounter Care Teams Automation Tender Relationship Specialty Start Date End Date Yumi Alarcon MD [address] [place] [address] PCP - General Family Medicine 08/09/20 Lucy ANDREWSA 09/28/24 11/23/24 documented as of this encounter
--- OUTSIDE RECORDS SUMMARY | 2025-01-23 04:25 | XMS_ITS | Encounter Summary ---
Author Organization [employer] Address [address] [place] [address] Care Team Providers Care Cupola Charger Name Role Phone Yumi Alarcon MD Primary Care Provider [phone] Encounter Details Date Type Department Care Team (Late st Contact Info) Description 06/30/2023 Telephone [facility] MED[facility]INE [address] [place], [place] [phone] Yumi Alarcon MD [address] [place], [place] [phone] Social History Tobacco Use Types Packs/Day Years [...] Description 01/23/2025 12:00 PM EST Office Visit [facility] [address] [place] [address] Trinh Mendez DO [address] [place] [address] documented as of this encounter Visit Diagnoses Not on filedocumented in this encounter Additional Health Concerns Assessment Noted Time PHQ-9 Depression Total Score: 10 024 2:46 PM EDT documented as of this encounter Care Teams Cupola Charger Relationship Specialty Start Date End Date Yumi Alarcon MD [address] [place] [address] PCP - General Family Medicine 08/09/20 Lucy GRAYSON 09/28/24 11/23/24 documented as of this encounter
--- OUTSIDE RECORDS SUMMARY | 2025-01-23 04:25 | XMS_ITS | Encounter Summary ---
Author Organization [employer] Address [address] [place] [address] Care Team Providers Care Embedded Systems Designer Name Role Phone Yumi Alarcon MD Primary Care Provider [phone] Reason for Visit * Reason Comments Med Change Request Encounter Details Date Type Department Care Team (Late st Contact Info) Description 12/20/2023 Refill [facility] MEDICINE [address] [place], [place] [phone] Yumi Alarcon MD [address] [place], [place] [phone] Cellulitis of multiple sites of hand and [...] 01/23/2025 12:00 PM EST Office Visit [facility] MEDICINE [address] [place] [address] Trinh Mendez DO [address] [place] [address] documented as of this encounter Visit Diagnoses Diagnosis Cellulitis of multiple sites of hand and fingers Intrinsic eczema documented in this encounter Additional Health Concerns Assessment Noted Time PHQ-9 Depression Total Score: 11 024 3:58 PM EDT documented as of this encounter Care Teams Embedded Systems Designer Relationship Specialty Start Date End Date Yumi Alarcon MD [address] [place] [address] PCP - General Family Medicine 08/09/20 Lucy ANDREWSA 09/28/24 11/23/24 documented as of this encounter
[2025-01-23 05:21] VITALS: BP 128/88; PULSE 75; RESP 20; TEMP 36.3; O2SAT 100
[2025-01-23 05:33] VITALS: BP 109/85; PULSE 86; RESP 18; O2SAT 93
== END 2025-01-23 05:42 | disposition home or self-care (01) ==
PROVIDERS: Emergency Provider Emergency Medicine; PCP General Practice
DX: R42 Dizziness and giddiness (principal); I10 Essential (primary) hypertension; E78.00 Pure hypercholesterolemia, unspecified; J44.9 Chronic obstructive pulmonary disease, unspecified; Z87.891 Personal history of nicotine dependence; Z79.899 Other long term (current) drug therapy; Z59.00 Homelessness unspecified
CPT/HCPCS: 99283; 99284